=== PATIENT | female | born 1955 | race Caucasian/White ===

== ENCOUNTER 2019-02-15 11:41 | Inpatient (IN) | payer OTHER, SELFPAY ==
[2019-02-15] VITALS (23 sets, daily range): BP systolic 85–129; BP diastolic 37–69; PULSE 94–125; RESP 16–27; TEMP 36.8–39.4; O2SAT 91–99; BMI 24.1
--- NOTE | 2019-02-15 11:51 | DI.RAD.S_ITS ---
PROCEDURE: XR CHEST 1V INDICATIONS: pneumonia TECHNIQUE: One view of the chest was acquired. COMPARISON: [facility], , CHEST 1 VIEW, 05/19/2015, 15:13. [facility], CR, CHEST 1 VIEW, 05/20/2015, 6:05. [facility], CR, CHEST 1 VIEW, 05/20/2015, 8:57. FINDINGS: Surgical changes and devices: There are postsurgical changes from prior anterior cervical fusion and posterior lumbar fusion. Dense material within the lower thoracic spine compatible with prior vertebroplasty. Lungs and pleura: There is increased diffuse interstitial prominence superimposed on chronic interstitial changes with persistent blunting of the bilateral costophrenic angles. Stable appearance of medial streaky bibasilar opacities, greater on the left. A small focal opacity is noted in the right midlung zone. No substantial pleural effusions. No pneumothorax. Mediastinum: Mediastinal contours appear normal. Heart size is normal. Bones and chest wall: No suspicious bony lesions. Overlying soft tissues appear unremarkable. IMPRESSION: There is increased diffuse interstitial prominence superimposed on chronic interstitial changes with focal opacity in the right mid lung zone. This may represent an infectious/inflammatory process. Early pulmonary edema may have a similar appearance if clinically appropriate. Dictated by: Chauncey Johansen M.D. on 02/15/2019 at 12:35 Approved by: Chauncey Johansen M.D. on 02/15/2019 at 12:42
--- NOTE | 2019-02-15 12:12 | ED.URI ---
HPI - URI/Sore Throat General Chief Complaint: Upper Respiratory Symptoms Stated Complaint: really doesnt feel well, cough Time Seen by Provider: 02/15/19 11:53 Source: patient Mode of arrival: ambulatory Limitations: no limitations History of Present Illness HPI Narrative: Patient is a 63-year-old female presenting with increased confusion and shortness of breath. She is chronically on O2 after bilateral empyema and pneumothorax 5 years ago. She was recently admitted and discharged from [facility] with septic shock and small-bowel obstruction. She actually had follow up with her surgeon today who removed her anna and brought her here for further evaluation. states that she is significantly more confused starting last night. She is currently febrile fever of 102 in the ED. MD Complaint: fever and cough Onset (ago): minute(s) Duration: constant Related Data Home Medications Medication Instructions Recorded Confirmed alendronate [Fosamax] 70 mg PO QWEEKMO #0 01/10/18 02/15/19 duloxetine [Cymbalta] 60 mg PO BEDTIME #0 01/10/18 02/15/19 fluticasone propion-salmeterol 1 puff INH BID #0 01/10/18 02/15/19 [Advair Diskus] ipratropium-albuterol 1 amp NEB QIDP PRN #0 01/10/18 02/15/19 meloxicam 15 mg PO QPM #0 01/10/18 02/15/19 morphine [MS Contin] 15 mg PO BID #0 01/10/18 02/15/19 sennosides [senna] 8.6 tab PO QAM #0 01/10/18 02/15/19 albuterol sulfate [Ventolin HFA] 1 - 2 puff INHALATION PRN PRN 02/15/19 02/15/19 buprenorphine-naloxone 1 film SUBLINGUAL DAILY 02/15/19 cholecalciferol (vitamin D3) 2,000 unit PO DAILY 02/15/19 02/15/19 [Vitamin D3] cromolyn 1 drp EYE-BOTH PRN 02/15/19 02/15/19 cyclobenzaprine 10 mg PO TID PRN 02/15/19 02/15/19 famotidine 40 mg PO BEDTIME PRN 02/15/19 02/15/19 levothyroxine 50 mcg PO DAILY 02/15/19 02/15/19 lidocaine HCl [Lidocaine Viscous] 5 ml PO Q4H PRN 02/15/19 02/15/19 metoprolol tartrate 12.5 mg PO BID 02/15/19 02/15/19 montelukast 10 mg PO QPM 02/15/19 02/15/19 ondansetron 4 mg TRANSLINGUAL PRN PRN 02/15/19 02/15/19 oxycodone 10 mg PO PRN PRN 02/15/19 02/15/19 Allergies Allergy/AdvReac Type Severity Reaction Status Date / Time Haemophilus B polysaccharide Allergy Severe ANAPHYLAXIS Verified 02/15/19 12:45 conj w [From PENTACEL ACTHIB COMPONENT (PF)] peanut [PEANUT] Allergy Severe ANAPHYLAXIS Verified 02/15/19 12:45 Tetanus Vaccines and Toxoid Allergy Severe ANAPHYLAXIS Verified 02/15/19 12:45 [TETANUS VACCINES & TOXOID] penicillin G [PENICILLIN G] Allergy Intermediate RASH Verified 02/15/19 12:45 hydroxyzine [HYDROXYZINE] AdvReac Severe HALLUCINATI Verified 02/15/19 12:45 ONS/PARANOI D ibuprofen [IBUPROFEN] AdvReac Intermediate DYSLEXIA Verified 02/15/19 12:45 PEAS Allergy Severe RASH, LIP Uncoded 02/15/19 12:45 SWELLING Review of Systems Review of Systems ROS Unobtainable: All systems reviewed & are unremarkable except as noted in HPI and below Constitutional Denies chills, Denies fever(s), Denies lethargy and Denies weakness Respiratory Reports as per HPI Gastrointestinal Gastrointestinal: Reports as per HPI Genitourinary Denies hematuria, Denies flank pain, Denies urinary incontinence and Denies urinary urgency Musculoskeletal Denies back pain, Denies muscle weakness, Denies numbness and Denies tingling Integumentary/Breasts Denies pruritus, Denies erythema, Denies rash and Denies wounds Neurologic Denies confusion, Denies numbness, Denies tingling and Denies weakness Psychiatric Denies anxiety, Denies confusion, Denies depression, Denies homicidal ideation and Denies suicidal ideation PFSH Medical History Aspiration pneumonia due to food (regurgitated) (Acute) Chronic respiratory failure with hypoxia (Acute) Hyponatremia (Acute) Hypothyroidism (Acute) Hypovolemic shock (Acute) Major depressive disorder (Acute) Opioid dependence (Acute) Osteoporosis (Acute) Supraventricular tachycardia (Acute) Surgical History H/O exploratory laparotomy (Acute) Social History household members: spouse Smoking Status: Never smoker Social History household members: spouse Smoking Status: Never smoker Exam Initial Vital Signs Initial Vital Signs: Vital Signs Temperature 102.0 F H 02/15/19 11:52 Pulse Rate 112 H 02/15/19 11:52 Respiratory Rate 22 02/15/19 11:52 Blood Pressure 112/62 02/15/19 11:52 Pulse Oximetry 91 02/15/19 11:52 Gen.: Weak elderly female appears in mild distress HEENT: Head is atraumatic, EOMI, left nare has dried blood no active bleeding Neck: No JVD Lungs: Coarse bilaterally Cardiac: Tachycardic regular Abdomen: Surgical scar noted incision site clean and dry is soft nontender no guarding or rebound Extremities: Moving all extremities no gross bony deformity peripheral pulses intact Neurologic: Alert Course Orders Ordered: ED Orders 02/15/19 11:51 XR chest 1V Stat 02/15/19 11:57 EKG-12 Lead Routine 02/15/19 12:10 Consult to Respiratory Therapy Evaluate & Treat 02/15/19 12:18 B Type Natriuretic Peptide Stat Complete Blood Count AUTO DIFF Stat Comprehensive Metabolic Panel Stat Lactate (Lactic Acid) Stat Magnesium Stat Partial Thromboplastin Time Stat Procalcitonin Stat Prothrombin Time INR Stat Troponin & CK Cardiac Panel Stat 02/15/19 12:20 Influenza A and B by PCR Rapid Stat 02/15/19 12:23 CT angio chest PE protocol Stat 02/15/19 12:55 Blood Culture Stat 02/15/19 13:07 CT head/brain wo con Stat 02/15/19 14:00 Urinalysis and Microscopic Stat 02/15/19 15:23 MRSA PCR Stat 02/15/19 17:32 Iron Profile (w/ % Saturation) Routine Lactate (Lactic Acid) Stat 02/15/19 17:50 Respiratory Panel (Film Array) Routine 02/15/19 18:30 UA Complete [Urinalysis and Microscopic] Urgent Urine Culture Urgent 02/15/19 18:56 Consult to Dietitian, Adult Routine 02/16/19 05:00 B Type Natriuretic Peptide Routine Complete Blood Count AUTO DIFF Routine Comprehensive Metabolic Panel Routine Acetaminophen (Tylenol) 650 mg PO Q6HR PRN PRN Reason: As Needed for Fever/Mild Pain Albuterol (Ventolin) 2.5 mg INH [id number] [facility] Bisacodyl (Dulcolax) 10 mg PO DAILY PRN PRN Reason: Constipation Cyclobenzaprine HCl (Flexeril) 10 mg PO Q8HR PRN PRN Reason: Spasms Duloxetine HCl (Cymbalta) 60 mg PO DAILY [facility] Enoxaparin Sodium (Lovenox) 40 mg SUBCUT DAILY [facility] Last Admin: 02/15/19 17:14 Dose: 40 mg Sodium Chloride (Normal Saline 0.9%) 1,000 mls @ 150 mls/hr IV CONT [facility] Last Infusion: 02/15/19 15:56 Dose: 150 mls/hr Infusion: 02/15/19 13:09 Dose: 100 mls/hr Admin: 02/15/19 12:46 Dose: 150 mls/hr Famotidine (Pepcid) 20 mg in 50 mls @ 200 mls/hr IV Q24H [facility] Levofloxacin (Levaquin) 750 mg in 150 mls @ 100 mls/hr IV 1400 [facility] Cefepime HCl 2 gm/ Sodium (Chloride) 100 mls @ 200 mls/hr IV Q12H [facility] Last Admin: 02/15/19 17:13 Dose: 200 mls/hr Levothyroxine Sodium (Synthroid) 50 mcg PO 0600 [facility] Methylprednisolone (Solu-Medrol) 40 mg IV Q8HR [facility] Last Admin: 02/15/19 17:14 Dose: 40 mg Morphine Sulfate (Morphine) 4 mg IV Q4HR PRN PRN Reason: Pain, Severe (7-10) Ondansetron HCl (Zofran) 4 mg IV Q6HR PRN PRN Reason: Nausea And Vomiting Oxycodone HCl (Percolone) 5 mg PO Q4HR PRN PRN Reason: Pain, Moderate (4-6) Fluticasone/Salmeterol (Advair 500/50 Diskus) 1 puff INH RTBID [facility] Sennosides (Senna) 17.2 mg PO BEDTIME [facility] Discontinued Medications Acetaminophen (Tylenol) 650 mg PO NOW ONE Stop: 02/15/19 14:03 Last Admin: 02/15/19 14:34 Dose: 650 mg Albuterol/Ipratropium (Duoneb) 3 ml INH NOW ONE Stop: 02/15/19 12:11 Last Admin: 02/15/19 12:35 Dose: 3 ml Levofloxacin (Levaquin) 750 mg in 150 mls @ 100 mls/hr IV NOW ONE Stop: 02/15/19 15:53 Last Infusion: 02/15/19 15:00 Dose: 0 mls/hr Admin: 02/15/19 14:36 Dose: 100 mls/hr Magnesium Sulfate (Magnesium Sulfate) 4 gm in 100 mls @ 50 mls/hr IV NOW ONE Stop: 02/15/19 18:40 Sodium Chloride (Normal Saline 0.9%) 1,000 mls @ 1,000 mls/hr IV BOLUS ONE Stop: 02/15/19 19:11 Last Admin: 02/15/19 19:13 Dose: 500 mls/hr Metoprolol Succinate (Toprol Xl) 12.5 mg PO BID FAISAL Vital Signs - 8 hr 02/15/19 11:52 02/15/19 12:41 02/15/19 12:42 Temperature 102.0 F H Pulse Rate 112 H 110 H 100 H Respiratory Rate 22 21 16 Blood Pressure 112/62 Blood Pressure [Right Arm] 126/69 Pulse Oximetry 91 96 99 02/15/19 13:53 02/15/19 13:59 02/15/19 14:28 Temperature 100.8 F H 102.8 F H Pulse Rate Respiratory Rate 27 H Blood Pressure Blood Pressure [Right Arm] 123/66 Pulse Oximetry 93 02/15/19 14:34 02/15/19 14:42 02/15/19 15:05 Temperature 102.9 F H 102.5 F H Pulse Rate 117 H 125 H Respiratory Rate 21 26 H Blood Pressure 129/69 Blood Pressure [Right Arm] 124/68 Pulse Oximetry 93 95 02/15/19 15:55 02/15/19 16:00 02/15/19 16:30 Temperature 100.5 F H 100.5 F H 100.6 F H Pulse Rate 117 H 115 H Respiratory Rate 22 26 H Blood Pressure 116/42 L 94/42 L Blood Pressure [Right Arm] Pulse Oximetry 93 96 MDM - URI/Sore Throat Lab Data Result diagrams: 02/15/19 12:18 02/15/19 12:18 Lab Results 02/15/19 02/15/19 02/15/19 Range/Units 12:18 12:18 12:18 WBC 7.3 (4.5-11.0) X10^3/uL RBC 3.63 L (4.0-5.2) X10^6/uL Hgb 9.5 L (12.0-16.0) g/dL Hct 28.3 L (36-46) % MCV 77.9 L (80-100) fL MCH 26.2 (26-34) PG MCHC 33.6 (30-36) % RDW 18.5 H (11.6-14.8) % Plt Count 112 L (150-400) X10^3/uL Neut % (Auto) 84.7 H (50-75) % Lymph % (Auto) 8.6 L (25-40) % [place] % (Auto) 5.9 (3-14) % Eos % (Auto) 0.1 L (2-4) % Baso % (Auto) 0.7 (0-2) % Neut # (Auto) 6200 (1381-1896) /uL Lymph # (Auto) 600 L (1899-1819) /uL [place] # (Auto) 400 (0-900) /uL Eos # (Auto) 0 (0-450) /uL Baso # (Auto) 100 (0-100) /uL PT 15.7 H (10.1-12.7) SECONDS INR 1.4 H (0.9-1.3) APTT 32 (26.4-36.2) SECONDS Sodium 116 L* (137-145) mmol/L Potassium 4.3 (3.4-5.1) mmol/L Chloride 83 L (98-107) mmol/L Carbon Dioxide 23 (22-32) mmol/L BUN 12 (7-17) mg/dL Creatinine 0.60 (0.52-1.04) mg/dL Estimated GFR > 60.0 (>60) mL/min BUN/Creatinine Ratio 20.0 (6-22) Glucose 102 (80-110) mg/dL Lactate (0.7-2.1) mmol/L Calcium 7.9 L (8.4-10.2) mg/dL Magnesium 1.3 L (1.6-2.3) mg/dL Iron (37-170) ug/dL TIBC (265-497) ug/dL % Saturation (15-50) % Transferrin (206-381) mg/dL Total Bilirubin 1.9 H (0.2-1.3) mg/dL AST 59 H (14-36) IU/L ALT 29 (9-52) IU/L Alkaline Phosphatase 124 (38-126) U/L Total Creatine Kinase 91 (30-135) U/L CK-MB (CK-2) TNP CK-MB (CK-2) Rel Index TNP Troponin I < 0.012 (0.01-0.034) ng/mL B-Natriuretic Peptide < 100 (<100) Total Protein 6.9 (6.3-8.2) g/dL Albumin 3.1 L (3.5-5.0) g/dL Globulin 3.8 (1.7-4.1) g/dL Albumin/Globulin Ratio 0.8 L (1.0-2.8) Procalcitonin (<0.5) ng/mL Urine Color Urine Appearance Urine pH (4.5-8.0) Ur Specific [place] (1.000-1.035) Urine Protein (Negative) Urine Glucose (UA) (Negative) g/dL Urine Ketones (NEGATIVE) Urine Occult Blood (Negative) Urine Nitrate (Negative) Urine Bilirubin (NEGATIVE) Urine Urobilinogen (0.2) E.U./dL Ur Leukocyte Esterase (NEGATIVE) Urine RBC (0-5/HPF) Urine WBC (0-5/HPF) Amorphous Sediment Urine Bacteria (None) Ur Culture Indicated? Nasal Screen MRSA (PCR) (Negative) Influenza A & B (PCR) (Negative) 02/15/19 02/15/19 02/15/19 Range/Units 12:18 12:18 12:20 WBC (4.5-11.0) X10^3/uL RBC (4.0-5.2) X10^6/uL Hgb (12.0-16.0) g/dL Hct (36-46) % MCV (80-100) fL MCH (26-34) PG MCHC (30-36) % RDW (11.6-14.8) % Plt Count (150-400) X10^3/uL Neut % (Auto) (50-75) % Lymph % (Auto) (25-40) % [place] % (Auto) (3-14) % Eos % (Auto) (2-4) % Baso % (Auto) (0-2) % Neut # (Auto) (4964-9361) /uL Lymph # (Auto) (2522-3414) /uL [place] # (Auto) (0-900) /uL Eos # (Auto) (0-450) /uL Baso # (Auto) (0-100) /uL PT (10.1-12.7) SECONDS INR (0.9-1.3) APTT (26.4-36.2) SECONDS Sodium (137-145) mmol/L Potassium (3.4-5.1) mmol/L Chloride (98-107) mmol/L Carbon Dioxide (22-32) mmol/L BUN (7-17) mg/dL Creatinine (0.52-1.04) mg/dL Estimated GFR (>60) mL/min BUN/Creatinine Ratio (6-22) Glucose (80-110) mg/dL Lactate 1.1 (0.7-2.1) mmol/L Calcium (8.4-10.2) mg/dL Magnesium (1.6-2.3) mg/dL Iron (37-170) ug/dL TIBC (265-497) ug/dL % Saturation (15-50) % Transferrin (206-381) mg/dL Total Bilirubin (0.2-1.3) mg/dL AST (14-36) IU/L ALT (9-52) IU/L Alkaline Phosphatase (38-126) U/L Total Creatine Kinase (30-135) U/L CK-MB (CK-2) CK-MB (CK-2) Rel Index Troponin I (0.01-0.034) ng/mL B-Natriuretic Peptide (<100) Total Protein (6.3-8.2) g/dL Albumin (3.5-5.0) g/dL Globulin (1.7-4.1) g/dL Albumin/Globulin Ratio (1.0-2.8) Procalcitonin 1.60 H (<0.5) ng/mL Urine Color Urine Appearance Urine pH (4.5-8.0) Ur Specific [place] (1.000-1.035) Urine Protein (Negative) Urine Glucose (UA) (Negative) g/dL Urine Ketones (NEGATIVE) Urine Occult Blood (Negative) Urine Nitrate (Negative) Urine Bilirubin (NEGATIVE) Urine Urobilinogen (0.2) E.U./dL Ur Leukocyte Esterase (NEGATIVE) Urine RBC (0-5/HPF) Urine WBC (0-5/HPF) Amorphous Sediment Urine Bacteria (None) Ur Culture Indicated? Nasal Screen MRSA (PCR) (Negative) Influenza A & B (PCR) Negative (Negative) 02/15/19 02/15/19 02/15/19 Range/Units 14:00 15:23 17:32 WBC (4.5-11.0) X10^3/uL RBC (4.0-5.2) X10^6/uL Hgb (12.0-16.0) g/dL Hct (36-46) % MCV (80-100) fL MCH (26-34) PG MCHC (30-36) % RDW (11.6-14.8) % Plt Count (150-400) X10^3/uL Neut % (Auto) (50-75) % Lymph % (Auto) (25-40) % [place] % (Auto) (3-14) % Eos % (Auto) (2-4) % Baso % (Auto) (0-2) % Neut # (Auto) (9505-4973) /uL Lymph # (Auto) (1957-9168) /uL [place] # (Auto) (0-900) /uL Eos # (Auto) (0-450) /uL Baso # (Auto) (0-100) /uL PT (10.1-12.7) SECONDS INR (0.9-1.3) APTT (26.4-36.2) SECONDS Sodium (137-145) mmol/L Potassium (3.4-5.1) mmol/L Chloride (98-107) mmol/L Carbon Dioxide (22-32) mmol/L BUN (7-17) mg/dL Creatinine (0.52-1.04) mg/dL Estimated GFR (>60) mL/min BUN/Creatinine Ratio (6-22) Glucose (80-110) mg/dL Lactate (0.7-2.1) mmol/L Calcium (8.4-10.2) mg/dL Magnesium (1.6-2.3) mg/dL Iron 21 L (37-170) ug/dL TIBC 223 L (265-497) ug/dL % Saturation 9 L (15-50) % Transferrin 140 L (206-381) mg/dL Total Bilirubin (0.2-1.3) mg/dL AST (14-36) IU/L ALT (9-52) IU/L Alkaline Phosphatase (38-126) U/L Total Creatine Kinase (30-135) U/L CK-MB (CK-2) CK-MB (CK-2) Rel Index Troponin I (0.01-0.034) ng/mL B-Natriuretic Peptide (<100) Total Protein (6.3-8.2) g/dL Albumin (3.5-5.0) g/dL Globulin (1.7-4.1) g/dL Albumin/Globulin Ratio (1.0-2.8) Procalcitonin (<0.5) ng/mL Urine Color Yellow Urine Appearance Clear Urine pH 7.0 (4.5-8.0) Ur Specific [place] 1.010 (1.000-1.035) Urine Protein Trace H (Negative) Urine Glucose (UA) Negative (Negative) g/dL Urine Ketones Negative (NEGATIVE) Urine Occult Blood Negative (Negative) Urine Nitrate Negative (Negative) Urine Bilirubin Negative (NEGATIVE) Urine Urobilinogen 0.2 (0.2) E.U./dL Ur Leukocyte Esterase Negative (NEGATIVE) Urine RBC None seen (0-5/HPF) Urine WBC None seen (0-5/HPF) Amorphous Sediment Urine Bacteria None seen (None) Ur Culture Indicated? Nasal Screen MRSA (PCR) Negative for mrsa (Negative) Influenza A & B (PCR) (Negative) 02/15/19 02/15/19 Range/Units 17:32 18:30 WBC (4.5-11.0) X10^3/uL RBC (4.0-5.2) X10^6/uL Hgb (12.0-16.0) g/dL Hct (36-46) % MCV (80-100) fL MCH (26-34) PG MCHC (30-36) % RDW (11.6-14.8) % Plt Count (150-400) X10^3/uL Neut % (Auto) (50-75) % Lymph % (Auto) (25-40) % [place] % (Auto) (3-14) % Eos % (Auto) (2-4) % Baso % (Auto) (0-2) % Neut # (Auto) (2123-6694) /uL Lymph # (Auto) (5976-4000) /uL [place] # (Auto) (0-900) /uL Eos # (Auto) (0-450) /uL Baso # (Auto) (0-100) /uL PT (10.1-12.7) SECONDS INR (0.9-1.3) APTT (26.4-36.2) SECONDS Sodium (137-145) mmol/L Potassium (3.4-5.1) mmol/L Chloride (98-107) mmol/L Carbon Dioxide (22-32) mmol/L BUN (7-17) mg/dL Creatinine (0.52-1.04) mg/dL Estimated GFR (>60) mL/min BUN/Creatinine Ratio (6-22) Glucose (80-110) mg/dL Lactate 0.9 (0.7-2.1) mmol/L Calcium (8.4-10.2) mg/dL Magnesium (1.6-2.3) mg/dL Iron (37-170) ug/dL TIBC (265-497) ug/dL % Saturation (15-50) % Transferrin (206-381) mg/dL Total Bilirubin (0.2-1.3) mg/dL AST (14-36) IU/L ALT (9-52) IU/L Alkaline Phosphatase (38-126) U/L Total Creatine Kinase (30-135) U/L CK-MB (CK-2) CK-MB (CK-2) Rel Index Troponin I (0.01-0.034) ng/mL B-Natriuretic Peptide (<100) Total Protein (6.3-8.2) g/dL Albumin (3.5-5.0) g/dL Globulin (1.7-4.1) g/dL Albumin/Globulin Ratio (1.0-2.8) Procalcitonin (<0.5) ng/mL Urine Color Yellow Urine Appearance Clear Urine pH 6.5 (4.5-8.0) Ur Specific [place] <=1.005 (1.000-1.035) Urine Protein Trace H (Negative) Urine Glucose (UA) Negative (Negative) g/dL Urine Ketones Trace H (NEGATIVE) Urine Occult Blood Trace-lysed (Negative) Urine Nitrate Negative (Negative) Urine Bilirubin Negative (NEGATIVE) Urine Urobilinogen 0.2 (0.2) E.U./dL Ur Leukocyte Esterase Negative (NEGATIVE) Urine RBC 1-5/hpf (0-5/HPF) Urine WBC 5-10/hpf H (0-5/HPF) Amorphous Sediment 2+ Urine Bacteria None seen (None) Ur Culture Indicated? Specimen cultured Nasal Screen MRSA (PCR) (Negative) Influenza A & B (PCR) (Negative) Imaging Data CT scan - chest: Radiologist's impression: PROCEDURE: CT ANGIO CHEST PE PROTOCOL INDICATIONS: hypoxia recent hospitalization TECHNIQUE: After the administration of intravenous contrast, 2 mm thick sections acquired from the pulmonary apices to the posterior costophrenic angles. 3-dimensional maximum intensity projection (MIP) coronal and sagittal reformats were then acquired through the thorax. For radiation dose reduction, the following was used: automated exposure control, adjustment of mA and/or kV according to patient size. COMPARISON: [facility], CR, XR CHEST 1V, 02/15/2019, 11:59. FINDINGS: Image quality: Excellent. Pulmonary arteries: Pulmonary arteries are normal in size, and demonstrate no intraluminal filling defects to suggest central pulmonary embolism. Lungs and pleura: Moderate basilar predominant reticulonodular and air space opacity. No pleural effusions or pneumothorax. Central and peripheral airways are patent. Mediastinum: Heart size is normal, without pericardial effusion. 22 mm short axis AP window adenopathy. 11 mm short axis left superior mediastinal adenopathy medial to the left subclavian artery. 15 mm short axis subcarinal adenopathy. 11 mm short axis right hilar adenopathy. 9 mm short axis left hilar adenopathy. Thoracic aorta is normal in caliber and enhancement. Esophagus is normal in caliber. Moderate hiatal hernia. Bones and chest wall: No suspicious bony lesions. Healing fractures of the left lateral 3rd, 4th, 5th, 6th, 7th, 8th, and 9th ribs. Thyroid gland is within normal limits. No axillary or supraclavicular adenopathy. Thoracolumbar fusion hardware. Bony cement injection within the lower thoracic spine. Abdomen: Visualized upper abdominal solid organs appear normal in the early arterial phase of enhancement. IMPRESSION: 1. Bilateral pneumonia, as seen by plain film examination. 2. No evidence of coexisting pulmonary embolus. 3. Presumably reactive mediastinal and hilar adenopathy. Followup chest CT with contrast is recommended to ensure resolution, and to exclude underlying malignancy. 4. Moderate hiatal hernia. 5. Healing left rib fractures. Dictated by: Wagner Cardenas M.D. on 02/15/2019 at 13:25 Chest x-ray: Radiologist's impression: PROCEDURE: XR CHEST 1V INDICATIONS: pneumonia TECHNIQUE: One view of the chest was acquired. COMPARISON: [facility], , CHEST 1 VIEW, 05/19/2015, 15:13. [facility], CHEST 1 VIEW, 05/20/2015, 6:05. [facility], CHEST 1 VIEW, 05/20/2015, 8:57. FINDINGS: Surgical changes and devices: There are postsurgical changes from prior anterior cervical fusion and posterior lumbar fusion. Dense material within the lower thoracic spine compatible with prior vertebroplasty. Lungs and pleura: There is increased diffuse interstitial prominence superimposed on chronic interstitial changes with persistent blunting of the bilateral costophrenic angles. Stable appearance of medial streaky bibasilar opacities, greater on the left. A small focal opacity is noted in the right midlung zone. No substantial pleural effusions. No pneumothorax. Mediastinum: Mediastinal contours appear normal. Heart size is normal. Bones and chest wall: No suspicious bony lesions. Overlying soft tissues appear unremarkable. IMPRESSION: There is increased diffuse interstitial prominence superimposed on chronic interstitial changes with focal opacity in the right mid lung zone. This may represent an infectious/inflammatory process. Early pulmonary edema may have a similar appearance if clinically appropriate. Dictated by: Chauncey Johansen M.D. on 02/15/2019 at 12:35 Approved by: Chauncey Johansen M.D. on 02/15/2019 at 12:4 CT scan - head: Radiologist's impression: PROCEDURE: CT HEAD/BRAIN WO CON INDICATIONS: confusion TECHNIQUE: Noncontrast 4.5 mm thick angled axial sections acquired from the foramen magnum to the vertex, with coronal and sagittal reformats. For radiation dose reduction, the following was used: automated exposure control, adjustment of mA and/or kV according to patient size. COMPARISON: None. FINDINGS: Image quality: Excellent. CSF spaces: Basal cisterns are patent. No extra-axial fluid collections. The ventricles are symmetric in size and shape. Brain: No intracranial bleeds or masses. There is cerebral volume loss for age, with resultant ventricular and sulcal prominence. There are periventricular and deep white matter chronic small vessel ischemic changes. There is intracranial internal carotid artery atherosclerosis. Skull and face: Calvarium and visualized facial bones appear intact, without suspicious lesions. Sinuses: Small amount of bilateral maxillary sinus fluid. Visualized sinuses and mastoids are otherwise clear. IMPRESSION: No acute intracranial abnormality. No explanation for confusion. ECG Data Attestation: I personally reviewed and interpreted this ECG as follows: Prior ECG tracings: available for review Interpretation: In sinus rhythm low voltage rate [address] changes RI interval 121 MDM Narrative Medical decision making narrative: states that she eats only a small amount of cottage cheese and does drink quite a bit of water. Previous records have been reviewed she had a normal sodium at [facility] of 139. Confusion is likely multifactorial of hyponatremia and infection. CT and x-rays show pneumonia. Dr. Spicer has been updated patient's symptoms test results accepts patient for inpatient. Critical Care Time Critical Care Time: Yes Total Critical Care Time: 30 Attestation: The high probability of a clinically significant, sudden or life threatening deterioration of the [cardiovascular] system(s) required my full and direct attention, intervention and personal management. The aggregate critical care time was [45] minutes. This time is in addition to time spent performing reported procedures but includes the following: [x] Data Review and interpretation [x] Patient assessment and monitoring of vital signs [x] Documentation [x] Medication orders and management Discharge Plan Departure Patient Disposition: Admitted As Inpatient Clinical Impression: Acute hyponatremia Fever Qualifiers: Fever type: due to other condition Qualified Code(s): R50.81 - Fever presenting with conditions classified elsewhere Discharge Date/Time: 02/15/19 14:47 Interventions: ED Discharge Assessment Last Done: 02/15/19 14:45 Admit Date/Time: 02/15/19 14:29 Admit Provider: Michelle Spicer
--- NOTE | 2019-02-15 12:18 | ED_ITS ---
HPI - URI/Sore Throat General Chief Complaint: Upper Respiratory Symptoms Stated Complaint: really doesnt feel well, cough Time Seen by Provider: 02/15/19 11:53 Source: patient Mode of arrival: ambulatory Limitations: no limitations History of Present Illness HPI Narrative: Patient is a 63-year-old female presenting with increased confusion and shortness of breath. She is chronically on O2 after bilateral empyema and pneumothorax 5 years ago. She was recently admitted and discharged from [facility] with septic shock and small-bowel obstruction. She actually had follow up with her surgeon today who removed her anna and brought her here for further evaluation. states that she is significantly more confused starting last night. She is currently febrile fever of 102 in the ED. MD Complaint: fever and cough Onset (ago): minute(s) Duration: constant Related Data Home Medications Medication Instructions Recorded Confirmed alendronate [Fosamax] 70 mg PO QWEEKMO #0 01/10/18 02/15/19 duloxetine [Cymbalta] 60 mg PO BEDTIME #0 01/10/18 02/15/19 fluticasone propion-salmeterol 1 puff INH BID #0 01/10/18 02/15/19 [Advair Diskus] ipratropium-albuterol 1 amp NEB QIDP PRN #0 01/10/18 02/15/19 meloxicam 15 mg PO QPM #0 01/10/18 02/15/19 morphine [MS Contin] 15 mg PO BID #0 01/10/18 02/15/19 sennosides [senna] 8.6 tab PO QAM #0 01/10/18 02/15/19 albuterol sulfate [Ventolin HFA] 1 - 2 puff INHALATION PRN PRN 02/15/19 02/15/19 buprenorphine-naloxone 1 film SUBLINGUAL DAILY 02/15/19 cholecalciferol (vitamin D3) 2,000 unit PO DAILY 02/15/19 02/15/19 [Vitamin D3] cromolyn 1 drp EYE-BOTH PRN 02/15/19 02/15/19 cyclobenzaprine 10 mg PO TID PRN 02/15/19 02/15/19 famotidine 40 mg PO BEDTIME PRN 02/15/19 02/15/19 levothyroxine 50 mcg PO DAILY 02/15/19 02/15/19 lidocaine HCl [Lidocaine Viscous] 5 ml PO Q4H PRN 02/15/19 02/15/19 metoprolol tartrate 12.5 mg PO BID 02/15/19 02/15/19 montelukast 10 mg PO QPM 02/15/19 02/15/19 ondansetron 4 mg TRANSLINGUAL PRN PRN 02/15/19 02/15/19 oxycodone 10 mg PO PRN PRN 02/15/19 02/15/19 Allergies Allergy/AdvReac Type Severity Reaction Status Date / Time Haemophilus B polysaccharide Allergy Severe ANAPHYLAXIS Verified 02/15/19 12:45 conj w [From PENTACEL ACTHIB COMPONENT (PF)] peanut [PEANUT] Allergy Severe ANAPHYLAXIS Verified 02/15/19 12:45 Tetanus Vaccines and Toxoid Allergy Severe ANAPHYLAXIS Verified 02/15/19 12:45 [TETANUS VACCINES & TOXOID] penicillin G [PENICILLIN G] Allergy Intermediate RASH Verified 02/15/19 12:45 hydroxyzine [HYDROXYZINE] AdvReac Severe HALLUCINATI Verified 02/15/19 12:45 ONS/PARANOI D ibuprofen [IBUPROFEN] AdvReac Intermediate DYSLEXIA Verified 02/15/19 12:45 PEAS Allergy Severe RASH, LIP Uncoded 02/15/19 12:45 SWELLING Review of Systems Review of Systems ROS Unobtainable: All systems reviewed & are unremarkable except as noted in HPI and below Constitutional Denies chills, Denies fever(s), Denies lethargy and Denies weakness Respiratory Reports as per HPI Gastrointestinal Gastrointestinal: Reports as per HPI Genitourinary Denies hematuria, Denies flank pain, Denies urinary incontinence and Denies urinary urgency Musculoskeletal Denies back pain, Denies muscle weakness, Denies numbness and Denies tingling Integumentary/Breasts Denies pruritus, Denies erythema, Denies rash and Denies wounds Neurologic Denies confusion, Denies numbness, Denies tingling and Denies weakness Psychiatric Denies anxiety, Denies confusion, Denies depression, Denies homicidal ideation and Denies suicidal ideation PFSH Medical History Aspiration pneumonia due to food (regurgitated) (Acute) Chronic respiratory failure with hypoxia (Acute) Hyponatremia (Acute) Hypothyroidism (Acute) Hypovolemic shock (Acute) Major depressive disorder (Acute) Opioid dependence (Acute) Osteoporosis (Acute) Supraventricular tachycardia (Acute) Surgical History H/O exploratory laparotomy (Acute) Social History household members: spouse Smoking Status: Never smoker Social History household members: spouse Smoking Status: Never smoker Exam Initial Vital Signs Initial Vital Signs: Vital Signs Temperature 102.0 F H 02/15/19 11:52 Pulse Rate 112 H 02/15/19 11:52 Respiratory Rate 22 02/15/19 11:52 Blood Pressure 112/62 02/15/19 11:52 Pulse Oximetry 91 02/15/19 11:52 Gen.: Weak elderly female appears in mild distress HEENT: Head is atraumatic, EOMI, left nare has dried blood no active bleeding Neck: No JVD Lungs: Coarse bilaterally Cardiac: Tachycardic regular Abdomen: Surgical scar noted incision site clean and dry is soft nontender no guarding or rebound Extremities: Moving all extremities no gross bony deformity peripheral pulses intact Neurologic: Alert Course Orders Ordered: ED Orders 02/15/19 11:51 XR chest 1V Stat 02/15/19 11:57 EKG-12 Lead Routine 02/15/19 12:10 Consult to Respiratory Therapy Evaluate & Treat 02/15/19 12:18 B Type Natriuretic Peptide Stat Complete Blood Count AUTO DIFF Stat Comprehensive Metabolic Panel Stat Lactate (Lactic Acid) Stat Magnesium Stat Partial Thromboplastin Time Stat Procalcitonin Stat Prothrombin Time INR Stat Troponin & CK Cardiac Panel Stat 02/15/19 12:20 Influenza A and B by PCR Rapid Stat 02/15/19 12:23 CT angio chest PE protocol Stat 02/15/19 12:55 Blood Culture Stat 02/15/19 13:07 CT head/brain wo con Stat 02/15/19 14:00 Urinalysis and Microscopic Stat 02/15/19 15:23 MRSA PCR Stat 02/15/19 17:32 Iron Profile (w/ % Saturation) Routine Lactate (Lactic Acid) Stat 02/15/19 17:50 Respiratory Panel (Film Array) Routine 02/15/19 18:30 UA Complete [Urinalysis and Microscopic] Urgent Urine Culture Urgent 02/15/19 18:56 Consult to Dietitian, Adult Routine 02/16/19 05:00 B Type Natriuretic Peptide Routine Complete Blood Count AUTO DIFF Routine Comprehensive Metabolic Panel Routine Acetaminophen (Tylenol) 650 mg PO Q6HR PRN PRN Reason: As Needed for Fever/Mild Pain Albuterol (Ventolin) 2.5 mg INH [id number] [facility] Bisacodyl (Dulcolax) 10 mg PO DAILY PRN PRN Reason: Constipation Cyclobenzaprine HCl (Flexeril) 10 mg PO Q8HR PRN PRN Reason: Spasms Duloxetine HCl (Cymbalta) 60 mg PO DAILY [facility] Enoxaparin Sodium (Lovenox) 40 mg SUBCUT DAILY [facility] Last Admin: 02/15/19 17:14 Dose: 40 mg Sodium Chloride (Normal Saline 0.9%) 1,000 mls @ 150 mls/hr IV CONT [facility] Last Infusion: 02/15/19 15:56 Dose: 150 mls/hr Infusion: 02/15/19 13:09 Dose: 100 mls/hr Admin: 02/15/19 12:46 Dose: 150 mls/hr Famotidine (Pepcid) 20 mg in 50 mls @ 200 mls/hr IV Q24H [facility] Levofloxacin (Levaquin) 750 mg in 150 mls @ 100 mls/hr IV 1400 [facility] Cefepime HCl 2 gm/ Sodium (Chloride) 100 mls @ 200 mls/hr IV Q12H [facility] Last Admin: 02/15/19 17:13 Dose: 200 mls/hr Levothyroxine Sodium (Synthroid) 50 mcg PO 0600 [facility] Methylprednisolone (Solu-Medrol) 40 mg IV Q8HR [facility] Last Admin: 02/15/19 17:14 Dose: 40 mg Morphine Sulfate (Morphine) 4 mg IV Q4HR PRN PRN Reason: Pain, Severe (7-10) Ondansetron HCl (Zofran) 4 mg IV Q6HR PRN PRN Reason: Nausea And Vomiting Oxycodone HCl (Percolone) 5 mg PO Q4HR PRN PRN Reason: Pain, Moderate (4-6) Fluticasone/Salmeterol (Advair 500/50 Diskus) 1 puff INH RTBID [facility] Sennosides (Senna) 17.2 mg PO BEDTIME [facility] Discontinued Medications Acetaminophen (Tylenol) 650 mg PO NOW ONE Stop: 02/15/19 14:03 Last Admin: 02/15/19 14:34 Dose: 650 mg Albuterol/Ipratropium (Duoneb) 3 ml INH NOW ONE Stop: 02/15/19 12:11 Last Admin: 02/15/19 12:35 Dose: 3 ml Levofloxacin (Levaquin) 750 mg in 150 mls @ 100 mls/hr IV NOW ONE Stop: 02/15/19 15:53 Last Infusion: 02/15/19 15:00 Dose: 0 mls/hr Admin: 02/15/19 14:36 Dose: 100 mls/hr Magnesium Sulfate (Magnesium Sulfate) 4 gm in 100 mls @ 50 mls/hr IV NOW ONE Stop: 02/15/19 18:40 Sodium Chloride (Normal Saline 0.9%) 1,000 mls @ 1,000 mls/hr IV BOLUS ONE Stop: 02/15/19 19:11 Last Admin: 02/15/19 19:13 Dose: 500 mls/hr Metoprolol Succinate (Toprol Xl) 12.5 mg PO BID FAISAL Vital Signs - 8 hr 02/15/19 11:52 02/15/19 12:41 02/15/19 12:42 Temperature 102.0 F H Pulse Rate 112 H 110 H 100 H Respiratory Rate 22 21 16 Blood Pressure 112/62 Blood Pressure [Right Arm] 126/69 Pulse Oximetry 91 96 99 02/15/19 13:53 02/15/19 13:59 02/15/19 14:28 Temperature 100.8 F H 102.8 F H Pulse Rate Respiratory Rate 27 H Blood Pressure Blood Pressure [Right Arm] 123/66 Pulse Oximetry 93 02/15/19 14:34 02/15/19 14:42 02/15/19 15:05 Temperature 102.9 F H 102.5 F H Pulse Rate 117 H 125 H Respiratory Rate 21 26 H Blood Pressure 129/69 Blood Pressure [Right Arm] 124/68 Pulse Oximetry 93 95 02/15/19 15:55 02/15/19 16:00 02/15/19 16:30 Temperature 100.5 F H 100.5 F H 100.6 F H Pulse Rate 117 H 115 H Respiratory Rate 22 26 H Blood Pressure 116/42 L 94/42 L Blood Pressure [Right Arm] Pulse Oximetry 93 96 MDM - URI/Sore Throat Lab Data Result diagrams: 02/15/19 12:18 02/15/19 12:18 Lab Results 02/15/19 02/15/19 02/15/19 Range/Units 12:18 12:18 12:18 WBC 7.3 (4.5-11.0) X10^3/uL RBC 3.63 L (4.0-5.2) X10^6/uL Hgb 9.5 L (12.0-16.0) g/dL Hct 28.3 L (36-46) % MCV 77.9 L (80-100) fL MCH 26.2 (26-34) PG MCHC 33.6 (30-36) % RDW 18.5 H (11.6-14.8) % Plt Count 112 L (150-400) X10^3/uL Neut % (Auto) 84.7 H (50-75) % Lymph % (Auto) 8.6 L (25-40) % Mcpherson % (Auto) 5.9 (3-14) % Eos % (Auto) 0.1 L (2-4) % Baso % (Auto) 0.7 (0-2) % Neut # (Auto) 6200 (7064-6864) /uL Lymph # (Auto) 600 L (0425-3541) /uL Mcpherson # (Auto) 400 (0-900) /uL Eos # (Auto) 0 (0-450) /uL Baso # (Auto) 100 (0-100) /uL PT 15.7 H (10.1-12.7) SECONDS INR 1.4 H (0.9-1.3) APTT 32 (26.4-36.2) SECONDS Sodium 116 L* (137-145) mmol/L Potassium 4.3 (3.4-5.1) mmol/L Chloride 83 L (98-107) mmol/L Carbon Dioxide 23 (22-32) mmol/L BUN 12 (7-17) mg/dL Creatinine 0.60 (0.52-1.04) mg/dL Estimated GFR > 60.0 (>60) mL/min BUN/Creatinine Ratio 20.0 (6-22) Glucose 102 (80-110) mg/dL Lactate (0.7-2.1) mmol/L Calcium 7.9 L (8.4-10.2) mg/dL Magnesium 1.3 L (1.6-2.3) mg/dL Iron (37-170) ug/dL TIBC (265-497) ug/dL % Saturation (15-50) % Transferrin (206-381) mg/dL Total Bilirubin 1.9 H (0.2-1.3) mg/dL AST 59 H (14-36) IU/L ALT 29 (9-52) IU/L Alkaline Phosphatase 124 (38-126) U/L Total Creatine Kinase 91 (30-135) U/L CK-MB (CK-2) TNP CK-MB (CK-2) Rel Index TNP Troponin I < 0.012 (0.01-0.034) ng/mL B-Natriuretic Peptide < 100 (<100) Total Protein 6.9 (6.3-8.2) g/dL Albumin 3.1 L (3.5-5.0) g/dL Globulin 3.8 (1.7-4.1) g/dL Albumin/Globulin Ratio 0.8 L (1.0-2.8) Procalcitonin (<0.5) ng/mL Urine Color Urine Appearance Urine pH (4.5-8.0) Ur Specific [place] (1.000-1.035) Urine Protein (Negative) Urine Glucose (UA) (Negative) g/dL Urine Ketones (NEGATIVE) Urine Occult Blood (Negative) Urine Nitrate (Negative) Urine Bilirubin (NEGATIVE) Urine Urobilinogen (0.2) E.U./dL Ur Leukocyte Esterase (NEGATIVE) Urine RBC (0-5/HPF) Urine WBC (0-5/HPF) Amorphous Sediment Urine Bacteria (None) Ur Culture Indicated? Nasal Screen MRSA (PCR) (Negative) Influenza A & B (PCR) (Negative) 02/15/19 02/15/19 02/15/19 Range/Units 12:18 12:18 12:20 WBC (4.5-11.0) X10^3/uL RBC (4.0-5.2) X10^6/uL Hgb (12.0-16.0) g/dL Hct (36-46) % MCV (80-100) fL MCH (26-34) PG MCHC (30-36) % RDW (11.6-14.8) % Plt Count (150-400) X10^3/uL Neut % (Auto) (50-75) % Lymph % (Auto) (25-40) % Mcpherson % (Auto) (3-14) % Eos % (Auto) (2-4) % Baso % (Auto) (0-2) % Neut # (Auto) (2018-6898) /uL Lymph # (Auto) (8513-2762) /uL Mcpherson # (Auto) (0-900) /uL Eos # (Auto) (0-450) /uL Baso # (Auto) (0-100) /uL PT (10.1-12.7) SECONDS INR (0.9-1.3) APTT (26.4-36.2) SECONDS Sodium (137-145) mmol/L Potassium (3.4-5.1) mmol/L Chloride (98-107) mmol/L Carbon Dioxide (22-32) mmol/L BUN (7-17) mg/dL Creatinine (0.52-1.04) mg/dL Estimated GFR (>60) mL/min BUN/Creatinine Ratio (6-22) Glucose (80-110) mg/dL Lactate 1.1 (0.7-2.1) mmol/L Calcium (8.4-10.2) mg/dL Magnesium (1.6-2.3) mg/dL Iron (37-170) ug/dL TIBC (265-497) ug/dL % Saturation (15-50) % Transferrin (206-381) mg/dL Total Bilirubin (0.2-1.3) mg/dL AST (14-36) IU/L ALT (9-52) IU/L Alkaline Phosphatase (38-126) U/L Total Creatine Kinase (30-135) U/L CK-MB (CK-2) CK-MB (CK-2) Rel Index Troponin I (0.01-0.034) ng/mL B-Natriuretic Peptide (<100) Total Protein (6.3-8.2) g/dL Albumin (3.5-5.0) g/dL Globulin (1.7-4.1) g/dL Albumin/Globulin Ratio (1.0-2.8) Procalcitonin 1.60 H (<0.5) ng/mL Urine Color Urine Appearance Urine pH (4.5-8.0) Ur Specific [place] (1.000-1.035) Urine Protein (Negative) Urine Glucose (UA) (Negative) g/dL Urine Ketones (NEGATIVE) Urine Occult Blood (Negative) Urine Nitrate (Negative) Urine Bilirubin (NEGATIVE) Urine Urobilinogen (0.2) E.U./dL Ur Leukocyte Esterase (NEGATIVE) Urine RBC (0-5/HPF) Urine WBC (0-5/HPF) Amorphous Sediment Urine Bacteria (None) Ur Culture Indicated? Nasal Screen MRSA (PCR) (Negative) Influenza A & B (PCR) Negative (Negative) 02/15/19 02/15/19 02/15/19 Range/Units 14:00 15:23 17:32 WBC (4.5-11.0) X10^3/uL RBC (4.0-5.2) X10^6/uL Hgb (12.0-16.0) g/dL Hct (36-46) % MCV (80-100) fL MCH (26-34) PG MCHC (30-36) % RDW (11.6-14.8) % Plt Count (150-400) X10^3/uL Neut % (Auto) (50-75) % Lymph % (Auto) (25-40) % Mcpherson % (Auto) (3-14) % Eos % (Auto) (2-4) % Baso % (Auto) (0-2) % Neut # (Auto) (8546-5987) /uL Lymph # (Auto) (2838-3278) /uL Mcpherson # (Auto) (0-900) /uL Eos # (Auto) (0-450) /uL Baso # (Auto) (0-100) /uL PT (10.1-12.7) SECONDS INR (0.9-1.3) APTT (26.4-36.2) SECONDS Sodium (137-145) mmol/L Potassium (3.4-5.1) mmol/L Chloride (98-107) mmol/L Carbon Dioxide (22-32) mmol/L BUN (7-17) mg/dL Creatinine (0.52-1.04) mg/dL Estimated GFR (>60) mL/min BUN/Creatinine Ratio (6-22) Glucose (80-110) mg/dL Lactate (0.7-2.1) mmol/L Calcium (8.4-10.2) mg/dL Magnesium (1.6-2.3) mg/dL Iron 21 L (37-170) ug/dL TIBC 223 L (265-497) ug/dL % Saturation 9 L (15-50) % Transferrin 140 L (206-381) mg/dL Total Bilirubin (0.2-1.3) mg/dL AST (14-36) IU/L ALT (9-52) IU/L Alkaline Phosphatase (38-126) U/L Total Creatine Kinase (30-135) U/L CK-MB (CK-2) CK-MB (CK-2) Rel Index Troponin I (0.01-0.034) ng/mL B-Natriuretic Peptide (<100) Total Protein (6.3-8.2) g/dL Albumin (3.5-5.0) g/dL Globulin (1.7-4.1) g/dL Albumin/Globulin Ratio (1.0-2.8) Procalcitonin (<0.5) ng/mL Urine Color Yellow Urine Appearance Clear Urine pH 7.0 (4.5-8.0) Ur Specific [place] 1.010 (1.000-1.035) Urine Protein Trace H (Negative) Urine Glucose (UA) Negative (Negative) g/dL Urine Ketones Negative (NEGATIVE) Urine Occult Blood Negative (Negative) Urine Nitrate Negative (Negative) Urine Bilirubin Negative (NEGATIVE) Urine Urobilinogen 0.2 (0.2) E.U./dL Ur Leukocyte Esterase Negative (NEGATIVE) Urine RBC None seen (0-5/HPF) Urine WBC None seen (0-5/HPF) Amorphous Sediment Urine Bacteria None seen (None) Ur Culture Indicated? Nasal Screen MRSA (PCR) Negative for mrsa (Negative) Influenza A & B (PCR) (Negative) 02/15/19 02/15/19 Range/Units 17:32 18:30 WBC (4.5-11.0) X10^3/uL RBC (4.0-5.2) X10^6/uL Hgb (12.0-16.0) g/dL Hct (36-46) % MCV (80-100) fL MCH (26-34) PG MCHC (30-36) % RDW (11.6-14.8) % Plt Count (150-400) X10^3/uL Neut % (Auto) (50-75) % Lymph % (Auto) (25-40) % Mcpherson % (Auto) (3-14) % Eos % (Auto) (2-4) % Baso % (Auto) (0-2) % Neut # (Auto) (8113-6484) /uL Lymph # (Auto) (2237-6283) /uL Mcpherson # (Auto) (0-900) /uL Eos # (Auto) (0-450) /uL Baso # (Auto) (0-100) /uL PT (10.1-12.7) SECONDS INR (0.9-1.3) APTT (26.4-36.2) SECONDS Sodium (137-145) mmol/L Potassium (3.4-5.1) mmol/L Chloride (98-107) mmol/L Carbon Dioxide (22-32) mmol/L BUN (7-17) mg/dL Creatinine (0.52-1.04) mg/dL Estimated GFR (>60) mL/min BUN/Creatinine Ratio (6-22) Glucose (80-110) mg/dL Lactate 0.9 (0.7-2.1) mmol/L Calcium (8.4-10.2) mg/dL Magnesium (1.6-2.3) mg/dL Iron (37-170) ug/dL TIBC (265-497) ug/dL % Saturation (15-50) % Transferrin (206-381) mg/dL Total Bilirubin (0.2-1.3) mg/dL AST (14-36) IU/L ALT (9-52) IU/L Alkaline Phosphatase (38-126) U/L Total Creatine Kinase (30-135) U/L CK-MB (CK-2) CK-MB (CK-2) Rel Index Troponin I (0.01-0.034) ng/mL B-Natriuretic Peptide (<100) Total Protein (6.3-8.2) g/dL Albumin (3.5-5.0) g/dL Globulin (1.7-4.1) g/dL Albumin/Globulin Ratio (1.0-2.8) Procalcitonin (<0.5) ng/mL Urine Color Yellow Urine Appearance Clear Urine pH 6.5 (4.5-8.0) Ur Specific [place] <=1.005 (1.000-1.035) Urine Protein Trace H (Negative) Urine Glucose (UA) Negative (Negative) g/dL Urine Ketones Trace H (NEGATIVE) Urine Occult Blood Trace-lysed (Negative) Urine Nitrate Negative (Negative) Urine Bilirubin Negative (NEGATIVE) Urine Urobilinogen 0.2 (0.2) E.U./dL Ur Leukocyte Esterase Negative (NEGATIVE) Urine RBC 1-5/hpf (0-5/HPF) Urine WBC 5-10/hpf H (0-5/HPF) Amorphous Sediment 2+ Urine Bacteria None seen (None) Ur Culture Indicated? Specimen cultured Nasal Screen MRSA (PCR) (Negative) Influenza A & B (PCR) (Negative) Imaging Data CT scan - chest: Radiologist's impression: PROCEDURE: CT ANGIO CHEST PE PROTOCOL INDICATIONS: hypoxia recent hospitalization TECHNIQUE: After the administration of intravenous contrast, 2 mm thick sections acquired from the pulmonary apices to the posterior costophrenic angles. 3-dimensional maximum intensity projection (MIP) coronal and sagittal reformats were then acquired through the thorax. For radiation dose reduction, the following was used: automated exposure control, adjustment of mA and/or kV according to patient size. COMPARISON: [facility], CR, XR CHEST 1V, 02/15/2019, 11:59. FINDINGS: Image quality: Excellent. Pulmonary arteries: Pulmonary arteries are normal in size, and demonstrate no intraluminal filling defects to suggest central pulmonary embolism. Lungs and pleura: Moderate basilar predominant reticulonodular and air space opacity. No pleural effusions or pneumothorax. Central and peripheral airways are patent. Mediastinum: Heart size is normal, without pericardial effusion. 22 mm short axis AP window adenopathy. 11 mm short axis left superior mediastinal adenopathy medial to the left subclavian artery. 15 mm short axis subcarinal adenopathy. 11 mm short axis right hilar adenopathy. 9 mm short axis left hilar adenopathy. Thoracic aorta is normal in caliber and enhancement. Esophagus is normal in caliber. Moderate hiatal hernia. Bones and chest wall: No suspicious bony lesions. Healing fractures of the left lateral 3rd, 4th, 5th, 6th, 7th, 8th, and 9th ribs. Thyroid gland is within normal limits. No axillary or supraclavicular adenopathy. Thoracolumbar fusion hardware. Bony cement injection within the lower thoracic spine. Abdomen: Visualized upper abdominal solid organs appear normal in the early arterial phase of enhancement. IMPRESSION: 1. Bilateral pneumonia, as seen by plain film examination. 2. No evidence of coexisting pulmonary embolus. 3. Presumably reactive mediastinal and hilar adenopathy. Followup chest CT with contrast is recommended to ensure resolution, and to exclude underlying malignancy. 4. Moderate hiatal hernia. 5. Healing left rib fractures. Dictated by: Wagner Cardenas M.D. on 02/15/2019 at 13:25 Chest x-ray: Radiologist's impression: PROCEDURE: XR CHEST 1V INDICATIONS: pneumonia TECHNIQUE: One view of the chest was acquired. COMPARISON: [facility], , CHEST 1 VIEW, 05/19/2015, 15:13. [facility], CHEST 1 VIEW, 05/20/2015, 6:05. [facility], CHEST 1 VIEW, 05/20/2015, 8:57. FINDINGS: Surgical changes and devices: There are postsurgical changes from prior anterior cervical fusion and posterior lumbar fusion. Dense material within the lower thoracic spine compatible with prior vertebroplasty. Lungs and pleura: There is increased diffuse interstitial prominence superimposed on chronic interstitial changes with persistent blunting of the bilateral costophrenic angles. Stable appearance of medial streaky bibasilar opacities, greater on the left. A small focal opacity is noted in the right midlung zone. No substantial pleural effusions. No pneumothorax. Mediastinum: Mediastinal contours appear normal. Heart size is normal. Bones and chest wall: No suspicious bony lesions. Overlying soft tissues appear unremarkable. IMPRESSION: There is increased diffuse interstitial prominence superimposed on chronic interstitial changes with focal opacity in the right mid lung zone. This may represent an infectious/inflammatory process. Early pulmonary edema may have a similar appearance if clinically appropriate. Dictated by: Chauncey Johansen M.D. on 02/15/2019 at 12:35 Approved by: Chauncey Johansen M.D. on 02/15/2019 at 12:4 CT scan - head: Radiologist's impression: PROCEDURE: CT HEAD/BRAIN WO CON INDICATIONS: confusion TECHNIQUE: Noncontrast 4.5 mm thick angled axial sections acquired from the foramen magnum to the vertex, with coronal and sagittal reformats. For radiation dose reduction, the following was used: automated exposure control, adjustment of mA and/or kV according to patient size. COMPARISON: None. FINDINGS: Image quality: Excellent. CSF spaces: Basal cisterns are patent. No extra-axial fluid collections. The ventricles are symmetric in size and shape. Brain: No intracranial bleeds or masses. There is cerebral volume loss for age, with resultant ventricular and sulcal prominence. There are periventricular and deep white matter chronic small vessel ischemic changes. There is intracranial internal carotid artery atherosclerosis. Skull and face: Calvarium and visualized facial bones appear intact, without suspicious lesions. Sinuses: Small amount of bilateral maxillary sinus fluid. Visualized sinuses and mastoids are otherwise clear. IMPRESSION: No acute intracranial abnormality. No explanation for confusion. ECG Data Attestation: I personally reviewed and interpreted this ECG as follows: Prior ECG tracings: available for review Interpretation: In sinus rhythm low voltage rate [address] changes [place] interval 121 MDM Narrative Medical decision making narrative: states that she eats only a small amount of cottage cheese and does drink quite a bit of water. Previous records have been reviewed she had a normal sodium at [facility] of 139. Confusion is likely multifactorial of hyponatremia and infection. CT and x-rays show pneumonia. Dr. Spicer has been updated patient's symptoms test results accepts patient for inpatient. Critical Care Time Critical Care Time: Yes Total Critical Care Time: 30 Attestation: The high probability of a clinically significant, sudden or life threatening deterioration of the [cardiovascular] system(s) required my full and direct attention, intervention and personal management. The aggregate critical care time was [45] minutes. This time is in addition to time spent performing reported procedures but includes the following: [x] Data Review and interpretation [x] Patient assessment and monitoring of vital signs [x] Documentation [x] Medication orders and management Discharge Plan Departure Patient Disposition: Admitted As Inpatient Clinical Impression: Acute hyponatremia Fever Qualifiers: Fever type: due to other condition Qualified Code(s): R50.81 - Fever presenting with conditions classified elsewhere Discharge Date/Time: 02/15/19 14:47 Interventions: ED Discharge Assessment Last Done: 02/15/19 14:45 Admit Date/Time: 02/15/19 14:29 Admit Provider: Michelle Spicer
--- NOTE | 2019-02-15 12:23 | DI.CT.S_ITS ---
PROCEDURE: CT ANGIO CHEST PE PROTOCOL INDICATIONS: hypoxia recent hospitalization TECHNIQUE: After the administration of intravenous contrast, 2 mm thick sections acquired from the pulmonary apices to the posterior costophrenic angles. 3-dimensional maximum intensity projection (MIP) coronal and sagittal reformats were then acquired through the thorax. For radiation dose reduction, the following was used: automated exposure control, adjustment of mA and/or kV according to patient size. COMPARISON: [facility], CR, XR CHEST 1V, 02/15/2019, 11:59. FINDINGS: Image quality: Excellent. Pulmonary arteries: Pulmonary arteries are normal in size, and demonstrate no intraluminal filling defects to suggest central pulmonary embolism. Lungs and pleura: Moderate basilar predominant reticulonodular and air space opacity. No pleural effusions or pneumothorax. Central and peripheral airways are patent. Mediastinum: Heart size is normal, without pericardial effusion. 22 mm short axis AP window adenopathy. 11 mm short axis left superior mediastinal adenopathy medial to the left subclavian artery. 15 mm short axis subcarinal adenopathy. 11 mm short axis right hilar adenopathy. 9 mm short axis left hilar adenopathy. Thoracic aorta is normal in caliber and enhancement. Esophagus is normal in caliber. Moderate hiatal hernia. Bones and chest wall: No suspicious bony lesions. Healing fractures of the left lateral 3rd, 4th, 5th, 6th, 7th, 8th, and 9th ribs. Thyroid gland is within normal limits. No axillary or supraclavicular adenopathy. Thoracolumbar fusion hardware. Bony cement injection within the lower thoracic spine. Abdomen: Visualized upper abdominal solid organs appear normal in the early arterial phase of enhancement. IMPRESSION: 1. Bilateral pneumonia, as seen by plain film examination. 2. No evidence of coexisting pulmonary embolus. 3. Presumably reactive mediastinal and hilar adenopathy. Followup chest CT with contrast is recommended to ensure resolution, and to exclude underlying malignancy. 4. Moderate hiatal hernia. 5. Healing left rib fractures. Dictated by: Wagner Cardenas M.D. on 02/15/2019 at 13:25 Approved by: Wagner Cardenas M.D. on 02/15/2019 at 13:30
[2019-02-15] MEDS: ALBUTEROL/IPRATROPIUM 3 ML AMPUL INH (12:35)
[2019-02-15 12:36] LABS: Add Manual Diff / Slide Review NO; Basophils Absolute Auto 100 /uL (0-100); Basophils Percent Auto 0.7 % (0-2); Eosinophils Absolute Auto 0 /uL (0-450); Eosinophils Percent Auto 0.1 % (2-4); Hematocrit 28.3 % (36-46); Hemoglobin 9.5 g/dL (12.0-16.0); Lymphocytes Absolute Auto 600 /uL (1100-4500); Lymphocytes Percent Auto 8.6 % (25-40); Mean Corpuscular HGB Conc 33.6 % (30-36); Mean Corpuscular Hemoglobin 26.2 PG (26-34); Mean Corpuscular Volume 77.9 fL (80-100); Monocytes Absolute Auto 400 /uL (0-900); Monocytes Percent Auto 5.9 % (3-14); Neutrophils Absolute Auto 6200 /uL (1500-7000); Neutrophils Percent Auto 84.7 % (50-75); Platelet Count 112 X10^3/uL (150-400); Red Blood Cell Count 3.63 X10^6/uL (4.0-5.2); Red Cell Distribution Width 18.5 % (11.6-14.8); White Blood Cell Count 7.3 X10^3/uL (4.5-11.0)
[2019-02-15 12:40] LABS: INR 1.4 (0.9-1.3); Prothrombin Time 15.7 SECONDS (10.1-12.7)
[2019-02-15 12:43] LABS: PTT Partial Thromboplastin Tim 32 SECONDS (26.4-36.2)
[2019-02-15 12:44] LABS: Lactate (Lactic Acid) 1.1 mmol/L (0.7-2.1)
[2019-02-15 12:46] LABS: Alanine Aminotransferase 29 IU/L (9-52); Albumin 3.1 g/dL (3.5-5.0); Albumin Globulin Ratio 0.8 (1.0-2.8); Alkaline Phosphatase 124 U/L (38-126); Aspartate Aminotransferase 59 IU/L (14-36); Bilirubin Total 1.9 mg/dL (0.2-1.3); Blood Urea Nitrogen 12 mg/dL (7-17); Calcium 7.9 mg/dL (8.4-10.2); Carbon Dioxide 23 mmol/L (22-32); Chloride 83 mmol/L (98-107); Creatine Kinase 91 U/L (30-135); Estimated Glomerular Filt Rate > 60.0 mL/min (>60); Globulin 3.8 g/dL (1.7-4.1); Glucose 102 mg/dL (80-110); HEMOLYSIS < 15 (0-50); Magnesium 1.3 mg/dL (1.6-2.3); Potassium 4.3 mmol/L (3.4-5.1); Total Protein 6.9 g/dL (6.3-8.2)
[2019-02-15] MEDS: SODIUM CHLORIDE 0.9% 1,000 ML 150 ML IV ×2 (12:46→23:37)
[2019-02-15 12:56] LABS: Troponin I < 0.012 ng/mL (0.01-0.034)
[2019-02-15 12:58] LABS: Sodium 116 mmol/L (137-145)
[2019-02-15 13:01] LABS: B Type Natriuretic Peptide < 100 (<100)
[2019-02-15 13:05] LABS: Influenza A and B by PCR Rapid Negative (Negative)
--- NOTE | 2019-02-15 13:07 | DI.CT.S_ITS ---
PROCEDURE: CT HEAD/BRAIN WO CON INDICATIONS: confusion TECHNIQUE: Noncontrast 4.5 mm thick angled axial sections acquired from the foramen magnum to the vertex, with coronal and sagittal reformats. For radiation dose reduction, the following was used: automated exposure control, adjustment of mA and/or kV according to patient size. COMPARISON: None. FINDINGS: Image quality: Excellent. CSF spaces: Basal cisterns are patent. No extra-axial fluid collections. The ventricles are symmetric in size and shape. Brain: No intracranial bleeds or masses. There is cerebral volume loss for age, with resultant ventricular and sulcal prominence. There are periventricular and deep white matter chronic small vessel ischemic changes. There is intracranial internal carotid artery atherosclerosis. Skull and face: Calvarium and visualized facial bones appear intact, without suspicious lesions. Sinuses: Small amount of bilateral maxillary sinus fluid. Visualized sinuses and mastoids are otherwise clear. IMPRESSION: No acute intracranial abnormality. No explanation for confusion. Dictated by: Wagner Cardenas M.D. on 02/15/2019 at 13:23 Approved by: Wagner Cardenas M.D. on 02/15/2019 at 13:25
--- NOTE | 2019-02-15 14:29 | PC.NURSE ---
straight cath In and out cath.
--- NOTE | 2019-02-15 14:30 | PC.NURSE ---
300 cc drained from in out cath.
[2019-02-15 14:34] LABS: Bacteria Urine None Seen; RBC Urine None Seen (0-5/HPF); WBC Urine None Seen (0-5/HPF)
[2019-02-15] MEDS: ACETAMINOPHEN 325 MG TABLET 650 MG PO ×2 (14:34→20:09)
[2019-02-15] MEDS: levoFLOXacin 750 MG/150 ML PIGGYBACK 100 MG IV (14:36)
[2019-02-15 14:43] LABS: Appearance Urine UA CLEAR; Bilirubin Urine UA NEGATIVE (NEGATIVE); Color Urine UA YELLOW; Glucose Urine UA NEGATIVE (Negative); Ketones Urine UA NEGATIVE (NEGATIVE); Leukocyte Esterase Urine UA NEGATIVE (NEGATIVE); Nitrite Urine UA NEGATIVE (Negative); Occult Blood Urine UA NEGATIVE (Negative); Protein Urine UA TRACE (Negative); Urobilinogen Urine UA 0.2 E.U./dL (0.2)
--- NOTE | 2019-02-15 16:41 | P.HP_ITS ---
History of Present Illness Date Patient Seen: 02/15/19 Chief complaint: really doesnt feel well, cough Narrative: The patient is a 63-year-old female who was [facility] on January 31, 2019. The patient was treated there for a small-bowel obstruction. Patient was admitted to [facility] and ultimately was found to have a high-grade small bowel obstruction. She was transferred to [facility] and admitted to [facility] for definitive surgical treatment. The patient underwent exploratory laparotomy with lysis of adhesions. She subsequently developed septic shock. The patient was treated for community-acquired pneumonia. In addition she was treated for probable aspiration pneumonia. She has a history of chronic hypoxic respiratory failure. She had acute blood loss anemia as well. The patient was discharged on the 31 of January. She went to see her general surgeon today to have her anna removed. Following that her brought her to the emergency room as the patient was just not feeling well. According to the the patient has been drinking a lot a water. Patient is confused and unable to provide any history. History obtained from medical records sent from [facility]. The patient was evaluated in the emergency department and found to have significant hyponatremia. She had a sodium of 116. In addition she was febrile to 102. Her lactate was normal. Her procalcitonin was elevated at 1.6. Review of her records reveals her pro callused 2.4 while at telling him. The patient has a complicated pulmonary history in that she has chronic bronchiectasis, COPD, and recurrent bronchial infections. She was treated for pneumonia at the hospital. The patient underwent a CT scan in the emergency department which suggest bilateral pneumonia. She is admitted to the hospital at this time for further evaluation. Patient is unable to provide family history or significant review of systems at this time Patient History Medical History Aspiration pneumonia due to food (regurgitated) (Acute) Chronic respiratory failure with hypoxia (Acute) Hyponatremia (Acute) Hypothyroidism (Acute) Hypovolemic shock (Acute) Major depressive disorder (Acute) Opioid dependence (Acute) Osteoporosis (Acute) Supraventricular tachycardia (Acute) Surgical History H/O exploratory laparotomy (Acute) Family & Social History Safety & Behavioral: Feels Safe in Current Yes Environment Been Physically Hurt or No Threatened By a Person Tobacco & Substance use: alcohol intake frequency 0-2 drinks per day Substance Use Type does not use Meds Home Medications Medication Instructions Recorded Confirmed Type alendronate [Fosamax] 70 mg PO QWEEKMO #0 01/10/18 02/15/19 History duloxetine [Cymbalta] 60 mg PO BEDTIME #0 01/10/18 02/15/19 History fluticasone propion-salmeterol 1 puff INH BID #0 01/10/18 02/15/19 History [Advair Diskus] ipratropium-albuterol 1 amp NEB QIDP PRN #0 01/10/18 02/15/19 History meloxicam 15 mg PO QPM #0 01/10/18 02/15/19 History morphine [MS Contin] 15 mg PO BID #0 01/10/18 02/15/19 History sennosides [senna] 8.6 tab PO QAM #0 01/10/18 02/15/19 History albuterol sulfate [Ventolin HFA] 1 - 2 puff INHALATION PRN PRN 02/15/19 02/15/19 History buprenorphine-naloxone 1 film SUBLINGUAL DAILY 02/15/19 History cholecalciferol (vitamin D3) 2,000 unit PO DAILY 02/15/19 02/15/19 History [Vitamin D3] cromolyn 1 drp EYE-BOTH PRN 02/15/19 02/15/19 History cyclobenzaprine 10 mg PO TID PRN 02/15/19 02/15/19 History famotidine 40 mg PO BEDTIME PRN 02/15/19 02/15/19 History levothyroxine 50 mcg PO DAILY 02/15/19 02/15/19 History lidocaine HCl [Lidocaine Viscous] 5 ml PO Q4H PRN 02/15/19 02/15/19 History metoprolol tartrate 12.5 mg PO BID 02/15/19 02/15/19 History montelukast 10 mg PO QPM 02/15/19 02/15/19 History ondansetron 4 mg TRANSLINGUAL PRN PRN 02/15/19 02/15/19 History oxycodone 10 mg PO PRN PRN 02/15/19 02/15/19 History Allergies Allergy/AdvReac Type Severity Reaction Status Date / Time Haemophilus B polysaccharide Allergy Severe ANAPHYLAXIS Verified 02/15/19 12:45 conj w [From PENTACEL ACTHIB COMPONENT (PF)] peanut [PEANUT] Allergy Severe ANAPHYLAXIS Verified 02/15/19 12:45 Tetanus Vaccines and Toxoid Allergy Severe ANAPHYLAXIS Verified 02/15/19 12:45 [TETANUS VACCINES & TOXOID] penicillin G [PENICILLIN G] Allergy Intermediate RASH Verified 02/15/19 12:45 hydroxyzine [HYDROXYZINE] AdvReac Severe HALLUCINATI Verified 02/15/19 12:45 ONS/PARANOI D ibuprofen [IBUPROFEN] AdvReac Intermediate DYSLEXIA Verified 02/15/19 12:45 PEAS Allergy Severe RASH, LIP Uncoded 02/15/19 12:45 SWELLING Review of Systems Review of Systems All systems reviewed & are unremarkable except as noted in HPI and below Exam Vital Signs (past 8 hours): - 02/15/19 11:52 02/15/19 12:41 02/15/19 12:42 Temperature 102.0 F H Pulse Rate 112 H 110 H 100 H Respiratory Rate 22 21 16 Blood Pressure 112/62 Blood Pressure [Right Arm] 126/69 Pulse Oximetry 91 96 99 02/15/19 13:53 02/15/19 13:59 02/15/19 14:28 Temperature 100.8 F H 102.8 F H Pulse Rate Respiratory Rate 27 H Blood Pressure Blood Pressure [Right Arm] 123/66 Pulse Oximetry 93 02/15/19 14:34 02/15/19 14:42 02/15/19 15:05 Temperature 102.9 F H 102.5 F H Pulse Rate 117 H 125 H Respiratory Rate 21 26 H Blood Pressure 129/69 Blood Pressure [Right Arm] 124/68 Pulse Oximetry 93 95 02/15/19 15:55 Temperature 100.5 F H Pulse Rate Respiratory Rate Blood Pressure Blood Pressure [Right Arm] Pulse Oximetry Oxygen Delivery Method Room Air Oxygen Flow Rate 2 Narrative Exam Narrative: Ill appearing female who appears to be confused and has difficulty answering questions HEENT: Normocephalic atraumatic, oropharynx reveals dry mucous membranes, neck is supple, there is no adenopathy or thyromegaly Lungs: Diffuse rhonchi bilaterally Cardiac exam: Tachycardic regular rate rhythm normal S1 and S2 Abdomen: Soft, nontender, nondistended, well-healed surgical incision at the midline is noted. No appreciable hepatosplenomegaly Extremities: No edema Neuro exam: The patient is slow to respond, she is awake but somewhat lethargic, she is able to move all extremities, her strength in her lower extremities are good upper extremity strength is 5/5, reflexes are brisk and equal, sensation is grossly intact Skin no lesion except for her surgical incision on the abdomen the skin is warm and dry, her face is flushed Objective Labs Result Diagrams: 02/15/19 12:18 02/15/19 12:18 Labs: Laboratory Results - last 24 hr 02/15/19 02/15/19 02/15/19 12:18 12:18 12:18 WBC 7.3 RBC 3.63 L Hgb 9.5 L Hct 28.3 L MCV 77.9 L MCH 26.2 MCHC 33.6 RDW 18.5 H Plt Count 112 L Neut % (Auto) 84.7 H Lymph % (Auto) 8.6 L Davidson % (Auto) 5.9 Eos % (Auto) 0.1 L Baso % (Auto) 0.7 Neut # (Auto) 6200 Lymph # (Auto) 600 L Davidson # (Auto) 400 Eos # (Auto) 0 Baso # (Auto) 100 PT 15.7 H INR 1.4 H APTT 32 Sodium 116 L* Potassium 4.3 Chloride 83 L Carbon Dioxide 23 BUN 12 Creatinine 0.60 Estimated GFR > 60.0 BUN/Creatinine Ratio 20.0 Glucose 102 Lactate Calcium 7.9 L Magnesium 1.3 L Total Bilirubin 1.9 H AST 59 H ALT 29 Alkaline Phosphatase 124 Total Creatine Kinase 91 CK-MB (CK-2) TNP CK-MB (CK-2) Rel Index TNP Troponin I < 0.012 B-Natriuretic Peptide < 100 Total Protein 6.9 Albumin 3.1 L Globulin 3.8 Albumin/Globulin Ratio 0.8 L Procalcitonin Urine Color Urine Appearance Urine pH Ur Specific [place] Urine Protein Urine Glucose (UA) Urine Ketones Urine Occult Blood Urine Nitrate Urine Bilirubin Urine Urobilinogen Ur Leukocyte Esterase Urine RBC Urine WBC Urine Bacteria Influenza A & B (PCR) 02/15/19 02/15/19 02/15/19 12:18 12:18 12:20 WBC RBC Hgb Hct MCV MCH MCHC RDW Plt Count Neut % (Auto) Lymph % (Auto) Davidson % (Auto) Eos % (Auto) Baso % (Auto) Neut # (Auto) Lymph # (Auto) Davidson # (Auto) Eos # (Auto) Baso # (Auto) PT INR APTT Sodium Potassium Chloride Carbon Dioxide BUN Creatinine Estimated GFR BUN/Creatinine Ratio Glucose Lactate 1.1 Calcium Magnesium Total Bilirubin AST ALT Alkaline Phosphatase Total Creatine Kinase CK-MB (CK-2) CK-MB (CK-2) Rel Index Troponin I B-Natriuretic Peptide Total Protein Albumin Globulin Albumin/Globulin Ratio Procalcitonin 1.60 H Urine Color Urine Appearance Urine pH Ur Specific [place] Urine Protein Urine Glucose (UA) Urine Ketones Urine Occult Blood Urine Nitrate Urine Bilirubin Urine Urobilinogen Ur Leukocyte Esterase Urine RBC Urine WBC Urine Bacteria Influenza A & B (PCR) Negative 02/15/19 14:00 WBC RBC Hgb Hct MCV MCH MCHC RDW Plt Count Neut % (Auto) Lymph % (Auto) Davidson % (Auto) Eos % (Auto) Baso % (Auto) Neut # (Auto) Lymph # (Auto) Davidson # (Auto) Eos # (Auto) Baso # (Auto) PT INR APTT Sodium Potassium Chloride Carbon Dioxide BUN Creatinine Estimated GFR BUN/Creatinine Ratio Glucose Lactate Calcium Magnesium Total Bilirubin AST ALT Alkaline Phosphatase Total Creatine Kinase CK-MB (CK-2) CK-MB (CK-2) Rel Index Troponin I B-Natriuretic Peptide Total Protein Albumin Globulin Albumin/Globulin Ratio Procalcitonin Urine Color Yellow Urine Appearance Clear Urine pH 7.0 Ur Specific [place] 1.010 Urine Protein Trace H Urine Glucose (UA) Negative Urine Ketones Negative Urine Occult Blood Negative Urine Nitrate Negative Urine Bilirubin Negative Urine Urobilinogen 0.2 Ur Leukocyte Esterase Negative Urine RBC None seen Urine WBC None seen Urine Bacteria None seen Influenza A & B (PCR) Assessment & Plan (1) Acute metabolic encephalopathy: Problem details: The patient is a 63-year-old female admitted to the hospital with acute confusion, metabolic encephalopathy, acute, present on admission. Suspect her metabolic encephalopathy is multifactorial secondary to her hyponatremia and susan oing fever. Patient will be fluid resuscitated with normal saline. Serum osmolality will be obtained. Free water restriction will be implemented if appropriate. Current visit: Yes Status: Acute (2) Healthcare-associated pneumonia: Problem details: 63-year-old female admitted to the hospital with pneumonia., present on admission She was recently hospitalized less than 2 weeks ago in [place] . She was treated for pneumonia at that time. She is febrile with a abnormal x- ray in addition to elevated procalcitonin. Will treat her with cefepime and lev ofloxacin at this time. Current visit: Yes Status: Acute (3) Acute hyponatremia: Problem details: Acute hyponatremia, present on admission. Patient had low normal sodium while hospitalized in [place]. Her lowest sodium was 130. Serum osmolality was down to 269. Patient is markedly hyponatremic at this time. Will fluid resuscitate her. Will obtain serum and urine osmolality as well. Will continue to monitor her sodium closely Current visit: Yes Status: Acute (4) Chronic respiratory failure with hypoxia: Problem details: Patient has known chronic respiratory failure and on home O2. Will continue her oxygen here. Current visit: Yes Status: Acute (5) COPD (chronic obstructive pulmonary disease): Problem details: While the patient does not have an acute COPD exacerbation given her significant pneumonia and other pulmonary issues will treat her with steroids and at this time. Will continue her on her usual inhalers. Will start her on antibiotics for pneumonia as above. Current visit: Yes Status: Acute (6) Supraventricular tachycardia: Problem details: The patient has known history of supraventricular tachycardia, present on admission, will continue her low-dose metoprolol. Current visit: Yes Status: Acute (7) Blood loss anemia: Problem details: Patient had known blood loss anemia related to her exploratory laparotomy. She remains anemic although there is no evidence of acute blood loss. Current visit: Yes Status: Acute (8) Hypothyroidism: Problem details: Hypothyroidism, chronic will continue her levothyroxine Current visit: Yes Status: Acute (9) Osteoporosis: Problem details: Osteoporosis, chronic was the patient is is taking oral medications will resume her usual outpatient treatment for osteoporosis. Current visit: Yes Status: Acute Assessment & Plan narrative: Patient is critically ill. Will continue to monitor her closely. She is a full code and will note that record accordingly.
[2019-02-15] MEDS: CEFEPIME 2 GM in SODIUM CHLORIDE 0.9% 100 ML 200 ML IV (17:13)
[2019-02-15] MEDS: ENOXAPARIN 40 MG/0.4 ML SYRINGE SUBCUT (17:14)
[2019-02-15 18:05] LABS: Lactate (Lactic Acid) 0.9 mmol/L (0.7-2.1)
[2019-02-15 18:09] LABS: HEMOLYSIS < 15 (0-50); Iron 21 ug/dL (37-170)
[2019-02-15 18:19] LABS: Percent Iron Saturation 9 % (15-50); Total Iron Binding Capacity 223 ug/dL (265-497); Transferrin 140 mg/dL (206-381)
[2019-02-15 18:47] LABS: Bacteria Urine None Seen
[2019-02-15 19:02] LABS: Appearance Urine UA CLEAR; Bilirubin Urine UA NEGATIVE (NEGATIVE); Color Urine UA YELLOW; Glucose Urine UA NEGATIVE (Negative); Ketones Urine UA TRACE (NEGATIVE); Leukocyte Esterase Urine UA NEGATIVE (NEGATIVE); Nitrite Urine UA NEGATIVE (Negative); Occult Blood Urine UA TRACE-LYSED (Negative); Protein Urine UA TRACE (Negative); Specific Gravity Urine UA <=1.005 (1.000-1.035); Urobilinogen Urine UA 0.2 E.U./dL (0.2); pH Urine UA 6.5 (4.5-8.0)
[2019-02-15 19:09] LABS: Amorphous Sediment Urine 2+; Culture Indicated Urine Specimen Cultured; RBC Urine 1-5/HPF (0-5/HPF); WBC Urine 5-10/HPF (0-5/HPF)
[2019-02-15] MEDS: SODIUM CHLORIDE 0.9% 1,000 ML 500 ML IV (19:13)
[2019-02-15] MEDS: FLUTICASONE/SALMETEROL 500/50 14 PUFF DISKUS INH (19:47)
[2019-02-15] MEDS: ALBUTEROL 2.5 MG/3 ML NEB (ADULT) INH (19:47)
[2019-02-15] MEDS: FAMOTIDINE 20 MG/50 ML PIGGYBACK 200 MG IV (20:06)
[2019-02-15] MEDS: OXYCODONE IR 5 MG TABLET PO (20:08)
[2019-02-15] MEDS: MAGNESIUM SULFATE 4 GM/100 ML PIGGYBACK IV (20:27)
[2019-02-15 22:03] LABS: Adenovirus Not Detected (Not Detect); Coronavirus 229E Not Detected (Not Detect); Coronavirus HKU1 Not Detected (Not Detect); Coronavirus NL 63 Not Detected (Not Detect); Coronavirus OC43 Not Detected (Not Detect); Human Metapneumovirus Not Detected (Not Detect); Human Rhinovirus/Enterovirus Not Detected (Not Detect); Influenza A Detected (Not Detect)
[2019-02-15 22:04] LABS: Bordetella pertussis Not Detected (Not Detect); Chlamydophila pneumoniae Not Detected (Not Detect); Influenza B Not Detected (Not Detect); Mycoplasma pneumoniae Not Detected (Not Detect); Parainfluenza Virus 1 Not Detected (Not Detect); Parainfluenza Virus 2 Not Detected (Not Detect); Parainfluenza Virus 3 Not Detected (Not Detect); Parainfluenza Virus 4 Not Detected (Not Detect); Respiratory Syncytial Virus Not Detected (Not Detect)
[2019-02-15] MEDS: SENNOSIDES 8.6 MG TABLET 17.2 MG PO (22:11)
[2019-02-15 23:49] LABS: Add Manual Diff / Slide Review NO; Basophils Absolute Auto 0 /uL (0-100); Basophils Percent Auto 0.3 % (0-2); Eosinophils Absolute Auto 0 /uL (0-450); Eosinophils Percent Auto 0.1 % (2-4); Hemoglobin 8.2 g/dL (12.0-16.0); Lymphocytes Absolute Auto 500 /uL (1100-4500); Lymphocytes Percent Auto 6.8 % (25-40); Mean Corpuscular HGB Conc 33.1 % (30-36); Mean Corpuscular Hemoglobin 26.4 PG (26-34); Mean Corpuscular Volume 79.6 fL (80-100); Monocytes Absolute Auto 200 /uL (0-900); Monocytes Percent Auto 2.9 % (3-14); Neutrophils Absolute Auto 6500 /uL (1500-7000); Neutrophils Percent Auto 89.9 % (50-75); Platelet Count 76 X10^3/uL (150-400); Red Cell Distribution Width 18.6 % (11.6-14.8); White Blood Cell Count 7.2 X10^3/uL (4.5-11.0)
[2019-02-15 23:56] LABS: Hematocrit 24.7 % (36-46)
[2019-02-15 23:57] LABS: Blood Urea Nitrogen 12 mg/dL (7-17); Calcium 7.4 mg/dL (8.4-10.2); Carbon Dioxide 21 mmol/L (22-32); Chloride 92 mmol/L (98-107); Estimated Glomerular Filt Rate > 60.0 mL/min (>60); Glucose 120 mg/dL (80-110); HEMOLYSIS < 15 (0-50); Magnesium 2.7 mg/dL (1.6-2.3); Potassium 3.8 mmol/L (3.4-5.1); Sodium 123 mmol/L (137-145)
[2019-02-16] VITALS (29 sets, daily range): BP systolic 78–110; BP diastolic 38–64; PULSE 69–95; RESP 12–20; TEMP 35.9–36.7; O2SAT 92–100
[2019-02-16] MEDS: POTASSIUM CHLORIDE 20 MEQ/15 ML UDC 40 MEQ PO (01:53)
[2019-02-16] MEDS: CEFEPIME 2 GM in SODIUM CHLORIDE 0.9% 100 ML 200 ML IV ×2 (05:01→16:05)
[2019-02-16] MEDS: CYCLOBENZAPRINE 10 MG TABLET PO (05:01)
[2019-02-16] MEDS: MORPHINE 4 MG/ML INJ IV (05:02)
[2019-02-16 05:08] LABS: Add Manual Diff / Slide Review NO; Basophils Absolute Auto 0 /uL (0-100); Basophils Percent Auto 0.3 % (0-2); Eosinophils Absolute Auto 0 /uL (0-450); Hematocrit 26.3 % (36-46); Hemoglobin 8.8 g/dL (12.0-16.0); Lymphocytes Absolute Auto 300 /uL (1100-4500); Lymphocytes Percent Auto 4.5 % (25-40); Mean Corpuscular HGB Conc 33.5 % (30-36); Mean Corpuscular Hemoglobin 26.4 PG (26-34); Monocytes Absolute Auto 300 /uL (0-900); Monocytes Percent Auto 4.4 % (3-14); Neutrophils Absolute Auto 5700 /uL (1500-7000); Neutrophils Percent Auto 90.8 % (50-75); Platelet Count 70 X10^3/uL (150-400); Red Blood Cell Count 3.32 X10^6/uL (4.0-5.2); White Blood Cell Count 6.2 X10^3/uL (4.5-11.0)
[2019-02-16 05:12] LABS: Alanine Aminotransferase 33 IU/L (9-52); Albumin 2.6 g/dL (3.5-5.0); Albumin Globulin Ratio 0.7 (1.0-2.8); Alkaline Phosphatase 109 U/L (38-126); Aspartate Aminotransferase 99 IU/L (14-36); Blood Urea Nitrogen 13 mg/dL (7-17); Calcium 7.5 mg/dL (8.4-10.2); Carbon Dioxide 20 mmol/L (22-32); Chloride 98 mmol/L (98-107); Estimated Glomerular Filt Rate > 60.0 mL/min (>60); Globulin 3.6 g/dL (1.7-4.1); Glucose 159 mg/dL (80-110); HEMOLYSIS < 15 (0-50); Potassium 4.4 mmol/L (3.4-5.1); Sodium 127 mmol/L (137-145); Total Protein 6.2 g/dL (6.3-8.2)
[2019-02-16 05:31] LABS: B Type Natriuretic Peptide 210 (<100)
[2019-02-16] MEDS: LEVOTHYROXINE 50 MCG TABLET PO (06:17)
[2019-02-16] MEDS: ALBUTEROL 2.5 MG/3 ML NEB (ADULT) INH ×3 (08:07→19:33)
[2019-02-16] MEDS: FLUTICASONE/SALMETEROL 500/50 14 PUFF DISKUS INH ×2 (08:08→19:40)
[2019-02-16 08:37] LABS: Procalcitonin 3.83 ng/mL (<0.5)
[2019-02-16] MEDS: DULOXETINE 30 MG CAPSULE 60 MG PO (08:44)
[2019-02-16] MEDS: OSELTAMIVIR 75 MG CAPSULE PO ×2 (08:44→20:44)
--- NOTE | 2019-02-16 08:54 | PM.PN.1 ---
Subjective Date Patient Seen: 02/16/19 Interval history: Abi Jacques is a 63-year-old female recently treated for SBO status post exploratory laparotomy with lysis of adhesions and community-acquired and probable aspiration pneumonia at [facility] in [place] who was admitted for hospital-acquired pneumonia and influenza A infection. The patient is resting in bed comfortably. She appears very ill. She endorses nonproductive dry cough. She is on her baseline oxygen requirements of 2 L for her chronic respiratory failure due to bronchiectasis. She denies headache, shortness of breath, chest pain, abdominal pain, nausea, vomiting, fever, chills, dysuria, diarrhea or constipation. She is voiding and eliminating without difficulty. She is up ambulating minimally with assistance. Exam Vital Signs (past 8 hours): - 02/16/19 01:03 02/16/19 02:04 02/16/19 03:03 Temperature Pulse Rate 91 H 95 H 81 Respiratory Rate 17 17 17 Blood Pressure 100/45 L 101/62 93/57 L Pulse Oximetry 98 97 100 02/16/19 04:19 02/16/19 05:11 02/16/19 06:38 Temperature Pulse Rate 87 85 82 Respiratory Rate 17 13 16 Blood Pressure 110/64 110/64 95/57 L Pulse Oximetry 100 100 100 02/16/19 07:00 02/16/19 08:00 02/16/19 08:08 Temperature 98.1 F 98.1 F Pulse Rate 86 69 Respiratory Rate 16 19 14 Blood Pressure 96/56 L 104/58 L Pulse Oximetry 100 98 96 Oxygen Delivery Method Nasal Cannula Oxygen Flow Rate 2 Narrative Exam Narrative: General: Middle-aged female lying in bed and in no acute distress, appears older than stated age, well-developed, well-nourished, appropriately interactive. HEENT: Normocephalic, atraumatic. External ears without defect. Pupils equal, round, and reactive to light. Anicteric sclerae, moist conjunctivae, and no lid lag. Neck: Supple with full range of motion. No jugular venous distension. No lymphadenopathy or thyromegaly. Cardiovascular: Regular rate and rhythm without murmurs, rubs, or gallops appreciated. Pulmonary: Diminished lung sounds throughout with scattered rhonchi and occasional wheeze. Normal respiratory effort with no use of accessory muscles. Abdomen: Soft, bowel sounds present, nontender, nondistended. Large vertical surgical scar healing well without exudate. No hepatosplenomegaly or masses appreciated. Extremities: No clubbing or cyanosis. Mild bilateral pedal edema. Skin: Normal temperature, turgor, and texture; no rash, ulcers, or subcutaneous nodules appreciated. Neurological: Cranial nerves grossly intact. Psychiatric: Slightly anxious and flat affect. Alert and oriented to person, place, and time. Objective Labs Result Diagrams: 02/17/19 04:36 02/17/19 04:36 Labs: Laboratory Results - last 24 hr 02/15/19 02/15/19 02/15/19 12:18 12:18 12:18 WBC 7.3 RBC 3.63 L Hgb 9.5 L Hct 28.3 L MCV 77.9 L MCH 26.2 MCHC 33.6 RDW 18.5 H Plt Count 112 L Neut % (Auto) 84.7 H Lymph % (Auto) 8.6 L Ballard % (Auto) 5.9 Eos % (Auto) 0.1 L Baso % (Auto) 0.7 Neut # (Auto) 6200 Lymph # (Auto) 600 L Ballard # (Auto) 400 Eos # (Auto) 0 Baso # (Auto) 100 PT 15.7 H INR 1.4 H APTT 32 Sodium 116 L* Potassium 4.3 Chloride 83 L Carbon Dioxide 23 BUN 12 Creatinine 0.60 Estimated GFR > 60.0 BUN/Creatinine Ratio 20.0 Glucose 102 Lactate Calcium 7.9 L Magnesium 1.3 L Iron TIBC % Saturation Transferrin Total Bilirubin 1.9 H AST 59 H ALT 29 Alkaline Phosphatase 124 Total Creatine Kinase 91 CK-MB (CK-2) TNP CK-MB (CK-2) Rel Index TNP Troponin I < 0.012 B-Natriuretic Peptide < 100 Total Protein 6.9 Albumin 3.1 L Globulin 3.8 Albumin/Globulin Ratio 0.8 L Procalcitonin Urine Color Urine Appearance Urine pH Ur Specific [place] Urine Protein Urine Glucose (UA) Urine Ketones Urine Occult Blood Urine Nitrate Urine Bilirubin Urine Urobilinogen Ur Leukocyte Esterase Urine RBC Urine WBC Amorphous Sediment Urine Bacteria Ur Culture Indicated? Nasal Screen MRSA (PCR) Chlamy pneumoniae PCR Adenovirus (PCR) B.parapertussis DNA PCR Coronavirus OC43 (PCR) Coronavirus HKU1 (PCR) Coronavirus 229E (PCR) Coronavirus NL63 (PCR) Human Metapneumovir PCR Influenza Type A (PCR) Influenza Type B (PCR) Influenza A & B (PCR) M. pneumoniae (PCR) Parainfluenza 1 (PCR) Parainfluenza 2 (PCR) Parainfluenza 3 (PCR) Parainfluenza 4 (PCR) RSV (PCR) Entero/Rhino (PCR) 02/15/19 02/15/19 02/15/19 12:18 12:18 12:20 WBC RBC Hgb Hct MCV MCH MCHC RDW Plt Count Neut % (Auto) Lymph % (Auto) Ballard % (Auto) Eos % (Auto) Baso % (Auto) Neut # (Auto) Lymph # (Auto) Ballard # (Auto) Eos # (Auto) Baso # (Auto) PT INR APTT Sodium Potassium Chloride Carbon Dioxide BUN Creatinine Estimated GFR BUN/Creatinine Ratio Glucose Lactate 1.1 Calcium Magnesium Iron TIBC % Saturation Transferrin Total Bilirubin AST ALT Alkaline Phosphatase Total Creatine Kinase CK-MB (CK-2) CK-MB (CK-2) Rel Index Troponin I B-Natriuretic Peptide Total Protein Albumin Globulin Albumin/Globulin Ratio Procalcitonin 1.60 H Urine Color Urine Appearance Urine pH Ur Specific [place] Urine Protein Urine Glucose (UA) Urine Ketones Urine Occult Blood Urine Nitrate Urine Bilirubin Urine Urobilinogen Ur Leukocyte Esterase Urine RBC Urine WBC Amorphous Sediment Urine Bacteria Ur Culture Indicated? Nasal Screen MRSA (PCR) Chlamy pneumoniae PCR Adenovirus (PCR) B.parapertussis DNA PCR Coronavirus OC43 (PCR) Coronavirus HKU1 (PCR) Coronavirus 229E (PCR) Coronavirus NL63 (PCR) Human Metapneumovir PCR Influenza Type A (PCR) Influenza Type B (PCR) Influenza A & B (PCR) Negative M. pneumoniae (PCR) Parainfluenza 1 (PCR) Parainfluenza 2 (PCR) Parainfluenza 3 (PCR) Parainfluenza 4 (PCR) RSV (PCR) Entero/Rhino (PCR) 02/15/19 02/15/19 02/15/19 14:00 15:23 17:32 WBC RBC Hgb Hct MCV MCH MCHC RDW Plt Count Neut % (Auto) Lymph % (Auto) Ballard % (Auto) Eos % (Auto) Baso % (Auto) Neut # (Auto) Lymph # (Auto) Ballard # (Auto) Eos # (Auto) Baso # (Auto) PT INR APTT Sodium Potassium Chloride Carbon Dioxide BUN Creatinine Estimated GFR BUN/Creatinine Ratio Glucose Lactate Calcium Magnesium Iron 21 L TIBC 223 L % Saturation 9 L Transferrin 140 L Total Bilirubin AST ALT Alkaline Phosphatase Total Creatine Kinase CK-MB (CK-2) CK-MB (CK-2) Rel Index Troponin I B-Natriuretic Peptide Total Protein Albumin Globulin Albumin/Globulin Ratio Procalcitonin Urine Color Yellow Urine Appearance Clear Urine pH 7.0 Ur Specific [place] 1.010 Urine Protein Trace H Urine Glucose (UA) Negative Urine Ketones Negative Urine Occult Blood Negative Urine Nitrate Negative Urine Bilirubin Negative Urine Urobilinogen 0.2 Ur Leukocyte Esterase Negative Urine RBC None seen Urine WBC None seen Amorphous Sediment Urine Bacteria None seen Ur Culture Indicated? Nasal Screen MRSA (PCR) Negative for mrsa Chlamy pneumoniae PCR Adenovirus (PCR) B.parapertussis DNA PCR Coronavirus OC43 (PCR) Coronavirus HKU1 (PCR) Coronavirus 229E (PCR) Coronavirus NL63 (PCR) Human Metapneumovir PCR Influenza Type A (PCR) Influenza Type B (PCR) Influenza A & B (PCR) M. pneumoniae (PCR) Parainfluenza 1 (PCR) Parainfluenza 2 (PCR) Parainfluenza 3 (PCR) Parainfluenza 4 (PCR) RSV (PCR) Entero/Rhino (PCR) 02/15/19 02/15/19 02/15/19 17:32 17:50 18:30 WBC RBC Hgb Hct MCV MCH MCHC RDW Plt Count Neut % (Auto) Lymph % (Auto) Ballard % (Auto) Eos % (Auto) Baso % (Auto) Neut # (Auto) Lymph # (Auto) Ballard # (Auto) Eos # (Auto) Baso # (Auto) PT INR APTT Sodium Potassium Chloride Carbon Dioxide BUN Creatinine Estimated GFR BUN/Creatinine Ratio Glucose Lactate 0.9 Calcium Magnesium Iron TIBC % Saturation Transferrin Total Bilirubin AST ALT Alkaline Phosphatase Total Creatine Kinase CK-MB (CK-2) CK-MB (CK-2) Rel Index Troponin I B-Natriuretic Peptide Total Protein Albumin Globulin Albumin/Globulin Ratio Procalcitonin Urine Color Yellow Urine Appearance Clear Urine pH 6.5 Ur Specific [place] <=1.005 Urine Protein Trace H Urine Glucose (UA) Negative Urine Ketones Trace H Urine Occult Blood Trace-lysed Urine Nitrate Negative Urine Bilirubin Negative Urine Urobilinogen 0.2 Ur Leukocyte Esterase Negative Urine RBC 1-5/hpf Urine WBC 5-10/hpf H Amorphous Sediment 2+ Urine Bacteria None seen Ur Culture Indicated? Specimen cultured Nasal Screen MRSA (PCR) Chlamy pneumoniae PCR Not detected Adenovirus (PCR) Not detected B.parapertussis DNA PCR Not detected Coronavirus OC43 (PCR) Not detected Coronavirus HKU1 (PCR) Not detected Coronavirus 229E (PCR) Not detected Coronavirus NL63 (PCR) Not detected Human Metapneumovir PCR Not detected Influenza Type A (PCR) Detected H Influenza Type B (PCR) Not detected Influenza A & B (PCR) M. pneumoniae (PCR) Not detected Parainfluenza 1 (PCR) Not detected Parainfluenza 2 (PCR) Not detected Parainfluenza 3 (PCR) Not detected Parainfluenza 4 (PCR) Not detected RSV (PCR) Not detected Entero/Rhino (PCR) Not detected 02/15/19 02/15/19 02/16/19 23:30 23:30 04:45 WBC 7.2 6.2 RBC 3.10 L 3.32 L Hgb 8.2 L 8.8 L Hct 24.7 L 26.3 L MCV 79.6 L 79.0 L MCH 26.4 26.4 MCHC 33.1 33.5 RDW 18.6 H 19.0 H Plt Count 76 L 70 L Neut % (Auto) 89.9 H 90.8 H Lymph % (Auto) 6.8 L 4.5 L Ballard % (Auto) 2.9 L 4.4 Eos % (Auto) 0.1 L 0.0 L Baso % (Auto) 0.3 0.3 Neut # (Auto) 6500 5700 Lymph # (Auto) 500 L 300 L Ballard # (Auto) 200 300 Eos # (Auto) 0 0 Baso # (Auto) 0 0 PT INR APTT Sodium 123 L Potassium 3.8 Chloride 92 L Carbon Dioxide 21 L BUN 12 Creatinine 0.60 Estimated GFR > 60.0 BUN/Creatinine Ratio 20.0 Glucose 120 H Lactate Calcium 7.4 L Magnesium 2.7 H Iron TIBC % Saturation Transferrin Total Bilirubin AST ALT Alkaline Phosphatase Total Creatine Kinase CK-MB (CK-2) CK-MB (CK-2) Rel Index Troponin I B-Natriuretic Peptide 210 H Total Protein Albumin Globulin Albumin/Globulin Ratio Procalcitonin Urine Color Urine Appearance Urine pH Ur Specific [place] Urine Protein Urine Glucose (UA) Urine Ketones Urine Occult Blood Urine Nitrate Urine Bilirubin Urine Urobilinogen Ur Leukocyte Esterase Urine RBC Urine WBC Amorphous Sediment Urine Bacteria Ur Culture Indicated? Nasal Screen MRSA (PCR) Chlamy pneumoniae PCR Adenovirus (PCR) B.parapertussis DNA PCR Coronavirus OC43 (PCR) Coronavirus HKU1 (PCR) Coronavirus 229E (PCR) Coronavirus NL63 (PCR) Human Metapneumovir PCR Influenza Type A (PCR) Influenza Type B (PCR) Influenza A & B (PCR) M. pneumoniae (PCR) Parainfluenza 1 (PCR) Parainfluenza 2 (PCR) Parainfluenza 3 (PCR) Parainfluenza 4 (PCR) RSV (PCR) Entero/Rhino (PCR) 02/16/19 02/16/19 04:45 04:46 WBC RBC Hgb Hct MCV MCH MCHC RDW Plt Count Neut % (Auto) Lymph % (Auto) Ball[place] % (Auto) Eos % (Auto) Baso % (Auto) Neut # (Auto) Lymph # (Auto) Ballard # (Auto) Eos # (Auto) Baso # (Auto) PT INR APTT Sodium 127 L Potassium 4.4 Chloride 98 Carbon Dioxide 20 L BUN 13 Creatinine 0.50 L Estimated GFR > 60.0 BUN/Creatinine Ratio 26.0 H Glucose 159 H Lactate Calcium 7.5 L Magnesium Iron TIBC % Saturation Transferrin Total Bilirubin 2.0 H AST 99 H ALT 33 Alkaline Phosphatase 109 Total Creatine Kinase CK-MB (CK-2) CK-MB (CK-2) Rel Index Troponin I B-Natriuretic Peptide Total Protein 6.2 L Albumin 2.6 L Globulin 3.6 Albumin/Globulin Ratio 0.7 L Procalcitonin 3.83 H Urine Color Urine Appearance Urine pH Ur Specific [place] Urine Protein Urine Glucose (UA) Urine Ketones Urine Occult Blood Urine Nitrate Urine Bilirubin Urine Urobilinogen Ur Leukocyte Esterase Urine RBC Urine WBC Amorphous Sediment Urine Bacteria Ur Culture Indicated? Nasal Screen MRSA (PCR) Chlamy pneumoniae PCR Adenovirus (PCR) B.parapertussis DNA PCR Coronavirus OC43 (PCR) Coronavirus HKU1 (PCR) Coronavirus 229E (PCR) Coronavirus NL63 (PCR) Human Metapneumovir PCR Influenza Type A (PCR) Influenza Type B (PCR) Influenza A & B (PCR) M. pneumoniae (PCR) Parainfluenza 1 (PCR) Parainfluenza 2 (PCR) Parainfluenza 3 (PCR) Parainfluenza 4 (PCR) RSV (PCR) Entero/Rhino (PCR) Assessment & Plan Assessment & Plan narrative: Abi Jacques is a 63-year-old female recently treated for SBO status post exploratory laparotomy with lysis of adhesions and community-acquired and probable aspiration pneumonia at [facility] in [place] who was admitted for hospital-acquired pneumonia and influenza A infection. 1. Acute viral and bacterial sepsis, present on admission. Resolving. -Viral sepsis with organ dysfunction of respiratory failure, hypotension, thrombocytopenia and metabolic encephalopathy. -Continue early goal directed therapy including IV fluid resuscitation (bolus as needed for hypotension for which she is fluid responsive) and broad spectrum antiviral/antibiotics. 2. Acute on chronic hypoxemic respiratory failure, present on admission. Active. -Patient has known chronic respiratory failure due to bronchiectasis and on home oxygen 2L continuous. Continue supplemental oxygen and titrate as need. Goal oxygen saturation 88% or greater. 3. Healthcare-associated and influenza pneumonia, present on admission. Active. -Recently hospitalized less than 2 weeks ago in [place] and treated for pneumonia at that time. -Chest x-ray demonstrated increased diffuse interstitial prominence superimposed on chronic interstitial changes with focal opacity in the right mid lung zone. -Respiratory PCR positive for influenza A. -Procalcitonin initially elevated at 1.6 and peaked at 3.83. Now trending down. Continue to monitor daily. -Continue Tamiflu 75 mg twice daily, cefepime 2 g twice daily and levofloxacin 750 mg daily. -Ordered respiratory therapy evaluation and treatment. Continue duo nebs every 6 hr while awake. Continue methylprednisolone 40 mg every 8 hr. 4. Acute metabolic encephalopathy, present on admission. Resolving. -Suspect multifactorial and secondary to hyponatremia, HCAP and influenza A infection. 5. Acute hyponatremia, present on admission. Active. -Likely secondary to fluid losses from recent surgery and decreased PO intake, in addition to lung infection. -Patient had low normal sodium at 130 while hospitalized in [place]. -Continue fluid resuscitation and as needed NS boluses. Orderd serum and urine osmolality, pending. -Continue to monitor her sodium closely 6. COPD, present on admission. Stable. -While the patient does not have an acute COPD exacerbation given her significant pneumonia and other pulmonary issues will treat her with steroids and at this time. Will continue her on her usual inhalers. Will start her on antibiotics for pneumonia as above. 7. History of supraventricular tachycardia. -Continue home metoprolol. 8. Recent acute blood loss anemia, secondary to exploratory laparotomy, present on admission. -Initial hemoglobin 9.5.Trending down and likely hemodilutional. -No overt signs of bleeding. -Continue to monitor H&H daily. Transfusion goal < 7.0. 9. Hypothyroidism, chronic, present on admission. Stable. -Ordred TSH, pending. -Continue home levothyroxine 50 mcg daily. 10. Osteoporosis, chronic, present on admission. Stable. -Continue home aledronate and vit D3. Disposition: She continues to be critically ill and will continue to monitor her closely. Quality VTE Deep Vein Thrombosis/Pulmonary Embolism Present on Admission: No
[2019-02-16] MEDS: ENOXAPARIN 40 MG/0.4 ML SYRINGE SUBCUT (09:06)
[2019-02-16] MEDS: IRON SUCROSE 100 MG in SODIUM CHLORIDE 0.9% 100 ML 420 ML IV (09:07)
[2019-02-16] MEDS: OXYCODONE IR 5 MG TABLET PO ×3 (09:08→20:46)
[2019-02-16] MEDS: ACETAMINOPHEN 325 MG TABLET 650 MG PO (09:09)
--- NOTE | 2019-02-16 10:57 | CM.DANOTE ---
DCP/Assessment: Reviewed chart. Patient is a 63yr old female admitted [facility] for pneumonia with potential influenza. Primary payor is 1)[employer]. PCP is Donald Hoang. Met with patient explained CM/SW role. Patient alert and oriented with [address] at time of visit. Patient reports that she is primarily I with all ADL's. Patient does have cane at home but uses very seldom. Patient plans to d/c home when medically stable. Patient reports that she does have supportive family. Patient and spouse raising children in their home. Patient believes that Flu came from one of the children. At this time d/c date and plan not decided. Notified patient that CM team would continue to follow if d/c planning needs arise. Patient aware and agreeable. P: Anticipate home. CM team to follow closely for d/c planning needs. MARLA Johnson Discharge Planning/Care Management CM Discharge Assessment Start: 02/16/19 10:50 Freq: Status: Active Protocol: Document 02/16/19 10:50 KJS (Rec: 02/16/19 10:57 KJS [id number]) Discharge Planning Assessment Assigned Director Corporate Compliance MARLA Johnson Contact Information [place] [phone] or cell# Advance Directives? Yes Advance Directives on File No History Provided By Patient Medical Record Has Patient been admitted in last 30 No days? Prior Living Arrangements House Household Members significant other Type of transporation used prior to Drives own vehicle admit Independent with ADL's Yes Is patient alert and oriented? Yes Caregiver for Another No Community Services used prior to Oxygen Therapy admission: DME Already Rented / Owned Cane Barriers to Discharge No Discharge Plan Home Whiteboard Updated in Patient Room with Yes name and ext. # of Director Corporate Compliance Review Status In Process Please Provide Date Initial DC 02/16/19 Assessment Was Performed Next Review Type Continued Stay Review
[2019-02-16] MEDS: SODIUM CHLORIDE 0.9% 1,000 ML 75 ML IV (11:15)
--- NOTE | 2019-02-16 11:16 | PC.NURSE ---
Addendum entered by Alo Reina R.N. 02/16/19 14:27: 1400- BPs remain borderline low. Pt denies symptoms of hypotension currently. Reported to Dr. Yuan on rounds. Orders rec'd to dc continuous IVFs and give 500 ML NS Bolus IV now x1. O2 off for RA trial. Pt maintaining SPO2 95% after 20 minutes. Will monitor. Original Note: 1100- Noted BP 79/46 (62) HR 80 NSR. Pt is sleeping. Drowsy but awakens to verbal stimuli and states name, , year, and place with clear speech. Denies pain. Beads of sweat to neck and forehead noted. Temp 97.0 temporal. Pt reports chills. Dr. Yuan on rounds notified of symptoms and VS. VORB for 500 ML NS Bolus now and monitor.
[2019-02-16] MEDS: SODIUM CHLORIDE 0.9% 500 ML 1000 ML IV ×2 (11:20→14:12)
[2019-02-16] MEDS: levoFLOXacin 750 MG/150 ML PIGGYBACK 100 MG IV (14:12)
[2019-02-16] MEDS: FAMOTIDINE 20 MG/50 ML PIGGYBACK 200 MG IV (17:08)
[2019-02-16] MEDS: INSULIN ASPART 100 UNIT/ML INSULN PEN SUBCUT ×2 (17:42→20:53)
--- NOTE | 2019-02-16 17:46 | PC.NURSE ---
Addendum entered by Rosalie Landeros R.N. 02/16/19 21:39: 2130 - Pt BP remains low, 88/48 map of 66. HR 76, however cheeks appear to have more color. Pt is not diaphoretic at this time. A-febril. Remains tremulous and with occasional word-find difficulties. BG 240, covered with ss insulin as ordered. Discussed pain control and hypotension, oxycodone given as ordered. Assist pt to reposition for comfort. Call light in reach. Original Note: 1630 -Pt diaphoretic, hypotensive. A-febril, mildly tremulous. BP increased to 98/53 with a map of 78, upon waking. Denies feeling lightheaded or nauseated. Reports decreased appetite r/t work of breathing. 97% on RA. Reports home O2 use at HS and PRN during the day. BG 275. Dr. Yuan notified of all of the above. Orders obtained. Monitor.
[2019-02-16] MEDS: SENNOSIDES 8.6 MG TABLET 17.2 MG PO (20:44)
[2019-02-17] VITALS (27 sets, daily range): BP systolic 89–112; BP diastolic 47–74; PULSE 69–93; RESP 13–29; TEMP 35.8–36.4; O2SAT 94–100
[2019-02-17] MEDS: CEFEPIME 2 GM in SODIUM CHLORIDE 0.9% 100 ML 200 ML IV ×2 (04:12→16:48)
[2019-02-17 05:24] LABS: Alanine Aminotransferase 42 IU/L (9-52); Albumin 2.3 g/dL (3.5-5.0); Albumin Globulin Ratio 0.7 (1.0-2.8); Alkaline Phosphatase 126 U/L (38-126); Aspartate Aminotransferase 107 IU/L (14-36); Bilirubin Total 1.6 mg/dL (0.2-1.3); Blood Urea Nitrogen 13 mg/dL (7-17); Calcium 7.6 mg/dL (8.4-10.2); Carbon Dioxide 23 mmol/L (22-32); Chloride 103 mmol/L (98-107); Estimated Glomerular Filt Rate > 60.0 mL/min (>60); Globulin 3.3 g/dL (1.7-4.1); Glucose 139 mg/dL (80-110); HEMOLYSIS < 15 (0-50); Potassium 4.1 mmol/L (3.4-5.1); Sodium 129 mmol/L (137-145); Total Protein 5.6 g/dL (6.3-8.2)
[2019-02-17 05:30] LABS: Add Manual Diff / Slide Review NO; Basophils Absolute Auto 0 /uL (0-100); Basophils Percent Auto 0.2 % (0-2); Eosinophils Absolute Auto 0 /uL (0-450); Hemoglobin 7.8 g/dL (12.0-16.0); Lymphocytes Absolute Auto 300 /uL (1100-4500); Lymphocytes Percent Auto 4.1 % (25-40); Mean Corpuscular HGB Conc 33.1 % (30-36); Mean Corpuscular Hemoglobin 26.3 PG (26-34); Mean Corpuscular Volume 79.4 fL (80-100); Monocytes Absolute Auto 800 /uL (0-900); Monocytes Percent Auto 11.6 % (3-14); Neutrophils Absolute Auto 6100 /uL (1500-7000); Neutrophils Percent Auto 84.1 % (50-75); Red Blood Cell Count 2.98 X10^6/uL (4.0-5.2); Red Cell Distribution Width 19.5 % (11.6-14.8); White Blood Cell Count 7.3 X10^3/uL (4.5-11.0)
[2019-02-17] MEDS: LEVOTHYROXINE 50 MCG TABLET PO (05:52)
[2019-02-17 05:53] LABS: Thyroid Stimulating Hormone 0.09 uIU/mL (0.47-4.68)
[2019-02-17 05:59] LABS: Procalcitonin 2.97 ng/mL (<0.5)
[2019-02-17 06:26] LABS: Hemoglobin A1C% w Est Avg Glu 5.1 % (4.0-6.0)
[2019-02-17 06:31] LABS: Hematocrit 23.7 % (36-46)
[2019-02-17 06:32] LABS: Platelet Count 74 X10^3/uL (150-400)
[2019-02-17] MEDS: ALBUTEROL 2.5 MG/3 ML NEB (ADULT) INH ×3 (08:25→17:18)
[2019-02-17] MEDS: FLUTICASONE/SALMETEROL 500/50 14 PUFF DISKUS INH ×2 (08:26→17:19)
[2019-02-17] MEDS: ENOXAPARIN 40 MG/0.4 ML SYRINGE SUBCUT (09:04)
[2019-02-17] MEDS: DULOXETINE 30 MG CAPSULE 60 MG PO (09:04)
[2019-02-17] MEDS: OSELTAMIVIR 75 MG CAPSULE PO ×2 (09:04→21:07)
[2019-02-17] MEDS: INSULIN ASPART 100 UNIT/ML INSULN PEN SUBCUT ×3 (09:04→16:51)
[2019-02-17] MEDS: ACETAMINOPHEN 325 MG TABLET 650 MG PO (09:06)
[2019-02-17] MEDS: LIDOCAINE PATCH 1 EACH ADH..PATCH TOP (09:06)
[2019-02-17] MEDS: OXYCODONE IR 5 MG TABLET PO ×2 (09:10→23:28)
--- NOTE | 2019-02-17 10:00 | DI.ECHO.S_ITS ---
+---------+ Hospital +---------+ : : [address] [place] : : : : [id number] : : : : Phone: [phone] Echocardiogram Report + + :Name: BRIGHT KOCH Study Date: 02/17/2019 Height: 65 in : :[facility] Exam Location: [facility] Weight: 143 lb : : Gender: Female BSA: 1.7 m2 : :: 1955 Age: 63 yrs BP: 102/58 mmHg: :Reason For Study: SOB/ HYPOTENSION : :Ordering Physician: [place] : :Hospitalist Performed By: Stephanie Page : :Referring: CHRISTOPHER WIGGINS : + + Interpretation Summary The left ventricle is normal in size, wall thickness, and systolic function without any focal wall motion abnormalities with the ejection fraction visually estimated to be 60-65%. Diastolic parameters suggest probable normal left ventricular diastolic function and normal filling pressures. The right ventricle is borderline dilated and right ventricular systolic function is at the lower limits of normal. Pulmonary artery pressures cannot be estimated because of the lack of a measurable TR jet velocity. Both atria are severely dilated. There is no significant valvular heart disease. The aortic arch is at the upper limits of normal in size. Procedure: A two-dimensional transthoracic echocardiogram with color flow and Doppler was performed. The study quality was technically difficult. There is no prior echocardiogram noted for this patient. Due to recent surgery the subcostals were unattainable. The patient was in normal sinus rhythm during the exam. Left Ventricle: The left ventricle is normal in size, wall thickness, and systolic function without any focal wall motion abnormalities. The ejection fraction is estimated to be 60-65%. Diastolic parameters suggest probable normal left ventricular diastolic function and normal filling pressures. Right Ventricle: The right ventricle is borderline dilated. Right ventricular systolic function is at the lower limits of normal. Atria: Both atria are severely dilated. There is no Doppler evidence for an interatrial shunt. Mitral Valve: There is mild mitral annular calcification. The mitral valve leaflets appear mildly thickened, but open well. There is trace mitral regurgitation. Aortic Valve: The aortic valve is not well visualized. The aortic valve is slightly calcified. The aortic valve opens well. No aortic regurgitation is present. Tricuspid Valve: The tricuspid valve is normal in structure and function. There is trace tricuspid regurgitation. Pulmonary artery pressures cannot be estimated because of the lack of a measurable TR jet velocity. Pulmonic Valve: The pulmonic valve is not well visualized. There is no significant valvular heart disease. Great Vessels: The aortic root is normal size. The ascending aorta could not be visualized. The aortic arch is at the upper limits of normal in size. The pulmonary is not well visualized. The inferior vena cava was not visualized. Pericardium/ Pleura There is no pericardial effusion. There is no pleural effusion. MMode/2D Measurements & Calculations LVIDd: 5.2 cm Ao root diam: 3.3 cm LVIDs: 3.8 cm Ao Arch Diam (Prox Trans): 3.0 cm FS: 27.8 % EPSS: 0.53 cm IVSd: 0.34 cm LVPWd: 0.92 cm LV amado. diameter/BSA (cm/m^2): 3.0 LV sys. diameter/BSA (cm/m^2): 2.2 LA A2 area: 22.8 cm2 RA long axis: 5.9 cm LA A4 area: 30.8 cm2 RA area: 23.2 cm2 LA length (vol): 6.8 cm RA vol: 77.4 ml LA vol: 87.8 ml RA : 45.1 ml/m2 LA vol index: 51.2 ml/m2 RVD1 (basal): 4.1 cm TAPSE: 2.8 cm Doppler Measurements & Calculations Ao V2 max: 135.5 cm/sec LVOT Max Javier: 78.4 cm/sec Ao V2 mean: 92.7 cm/sec LV V1 max P.5 mmHg Ao max P.3 mmHg LV V1 VTI: 17.9 cm Ao mean P.8 mmHg sev ratio: 0.57 Ao V2 VTI: 31.4 cm MV E max javier: 63.5 cm/sec TR max javier: 187.6 cm/sec MV A max javier: 53.4 cm/sec TR max P.1 mmHg MV E/A: 1.2 PA V2 max: 60.3 cm/sec Med Peak E' Javier: 9.1 cm/sec PA V2 mean: 36.4 cm/sec E/E' med: 7.0 PA mean P.66 mmHg Lat Peak E' Javier: 12.3 cm/sec PA Accel Time: 0.11 sec E/E' lat: 5.2 E/e' average: 6.1 MV dec time: 0.28 sec MV P1/2t: 81.3 msec MV P1/2t max javier: 60.5 cm/sec MVA(P1/2t): 2.7 cm2 _ Reading Physician:JOSÉ LUIS
--- NOTE | 2019-02-17 10:20 | CM.DPC ---
DCP Cont: Per MD, pt has been having some BP issues and has home oxygen at baseline and still needing to work with RT here. Pt quite ill still and with her pneumonia will likely require at least another few days in the hospital. PT/OT orders placed and evals pending for likely later today if pt medically appropriate. Echo ordered for today. Plan: SW to continue to follow closely and follow for PT/OT eval and recommendations to determine if pt will be safe for d/c home over the next few days. MARLA Hanley
--- NOTE | 2019-02-17 12:12 | P.PN_ITS ---
Subjective Date Patient Seen: 02/18/19 Interval history: Abi Jacques is a 63-year-old female recently treated for SBO status post exploratory laparotomy with lysis of adhesions and community-acquired and proba ble aspiration pneumonia at [facility] in [place] who was admitted for hospital-acquired pneumonia and influenza A infection. The patient is resting in bed comfortably. She continues to endorse nonproductive cough. She is on her baseline oxygen requirements of 2 L for her chronic respiratory failure due to bronchiectasis. She denies headache, shortness of breath, chest pain, abdominal pain, nausea, vomiting, fever, chills, dysuria, diarrhea or constipation. She is voiding and eliminating without difficulty. She is up ambulating minimally with assistance. Exam Vital Signs (past 8 hours): - 02/17/19 04:18 02/17/19 05:07 02/17/19 06:24 Temperature 97.0 F L Pulse Rate 86 86 79 Respiratory Rate 29 H 19 16 Blood Pressure 96/52 L 100/56 L 112/65 Pulse Oximetry 99 97 99 02/17/19 07:00 02/17/19 08:00 02/17/19 08:27 Temperature 97.5 F L Pulse Rate 78 84 82 Respiratory Rate 15 21 16 Blood Pressure 98/57 L 100/54 L Pulse Oximetry 100 98 96 02/17/19 09:00 02/17/19 10:00 02/17/19 11:00 Temperature Pulse Rate 78 80 73 Respiratory Rate 18 21 16 Blood Pressure 107/61 102/58 L 96/54 L Pulse Oximetry 98 98 98 02/17/19 11:29 Temperature 97.6 F Pulse Rate Respiratory Rate Blood Pressure Pulse Oximetry Oxygen Delivery Method Nasal Cannula Oxygen Flow Rate 2 Narrative Exam Narrative: General: Middle-aged female lying in bed and in no acute distress, appears chronically ill and older than stated age, well-developed, well-nourished, appropriately interactive. HEENT: Normocephalic, atraumatic. External ears without defect. Pupils equal, round, and reactive to light. Anicteric sclerae, moist conjunctivae, and no lid lag. Neck: Supple with full range of motion. No jugular venous distension. No lymphadenopathy or thyromegaly. Cardiovascular: Regular rate and rhythm without murmurs, rubs, or gallops appreciated. Pulmonary: Diminished lung sounds throughout with scattered rhonchi and occasional wheeze. Normal respiratory effort with no use of accessory muscles. Abdomen: Soft, bowel sounds present, nontender, nondistended. Large vertical surgical scar healing well without exudate. No hepatosplenomegaly or masses appreciated. Extremities: No clubbing or cyanosis. Mild bilateral pedal edema. Skin: Normal temperature, turgor, and texture; no rash, ulcers, or subcutaneous nodules appreciated. Neurological: Cranial nerves grossly intact. Psychiatric: Slightly anxious and flat affect. Alert and oriented to person, place, and time. Objective Labs Result Diagrams: 02/18/19 04:18 02/18/19 04:18 Labs: Laboratory Results - last 24 hr 02/17/19 02/17/19 02/17/19 04:36 04:36 04:36 WBC 7.3 RBC 2.98 L Hgb 7.8 L Hct 23.7 L MCV 79.4 L MCH 26.3 MCHC 33.1 RDW 19.5 H Plt Count 74 L Neut % (Auto) 84.1 H Lymph % (Auto) 4.1 L [place] % (Auto) 11.6 Eos % (Auto) 0.0 L Baso % (Auto) 0.2 Neut # (Auto) 6100 Lymph # (Auto) 300 L [place] # (Auto) 800 Eos # (Auto) 0 Baso # (Auto) 0 Sodium 129 L Potassium 4.1 Chloride 103 Carbon Dioxide 23 BUN 13 Creatinine 0.50 L Estimated GFR > 60.0 BUN/Creatinine Ratio 26.0 H Glucose 139 H Hemoglobin A1c Calcium 7.6 L Total Bilirubin 1.6 H AST 107 H ALT 42 Alkaline Phosphatase 126 Total Protein 5.6 L Albumin 2.3 L Globulin 3.3 Albumin/Globulin Ratio 0.7 L Procalcitonin 2.97 H TSH 02/17/19 02/17/19 04:36 04:36 WBC RBC Hgb Hct MCV MCH MCHC RDW Plt Count Neut % (Auto) Lymph % (Auto) [place] % (Auto) Eos % (Auto) Baso % (Auto) Neut # (Auto) Lymph # (Auto) [place] # (Auto) Eos # (Auto) Baso # (Auto) Sodium Potassium Chloride Carbon Dioxide BUN Creatinine Estimated GFR BUN/Creatinine Ratio Glucose Hemoglobin A1c 5.1 Calcium Total Bilirubin AST ALT Alkaline Phosphatase Total Protein Albumin Globulin Albumin/Globulin Ratio Procalcitonin TSH 0.09 L Assessment & Plan Assessment & Plan narrative: Abi Jacques is a 63-year-old female recently treated for SBO status post exploratory laparotomy with lysis of adhesions and community-acquired and probable aspiration pneumonia at [facility] in [place] who was admitted for hospital-acquired pneumonia and influenza A infection. 1. Acute viral and bacterial sepsis, present on admission. Resolved. -Viral sepsis with organ dysfunction of respiratory failure, hypotension, thrombocytopenia and metabolic encephalopathy. -Continue early goal directed therapy including IV fluid resuscitation (bolus as needed for hypotension, fluid responsive) and antiviral/broad spectrum antibiotics. 2. Acute on chronic hypoxemic respiratory failure, present on admission. Acute portion resolved. -Patient has known chronic respiratory failure due to bronchiectasis and on home oxygen 2L continuous. Continue supplemental oxygen and titrate as need. Goal oxygen saturation 88% or greater. -Continue respiratory therapy for eval and treatment. Continue duo nebs every 6 hr while awake. Continue methylprednisolone 40 mg daily. 3. Healthcare-associated and influenza pneumonia, present on admission. Active. -Recently hospitalized less than 2 weeks ago in [place] and treated for pneumonia at that time. -Chest x-ray demonstrated increased diffuse interstitial prominence superimposed on chronic interstitial changes with focal opacity in the right mid lung zone. -Respiratory PCR positive for influenza A. -Procalcitonin initially elevated at 1.6 and peaked at 3.83. Now trending down. Continue to monitor daily. -Continue Tamiflu 75 mg twice daily, cefepime 2 g twice daily and levofloxacin 750 mg daily. Treating for influenza and multi-resistant gram positive and negative organisms, respectively. Negative for MRSA colonization. -Ordered respiratory therapy evaluation and treatment. Continue Duonebs every 6 hr while awake. Continue methylprednisolone 40 mg daily. 4. Acute metabolic encephalopathy, present on admission. Resolved. -Suspect multifactorial and secondary to hyponatremia, HCAP and influenza A infection. 5. Acute hyponatremia, present on admission. Active. -Likely secondary to fluid losses from recent surgery and decreased PO intake, in addition to pulmonary infection. -Patient had low normal sodium at 130 while hospitalized in [place]. -Continue fluid resuscitation and as needed NS boluses. Ordered serum and urine osmolality, pending. -Continue to monitor sodium closely. 6. COPD, present on admission. Stable. -Does not represent an acute COPD exacerbation. -Will titrate quickly off methylprednisolone 40 mg daily today. Continue home inhalers, antiviral and antibiotics for pneumonia as above. 7. History of supraventricular tachycardia. -Continue home metoprolol 12.5 mg twice daily. 8. Recent acute blood loss anemia, secondary to exploratory laparotomy, present on admission. Stable. -Initial hemoglobin 9.5. Trending down and likely hemodilutional. -No overt signs of bleeding. -Continue to monitor H&H daily. Transfusion goal < 7.0. 9. Hypothyroidism, chronic, present on admission. Stable. -TSH low at 0.09 and free T4 ayaka at 0.82. -Continue home levothyroxine but decrease from 50 mcg to 25 mcg daily. 10. Osteoporosis, chronic, present on admission. Stable. -Continue home aledronate and vit D3. Disposition: She continues to be critically ill but improving. Will likely discharge in several days to SNF for rehab vs. home with home health. Quality VTE Deep Vein Thrombosis/Pulmonary Embolism Present on Admission: No
[2019-02-17 13:35] LABS: Free T4, Direct Thyroxine 0.82 ng/dL (0.78-2.19)
[2019-02-17] MEDS: levoFLOXacin 750 MG/150 ML PIGGYBACK 100 MG IV (13:50)
--- NOTE | 2019-02-17 14:00 | PT.IIE ---
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) Hypothyroidism, unspecified (02/15/19) Hypo-osmolality and hyponatremia (02/15/19) Metabolic encephalopathy (02/15/19) Supraventricular tachycardia (02/15/19) Pneumonia, unspecified organism (02/15/19) Chronic obstructive pulmonary disease, unspecified (02/15/19) Chronic respiratory failure with hypoxia (02/15/19) Age-related osteoporosis without current pathological fracture (02/15/19) Surgical History (Last Updated 02/15/19 @ 16:31 by Michelle Spicer MD) H/O exploratory laparotomy (Acute) Medical History (Last Updated 02/15/19 @ 16:31 by Michelle Spicer MD) Aspiration pneumonia due to food (regurgitated) (Acute) Chronic respiratory failure with hypoxia (Acute) Hyponatremia (Acute) Hypothyroidism (Acute) Hypovolemic shock (Acute) Major depressive disorder (Acute) Opioid dependence (Acute) Osteoporosis (Acute) Supraventricular tachycardia (Acute) Physical Therapy Inpatient Evaluation/Re-Eval M1 PT/OT-IP Prior Functional Status Start: 02/17/19 14:34 Freq: NEEDED Status: Active Protocol: Document 02/17/19 14:00 RCC (Rec: 02/17/19 14:51 [facility] [email or web address]) Medical Review Prior Functional Status Medical History Reviewed Yes Mobility and Gait indep. gait without device Activities of Daily Living and IADL's indep. I/ADLs including driving Social History Household Members significant other Living Arrangements House Number of Floors (Floors) Two Floors Number of Stairs To Enter/Railing? 3 SE, full flight in inside to master bedroom with unilat. rail Home Environment Standard Height Toilet Home Equipment Front Wheel Walker Straight Cane Additional Social History Comment Pt underwent ex. lap with lysis of adhesions at [facility] in [place] earlier this month, was d/c home on 01/31/2019. Pt developed septic shock during hospitalization, as well as pneumonia and blood loss anemia. Pt also tested positive for influenza A during this hospitalization. She was found by her to have AMS, and sodium low when tested in the ER. M2 PT-IP Current Condition Start: 02/17/19 14:34 Freq: NEEDED Status: Active Protocol: Document 02/17/19 14:00 RCC (Rec: 02/17/19 14:51 [facility] [email or web address]) Physical Therapy Current Condition Current Condition Evaluation Date 02/17/19 Treatment Diagnosis AMS, hyponatremia, influenza, pneumonia, impaired activity tolerance Precautions Other Precautions droplet precautions M3 PT-IP Subjective Start: 02/17/19 14:34 Freq: NEEDED Status: Active Protocol: Document 02/17/19 14:00 RCC (Rec: 02/17/19 14:51 [facility] [email or web address]) Subjective Physical Therapy Visit Type Type Initial Evaluation Visit Start Time 14:00 Visit Stop Time 14:34 Total Visit Minutes 34 Number of MRI ASSISTANT Visits 0 Physical Therapy Visit Comments Patient Comments pt states that she was doing pretty well until last week. Patient Goals to go home M4 PT-IP Mobility and Gait Start: 02/17/19 14:34 Freq: NEEDED Status: Active Protocol: Document 02/17/19 14:00 RCC (Rec: 02/17/19 14:51 [facility] [email or web address]) PT-Bed Mobility Assessment Rolling Type of Rolling Log Rolling Level of Assist Minimal Assistance Supine to Sit Supine to Sit Minimal Assistance 1 Person Assistance Sit to Supine Sit to Supine Minimal Assistance Scooting Scooting to Edge of Bed Independent PT-Transfer Assessment Sit to and From Stand Sit to and from Stand Standby Assistance Equipment Transfer Assistive Device Gait Belt Front Wheeled Walker Transfers Transfer Destination Chair Bedside Commode Transfer Technique Stand Step Pivot Transfer Ability Level of Assist Standby Assistance Gait Assessment Gait Gait Assistance Required: Standby Assistance Distance (Feet) 20 Assistive Devices Assistive Device Gait Belt Front Wheeled Walker Gait Deviations General Gait Pattern Decreased Stride Length Decreased Feet Clearance Factors Limiting Gait Function Factors Limiting Gait Function Decreased Activity Tolerance Respiratory Distress Comments Gait Comments pt c/o SOB, O2 saturation decreased to at least 87% on RA after ambulation but recovered back to 94% after 10 sec standing rest (initially there was a reading in the 70s for O2 saturation, but may have been due to poor attachment of oximeter to finger). PT-Balance Assessment Sitting Balance and Reactions Static Sitting Balance Ability Good Dynamic Sitting Balance Ability Good Standing Balance and Reactions Static Standing Balance Ability Fair Dynamic Standing Balance Ability Fair Device Used FWW M5 PT-IP Objective Assessments Start: 02/17/19 14:34 Freq: NEEDED Status: Active Protocol: Document 02/17/19 14:00 RCC (Rec: 02/17/19 14:51 [facility] [email or web address]) Orientation Orientation/Cognition Level of Alertness Alert Strength Lower Extremity Strength Assessment Within Functional Limits M6 PT-IP Treatment Start: 02/17/19 14:34 Freq: NEEDED Status: Active Protocol: Document 02/17/19 14:00 RCC (Rec: 02/17/19 14:51 [facility] [email or web address]) Physical Therapy Treatment Education Education Provided Safety M7 PT-IP Assessment and Plan Start: 02/17/19 14:34 Freq: NEEDED Status: Active Protocol: Document 02/17/19 14:00 [facility] (Rec: 02/17/19 14:51 [facility] [email or web address]) PT Summary Assessment and Plan Potential Rehabilitation Potential Good Status of Condition at Evaluation Evolving Summary Impairments Balance Bed Mobility Transfers Gait Activity Tolerance Assessment Summary Pt required min assist to get out of bed this session, and with evident fatigue after short gait. Pt utilized a FWW which she may benefit from using her own upon d/c. Expect pt to continue to improve medically, which likely will improve physically as well to be able to return home when medically stable. Her spouse is disabled, not able to help much therefore pt will need to be indep with mobility for recommendation of home. Goals Bed Mobility Goal Independent Transfer Goal Independent Gait Goal Independent Cane Front Wheel Walker Gait Distance 300 Other Goals up/down 12 steps with unilat. rail and SBA Days to Meet Goals 5 Frequency of Treatment Frequency Of Treatment Twice a Day Treatment Plan Physical Therapy Treatment Plan Bed Mobility Training Transfer Training Gait Training Therapeutic Exercise Balance Retraining Discharge Planning Neuromuscular Re-ed Other Recommendations and Next Treatment progress gait as tolerated, Focus stair training prior to d/c Recommendations To Nursing Amount of Assist Needed 1 Person Assist Discharge Recommendations PT Discharge Recommendations Home with Assistance Home Health
--- NOTE | 2019-02-17 14:57 | PC.NURSE ---
BP stable this shift. SR on tele. Denies symptoms at rest. Reports mild dizziness with position change but orthostatic VS completed and pt not orthostatic. Removed tran cath. Placed on RA. SPO2 95%. Currently up to chair in no acute distress.
[2019-02-17] MEDS: FAMOTIDINE 20 MG/50 ML PIGGYBACK 200 MG IV (17:27)
[2019-02-17] MEDS: SENNOSIDES 8.6 MG TABLET 17.2 MG PO (21:07)
--- NOTE | 2019-02-17 21:38 | PC.NURSE ---
1700 - Pt declines to stay up in a chair for meal. Reports feeling fatigue. Denies pain. Assist back to bed. Set up for meal. RA 97%. Intermittent cough and SOB with activity. VSS. Call light in reach. 2120 - Pt able to take po meds without difficulty. Continues to deny pain. BG 156. SBA to BSC. Remains on RA at 97%. Reinforced safety. Call in reach.
[2019-02-18] VITALS (9 sets, daily range): BP systolic 95–116; BP diastolic 52–73; PULSE 76–98; RESP 14–18; TEMP 36.1–36.6; O2SAT 93–97
[2019-02-18 04:46] LABS: Add Manual Diff / Slide Review NO; Basophils Absolute Auto 0 /uL (0-100); Basophils Percent Auto 0.3 % (0-2); Eosinophils Absolute Auto 0 /uL (0-450); Eosinophils Percent Auto 0.2 % (2-4); Hemoglobin 7.5 g/dL (12.0-16.0); Lymphocytes Absolute Auto 500 /uL (1100-4500); Lymphocytes Percent Auto 5.1 % (25-40); Mean Corpuscular Hemoglobin 26.1 PG (26-34); Mean Corpuscular Volume 79.3 fL (80-100); Monocytes Absolute Auto 1000 /uL (0-900); Monocytes Percent Auto 10.6 % (3-14); Neutrophils Absolute Auto 7600 /uL (1500-7000); Neutrophils Percent Auto 83.8 % (50-75); Platelet Count 83 X10^3/uL (150-400); Red Blood Cell Count 2.87 X10^6/uL (4.0-5.2); Red Cell Distribution Width 19.6 % (11.6-14.8); White Blood Cell Count 9.1 X10^3/uL (4.5-11.0)
[2019-02-18] MEDS: CEFEPIME 2 GM in SODIUM CHLORIDE 0.9% 100 ML 200 ML IV ×2 (04:47→15:34)
[2019-02-18 04:52] LABS: Hematocrit 22.8 % (36-46)
[2019-02-18 04:54] LABS: BUN Creatinine Ratio 23.3 (6-22); Blood Urea Nitrogen 14 mg/dL (7-17); Carbon Dioxide 23 mmol/L (22-32); Chloride 104 mmol/L (98-107); Estimated Glomerular Filt Rate > 60.0 mL/min (>60); Glucose 111 mg/dL (80-110); HEMOLYSIS < 15 (0-50); Potassium 4.2 mmol/L (3.4-5.1); Sodium 132 mmol/L (137-145)
[2019-02-18 05:09] LABS: Procalcitonin 2.05 ng/mL (<0.5)
[2019-02-18] MEDS: LEVOTHYROXINE 50 MCG TABLET PO (05:27)
[2019-02-18] MEDS: FLUTICASONE/SALMETEROL 500/50 14 PUFF DISKUS INH ×2 (05:58→20:16)
[2019-02-18] MEDS: ALBUTEROL 2.5 MG/3 ML NEB (ADULT) INH ×3 (05:59→20:16)
--- NOTE | 2019-02-18 08:12 | P.PN_ITS ---
Subjective Date Patient Seen: 02/18/19 Interval history: Abi Jacques is a 63-year-old female recently treated for SBO status post exploratory laparotomy with lysis of adhesions and community-acquired and prob able aspiration pneumonia at [facility] in [place] who was admitted for hospital-acquired pneumonia and influenza A infection. The patient is resting in bedside chair comfortably. She continues to endorse nonproductive cough and had mild abdominal discomfort on right side but has r esolved now. She continues to eliminate without difficulty. She is on her baseline oxygen requirements of 2 L for her chronic respiratory failure due to bronchiectasis. She also reports she is shaky and tremulous liklely due to generalized weakness. She rarely drinks alcohol. She denies headache, shortness of breath, chest pain, abdominal pain, nausea, vomiting, fever, chills, dysuria, diarrhea or constipation. She is voiding without difficulty. She is up ambulating minimally with assistance. Exam Vital Signs (past 8 hours): - 02/18/19 05:00 02/18/19 05:59 02/18/19 07:55 Temperature 97.8 F 97.8 F Pulse Rate 83 85 86 Respiratory Rate 15 14 15 Blood Pressure 95/56 L 104/58 L Pulse Oximetry 95 93 96 Oxygen Delivery Method Room Air Oxygen Flow Rate 2 Narrative Exam Narrative: General: Middle-aged female lying in bed and in no acute distress, appears chronically ill and older than stated age, well-developed, well-nourished, appropriately interactive. HEENT: Normocephalic, atraumatic. External ears without defect. Pupils equal, round, and reactive to light. Anicteric sclerae, moist conjunctivae, and no lid lag. Neck: Supple with full range of motion. No jugular venous distension. No lymphadenopathy or thyromegaly. Cardiovascular: Regular rate and rhythm without murmurs, rubs, or gallops appreciated. Pulmonary: Clear throughout with scattered rhonchi, improved. Normal respi ratory effort with no use of accessory muscles. Abdomen: Soft, bowel sounds present, nontender, nondistended. Large vertical surgical scar healing well without exudate. No hepatosplenomegaly or masses appreciated. Extremities: No clubbing, cyanosis or edema. Skin: Normal temperature, turgor, and texture; no rash, ulcers, or subcutaneous nodules appreciated. Neurological: Cranial nerves grossly intact. Psychiatric: Slightly anxious and flat affect. Alert and oriented to person, place, and time. Objective Labs Result Diagrams: 02/18/19 04:18 02/18/19 04:18 Labs: Laboratory Results - last 24 hr 02/17/19 02/18/19 02/18/19 04:36 04:18 04:18 WBC 9.1 RBC 2.87 L Hgb 7.5 L Hct 22.8 L MCV 79.3 L MCH 26.1 MCHC 33.0 RDW 19.6 H Plt Count 83 L Neut % (Auto) 83.8 H Lymph % (Auto) 5.1 L [place] % (Auto) 10.6 Eos % (Auto) 0.2 L Baso % (Auto) 0.3 Neut # (Auto) 7600 H Lymph # (Auto) 500 L [place] # (Auto) 1000 H Eos # (Auto) 0 Baso # (Auto) 0 Sodium Potassium Chloride Carbon Dioxide BUN Creatinine Estimated GFR BUN/Creatinine Ratio Glucose Calcium Magnesium Procalcitonin 2.05 H Free T4 0.82 02/18/19 04:18 WBC RBC Hgb Hct MCV MCH MCHC RDW Plt Count Neut % (Auto) Lymph % (Auto) [place] % (Auto) Eos % (Auto) Baso % (Auto) Neut # (Auto) Lymph # (Auto) [place] # (Auto) Eos # (Auto) Baso # (Auto) Sodium 132 L Potassium 4.2 Chloride 104 Carbon Dioxide 23 BUN 14 Creatinine 0.60 Estimated GFR > 60.0 BUN/Creatinine Ratio 23.3 H Glucose 111 H Calcium 8.0 L Magnesium 2.0 Procalcitonin Free T4 Assessment & Plan Assessment & Plan narrative: Abi Jacques is a 63-year-old female recently treated for SBO status post exploratory laparotomy with lysis of adhesions and community-acquired and probable aspiration pneumonia at [facility] in [place] who was admitted for hospital-acquired pneumonia and influenza A infection. 1. Acute viral and bacterial sepsis, present on admission. Resolved. -Sepsis criteria met with organ dysfunction of respiratory failure, hypotension, thrombocytopenia and metabolic encephalopathy. -Continue early goal directed therapy including IV fluid resuscitation (bolus as needed for hypotension, fluid responsive) and antiviral/broad spectrum antibiotics. 2. Acute on chronic hypoxemic respiratory failure, present on admission. Acute portion resolved. -Patient has known chronic respiratory failure due to bronchiectasis and on home oxygen 2L continuous. Continue supplemental oxygen and titrate as need. Goal oxygen saturation 88% or greater. -Continue respiratory therapy for eval and treatment. Continue duo nebs every 6 hr while awake. Will switch to prednisone tomorrow. 3. Healthcare-associated and influenza pneumonia, present on admission. Active. -Recently hospitalized less than 2 weeks ago in [place] and treated for pneumonia at that time. -Chest x-ray demonstrated increased diffuse interstitial prominence superimposed on chronic interstitial changes with focal opacity in the right mid lung zone. -Respiratory PCR positive for influenza A. -Procalcitonin initially elevated at 1.6 and peaked at 3.83. Now trending down. Continue to monitor daily. -Continue Tamiflu 75 mg twice daily, cefepime 2 g twice daily and levofloxacin 750 mg daily. Treating for influenza and multi-resistant gram positive and negative organisms, respectively. Negative for MRSA colonization. -Ordered respiratory therapy evaluation and treatment. Continue Duonebs every 6 hr while awake. Continue methylprednisolone 40 mg daily. 4. Acute metabolic encephalopathy, present on admission. Resolved. -Suspect multifactorial and secondary to hyponatremia, HCAP and influenza A infection. 5. Acute hyponatremia, present on admission. Active. -Likely secondary to fluid losses from recent surgery and decreased PO intake, in addition to pulmonary infection. -Patient had low normal sodium at 130 while hospitalized in [place]. -Continue fluid resuscitation and as needed NS boluses. Ordered serum and urine osmolality, pending. -Continue to monitor sodium closely. 6. COPD, present on admission. Stable. -Does not represent an acute COPD exacerbation. -Will titrate quickly off methylprednisolone 40 mg daily today. Continue home inhalers, antiviral and antibiotics for pneumonia as above. 7. History of supraventricular tachycardia. -Continue home metoprolol 12.5 mg twice daily. 8. Recent acute blood loss anemia, secondary to exploratory laparotomy, present on admission. Stable. -Initial hemoglobin 9.5. Trending down and likely hemodilutional. -No overt signs of bleeding. -Continue to monitor H&H daily. Transfusion goal < 7.0. 9. Hypothyroidism, chronic, present on admission. Stable. -TSH low at 0.09 and free T4 ayaka at 0.82. -Continue home levothyroxine but decrease from 50 mcg to 25 mcg daily. 10. Osteoporosis, chronic, present on admission. Stable. -Continue home aledronate and vit D3. Disposition: She continues to be critically ill but improving. Will likely discharge in1-2 days to SNF for rehab vs. home with home health. Quality VTE Deep Vein Thrombosis/Pulmonary Embolism Present on Admission: No
[2019-02-18] MEDS: ENOXAPARIN 40 MG/0.4 ML SYRINGE SUBCUT (08:27)
[2019-02-18] MEDS: DULOXETINE 30 MG CAPSULE 60 MG PO (08:27)
[2019-02-18] MEDS: OSELTAMIVIR 75 MG CAPSULE PO ×2 (08:28→21:20)
[2019-02-18] MEDS: ACETAMINOPHEN 325 MG TABLET 650 MG PO (08:29)
[2019-02-18] MEDS: OXYCODONE IR 5 MG TABLET PO ×2 (08:29→15:40)
[2019-02-18] MEDS: levoFLOXacin 750 MG/150 ML PIGGYBACK 100 MG IV (13:04)
--- NOTE | 2019-02-18 13:29 | PC.NURSE ---
1250- Pt c/o dizziness/lightheadedness onset 5 minutes ago. Denies vision changes and moving all extremities equally to command. Face is symmetric. Pupils are 2mm bilaterally and reactive to light. Speech is clear. Oriented x3. CBG 177. HR 79 radial BP 105/62 (79) RR 19 SPO2 97% on 2L NC. Lungs are diminished with faint crackles auscultated over left posterior lower lobe. Assisted pt to BSC to void and then back to bed. Pt transferred with walker and steady gait. States she would like to rest for now. Placed call light in easy reach, bed rails x3, and bed alarm on. Instructed pt to notify for increased symptoms. Will monitor.
--- NOTE | 2019-02-18 16:25 | OT.IP.EVAL ---
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) Hypothyroidism, unspecified (02/15/19) Hypo-osmolality and hyponatremia (02/15/19) Metabolic encephalopathy (02/15/19) Supraventricular tachycardia (02/15/19) Pneumonia, unspecified organism (02/15/19) Chronic obstructive pulmonary disease, unspecified (02/15/19) Chronic respiratory failure with hypoxia (02/15/19) Age-related osteoporosis without current pathological fracture (02/15/19) Past Medical History (Last Updated 02/15/19 @ 16:31 by Michelle Spicer MD) Aspiration pneumonia due to food (regurgitated) (Acute) Chronic respiratory failure with hypoxia (Acute) Hyponatremia (Acute) Hypothyroidism (Acute) Hypovolemic shock (Acute) Major depressive disorder (Acute) Opioid dependence (Acute) Osteoporosis (Acute) Supraventricular tachycardia (Acute) Surgical History (Last Updated 02/15/19 @ 16:31 by Michelle Spicer MD) H/O exploratory laparotomy (Acute) Occupational Therapy Inpatient Evaluation/Re-Eval M1 PT/OT-IP Prior Functional Status Start: 02/17/19 14:34 Freq: NEEDED Status: Active Protocol: Document 02/17/19 14:00 [facility] (Rec: 02/17/19 14:51 [facility] [email or web address]) Medical Review Prior Functional Status Medical History Reviewed Yes Mobility and Gait indep. gait without device Activities of Daily Living and IADL's indep. I/ADLs including driving Social History Household Members significant other Living Arrangements House Number of Floors (Floors) Two Floors Number of Stairs To Enter/Railing? 3 SE, full flight in inside to master bedroom with unilat. rail Home Environment Standard Height Toilet Home Equipment Front Wheel Walker Straight Cane Additional Social History Comment Pt underwent ex. lap with lysis of adhesions at [facility] in [place] earlier this month, was d/c home on 01/31/2019. Pt developed septic shock during hospitalization, as well as pneumonia and blood loss anemia. Pt also tested positive for influenza A during this hospitalization. She was found by her to have AMS, and sodium low when tested in the ER. M1 PT/OT-IP Prior Functional Status Start: 02/18/19 16:16 Freq: NEEDED Status: Active Protocol: Document 02/18/19 16:17 [facility] (Rec: 02/18/19 16:25 [facility] [id number]) Medical Review Prior Functional Status Medical History Reviewed Yes Mobility and Gait indep. gait without device Activities of Daily Living and IADL's indep. I/ADLs including driving Social History Household Members significant other Living Arrangements House Number of Floors (Floors) Two Floors Number of Stairs To Enter/Railing? 3 SE, full flight in inside to master bedroom with unilat. rail Home Environment Standard Height Toilet Home Equipment Front Wheel Walker Straight Cane raised toilet seat, shower stool -but does not use HHSP Additional Social History Comment Pt underwent ex. lap with lysis of adhesions at [facility] in [place] earlier this month, was d/c home on 01/31/2019. Pt developed septic shock during hospitalization, as well as pneumonia and blood loss anemia. Pt also tested positive for influenza A during this hospitalization. She was found by her to have AMS, and sodium low when tested in the ER. M2 OT-IP Current Condition Start: 02/18/19 16:16 Freq: Status: Active Protocol: Document 02/18/19 16:17 [facility] (Rec: 02/18/19 16:25 [facility] [id number]) Occupational Therapy Current Condition Current Condition Evaluation Date 02/18/19 Treatment Diagnosis AMS, weakness Diagnosis Onset Date 02/15/19 M3 OT- IP Subjective and Pain Start: 02/18/19 16:16 Freq: Status: Active Protocol: Document 02/18/19 16:17 [facility] (Rec: 02/18/19 16:25 [facility] [id number]) OT- Subjective Occupational Therapy Visit Type Type Initial Evaluation Visit Start Time 15:00 Visit Stop Time 15:20 Total Visit Minutes 20 Occupational Therapy Visit Comments Patient Comments Pt states feeling better overall and feels just mainly wanting to get stronger and go home. OT Pain Assessment Pain When Pain Assessed At Rest Pain Present Pain Present Denied Pain M4 OT- IP ADL's Start: 02/18/19 16:16 Freq: Status: Active Protocol: Document 02/18/19 16:17 [facility] (Rec: 02/18/19 16:25 [facility] [id number]) OT ADL-Dressing General Eval Lower Body Dressing Ability Moderate Assistance Areas Needing Assistance Socks Comments OT Dressing Comments Pt needing assist for right sock, but at home uses sock aid and metallurgist process to assist for needs. Recommend that pt use 's bidet or use of toilet aid to help with hygiene needs. Pt now needing to stand for hygiene needs for completeness but having more difficulty at home. Recommended use of BSC as at times pt gets up 5 times at night to use the bathroom. M6 OT- IP Functional Cognition Start: 02/18/19 16:16 Freq: Status: Active Protocol: Document 02/18/19 16:17 [facility] (Rec: 02/18/19 16:25 [facility] [id number]) Cognitive Factors Limiting Selfcare Function Cognitive Ability Level of Alertness Alert Patient Orientation Name Age Birthday Month Date Year Day of Week Place Situation Attention Span Ability Capable of Focused Attention Capable of Sustained Attention Ability to Follow Commands Able to Follow Multi-Step Commands Cognitive Comments Cognitive Assessment Comments At this time pt able to follow 2-3 step commands. OT- Vision and Hearing OT- Hearing Assessment OT- Hearing Assessment WFL M7 OT- IP Mobility and Balance Start: 02/18/19 16:16 Freq: Status: Active Protocol: Document 02/18/19 16:17 [facility] (Rec: 02/18/19 16:25 [facility] [id number]) OT- Bed Mobility Assessment Rolling Type of Rolling Roll to Right Level of Assistance Standby Assistance Supine to Sit Supine to Sit Assist Standby Assistance OT-Transfer Assessment Sit to and From Stand Sit to and from Stand Standby Assistance 1 Person Assistance Transfers Transfer Ability Standby Assistance Technique Transfer Destination Bed Devices Transfer Assistive Devices Gait Belt Front Wheeled Walker Comments Mobility Comments Pt able to get up with SBA form the bed and walk around the bed. Pt a little shaky on her feet. OT- Balance Assessment Sitting Balance and Reactions Static Sitting Balance Ability Normal Dynamic Sitting Balance Ability Good Standing Balance and Reactions Static Standing Balance Ability Fair M8 OT- IP Objective Assessments Start: 02/18/19 16:16 Freq: Status: Active Protocol: Document 02/18/19 16:17 [facility] (Rec: 02/18/19 16:25 [facility] [id number]) OT Gross Range of Motion Upper Extremity Range of Motion Assessment Within Functional Limits OT Strength Comments Strength Comments BUE 4-/5 M9 OT- IP Assessment and Plan Start: 02/18/19 16:16 Freq: Status: Active Protocol: Document 02/18/19 16:17 [facility] (Rec: 02/18/19 16:25 [facility] [id number]) OT Summary Assessment and Plan Potential Rehabilitation Potential Good Analytic Complexity at Evaluation Low Summary OT Impairments Strength Balance Functional Mobility Dressing Toileting Bathing Progress Towards Goals Progressing Toward Goals Assessment Summary Pt low complexity and main barriers are steps, decreased endurance and activity tolerance and when medically stable suggest home with assist and home health. Goals Grooming Goal Independent Dressing Goal Standby Assistance Toileting Goal Standby Assistance Bathing Goal Standby Assistance Toilet Transfer Goal Independent Shower Transfer Goal Standby Assistance Patient/Caregiver Education Goal Demonstrate Energy Conservation and Pacing Caregiver Independent Assisting Patient Days to Meet Goals 3 Frequency of Treatment Frequency Of Treatment Once a Day Discharge Recommendations OT Discharge Recommendations Home with Assistance Home Health Home Equipment Needs BSC, toilet aid
--- NOTE | 2019-02-18 16:26 | PT.IPTN ---
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) Hypothyroidism, unspecified (02/15/19) Hypo-osmolality and hyponatremia (02/15/19) Metabolic encephalopathy (02/15/19) Supraventricular tachycardia (02/15/19) Pneumonia, unspecified organism (02/15/19) Chronic obstructive pulmonary disease, unspecified (02/15/19) Chronic respiratory failure with hypoxia (02/15/19) Age-related osteoporosis without current pathological fracture (02/15/19) Physical Therapy Treatment Note M2 PT-IP Current Condition Start: 02/17/19 14:34 Freq: NEEDED Status: Active Protocol: Document 02/17/19 14:00 RCC (Rec: 02/17/19 14:51 [facility] [email or web address]) Physical Therapy Current Condition Current Condition Evaluation Date 02/17/19 Treatment Diagnosis AMS, hyponatremia, influenza, pneumonia, impaired activity tolerance Precautions Other Precautions droplet precautions M3 PT-IP Subjective Start: 02/17/19 14:34 Freq: NEEDED Status: Active Protocol: Document 02/18/19 09:25 LJ (Rec: 02/18/19 16:26 LJ [id number]) Subjective Physical Therapy Visit Type Type Treatment Note Visit Start Time 09:25 Visit Stop Time 09:44 Total Visit Minutes 19 Physical Therapy Visit Comments Patient Comments Pt in chair with doctor in room. States she is shakey but willing to get up and ambulate M4 PT-IP Mobility and Gait Start: 02/17/19 14:34 Freq: NEEDED Status: Active Protocol: Document 02/18/19 09:25 LJ (Rec: 02/18/19 16:26 LJ [id number]) PT-Transfer Assessment Sit to and From Stand Sit to and from Stand Standby Assistance Equipment Transfer Assistive Device Gait Belt Front Wheeled Walker Transfers Transfer Destination Chair Transfer Ability Level of Assist Standby Assistance Comments Mobility Comments Pt requiring SBA for transfers . Maxim with tele. Not using O2 Gait Assessment Gait Gait Assistance Required: Standby Assistance Distance (Feet) 25 Assistive Devices Assistive Device Gait Belt Front Wheeled Walker Gait Deviations General Gait Pattern Decreased Stride Length Decreased Feet Clearance Comments Gait Comments Pt O2 sat at 90% on room air prior to ambulation. Ambulated around room 25' then returned to chair. O2 at 91% after ambulation. M5 PT-IP Objective Assessments Start: 02/17/19 14:34 Freq: NEEDED Status: Active Protocol: Document 02/17/19 14:00 RCC (Rec: 02/17/19 14:51 [facility] [email or web address]) Orientation Orientation/Cognition Level of Alertness Alert Strength Lower Extremity Strength Assessment Within Functional Limits M6 PT-IP Treatment Start: 02/17/19 14:34 Freq: NEEDED Status: Active Protocol: Document 02/17/19 14:00 [facility] (Rec: 02/17/19 14:51 [facility] [email or web address]) Physical Therapy Treatment Education Education Provided Safety M7 PT-IP Assessment and Plan Start: 02/17/19 14:34 Freq: NEEDED Status: Active Protocol: Document 02/18/19 09:25 LJ (Rec: 02/18/19 16:26 LJ [id number]) PT Summary Assessment and Plan Potential Rehabilitation Potential Good Status of Condition at Evaluation Evolving Summary Impairments Balance Bed Mobility Transfers Gait Activity Tolerance Assessment Summary Pt requiring SBA for transfers and gait. O2 remained above 90% during mobility and ambulation. Instructed in deep breathing throughout treatment. Goals Bed Mobility Goal Independent Transfer Goal Independent Gait Goal Independent Cane Front Wheel Walker Gait Distance 300 Other Goals up/down 12 steps with unilat. rail and SBA Days to Meet Goals 5 Frequency of Treatment Frequency Of Treatment Twice a Day Treatment Plan Physical Therapy Treatment Plan Bed Mobility Training Transfer Training Gait Training Therapeutic Exercise Balance Retraining Discharge Planning Neuromuscular Re-ed Other Recommendations and Next Treatment progress gait as tolerated, Focus stair training prior to d/c Recommendations To Nursing Amount of Assist Needed Standby Assistance Discharge Recommendations PT Discharge Recommendations Home with Assistance Home Health
--- NOTE | 2019-02-18 17:02 | PT.IPTN ---
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) Hypothyroidism, unspecified (02/15/19) Hypo-osmolality and hyponatremia (02/15/19) Metabolic encephalopathy (02/15/19) Supraventricular tachycardia (02/15/19) Pneumonia, unspecified organism (02/15/19) Chronic obstructive pulmonary disease, unspecified (02/15/19) Chronic respiratory failure with hypoxia (02/15/19) Age-related osteoporosis without current pathological fracture (02/15/19) Physical Therapy Treatment Note M2 PT-IP Current Condition Start: 02/17/19 14:34 Freq: NEEDED Status: Active Protocol: Document 02/17/19 14:00 RCC (Rec: 02/17/19 14:51 [facility] [email or web address]) Physical Therapy Current Condition Current Condition Evaluation Date 02/17/19 Treatment Diagnosis AMS, hyponatremia, influenza, pneumonia, impaired activity tolerance Precautions Other Precautions droplet precautions M3 PT-IP Subjective Start: 02/17/19 14:34 Freq: NEEDED Status: Active Protocol: Document 02/18/19 16:27 LJ (Rec: 02/18/19 17:02 LJ [id number]) Subjective Physical Therapy Visit Type Type Treatment Note Visit Start Time 16:27 Visit Stop Time 16:46 Total Visit Minutes 19 Notes Pt in bed. willing to get up and ambulate in hallway. M4 PT-IP Mobility and Gait Start: 02/17/19 14:34 Freq: NEEDED Status: Active Protocol: Document 02/18/19 16:27 LJ (Rec: 02/18/19 17:02 LJ [id number]) PT-Bed Mobility Assessment Rolling Type of Rolling Roll to Right Level of Assist Standby Assistance Supine to Sit Supine to Sit Independent Sit to Supine Sit to Supine Independent Scooting Scooting to Edge of Bed Independent PT-Transfer Assessment Sit to and From Stand Sit to and from Stand Standby Assistance Use of Upper Extremities Equipment Transfer Assistive Device Gait Belt Front Wheeled Walker Transfers Transfer Destination Bed Transfer Ability Level of Assist Standby Assistance Comments Mobility Comments Pt independent to SBA for bed mobility and transfers. Pt reports feeling less shakey than afternoon and did not experience dizziness during bed mobility and transfer. Gait Assessment Gait Gait Assistance Required: Contact Guard Assist Distance (Feet) 60 Assistive Devices Assistive Device Gait Belt Front Wheeled Walker Gait Deviations General Gait Pattern Decreased Stride Length Decreased Feet Clearance Flexed Trunk Narrow Based Gait Factors Limiting Gait Function Factors Limiting Gait Function Decreased Activity Tolerance Decreased Strength Respiratory Distress Comments Gait Comments Pt at 95% O2 sat on room air prior to ambulation. Ambulated in hallway and back to bed 60 '. O2 sat at 92% post ambulation. M5 PT-IP Objective Assessments Start: 02/17/19 14:34 Freq: NEEDED Status: Active Protocol: Document 02/17/19 14:00 RCC (Rec: 02/17/19 14:51 [facility] [email or web address]) Orientation Orientation/Cognition Level of Alertness Alert Strength Lower Extremity Strength Assessment Within Functional Limits M6 PT-IP Treatment Start: 02/17/19 14:34 Freq: NEEDED Status: Active Protocol: Document 02/17/19 14:00 RCC (Rec: 02/17/19 14:51 RCC [email or web address]) Physical Therapy Treatment Education Education Provided Safety M7 PT-IP Assessment and Plan Start: 02/17/19 14:34 Freq: NEEDED Status: Active Protocol: Document 02/18/19 16:27 LJ (Rec: 02/18/19 17:02 LJ [id number]) PT Summary Assessment and Plan Potential Rehabilitation Potential Good Status of Condition at Evaluation Evolving Summary Impairments Strength Balance Bed Mobility Transfers Gait Activity Tolerance Assessment Summary Pt requiring SBA for transfers and gait. O2 remained above 92% during mobility and ambulation. Instructed in deep breathing throughout treatment. Increased gait distance from 20' to 60'. Goals Bed Mobility Goal Independent Transfer Goal Independent Gait Goal Independent Cane Front Wheel Walker Gait Distance 300 Other Goals up/down 12 steps with unilat. rail and SBA Days to Meet Goals 5 Frequency of Treatment Frequency Of Treatment Twice a Day Treatment Plan Physical Therapy Treatment Plan Bed Mobility Training Transfer Training Gait Training Therapeutic Exercise Balance Retraining Discharge Planning Neuromuscular Re-ed Other Recommendations and Next Treatment progress gait as tolerated, Focus stair training prior to d/c Recommendations To Nursing Amount of Assist Needed Standby Assistance Discharge Recommendations PT Discharge Recommendations Home with Assistance Home Health
[2019-02-18] MEDS: INSULIN ASPART 100 UNIT/ML INSULN PEN SUBCUT (17:19)
[2019-02-18] MEDS: FAMOTIDINE 20 MG/50 ML PIGGYBACK 200 MG IV (17:53)
[2019-02-18] MEDS: SENNOSIDES 8.6 MG TABLET 17.2 MG PO (21:20)
[2019-02-19] VITALS (14 sets, daily range): BP systolic 105–129; BP diastolic 53–77; PULSE 77–96; RESP 12–24; TEMP 36.2–37.6; O2SAT 92–99
[2019-02-19] MEDS: CEFEPIME 2 GM in SODIUM CHLORIDE 0.9% 100 ML 200 ML IV ×2 (04:25→16:31)
[2019-02-19] MEDS: SODIUM CHLORIDE 0.9% FLUSH 10 ML IV ×3 (04:25→21:52)
[2019-02-19 05:44] LABS: Alanine Aminotransferase 34 IU/L (9-52); Albumin 2.4 g/dL (3.5-5.0); Albumin Globulin Ratio 0.7 (1.0-2.8); Alkaline Phosphatase 88 U/L (38-126); Aspartate Aminotransferase 54 IU/L (14-36); Bilirubin Total 0.8 mg/dL (0.2-1.3); Blood Urea Nitrogen 10 mg/dL (7-17); Carbon Dioxide 23 mmol/L (22-32); Chloride 103 mmol/L (98-107); Estimated Glomerular Filt Rate > 60.0 mL/min (>60); Globulin 3.3 g/dL (1.7-4.1); Glucose 79 mg/dL (80-110); HEMOLYSIS < 15 (0-50); Potassium 3.7 mmol/L (3.4-5.1); Sodium 132 mmol/L (137-145); Total Protein 5.7 g/dL (6.3-8.2)
[2019-02-19 05:48] LABS: Mean Corpuscular HGB Conc 33.3 % (30-36); Mean Corpuscular Hemoglobin 26.2 PG (26-34); Mean Corpuscular Volume 78.6 fL (80-100); Platelet Count 83 X10^3/uL (150-400); Red Blood Cell Count 2.68 X10^6/uL (4.0-5.2); Red Cell Distribution Width 19.4 % (11.6-14.8); White Blood Cell Count 5.6 X10^3/uL (4.5-11.0)
[2019-02-19 05:58] LABS: Add Manual Diff / Slide Review YES; Hematocrit 21.1 % (36-46)
[2019-02-19] MEDS: LEVOTHYROXINE 50 MCG TABLET PO (06:08)
[2019-02-19 06:30] LABS: Procalcitonin 0.85 ng/mL (<0.5)
[2019-02-19 06:49] LABS: Hypochromasia 1+; Neutrophils Absolute Manual 4312 /uL (3000-5900); Total Cells Counted 100
[2019-02-19 06:50] LABS: Anisocytosis 1+
[2019-02-19] MEDS: ALBUTEROL 2.5 MG/3 ML NEB (ADULT) INH ×3 (08:47→21:14)
[2019-02-19] MEDS: FLUTICASONE/SALMETEROL 500/50 14 PUFF DISKUS INH (08:47)
[2019-02-19] MEDS: ENOXAPARIN 40 MG/0.4 ML SYRINGE SUBCUT (09:05)
[2019-02-19] MEDS: DULOXETINE 30 MG CAPSULE 60 MG PO (09:05)
[2019-02-19] MEDS: OSELTAMIVIR 75 MG CAPSULE PO ×2 (09:06→21:00)
[2019-02-19] MEDS: METOPROLOL IR 25 MG TABLET 12.5 MG PO ×2 (09:06→21:01)
[2019-02-19] MEDS: MORPHINE ER 15 MG TABLET PO ×2 (09:34→21:00)
--- NOTE | 2019-02-19 09:50 | PT.IPTN ---
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) Hypothyroidism, unspecified (02/15/19) Hypo-osmolality and hyponatremia (02/15/19) Metabolic encephalopathy (02/15/19) Supraventricular tachycardia (02/15/19) Pneumonia, unspecified organism (02/15/19) Chronic obstructive pulmonary disease, unspecified (02/15/19) Chronic respiratory failure with hypoxia (02/15/19) Age-related osteoporosis without current pathological fracture (02/15/19) Physical Therapy Treatment Note M2 PT-IP Current Condition Start: 02/17/19 14:34 Freq: NEEDED Status: Active Protocol: Document 02/17/19 14:00 RCC (Rec: 02/17/19 14:51 RCC [email or web address]) Physical Therapy Current Condition Current Condition Evaluation Date 02/17/19 Treatment Diagnosis AMS, hyponatremia, influenza, pneumonia, impaired activity tolerance Precautions Other Precautions droplet precautions M3 PT-IP Subjective Start: 02/17/19 14:34 Freq: NEEDED Status: Active Protocol: Document 02/19/19 09:00 GGD (Rec: 02/19/19 10:04 GGD [email or web address]) Subjective Physical Therapy Visit Type Type Treatment Note Visit Start Time 09:35 Visit Stop Time 09:50 Total Visit Minutes 15 Number of [employer] Visits 3 Physical Therapy Visit Comments Patient Comments Pt want's to go back to bed. M4 PT-IP Mobility and Gait Start: 02/17/19 14:34 Freq: NEEDED Status: Active Protocol: Document 02/19/19 09:00 GGD (Rec: 02/19/19 10:04 GGD [email or web address]) PT-Bed Mobility Assessment Sit to Supine Sit to Supine Independent Scooting Scooting to Edge of Bed Independent PT-Transfer Assessment Sit to and From Stand Sit to and from Stand Standby Assistance Use of Upper Extremities Equipment Transfer Assistive Device Gait Belt Front Wheeled Walker Transfers Transfer Destination Bed Transfer Ability Level of Assist Standby Assistance Comments Mobility Comments P Gait Assessment Gait Gait Assistance Required: Contact Guard Assist Distance (Feet) 40 Assistive Devices Assistive Device Gait Belt Front Wheeled Walker Gait Deviations General Gait Pattern Decreased Stride Length Decreased Feet Clearance Flexed Trunk Narrow Based Gait Factors Limiting Gait Function Factors Limiting Gait Function Decreased Activity Tolerance Decreased Strength Respiratory Distress M5 PT-IP Objective Assessments Start: 02/17/19 14:34 Freq: NEEDED Status: Active Protocol: Document 02/17/19 14:00 RCC (Rec: 02/17/19 14:51 RCC [email or web address]) Orientation Orientation/Cognition Level of Alertness Alert Strength Lower Extremity Strength Assessment Within Functional Limits M6 PT-IP Treatment Start: 02/17/19 14:34 Freq: NEEDED Status: Active Protocol: Document 02/17/19 14:00 RCC (Rec: 02/17/19 14:51 RCC [email or web address]) Physical Therapy Treatment Education Education Provided Safety M7 PT-IP Assessment and Plan Start: 02/17/19 14:34 Freq: NEEDED Status: Active Protocol: Document 02/19/19 09:00 GGD (Rec: 02/19/19 10:04 GGD [email or web address]) PT Summary Assessment and Plan Summary Assessment Summary Pt fatigued quickly with activity. She need standing rest breaks with gait and heavy use of UE on FWW. She had no unsteadiness with gait, but low tolerance. She was unable to progress gait distance. Continue PT 1 x day until medically improvement and increase tolerance. Frequency of Treatment Frequency Of Treatment Once a Day Treatment Plan Physical Therapy Treatment Plan Bed Mobility Training Transfer Training Gait Training Therapeutic Exercise Balance Retraining Discharge Planning Neuromuscular Re-ed Other Recommendations and Next Treatment progress gait as tolerated, Focus stair training prior to d/c Recommendations To Nursing Amount of Assist Needed Standby Assistance Discharge Recommendations PT Discharge Recommendations Home with Assistance Home Health
[2019-02-19] MEDS: levoFLOXacin 750 MG/150 ML PIGGYBACK 100 MG IV (14:42)
--- NOTE | 2019-02-19 15:31 | OT.IP.TRT ---
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) Hypothyroidism, unspecified (02/15/19) Hypo-osmolality and hyponatremia (02/15/19) Metabolic encephalopathy (02/15/19) Supraventricular tachycardia (02/15/19) Pneumonia, unspecified organism (02/15/19) Chronic obstructive pulmonary disease, unspecified (02/15/19) Chronic respiratory failure with hypoxia (02/15/19) Age-related osteoporosis without current pathological fracture (02/15/19) Occupational Therapy Treatment Note M2 OT-IP Current Condition Start: 02/18/19 16:16 Freq: Status: Active Protocol: Document 02/18/19 16:17 [facility] (Rec: 02/18/19 16:25 [facility] [id number]) Occupational Therapy Current Condition Current Condition Evaluation Date 02/18/19 Treatment Diagnosis AMS, weakness Diagnosis Onset Date 02/15/19 M3 OT- IP Subjective and Pain Start: 02/18/19 16:16 Freq: Status: Active Protocol: Document 02/19/19 15:26 [facility] (Rec: 02/19/19 15:31 [facility] [id number]) OT- Subjective Occupational Therapy Visit Type Type Treatment Note Visit Start Time 15:08 Visit Stop Time 15:16 Total Visit Minutes 8 Occupational Therapy Visit Comments Patient Comments Pt agreeable to speak to OT, not wanting to get up as currently having transfusion. Patient/Caregiver Goals To go home. OT Pain Assessment Pain When Pain Assessed At Rest Pain Present Pain Present Denied Pain Document 02/19/19 15:26 [facility] (Rec: 02/19/19 15:31 [facility] [id number]) OT Summary Assessment and Plan Potential Rehabilitation Potential Fair Analytic Complexity at Evaluation Low Summary Progress Towards Goals Slow Progress due to Activity Tolerance Assessment Summary Pt main barriers are activity tolerance, pt feels that she is all set for OT needs and that family can assist at home and therefore just wanting to focus on physical therapy at this time. ABle to go over energy conservation ideas and pt also able to states will ask her family to assist, think things through first, take her time, and use of BSC. Therefore discharge pt from OT services at this time. Discharge Recommendations OT Discharge Recommendations Home with Assistance Home Health Home Equipment Needs BSC, toilet aid
[2019-02-19] MEDS: FAMOTIDINE 20 MG/50 ML PIGGYBACK 200 MG IV (17:16)
--- NOTE | 2019-02-19 17:39 | PC.NURSE ---
[id number] - Patient transferred up to room 228. All belongings sent with patient. Report given to receiving nurse Satya.
--- NOTE | 2019-02-19 20:36 | PM.PN.1 ---
Subjective Date Patient Seen: 02/19/19 Interval history: Abi Jacques is a 63-year-old female recently treated for SBO status post exploratory laparotomy with lysis of adhesions and community-acquired and probable aspiration pneumonia at [facility] ([place], [place]) in [place] who was admitted for hospital-acquired pneumonia and influenza A infection. The patient is resting in bedside chair comfortably. She endorses significant fatigue and malaise. She denies shortness of breath. Her hemoglobin and hematocrit has slowly drifted and she has become more anemic. Her anemia was initially thought to be due to acute blood loss from recent surgery and now continued drift since admission likely from hemodilution due to IV fluid administration with 6 L total. Consented the patient for blood transfusion. She informs me that she had [address] [facility] ([place], [place]) during her admission for SBO and lysis of adhesions. She continues to eliminate without difficulty and has had no melena or hematochezia. Guaiac negative. She is on her baseline oxygen requirements of 2 L for her chronic respiratory failure due to bronchiectasis. She denies headache, chest pain, abdominal pain, nausea, vomiting, fever, chills, dysuria, diarrhea or constipation. She is voiding without difficulty. She is up ambulating with assistance. Exam Vital Signs (past 8 hours): - 02/19/19 13:43 02/19/19 14:00 02/19/19 14:38 Temperature 98 F 98.2 F Pulse Rate 96 H 93 H 90 Respiratory Rate 16 16 12 Blood Pressure 115/69 113/63 Pulse Oximetry 93 02/19/19 16:37 02/19/19 16:50 02/19/19 19:20 Temperature 98.1 F 97.1 F L 99.6 F Pulse Rate 88 95 H 90 Respiratory Rate 18 18 19 Blood Pressure 115/64 106/63 128/75 Pulse Oximetry 93 96 Oxygen Delivery Method Room Air Oxygen Flow Rate 0 Narrative Exam Narrative: General: Middle-aged female lying in bed and in no acute distress, pale, appears chronically ill and older than stated age, well-developed, well-nourished, appropriately interactive. HEENT: Normocephalic, atraumatic. External ears without defect. Pupils equal, round, and reactive to light. Anicteric sclerae, moist conjunctivae, and no lid lag. Neck: Supple with full range of motion. No jugular venous distension. No lymphadenopathy or thyromegaly. Cardiovascular: Regular rate and rhythm without murmurs, rubs, or gallops appreciated. Pulmonary: Clear throughout with scattered rhonchi, improved. Normal respiratory effort with no use of accessory muscles. Abdomen: Soft, bowel sounds present, nontender, nondistended. Large vertical surgical scar healing well without exudate. No hepatosplenomegaly or masses appreciated. Extremities: No clubbing, cyanosis or edema. Skin: Normal temperature, turgor, and texture; no rash, ulcers, or subcutaneous nodules appreciated. Neurological: Cranial nerves grossly intact. Psychiatric: Slightly anxious and flat affect. Alert and oriented to person, place, and time. Objective Labs Result Diagrams: 02/19/19 05:04 02/19/19 05:04 Labs: Laboratory Results - last 24 hr 02/19/19 02/19/19 02/19/19 05:04 05:04 05:04 WBC 5.6 RBC 2.68 L Hgb 7.0 L Hct 21.1 L MCV 78.6 L MCH 26.2 MCHC 33.3 RDW 19.4 H Plt Count 83 L Neut % (Auto) Not Reportable Lymph % (Auto) Not Reportable [place] % (Auto) Not Reportable Eos % (Auto) Not Reportable Baso % (Auto) Not Reportable Lymph # (Auto) Not Reportable [place] # (Auto) Not Reportable Baso # (Auto) Not Reportable Total Counted 100 Seg Neutrophils % 74.0 H Band Neutrophils % 3.0 Lymphocytes % (Manual) 21.0 L Monocytes % (Manual) 2.0 Neutrophils # (Manual) 4312 RBC Morphology See below Hypochromasia 1+ H Anisocytosis 1+ H Sodium 132 L Potassium 3.7 Chloride 103 Carbon Dioxide 23 BUN 10 Creatinine 0.50 L Estimated GFR > 60.0 BUN/Creatinine Ratio 20.0 Glucose 79 L Calcium 8.0 L Total Bilirubin 0.8 AST 54 H ALT 34 Alkaline Phosphatase 88 Total Protein 5.7 L Albumin 2.4 L Globulin 3.3 Albumin/Globulin Ratio 0.7 L Procalcitonin 0.85 H Blood Type Antibody Screen Antibody Identification Antigen Identification Crossmatch 02/19/19 10:10 WBC RBC Hgb Hct MCV MCH MCHC RDW Plt Count Neut % (Auto) Lymph % (Auto) [place] % (Auto) Eos % (Auto) Baso % (Auto) Lymph # (Auto) [place] # (Auto) Baso # (Auto) Total Counted Seg Neutrophils % Band Neutrophils % Lymphocytes % (Manual) Monocytes % (Manual) Neutrophils # (Manual) RBC Morphology Hypochromasia Anisocytosis Sodium Potassium Chloride Carbon Dioxide BUN Creatinine Estimated GFR BUN/Creatinine Ratio Glucose Calcium Total Bilirubin AST ALT Alkaline Phosphatase Total Protein Albumin Globulin Albumin/Globulin Ratio Procalcitonin Blood Type O Positive Antibody Screen Positive Antibody Identification Anti-E Antigen Identification E Antigen - NEGATIVE Crossmatch See Detail Assessment & Plan Assessment & Plan narrative: Abi Jacques is a 63-year-old female recently treated for SBO status post exploratory laparotomy with lysis of adhesions and community-acquired and probable aspiration pneumonia at [facility] ([place], [place]) in [place] who was admitted for hospital-acquired pneumonia and influenza A infection. 1. Acute viral and bacterial sepsis, present on admission. Resolved. -Sepsis criteria met with organ dysfunction of respiratory failure, hypotension, thrombocytopenia and metabolic encephalopathy. -Continued early goal directed therapy including IV fluid resuscitation and antiviral/broad spectrum antibiotics. 2. Acute on chronic hypoxemic respiratory failure, present on admission. Acute portion resolved. -Patient has known chronic respiratory failure due to bronchiectasis and on home oxygen 2L continuous. Continue supplemental oxygen and titrate as need. Goal oxygen saturation 88% or greater. -Continue respiratory therapy evaluation and treatment. Continue duo nebs every 6 hr while awake. Discontinued glucocorticoids. 3. Healthcare-associated and influenza pneumonia, present on admission. Active. -Recently hospitalized less than 2 weeks ago in [place] and treated for pneumonia at that time. -Chest x-ray demonstrated increased diffuse interstitial prominence superimposed on chronic interstitial changes with focal opacity in the right mid lung zone. -Respiratory PCR positive for influenza A. -Procalcitonin initially elevated at 1.6 and peaked at 3.83. Now trending down. Continue to monitor daily. -Continue Tamiflu 75 mg twice daily x 5 days, cefepime 2 g twice daily and levofloxacin 750 mg daily. Treating for influenza and multi-resistant gram positive and negative organisms, respectively. Negative for MRSA colonization. -Ordered respiratory therapy evaluation and treatment. Continue Duonebs every 6 hr while awake. Continue methylprednisolone 40 mg daily. 4. Acute blood loss anemia, secondary to exploratory laparotomy, present on admission. Now hemodilutional anemia, not present on admission. Active. -Initial hemoglobin 9.5. Trending down and likely hemodilutional as patient has received 6L of IVF total. -No overt signs of bleeding. Ordered stool guaiac, pending. -Ordered iron panel, pending. -Continue to monitor H&H daily. Transfusion goal < 7.0. 5. Acute metabolic encephalopathy, present on admission. Resolved. -Suspect multifactorial and secondary to hyponatremia, HCAP and influenza A infection. 6. Acute hyponatremia, present on admission. Resolving. -Likely secondary to fluid losses from recent surgery and decreased PO intake, in addition to pulmonary infection. -Patient had low normal sodium at 130 while hospitalized in [place]. -Continue fluid resuscitation and as needed NS boluses. Ordered serum and urine osmolality, pending. -Continue to monitor sodium closely. 7. COPD, present on admission. Stable. -Does not represent an acute COPD exacerbation. -Stopped glucocorticoids which were started due to acute illness. Continue home inhalers, antiviral and antibiotics for pneumonia as above. 8. History of supraventricular tachycardia. -Continue home metoprolol 12.5 mg twice daily. 9. Recent acute blood loss anemia, secondary to exploratory laparotomy, present on admission. Stable. -Initial hemoglobin 9.5. Trending down and likely hemodilutional. -No overt signs of bleeding. -Continue to monitor H&H daily. Transfusion goal < 7.0. 10. Hypothyroidism, chronic, present on admission. Stable. -TSH low at 0.09 and free T4 ayaka at 0.82. -Continue home levothyroxine but decrease from 50 mcg to 25 mcg daily. 11. Osteoporosis, chronic, present on admission. Stable. -Continue home aledronate and vit D3. Disposition: Patient likely to discharge home with home health or outpatient physical therapy tomorrow pending anemia workup. Quality VTE Deep Vein Thrombosis/Pulmonary Embolism Present on Admission: No
[2019-02-19] MEDS: SENNOSIDES 8.6 MG TABLET 17.2 MG PO (21:01)
[2019-02-20] VITALS (11 sets, daily range): BP systolic 109–119; BP diastolic 60–79; PULSE 78–100; RESP 16–18; TEMP 36.2–37.7; O2SAT 91–96
[2019-02-20] MEDS: CEFEPIME 2 GM in SODIUM CHLORIDE 0.9% 100 ML 200 ML IV (04:14)
[2019-02-20] MEDS: ALBUTEROL 2.5 MG/3 ML NEB (ADULT) INH ×3 (04:34→16:47)
[2019-02-20] MEDS: LEVOTHYROXINE 50 MCG TABLET PO (05:54)
[2019-02-20 06:04] LABS: Add Manual Diff / Slide Review NO; Basophils Absolute Auto 0 /uL (0-100); Basophils Percent Auto 0.1 % (0-2); Eosinophils Absolute Auto 0 /uL (0-450); Hemoglobin 8.3 g/dL (12.0-16.0); Lymphocytes Absolute Auto 900 /uL (1100-4500); Lymphocytes Percent Auto 21.8 % (25-40); Mean Corpuscular HGB Conc 34.4 % (30-36); Mean Corpuscular Hemoglobin 27.3 PG (26-34); Mean Corpuscular Volume 79.3 fL (80-100); Monocytes Absolute Auto 300 /uL (0-900); Monocytes Percent Auto 6.3 % (3-14); Neutrophils Absolute Auto 3000 /uL (1500-7000); Neutrophils Percent Auto 71.8 % (50-75); Platelet Count 72 X10^3/uL (150-400); Red Blood Cell Count 3.03 X10^6/uL (4.0-5.2); Red Cell Distribution Width 18.8 % (11.6-14.8); White Blood Cell Count 4.2 X10^3/uL (4.5-11.0)
--- NOTE | 2019-02-20 06:15 | PC.NURSE ---
Patient CBG @0200 was 74, given apple juice and half a sandwich. Rechecked CBG @0245 and is 80, then given protein drink and more apple juice. CBG rechecked at 0430 and at 76. Left some more apple juice at bedside of patient. No BM No complaints of pain
[2019-02-20 06:37] LABS: BUN Creatinine Ratio 13.3 (6-22); Blood Urea Nitrogen 8 mg/dL (7-17); Calcium 7.8 mg/dL (8.4-10.2); Carbon Dioxide 24 mmol/L (22-32); Chloride 97 mmol/L (98-107); Estimated Glomerular Filt Rate > 60.0 mL/min (>60); Glucose 87 mg/dL (80-110); HEMOLYSIS < 15 (0-50); Potassium 3.4 mmol/L (3.4-5.1); Sodium 128 mmol/L (137-145)
[2019-02-20 07:02] LABS: Procalcitonin 0.34 ng/mL (<0.5)
[2019-02-20] MEDS: ENOXAPARIN 40 MG/0.4 ML SYRINGE SUBCUT (08:52)
[2019-02-20] MEDS: DULOXETINE 30 MG CAPSULE 60 MG PO (08:52)
[2019-02-20] MEDS: OSELTAMIVIR 75 MG CAPSULE PO ×2 (08:53→20:34)
[2019-02-20] MEDS: METOPROLOL IR 25 MG TABLET 12.5 MG PO ×2 (08:53→20:34)
[2019-02-20] MEDS: SODIUM CHLORIDE 0.9% FLUSH 10 ML IV (08:54)
[2019-02-20] MEDS: MORPHINE ER 15 MG TABLET PO (08:56)
[2019-02-20] MEDS: ACETAMINOPHEN 325 MG TABLET 650 MG PO (11:22)
--- NOTE | 2019-02-20 11:35 | PT.IPTN ---
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) Hypothyroidism, unspecified (02/15/19) Hypo-osmolality and hyponatremia (02/15/19) Metabolic encephalopathy (02/15/19) Supraventricular tachycardia (02/15/19) Pneumonia, unspecified organism (02/15/19) Chronic obstructive pulmonary disease, unspecified (02/15/19) Chronic respiratory failure with hypoxia (02/15/19) Age-related osteoporosis without current pathological fracture (02/15/19) Physical Therapy Treatment Note M2 PT-IP Current Condition Start: 02/17/19 14:34 Freq: NEEDED Status: Active Protocol: Document 02/17/19 14:00 RCC (Rec: 02/17/19 14:51 RCC [email or web address]) Physical Therapy Current Condition Current Condition Evaluation Date 02/17/19 Treatment Diagnosis AMS, hyponatremia, influenza, pneumonia, impaired activity tolerance Precautions Other Precautions droplet precautions M3 PT-IP Subjective Start: 02/17/19 14:34 Freq: NEEDED Status: Active Protocol: Document 02/20/19 11:35 GGD (Rec: 02/20/19 12:21 GGD [email or web address]) Subjective Physical Therapy Visit Type Type Treatment Note Visit Start Time 11:15 Visit Stop Time 11:35 Total Visit Minutes 20 Number of VICE PRESIDENT QUALITY Visits 4 Physical Therapy Visit Comments Patient Comments Pt willing to work with therapy. M4 PT-IP Mobility and Gait Start: 02/17/19 14:34 Freq: NEEDED Status: Active Protocol: Document 02/20/19 11:35 GGD (Rec: 02/20/19 12:21 GGD [email or web address]) PT-Bed Mobility Assessment Supine to Sit Supine to Sit Independent Sit to Supine Sit to Supine Independent Scooting Scooting to Edge of Bed Independent PT-Transfer Assessment Sit to and From Stand Sit to and from Stand Standby Assistance Use of Upper Extremities Equipment Transfer Assistive Device Gait Belt Front Wheeled Walker Transfers Transfer Destination Bed Transfer Ability Level of Assist Standby Assistance Gait Assessment Gait Gait Assistance Required: Contact Guard Assist Distance (Feet) 80 Assistive Devices Assistive Device Gait Belt Front Wheeled Walker Gait Deviations General Gait Pattern Decreased Stride Length Decreased Feet Clearance Flexed Trunk Narrow Based Gait Factors Limiting Gait Function Factors Limiting Gait Function Decreased Activity Tolerance Decreased Strength Respiratory Distress Comments Gait Comments O2 91 with activity M5 PT-IP Objective Assessments Start: 02/17/19 14:34 Freq: NEEDED Status: Active Protocol: Document 02/17/19 14:00 RCC (Rec: 02/17/19 14:51 RCC [email or web address]) Orientation Orientation/Cognition Level of Alertness Alert Strength Lower Extremity Strength Assessment Within Functional Limits M6 PT-IP Treatment Start: 02/17/19 14:34 Freq: NEEDED Status: Active Protocol: Document 02/17/19 14:00 RCC (Rec: 02/17/19 14:51 RCC [email or web address]) Physical Therapy Treatment Education Education Provided Safety M7 PT-IP Assessment and Plan Start: 02/17/19 14:34 Freq: NEEDED Status: Active Protocol: Document 02/20/19 11:35 GGD (Rec: 02/20/19 12:21 GGD [email or web address]) PT Summary Assessment and Plan Summary Assessment Summary Pt fatiques quickly. She was able to progress gait, but needs FWW for balance. She will need stair mobility for before D/C home. Frequency of Treatment Frequency Of Treatment Once a Day Treatment Plan Physical Therapy Treatment Plan Bed Mobility Training Transfer Training Gait Training Therapeutic Exercise Balance Retraining Discharge Planning Neuromuscular Re-ed Other Recommendations and Next Treatment progress gait as tolerated, Focus stair training prior to d/c Recommendations To Nursing Amount of Assist Needed Standby Assistance Discharge Recommendations PT Discharge Recommendations Home with Assistance Home Health
[2019-02-20] MEDS: SODIUM CHLORIDE 0.9% 1,000 ML 100 ML IV (11:49)
[2019-02-20] MEDS: levoFLOXacin 750 MG/150 ML PIGGYBACK 100 MG IV (14:02)
[2019-02-20] MEDS: FLUTICASONE/SALMETEROL 500/50 14 PUFF DISKUS INH (16:47)
[2019-02-20] MEDS: FAMOTIDINE 20 MG/50 ML PIGGYBACK 200 MG IV (18:19)
--- NOTE | 2019-02-20 19:09 | PC.NURSE ---
Addendum entered by Christianne Hdez R.N. 02/20/19 22:49: Dr. Yuan called nursing station and spoke to Anisa RN, regarding pt while I was on break. Dr. Yuan would like us to call her if the pt is in need of additional efforts regarding her blood sugar control, specifically mentioning ordering fluids with dextrose should the pt's CBG levels remain consistently too low. Patient's CBG were 86 and 105. At this time pt is trending WNL and shouldn't need additional efforts. Original Note: pt is alert and oriented to self, situations, and month. Calm and cooperative with care, a little delayed in responses. Iso for Flu, droplet precautions. Removed left AC PIV due to infiltration at 191 and switched fluids to right AC. NS infusing at 100/hr. pt has poor appetite and only ate a 1/4 of her dinner. Plt are low at 71, but Dr Yuan wants to continue Lovenox. CBG 86 before dinner. Intermittent cough, non productive. O2 decreases to mid-80's during coughing episodes and increases shortly after to mid/low-90's. Patient states she has bronchial issues at baseline and needs 2L NC O2 at home PRN. No O2 this shift. Ambulating to BR [id number].
[2019-02-20] MEDS: SENNOSIDES 8.6 MG TABLET 17.2 MG PO (20:34)
--- NOTE | 2019-02-20 21:20 | PM.PN.1 ---
Subjective Date Patient Seen: 02/20/19 Interval history: Abi Jacques is a 63-year-old female recently treated for SBO status post exploratory laparotomy with lysis of adhesions and community-acquired and probable aspiration pneumonia at [facility] in [place] who was admitted for hospital-acquired pneumonia and influenza A infection. The patient is resting in bedside comfortably. Her is present and reports that she is significantly confused and not herself. The patient is alert and oriented to person and place. She is mentating very slowly and has a blank stare. No focal neurological deficits. She denies pain. She denies headache, chest pain, shortness of breath, abdominal pain, nausea, vomiting, fever, chills, dysuria, diarrhea or constipation. She continues to eliminate without difficulty and has had no melena or hematochezia. Guaiac negative. She is on her baseline oxygen requirements of 2 L for her chronic respiratory failure due to bronchiectasis. She is up ambulating with assistance and PT. Exam Vital Signs (past 8 hours): - 02/20/19 15:30 02/20/19 16:45 02/20/19 18:10 Temperature 97.1 F L Pulse Rate 78 87 Respiratory Rate 18 16 Blood Pressure 119/60 Pulse Oximetry 94 95 93 02/20/19 19:40 Temperature 98.6 F Pulse Rate 94 H Respiratory Rate 18 Blood Pressure 109/68 Pulse Oximetry 94 Fraction of Inspired Oxygen 21 Oxygen Delivery Method Room Air Oxygen Flow Rate 0 Narrative Exam Narrative: General: Middle-aged female lying in bed and in no acute distress, appears chronically ill and older than stated age, well-developed, well-nourished, slow mentation and slow response, mild confusion. HEENT: Normocephalic, atraumatic. External ears without defect. Pupils equal, round, and reactive to light. Anicteric sclerae, moist conjunctivae, and no lid lag. Neck: Supple with full range of motion. No lymphadenopathy or thyromegaly. Cardiovascular: Regular rate and rhythm without murmurs, rubs, or gallops appreciated. Pulmonary: Clear to auscultation bilaterally with occasional scattered rhonchi. Normal respiratory effort with no use of accessory muscles. Abdomen: Soft, bowel sounds present, nontender, nondistended. Large vertical surgical scar healing well without exudate. No hepatosplenomegaly or masses appreciated. Extremities: No clubbing, cyanosis or edema. Skin: Normal temperature, turgor, and texture; no rash, ulcers, or subcutaneous nodules appreciated. Neurological: Cranial nerves grossly intact. No focal neurological deficits. Psychiatric: Slow mentation and slow to respond. Alert oriented to person and place. Mild confusion. Objective Labs Result Diagrams: 02/20/19 05:03 02/20/19 05:03 Labs: Laboratory Results - last 24 hr 02/20/19 02/20/19 02/20/19 05:03 05:03 05:03 WBC 4.2 L RBC 3.03 L Hgb 8.3 L Hct 24.0 L MCV 79.3 L MCH 27.3 MCHC 34.4 RDW 18.8 H Plt Count 72 L Neut % (Auto) 71.8 Lymph % (Auto) 21.8 L [place] % (Auto) 6.3 Eos % (Auto) 0.0 L Baso % (Auto) 0.1 Neut # (Auto) 3000 Lymph # (Auto) 900 L [place] # (Auto) 300 Eos # (Auto) 0 Baso # (Auto) 0 PT 12.0 INR 1.0 Sodium Potassium Chloride Carbon Dioxide BUN Creatinine Estimated GFR BUN/Creatinine Ratio Glucose Calcium Procalcitonin 0.34 02/20/19 05:03 WBC RBC Hgb Hct MCV MCH MCHC RDW Plt Count Neut % (Auto) Lymph % (Auto) [place] % (Auto) Eos % (Auto) Baso % (Auto) Neut # (Auto) Lymph # (Auto) [place] # (Auto) Eos # (Auto) Baso # (Auto) PT INR Sodium 128 L Potassium 3.4 Chloride 97 L Carbon Dioxide 24 BUN 8 Creatinine 0.60 Estimated GFR > 60.0 BUN/Creatinine Ratio 13.3 Glucose 87 Calcium 7.8 L Procalcitonin Assessment & Plan Assessment & Plan narrative: Abi Jacques is a 63-year-old female recently treated for SBO status post exploratory laparotomy with lysis of adhesions and community-acquired and probable aspiration pneumonia at [facility] in [place] who was admitted for hospital-acquired pneumonia and influenza A infection. 1. Acute metabolic encephalopathy, present on admission. Resolved. -Suspect multifactorial and secondary to restarting MS Contin, hyponatremia, hypoglycemia (has been corrected and insulin has been discontinued as she is no longer on glucocorticoids), glucocorticoids (completed), and acute illness/hospitalization. -Ordered normal saline x1 bag and placed on fluid restriction of 1.5 L. -Reorient often, stimulate patient during daytime and minimize interruptions at night. -Discontinued MS Contin. Patient has a reports that the patient was being titrated off of MS Contin and to start Suboxone outpatient which she has prescription at home. Consider starting Suboxone the next 24 hr after last dose of narcotic. 2. Recent acute blood loss anemia, secondary to exploratory laparotomy, present on admission. Now hemodilutional anemia, not present on admission. Active. -Initial hemoglobin 9.5. Trending down and likely hemodilutional as patient has received 6L of IVF total. -No overt signs of bleeding. Ordered stool guaiac, pending. -Ordered iron panel, pending. -Continue to monitor H&H daily. Transfusion goal < 7.0. Received 1 U PRBC. 3. Acute hyponatremia, present on admission. Ongoing. -Likely secondary to fluid losses from recent surgery and decreased PO intake, in addition to pulmonary infection. -Patient had sodium of 130 while hospitalized in [place]. Sodium 128 today. Ordered fluid restriction of 1.5 L and 1 bag of IV normal saline. -Continue to monitor sodium closely. 4. Acute viral and bacterial sepsis, present on admission. Resolved. -Sepsis criteria met with organ dysfunction of respiratory failure, hypotension, thrombocytopenia and metabolic encephalopathy. -Continued early goal directed therapy including IV fluid resuscitation and antiviral/broad spectrum antibiotics. 5. Acute on chronic hypoxemic respiratory failure, present on admission. Acute portion resolved. -Patient has known chronic respiratory failure due to bronchiectasis and on home oxygen 2L continuous and will continue. Goal oxygen saturation 88% or greater. -Continue respiratory therapy evaluation and treatment. Continue duo nebs every 6 hr while awake. Discontinued glucocorticoids. 6. Healthcare-associated and influenza pneumonia, present on admission. Resolving. -Recently hospitalized less than 2 weeks ago in [place] and treated for pneumonia at that time. -Chest x-ray demonstrated increased diffuse interstitial prominence superimposed on chronic interstitial changes with focal opacity in the right mid lung zone. -Respiratory PCR positive for influenza A. -Procalcitonin initially elevated at 1.6 and peaked at 3.83 and trended down to normal limits. -Continue Tamiflu 75 mg twice daily x 5 days, discontinued cefepime 2 g twice daily today and will continue levofloxacin 750 mg daily to complete 7 days on 02/22. Treating for influenza and multi-resistant gram positive and negative organisms, respectively. Negative for MRSA colonization. -Ordered respiratory therapy evaluation and treatment. Continue Duonebs every 6 hr while awake. Continue methylprednisolone 40 mg daily. 7. COPD, present on admission. Stable. -Does not represent an acute COPD exacerbation. -Stopped glucocorticoids which were started due to acute illness. Continue home inhalers, antiviral and antibiotics for pneumonia as above. 8. Chronic pain with opiate dependence, present on admission. Stable. -Patient spouse reports that they have been trying to titrate her off of MS Contin. -Discontinued MS Contin as likely contributing to metabolic encephalopathy. Will consider starting Suboxone 24 hr after last narcotic dose. 9. History of supraventricular tachycardia. -Continue home metoprolol 12.5 mg twice daily. 10. Hypothyroidism, chronic, present on admission. Stable. -TSH low at 0.09 and free T4 ayaka at 0.82. -Continue home levothyroxine but decrease from 50 mcg to 25 mcg daily. 11. Osteoporosis, chronic, present on admission. Stable. -Continue home aledronate and vit D3. Disposition: Patient likely to discharge to longterm facility vs. home with home health. Quality VTE Deep Vein Thrombosis/Pulmonary Embolism Present on Admission: No
[2019-02-21] VITALS (9 sets, daily range): BP systolic 103–124; BP diastolic 64–75; PULSE 73–98; RESP 16–20; TEMP 36.6–37.1; O2SAT 94–97
[2019-02-21] MEDS: ACETAMINOPHEN 325 MG TABLET 650 MG PO (00:11)
[2019-02-21] MEDS: ALBUTEROL 2.5 MG/3 ML NEB (ADULT) INH ×3 (03:47→16:35)
[2019-02-21] MEDS: FLUTICASONE/SALMETEROL 500/50 14 PUFF DISKUS INH ×2 (03:48→16:35)
--- NOTE | 2019-02-21 05:33 | PC.NURSE ---
CBG this shift 0300= 76, 0430= 123.
[2019-02-21] MEDS: LEVOTHYROXINE 50 MCG TABLET PO (05:42)
[2019-02-21 06:05] LABS: Add Manual Diff / Slide Review NO; Basophils Absolute Auto 0 /uL (0-100); Basophils Percent Auto 0.7 % (0-2); Eosinophils Absolute Auto 0 /uL (0-450); Eosinophils Percent Auto 0.8 % (2-4); Hemoglobin 8.2 g/dL (12.0-16.0); Lymphocytes Absolute Auto 900 /uL (1100-4500); Lymphocytes Percent Auto 25.3 % (25-40); Mean Corpuscular HGB Conc 33.2 % (30-36); Mean Corpuscular Hemoglobin 26.3 PG (26-34); Mean Corpuscular Volume 79.2 fL (80-100); Monocytes Absolute Auto 300 /uL (0-900); Monocytes Percent Auto 8.3 % (3-14); Neutrophils Absolute Auto 2300 /uL (1500-7000); Neutrophils Percent Auto 64.9 % (50-75); Red Blood Cell Count 3.11 X10^6/uL (4.0-5.2); Red Cell Distribution Width 18.7 % (11.6-14.8); White Blood Cell Count 3.6 X10^3/uL (4.5-11.0)
[2019-02-21 06:14] LABS: Alanine Aminotransferase 33 IU/L (9-52); Albumin 2.2 g/dL (3.5-5.0); Albumin Globulin Ratio 0.7 (1.0-2.8); Alkaline Phosphatase 78 U/L (38-126); Aspartate Aminotransferase 44 IU/L (14-36); Bilirubin Total 0.7 mg/dL (0.2-1.3); Blood Urea Nitrogen 8 mg/dL (7-17); Calcium 7.7 mg/dL (8.4-10.2); Carbon Dioxide 27 mmol/L (22-32); Chloride 94 mmol/L (98-107); Estimated Glomerular Filt Rate > 60.0 mL/min (>60); Glucose 94 mg/dL (80-110); HEMOLYSIS < 15 (0-50); Magnesium 1.3 mg/dL (1.6-2.3); Potassium 3.3 mmol/L (3.4-5.1); Sodium 127 mmol/L (137-145); Total Protein 5.2 g/dL (6.3-8.2)
[2019-02-21 06:16] LABS: Platelet Count 54 X10^3/uL (150-400)
[2019-02-21 06:21] LABS: Hematocrit 24.7 % (36-46)
[2019-02-21 06:36] LABS: HEMOLYSIS < 15 (0-50); Iron 26 ug/dL (37-170)
[2019-02-21 06:46] LABS: Percent Iron Saturation 11 % (15-50); Total Iron Binding Capacity 230 ug/dL (265-497); Transferrin 144 mg/dL (206-381)
[2019-02-21] MEDS: DULOXETINE 30 MG CAPSULE 60 MG PO (08:56)
[2019-02-21] MEDS: OSELTAMIVIR 75 MG CAPSULE PO (08:56)
[2019-02-21] MEDS: ENOXAPARIN 40 MG/0.4 ML SYRINGE SUBCUT (08:56)
[2019-02-21] MEDS: METOPROLOL IR 25 MG TABLET 12.5 MG PO ×2 (08:57→20:31)
[2019-02-21] MEDS: SODIUM CHLORIDE 0.9% FLUSH 10 ML IV (09:00)
--- NOTE | 2019-02-21 11:00 | PT.IPTN ---
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) Hypothyroidism, unspecified (02/15/19) Hypo-osmolality and hyponatremia (02/15/19) Metabolic encephalopathy (02/15/19) Supraventricular tachycardia (02/15/19) Pneumonia, unspecified organism (02/15/19) Chronic obstructive pulmonary disease, unspecified (02/15/19) Chronic respiratory failure with hypoxia (02/15/19) Age-related osteoporosis without current pathological fracture (02/15/19) Physical Therapy Treatment Note M2 PT-IP Current Condition Start: 02/17/19 14:34 Freq: NEEDED Status: Active Protocol: Document 02/17/19 14:00 RCC (Rec: 02/17/19 14:51 RCC [email or web address]) Physical Therapy Current Condition Current Condition Evaluation Date 02/17/19 Treatment Diagnosis AMS, hyponatremia, influenza, pneumonia, impaired activity tolerance Precautions Other Precautions droplet precautions M3 PT-IP Subjective Start: 02/17/19 14:34 Freq: NEEDED Status: Active Protocol: Document 02/21/19 11:00 GGD (Rec: 02/21/19 11:28 GGD [id number]) Subjective Physical Therapy Visit Type Type Treatment Note Visit Start Time 10:50 Visit Stop Time 11:00 Total Visit Minutes 10 Number of CONTROL ENGINEER Visits 5 Physical Therapy Visit Comments Patient Comments Pt states she needs to use the bathroom. M4 PT-IP Mobility and Gait Start: 02/17/19 14:34 Freq: NEEDED Status: Active Protocol: Document 02/21/19 11:00 GGD (Rec: 02/21/19 11:28 GGD [id number]) PT-Bed Mobility Assessment Supine to Sit Supine to Sit Independent Sit to Supine Sit to Supine Independent Scooting Scooting to Edge of Bed Independent PT-Transfer Assessment Sit to and From Stand Sit to and from Stand Standby Assistance Use of Upper Extremities Equipment Transfer Assistive Device Gait Belt Front Wheeled Walker Transfers Transfer Destination Bed Toilet Transfer Ability Level of Assist Standby Assistance Gait Assessment Gait Gait Assistance Required: Contact Guard Assist Distance (Feet) 10 Assistive Devices Assistive Device Gait Belt Front Wheeled Walker Gait Deviations General Gait Pattern Decreased Stride Length Decreased Feet Clearance Flexed Trunk Narrow Based Gait Factors Limiting Gait Function Factors Limiting Gait Function Decreased Activity Tolerance Decreased Strength Respiratory Distress Comments Gait Comments O2 92-93 with activity M5 PT-IP Objective Assessments Start: 02/17/19 14:34 Freq: NEEDED Status: Active Protocol: Document 02/17/19 14:00 RCC (Rec: 02/17/19 14:51 RCC [email or web address]) Orientation Orientation/Cognition Level of Alertness Alert Strength Lower Extremity Strength Assessment Within Functional Limits M6 PT-IP Treatment Start: 02/17/19 14:34 Freq: NEEDED Status: Active Protocol: Document 02/17/19 14:00 RCC (Rec: 02/17/19 14:51 RCC [email or web address]) Physical Therapy Treatment Education Education Provided Safety M7 PT-IP Assessment and Plan Start: 02/17/19 14:34 Freq: NEEDED Status: Active Protocol: Document 02/21/19 11:00 GGD (Rec: 02/21/19 11:28 GGD [id number]) PT Summary Assessment and Plan Summary Assessment Summary Pt had decrease toleance to activity. She was impulsive with mobility. She refused further ambulation or stair mobility. She did C/O SOB with mobility, O2 was stable. Frequency of Treatment Frequency Of Treatment Once a Day Treatment Plan Physical Therapy Treatment Plan Bed Mobility Training Transfer Training Gait Training Therapeutic Exercise Balance Retraining Discharge Planning Neuromuscular Re-ed Other Recommendations and Next Treatment progress gait as tolerated, Focus stair training prior to d/c Recommendations To Nursing Amount of Assist Needed Standby Assistance Discharge Recommendations PT Discharge Recommendations Home with Assistance Home Health
[2019-02-21] MEDS: levoFLOXacin 750 MG/150 ML PIGGYBACK 100 MG IV (13:30)
--- NOTE | 2019-02-21 13:59 | PC.NURSE ---
Lab results of K+ = 3.3, Na+= 127, H&H lredmains low. Pt remains confusd, has no memory, is weak. All reported to Dr Spicer. states she will address this. Pt mOOB to brp x 3 this shift, jPt is impulsive, will gett oob by self. Alarms on. Pt had lge loose & soft formed bm today. Pt does not complain of pain.
[2019-02-21 15:34] LABS: Sodium Urine Random 146 mmol/L (30-90)
--- NOTE | 2019-02-21 16:09 | PC.NURSE ---
Addendum entered by Hemalatha Shabazz R.N. 02/21/19 21:05: Pt had uneventful evening. Order for new med, Demeclocycline unavailable in pharmancy til mid-morning. HS CBG = 105, not coverage required. HL intact, Assisted to BR several time w/o incidence. Call light w/in reach, bed alarm on for pt safety. Original Note: Pt resting quietly at this time. Denies any discomfort. Lungs diminshed @ bases, SpO2 96% RA HL YEVGENIY intact/patent. Call light w/in reach/ bed alarm on for pt safety.
[2019-02-21] MEDS: FAMOTIDINE 20 MG/50 ML PIGGYBACK 200 MG IV (16:34)
--- NOTE | 2019-02-21 17:59 | PM.PN.1 ---
Subjective Date Patient Seen: 02/21/19 Interval history: Patient is a 63-year-old female admitted to the hospital with hyponatremia, metabolic encephalopathy, sepsis, viral and possible bacterial infection. The patient has made remarkable improvement. She has completed a course of Tamiflu for influenza a. Patient will complete a course of antibiotics today. She continues to be hyponatremic. Her serum and urine osmolality were ordered but are difficult to find. The patient reports feeling dizzy when upright. She reports minimal abdominal pain. she is admittedly confused. She knows where she is but is unable to state the month or the day of the week. She has made significant improvement since admission. Exam Vital Signs (past 8 hours): - 02/21/19 10:51 02/21/19 12:20 02/21/19 15:20 Temperature 98.1 F 98.3 F Pulse Rate 80 98 H 94 H Respiratory Rate 16 20 18 Blood Pressure 114/75 118/73 Pulse Oximetry 97 96 95 02/21/19 16:36 Temperature Pulse Rate 90 Respiratory Rate 16 Blood Pressure Pulse Oximetry 95 Fraction of Inspired Oxygen 21 Oxygen Delivery Method Room Air Oxygen Flow Rate 0 Narrative Exam Narrative: Ill appearing confused female Lungs: Decreased breath sounds but clear Cardiac exam: Regular rate and rhythm normal S1 and S2 with a 2/6 systolic ejection murmur Abdomen: Soft minimally tender in the midepigastric area surgical incision well healed Extremities: No edema Oropharynx: Dry mucous membranes Objective Labs Result Diagrams: 02/21/19 05:31 02/21/19 05:31 Labs: Laboratory Results - last 24 hr 02/21/19 02/21/19 02/21/19 05:31 05:31 05:31 WBC 3.6 L RBC 3.11 L Hgb 8.2 L Hct 24.7 L MCV 79.2 L MCH 26.3 MCHC 33.2 RDW 18.7 H Plt Count 54 L Neut % (Auto) 64.9 Lymph % (Auto) 25.3 Webster % (Auto) 8.3 Eos % (Auto) 0.8 L Baso % (Auto) 0.7 Neut # (Auto) 2300 Lymph # (Auto) 900 L Webster # (Auto) 300 Eos # (Auto) 0 Baso # (Auto) 0 Sodium 127 L Potassium 3.3 L Chloride 94 L Carbon Dioxide 27 BUN 8 Creatinine 0.50 L Estimated GFR > 60.0 BUN/Creatinine Ratio 16.0 Glucose 94 Calcium 7.7 L Magnesium 1.3 L Iron 26 L TIBC 230 L % Saturation 11 L Transferrin 144 L Total Bilirubin 0.7 AST 44 H ALT 33 Alkaline Phosphatase 78 Total Protein 5.2 L Albumin 2.2 L Globulin 3.0 Albumin/Globulin Ratio 0.7 L Ur Random Sodium 02/21/19 13:20 WBC RBC Hgb Hct MCV MCH MCHC RDW Plt Count Neut % (Auto) Lymph % (Auto) Webster % (Auto) Eos % (Auto) Baso % (Auto) Neut # (Auto) Lymph # (Auto) Webster # (Auto) Eos # (Auto) Baso # (Auto) Sodium Potassium Chloride Carbon Dioxide BUN Creatinine Estimated GFR BUN/Creatinine Ratio Glucose Calcium Magnesium Iron TIBC % Saturation Transferrin Total Bilirubin AST ALT Alkaline Phosphatase Total Protein Albumin Globulin Albumin/Globulin Ratio Ur Random Sodium 146 H Assessment & Plan Assessment & Plan narrative: Acute metabolic encephalopathy, present on admission. improving -Suspect multifactorial and secondary to restarting MS Contin, hyponatremia, hypoglycemia (has been corrected and insulin has been discontinued as she is no longer on glucocorticoids), glucocorticoids (completed), and acute illness/hospitalization. -Ordered normal saline x1 bag and placed on fluid restriction of 1.5 L. -Reorient often, stimulate patient during daytime and minimize interruptions at night. -Discontinued MS Contin. Patient has a reports that the patient was being titrated off of MS Contin and to start Suboxone outpatient which she has prescription at home. Consider starting Suboxone the next 24 hr after last dose of narcotic. Will continue free water restriction, Will check serum and urine osmolality. consider demeclocycline given persistent hyponatremia 2. Recent acute blood loss anemia, secondary to exploratory laparotomy, present on admission. Now hemodilutional anemia, not present on admission. Active. -Initial hemoglobin 9.5. Trending down and likely hemodilutional as patient has received 6L of IVF total. -No overt signs of bleeding. Ordered stool guaiac, pending. -Ordered iron panel, pending. -Continue to monitor H&H daily. Transfusion goal < 7.0. Received 1 U PRBC. 3. Acute hyponatremia, present on admission. Ongoing. -Likely secondary to fluid losses from recent surgery and decreased PO intake, in addition to pulmonary infection. -Patient had sodium of 130 while hospitalized in [place]. Sodium 128 today. Ordered fluid restriction of 1.5 L and 1 bag of IV normal saline. -Continue to monitor sodium closely. demeclocycline 4. Acute viral and bacterial sepsis, present on admission. Resolved. -Sepsis criteria met with organ dysfunction of respiratory failure, hypotension, thrombocytopenia and metabolic encephalopathy. -Continued early goal directed therapy including IV fluid resuscitation and antiviral/broad spectrum antibiotics. 5. Acute on chronic hypoxemic respiratory failure, present on admission. Acute portion resolved. -Patient has known chronic respiratory failure due to bronchiectasis and on home oxygen 2L continuous and will continue. Goal oxygen saturation 88% or greater. -Continue respiratory therapy evaluation and treatment. Continue duo nebs every 6 hr while awake. Discontinued glucocorticoids. 6. Healthcare-associated and influenza pneumonia, present on admission. Resolving. -Recently hospitalized less than 2 weeks ago in [place] and treated for pneumonia at that time. -Chest x-ray demonstrated increased diffuse interstitial prominence superimposed on chronic interstitial changes with focal opacity in the right mid lung zone. -Respiratory PCR positive for influenza A. -Procalcitonin initially elevated at 1.6 and peaked at 3.83 and trended down to normal limits. -Continue Tamiflu 75 mg twice daily x 5 days, discontinued cefepime 2 g twice daily today and will continue levofloxacin 750 mg daily to complete 7 days on 02/22. Treating for influenza and multi-resistant gram positive and negative organisms, respectively. Negative for MRSA colonization. -Ordered respiratory therapy evaluation and treatment. Continue Duonebs every 6 hr while awake. Continue methylprednisolone 40 mg daily. 7. COPD, present on admission. Stable. -Does not represent an acute COPD exacerbation. -Stopped glucocorticoids which were started due to acute illness. Continue home inhalers, antiviral and antibiotics for pneumonia as above. 8. Chronic pain with opiate dependence, present on admission. Stable. -Patient spouse reports that they have been trying to titrate her off of MS Contin. -Discontinued MS Contin as likely contributing to metabolic encephalopathy. Will consider starting Suboxone 24 hr after last narcotic dose. 9. History of supraventricular tachycardia. -Continue home metoprolol 12.5 mg twice daily. 10. Hypothyroidism, chronic, present on admission. Stable. -TSH low at 0.09 and free T4 ayaka at 0.82. -Continue home levothyroxine but decrease from 50 mcg to 25 mcg daily. Patient is Euthyroid Sick-no treatment indicated. 11. Osteoporosis, chronic, present on admission. Stable. -Continue home aledronate and vit D3. Disposition: Patient likely to [facility] to jail facility vs. home with home health. Quality VTE Deep Vein Thrombosis/Pulmonary Embolism Present on Admission: No
[2019-02-21] MEDS: SENNOSIDES 8.6 MG TABLET 17.2 MG PO (20:31)
[2019-02-22] VITALS (11 sets, daily range): BP systolic 114–133; BP diastolic 69–84; PULSE 84–93; RESP 16–20; TEMP 36.1–37.4; O2SAT 94–100
[2019-02-22 06:29] LABS: Blood Urea Nitrogen 9 mg/dL (7-17); Calcium 7.5 mg/dL (8.4-10.2); Carbon Dioxide 26 mmol/L (22-32); Chloride 89 mmol/L (98-107); Estimated Glomerular Filt Rate > 60.0 mL/min (>60); Glucose 79 mg/dL (80-110); HEMOLYSIS 16 (0-50); Potassium 3.4 mmol/L (3.4-5.1); Sodium 121 mmol/L (137-145)
[2019-02-22] MEDS: LEVOTHYROXINE 50 MCG TABLET PO (06:38)
--- NOTE | 2019-02-22 06:57 | PC.NURSE ---
Spoke with Dr. Rivera regarding low platelet and to hold this mornings 0900 dose lovenox. Provider also responded to outdated IV, said to wait and talk with Dr. Spicer this am. Coordinator aware.
[2019-02-22] MEDS: LIDOCAINE PATCH 1 EACH ADH..PATCH TOP (09:33)
[2019-02-22] MEDS: METOPROLOL IR 25 MG TABLET 12.5 MG PO ×2 (09:33→20:57)
[2019-02-22] MEDS: DULOXETINE 30 MG CAPSULE 60 MG PO (09:33)
[2019-02-22] MEDS: FLUTICASONE/SALMETEROL 500/50 14 PUFF DISKUS INH ×2 (10:18→19:28)
[2019-02-22] MEDS: ALBUTEROL 2.5 MG/3 ML NEB (ADULT) INH ×3 (10:18→19:28)
--- NOTE | 2019-02-22 10:56 | PC.NURSE ---
Addendum entered by Nazanin Morrow R.N. 02/22/19 12:39: MS/GI/RESP - assisted x 1 person w/fww to br w/liq stool, void, sob w/activity, generalized weakness, to chair w/alarm set. Original Note: AM NOTE - pt awalens easily, oriented, generalized weakness, denies nausea, does have poor appetite, jacob breakfast, bt are hypo, states had liq stool earlier during night, ra 95% w/coarse crackles, hr 88, asks am I going home?, membranes dry, fluid restriction given tea w/meal, oral care provided.
[2019-02-22] MEDS: DEMECLOCYCLINE 300 MG PO ×2 (12:23→20:58)
[2019-02-22] MEDS: SODIUM CHLORIDE 1,000 MG TABLET 1000 MG PO (17:50)
--- NOTE | 2019-02-22 19:43 | PM.PN.1 ---
Subjective Date Patient Seen: 02/22/19 Interval history: Patient is more alert and appropriate today. She knows the month, and can state the months backwards from October to March. ( She would not try yesterday) She is still very weak and requires maximum assist with PT. She wants to go home and feels like her can and will care for her. WE discussed caregiver training tomorrow. Patient admitted with Influenza A, Respiratory Failure, Hyponatremia, Acute Metabolic Encephalopathy, chronic pain, blood loss anemia, Bacterial superimposed on viral pneumonia...all improving She continues to be hyponatremic but overall is making excellent progress Exam Vital Signs (past 8 hours): - 02/22/19 14:19 02/22/19 15:25 02/22/19 19:29 Temperature 98.4 F Pulse Rate 84 91 H 89 Respiratory Rate 17 18 17 Blood Pressure 114/70 Pulse Oximetry 98 94 98 02/22/19 19:33 Temperature Pulse Rate 89 Respiratory Rate 17 Blood Pressure Pulse Oximetry 98 Fraction of Inspired Oxygen 21 Oxygen Delivery Method Room Air Oxygen Flow Rate 0 Narrative Exam Narrative: ill appearing female more alert and appropriate Lungs: occassional scattered crackles bilaterally CV: RRR nl Sl S2 2/6 SIRENA Abd: soft, healed midline incision, mildly tender, no rebound Ext: no edema Psych: improving, but not at baseline Objective Labs Result Diagrams: 02/21/19 05:31 02/22/19 05:51 Labs: Laboratory Results - last 24 hr 02/22/19 05:51 Sodium 121 L Potassium 3.4 Chloride 89 L Carbon Dioxide 26 BUN 9 Creatinine 0.50 L Estimated GFR > 60.0 BUN/Creatinine Ratio 18.0 Glucose 79 L Calcium 7.5 L Assessment & Plan (1) Acute hyponatremia: Problem details: Acute hyponatremia, present on admission. Patient had low normal sodium while hospitalized in [place]. Her lowest sodium was 130. Serum osmolality was down to 269. Patient is markedly hyponatremic at this time. Serum and URine osmolality sent ( 5 day send out) patient started on demeclocycline and will start salt tabs tonight. Will continue fluid restriction and monitor sodium Current visit: Yes Status: Acute (2) Acute metabolic encephalopathy: Problem details: Acute Metabolic encephalopathy, present on admission , improving. She is still not at baseline but mentation, memory, and cognition improving daily Current visit: Yes Status: Acute (3) Healthcare-associated pneumonia: Problem details: Present on admission, full course of treatment completed Current visit: Yes Status: Acute (4) Chronic respiratory failure with hypoxia: Problem details: Patient has known chronic respiratory failure and on home O2. Currently off oxygen, patient has chronic bronchietasis, improved Current visit: Yes Status: Acute (5) COPD (chronic obstructive pulmonary disease): Problem details: Present on admission, improved Current visit: Yes Status: Acute (6) Supraventricular tachycardia: Problem details: The patient has known history of supraventricular tachycardia, present on admission, will continue her low-dose metoprolol. Current visit: Yes Status: Acute (7) Blood loss anemia: Problem details: Patient had known blood loss anemia related to her exploratory laparotomy. She remains anemic although there is no evidence of acute blood loss. Current visit: Yes Status: Acute (8) Hypothyroidism: Problem details: Hypothyroidism, chronic will continue her levothyroxine Current visit: Yes Status: Acute Assessment & Plan narrative: Home after caregiver training, 1-2 days Quality VTE Deep Vein Thrombosis/Pulmonary Embolism Present on Admission: No
--- NOTE | 2019-02-22 19:59 | PC.NURSE ---
Pt is on fluid restriction. Lung sounds clear on the left w/ course crackles throughout on the rgt. 95% on Room air. Pt may be going home tomorrow, if weakness improves with PT.
[2019-02-22] MEDS: SODIUM CHLORIDE 0.9% FLUSH 10 ML IV (20:58)
[2019-02-22] MEDS: SENNOSIDES 8.6 MG TABLET 17.2 MG PO (20:58)
[2019-02-23] VITALS (11 sets, daily range): BP systolic 118–132; BP diastolic 65–75; PULSE 82–95; RESP 16–20; TEMP 36.3–37.1; O2SAT 93–97
--- NOTE | 2019-02-23 01:27 | PC.NURSE ---
0050 SPO2 in RA 94%, requested & reports uses oxygen @ home when sleeping 2 liters. 2 liters & SPO2 95%. SOB with exertion, will cont. POC & monitor.
[2019-02-23] MEDS: ALBUTEROL 2.5 MG/3 ML NEB (ADULT) INH ×3 (05:43→20:14)
[2019-02-23] MEDS: FLUTICASONE/SALMETEROL 500/50 14 PUFF DISKUS INH ×2 (05:44→20:14)
[2019-02-23] MEDS: LEVOTHYROXINE 50 MCG TABLET PO (06:27)
[2019-02-23] MEDS: LIDOCAINE PATCH 1 EACH ADH..PATCH TOP (09:31)
[2019-02-23] MEDS: DEMECLOCYCLINE 300 MG PO ×2 (09:33→20:57)
[2019-02-23] MEDS: DULOXETINE 30 MG CAPSULE 60 MG PO (09:33)
[2019-02-23] MEDS: METOPROLOL IR 25 MG TABLET 12.5 MG PO ×2 (09:34→20:57)
[2019-02-23] MEDS: POTASSIUM CHLORIDE 40 MEQ in SODIUM CHLORIDE 0.9% 500 ML 130 ML IV (09:34)
[2019-02-23] MEDS: SODIUM CHLORIDE 0.9% FLUSH 10 ML IV ×2 (09:34→20:59)
--- NOTE | 2019-02-23 10:32 | PC.NURSE ---
Addendum entered by Nazanin Morrow R.N. 02/23/19 12:32: LAB - per , resume earlier K rider. Original Note: Addendum entered by Nazanin Morrow R.N. 02/23/19 11:56: LAB - per discussion with Dr. Yuan, iv K+ rider stopped, new orders rec'd for stat lab. Original Note: Addendum entered by Nazanin Morrow R.N. 02/23/19 11:07: LAB - spoke to and new order rec'd for Original Note: AM NOTE - pt is alert, speech clear, no complaints abd pain, chronic back pain, lidocaine patch applied, jacob soft diet, appetite gradually improving, fluid restriction applied, up x 1 person w/fww to br, ret to bed.
[2019-02-23 11:41] LABS: Add Manual Diff / Slide Review NO; Basophils Absolute Auto 0 /uL (0-100); Basophils Percent Auto 0.8 % (0-2); Eosinophils Absolute Auto 0 /uL (0-450); Eosinophils Percent Auto 1.2 % (2-4); Hematocrit 23.2 % (36-46); Lymphocytes Absolute Auto 900 /uL (1100-4500); Mean Corpuscular HGB Conc 34.3 % (30-36); Mean Corpuscular Hemoglobin 26.7 PG (26-34); Mean Corpuscular Volume 77.8 fL (80-100); Monocytes Absolute Auto 500 /uL (0-900); Monocytes Percent Auto 14.9 % (3-14); Neutrophils Absolute Auto 1900 /uL (1500-7000); Neutrophils Percent Auto 56.1 % (50-75); Platelet Count 77 X10^3/uL (150-400); Red Blood Cell Count 2.98 X10^6/uL (4.0-5.2); White Blood Cell Count 3.4 X10^3/uL (4.5-11.0)
[2019-02-23 11:43] LABS: Alanine Aminotransferase 26 IU/L (9-52); Albumin 2.5 g/dL (3.5-5.0); Albumin Globulin Ratio 0.8 (1.0-2.8); Alkaline Phosphatase 83 U/L (38-126); Aspartate Aminotransferase 34 IU/L (14-36); Blood Urea Nitrogen 8 mg/dL (7-17); Calcium 7.3 mg/dL (8.4-10.2); Carbon Dioxide 24 mmol/L (22-32); Chloride 88 mmol/L (98-107); Estimated Glomerular Filt Rate > 60.0 mL/min (>60); Glucose 94 mg/dL (80-110); HEMOLYSIS < 15 (0-50); Magnesium 1.2 mg/dL (1.6-2.3); Potassium 3.6 mmol/L (3.4-5.1); Sodium 121 mmol/L (137-145); Total Protein 5.5 g/dL (6.3-8.2)
[2019-02-23] MEDS: MAGNESIUM SULFATE 4 GM/100 ML PIGGYBACK IV (12:56)
--- NOTE | 2019-02-23 13:55 | PT.IPTN ---
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) Hypothyroidism, unspecified (02/15/19) Hypo-osmolality and hyponatremia (02/15/19) Metabolic encephalopathy (02/15/19) Supraventricular tachycardia (02/15/19) Pneumonia, unspecified organism (02/15/19) Chronic obstructive pulmonary disease, unspecified (02/15/19) Chronic respiratory failure with hypoxia (02/15/19) Age-related osteoporosis without current pathological fracture (02/15/19) Physical Therapy Treatment Note M2 PT-IP Current Condition Start: 02/17/19 14:34 Freq: NEEDED Status: Active Protocol: Document 02/17/19 14:00 RCC (Rec: 02/17/19 14:51 RCC [email or web address]) Physical Therapy Current Condition Current Condition Evaluation Date 02/17/19 Treatment Diagnosis AMS, hyponatremia, influenza, pneumonia, impaired activity tolerance Precautions Other Precautions droplet precautions M3 PT-IP Subjective Start: 02/17/19 14:34 Freq: NEEDED Status: Active Protocol: Document 02/23/19 13:55 GGD (Rec: 02/23/19 15:43 GGD [email or web address]) Subjective Physical Therapy Visit Type Type Treatment Note Visit Start Time 13:40 Visit Stop Time 13:55 Total Visit Minutes 15 Number of HOOK LOADER Visits 1 Physical Therapy Visit Comments Patient Comments Pt willing to work with therapy. M4 PT-IP Mobility and Gait Start: 02/17/19 14:34 Freq: NEEDED Status: Active Protocol: Document 02/23/19 13:55 GGD (Rec: 02/23/19 15:43 GGD [email or web address]) PT-Bed Mobility Assessment Supine to Sit Supine to Sit Independent Sit to Supine Sit to Supine Independent Scooting Scooting to Edge of Bed Independent PT-Transfer Assessment Sit to and From Stand Sit to and from Stand Standby Assistance Use of Upper Extremities Equipment Transfer Assistive Device Gait Belt Front Wheeled Walker Transfers Transfer Destination Bed Transfer Ability Level of Assist Standby Assistance Gait Assessment Gait Gait Assistance Required: Contact Guard Assist Distance (Feet) 45 Assistive Devices Assistive Device Gait Belt Front Wheeled Walker Gait Deviations General Gait Pattern Decreased Stride Length Decreased Feet Clearance Flexed Trunk Narrow Based Gait Factors Limiting Gait Function Factors Limiting Gait Function Decreased Activity Tolerance Decreased Strength Respiratory Distress M5 PT-IP Objective Assessments Start: 02/17/19 14:34 Freq: NEEDED Status: Active Protocol: Document 02/17/19 14:00 RCC (Rec: 02/17/19 14:51 RCC [email or web address]) Orientation Orientation/Cognition Level of Alertness Alert Strength Lower Extremity Strength Assessment Within Functional Limits M6 PT-IP Treatment Start: 02/17/19 14:34 Freq: NEEDED Status: Active Protocol: Document 02/17/19 14:00 RCC (Rec: 02/17/19 14:51 RCC [email or web address]) Physical Therapy Treatment Education Education Provided Safety M7 PT-IP Assessment and Plan Start: 02/17/19 14:34 Freq: NEEDED Status: Active Protocol: Document 02/23/19 13:55 GGD (Rec: 02/23/19 15:43 GGD [email or web address]) PT Summary Assessment and Plan Summary Assessment Summary Pt improved tolerance to gait. She did fatigue quickly and need cues for posture. Pt safe with bed mobility. Frequency of Treatment Frequency Of Treatment Once a Day Treatment Plan Physical Therapy Treatment Plan Bed Mobility Training Transfer Training Gait Training Therapeutic Exercise Balance Retraining Discharge Planning Neuromuscular Re-ed Other Recommendations and Next Treatment progress gait as tolerated, Focus stair training prior to d/c Recommendations To Nursing Amount of Assist Needed Standby Assistance Discharge Recommendations PT Discharge Recommendations Home with Assistance Home Health
--- NOTE | 2019-02-23 14:39 | CM.DPNOTE ---
Reviewed chart. Pt discussed in multi-disciplinary rounds, DCP remains home once medically stable. Pt's cognition is improving daily per Dr Yuan. Pt may benefit from Home Health upon DC. Therapy agrees pt should be able to DC home w/family after cg training and improved cognition. This COMMERCIAL UNDERWRITER following closely to coordinate safe DCP, will discuss HH w/pt and family closer to DC. MARLA Hamm
[2019-02-23 16:13] LABS: Osmolality Urine 412 mOsm/kg (50-1200)
--- NOTE | 2019-02-23 18:07 | PC.NURSE ---
Addendum entered and electronically signed by Donny Cummings R.N. 02/23/19 22:48: No senna given this jamila, pt is having runny stool. Original Note: Addendum entered and electronically signed by Donny Cummings R.N. 02/23/19 22:29: [place] neg, lidocaine patch removed, 2 liters O2, NC at night, per patient, orders in computer from doc. Original Note: Pt. has rgt lung coarse crackles throughout, and left lung is clear. Pt has productive cough and is using flutter valve. Denies pain. No edema present.
--- NOTE | 2019-02-23 19:07 | PM.PN.1 ---
Subjective Date Patient Seen: 02/23/19 Interval history: Abi Jacques is a 63-year-old female recently treated for SBO status post exploratory laparotomy with lysis of adhesions and community-acquired and probable aspiration pneumonia at [facility] in [place] who was admitted for hospital-acquired pneumonia and influenza A infection. The patient is resting in bed comfortably. The patient is alert and oriented to person only. She continues to mentate very slowly. No focal neurological deficits. Her sodium continues to be stable but very low at 121. She denies headache, chest pain, shortness of breath, abdominal pain, nausea, vomiting, fever, chills, dysuria, diarrhea or constipation. She is on her baseline oxygen requirements of 2 L for her chronic respiratory failure due to bronchiectasis at night and off during the day. She is voiding and eliminating without difficulty. She is up ambulating with assistance and PT. Exam Vital Signs (past 8 hours): - 02/23/19 12:00 02/23/19 15:58 Temperature 98 F 98.6 F Pulse Rate 90 90 Respiratory Rate 20 18 Blood Pressure 132/74 118/65 Pulse Oximetry 96 95 Fraction of Inspired Oxygen 21 Oxygen Delivery Method Room Air Oxygen Flow Rate 2 Narrative Exam Narrative: General: Middle-aged female lying in bed and in no acute distress, appears chronically ill and older than stated age, well-developed, well-nourished, slow mentation and slow response, mild confusion. HEENT: Normocephalic, atraumatic. External ears without defect. Pupils equal, round, and reactive to light. Anicteric sclerae, moist conjunctivae, and no lid lag. Neck: Supple with full range of motion. No lymphadenopathy or thyromegaly. Cardiovascular: Regular rate and rhythm without murmurs, rubs, or gallops appreciated. Pulmonary: Clear to auscultation bilaterally with occasional scattered rhonchi. Normal respiratory effort with no use of accessory muscles. Abdomen: Soft, bowel sounds present, nontender, nondistended. Large vertical surgical scar healing well without exudate. No hepatosplenomegaly or masses appreciated. Extremities: No clubbing, cyanosis or edema. Skin: Normal temperature, turgor, and texture; no rash, ulcers, or subcutaneous nodules appreciated. Neurological: Cranial nerves grossly intact. No focal neurological deficits. Psychiatric: Slow mentation and slow to respond. Alert oriented to person only. Mild confusion. Objective Labs Result Diagrams: 02/23/19 11:30 02/24/19 05:19 Labs: Laboratory Results - last 24 hr 02/21/19 02/23/19 02/23/19 13:20 11:30 11:30 WBC 3.4 L RBC 2.98 L Hgb 8.0 L Hct 23.2 L MCV 77.8 L MCH 26.7 MCHC 34.3 RDW 19.0 H Plt Count 77 L Neut % (Auto) 56.1 Lymph % (Auto) 27.0 [place] % (Auto) 14.9 H Eos % (Auto) 1.2 L Baso % (Auto) 0.8 Neut # (Auto) 1900 Lymph # (Auto) 900 L [place] # (Auto) 500 Eos # (Auto) 0 Baso # (Auto) 0 Sodium 121 L Potassium 3.6 Chloride 88 L Carbon Dioxide 24 BUN 8 Creatinine 0.40 L Estimated GFR > 60.0 BUN/Creatinine Ratio 20.0 Glucose 94 Calcium 7.3 L Magnesium Total Bilirubin 1.0 AST 34 ALT 26 Alkaline Phosphatase 83 Total Protein 5.5 L Albumin 2.5 L Globulin 3.0 Albumin/Globulin Ratio 0.8 L Urine Osmolality 412 02/23/19 11:30 WBC RBC Hgb Hct MCV MCH MCHC RDW Plt Count Neut % (Auto) Lymph % (Auto) [place] % (Auto) Eos % (Auto) Baso % (Auto) Neut # (Auto) Lymph # (Auto) [place] # (Auto) Eos # (Auto) Baso # (Auto) Sodium Potassium Chloride Carbon Dioxide BUN Creatinine Estimated GFR BUN/Creatinine Ratio Glucose Calcium Magnesium 1.2 L Total Bilirubin AST ALT Alkaline Phosphatase Total Protein Albumin Globulin Albumin/Globulin Ratio Urine Osmolality Assessment & Plan Assessment & Plan narrative: Abi Jacques is a 63-year-old female recently treated for SBO status post exploratory laparotomy with lysis of adhesions and community-acquired and probable aspiration pneumonia at [facility] in [place] who was admitted for hospital-acquired pneumonia and influenza A infection. 1. Acute metabolic encephalopathy, present on admission. Active. -Multifactorial and secondary to SIADH/hyponatremia, hypoglycemia, glucocorticoids (completed), acute illness/hospitalization and narcotics. -Restarted D5 normal saline at 100 mL/hr and placed on fluid restriction of 1.5 L. -Reorient often, stimulate patient during daytime and minimize interruptions at night. -Discontinued MS Contin. Patient was being titrated off of MS Contin and to start Suboxone outpatient which she has prescription at home. Consider starting Suboxone in next 1-2 days when no longer encephalopathic. 2. SIADH, present on admission. Active. -Secondary to hypovolemic hyponatremia and renal losses, possibly adrenal insufficiency. Other factors that have contributed include viral and bacterial pulmonary infections and fluid losses from recent surgery. -Patient had sodium of 130 while hospitalized in [place]. -Urine sodium high at 146. Urine osmolarity normal at 412. Ordered AM cortisol, pending. -Continue sodium chloride tabs increased from 1000 mg daily to a 1000 mg twice daily and demeclocycline 300 mg twice daily. Continue fluid restriction of 1.5 L daily. 3. Recent acute blood loss anemia, secondary to exploratory laparotomy, present on admission. Now hemodilutional anemia, not present on admission. Active. -Initial hemoglobin 9.5. Trending down and likely hemodilutional as patient has received 6L of IVF total. -No overt signs of bleeding. Ordered stool guaiac, pending. -Iron panel demonstrated iron deficiency anemia. Will start supplementation. -Continue to monitor H&H daily. Transfusion goal < 7.0. Received 1 U PRBC. 4. Acute viral and bacterial sepsis, present on admission. Resolved. -Sepsis criteria met with organ dysfunction of respiratory failure, hypotension, thrombocytopenia and metabolic encephalopathy. -Continued early goal directed therapy including IV fluid resuscitation and antiviral/broad spectrum antibiotics. 5. Acute on chronic hypoxemic respiratory failure, present on admission. Acute portion resolved. -Patient has known chronic respiratory failure due to bronchiectasis and on home oxygen 2L continuous and will continue. Goal oxygen saturation 88% or greater. -Continue respiratory therapy evaluation and treatment. Continue duo nebs every 6 hr while awake. Discontinued glucocorticoids. 6. Healthcare-associated and influenza pneumonia, present on admission. Resolved. -Recently hospitalized less than 2 weeks ago in [place] and treated for pneumonia at that time. -Chest x-ray demonstrated increased diffuse interstitial prominence superimposed on chronic interstitial changes with focal opacity in the right mid lung zone. -Respiratory PCR positive for influenza A. -Procalcitonin initially elevated at 1.6 and peaked at 3.83 and trended down to normal limits. -Continue Tamiflu 75 mg twice daily x 5 days, discontinued cefepime 2 g twice daily today and will continue levofloxacin 750 mg daily to complete 7 days on 02/22. Treating for influenza and multi-resistant gram positive and negative organisms, respectively. Negative for MRSA colonization. -Ordered respiratory therapy evaluation and treatment. Continue Duonebs every 6 hr while awake. Continue methylprednisolone 40 mg daily. 7. COPD, present on admission. Stable. -Does not represent an acute COPD exacerbation. -Stopped glucocorticoids which were started due to acute illness. Continue home inhalers, antiviral and antibiotics for pneumonia as above. 8. Chronic pain with opiate dependence, present on admission. Stable. -Patient spouse reports that they have been trying to titrate her off of MS Contin. -Discontinued MS Contin as likely contributing to metabolic encephalopathy. Will consider starting Suboxone 24 hr after sodium stabilizes and encephalopathy resolved. 9. History of supraventricular tachycardia. -Continue home metoprolol 12.5 mg twice daily. 10. Hypothyroidism, chronic, present on admission. Stable. -TSH low at 0.09 and free T4 ayaka at 0.82. -Continue home levothyroxine but decrease from 50 mcg to 25 mcg daily. 11. Osteoporosis, chronic, present on admission. Stable. -Continue home aledronate and vit D3. Disposition: Patient likely to discharge to detention facility vs. home with home health. Quality VTE Deep Vein Thrombosis/Pulmonary Embolism Present on Admission: No
[2019-02-23] MEDS: SODIUM CHLORIDE 1,000 MG TABLET 1000 MG PO (21:39)
[2019-02-23] MEDS: ACETAMINOPHEN 325 MG TABLET 650 MG PO (23:40)
[2019-02-24] VITALS (11 sets, daily range): BP systolic 110–126; BP diastolic 69–87; PULSE 72–98; RESP 16–20; TEMP 36.4–37.2; O2SAT 93–99
[2019-02-24] MEDS: LEVOTHYROXINE 50 MCG TABLET PO (05:46)
[2019-02-24] MEDS: ALBUTEROL 2.5 MG/3 ML NEB (ADULT) INH ×3 (06:06→17:36)
[2019-02-24] MEDS: FLUTICASONE/SALMETEROL 500/50 14 PUFF DISKUS INH ×2 (06:06→17:36)
[2019-02-24 06:35] LABS: Cortisol AM (Before 10AM) 2.66 ug/dL (4.46-22.7)
--- NOTE | 2019-02-24 08:40 | PM.PN.1 ---
Subjective Date Patient Seen: 02/24/19 Interval history: Abi Jacques is a 63-year-old female recently treated for SBO status post exploratory laparotomy with lysis of adhesions and community-acquired and probable aspiration pneumonia at [facility] in [place] who was admitted for hospital-acquired pneumonia and influenza A infection. The patient is resting in bed comfortably. The patient is alert and oriented x3. Her mentation has improved significantly with the increase in her sodium from 121-124. She still is mentating slowly but is not as delayed as previously. She denies any history of head trauma or [employer] disease. She endorses mild nausea with sodium chloride tabs. She denies headache, chest pain, shortness of breath, abdominal pain, nausea, vomiting, fever, chills, dysuria, diarrhea or constipation. She is on her baseline oxygen requirements of 2 L for her chronic respiratory failure due to bronchiectasis at night and off during the day. She is voiding and eliminating without difficulty. She is up ambulating with assistance and PT. Exam Vital Signs (past 8 hours): - 02/24/19 04:55 02/24/19 06:07 Temperature 97.8 F Pulse Rate 72 73 Respiratory Rate 20 18 Blood Pressure 113/71 Pulse Oximetry 98 97 Fraction of Inspired Oxygen 21 Oxygen Delivery Method Nasal Cannula Oxygen Flow Rate 2 Narrative Exam Narrative: General: Middle-aged female lying in bed and in no acute distress, appears chronically ill and older than stated age, well-developed, well-nourished, slow response but improved and appropriate. HEENT: Normocephalic, atraumatic. External ears without defect. Pupils equal, round, and reactive to light. Anicteric sclerae, moist conjunctivae, and no lid lag. Neck: Supple with full range of motion. No lymphadenopathy or thyromegaly. Cardiovascular: Regular rate and rhythm without murmurs, rubs, or gallops appreciated. Pulmonary: Clear to auscultation bilaterally with occasional scattered rhonchi. Normal respiratory effort with no use of accessory muscles. Abdomen: Soft, bowel sounds present, nontender, nondistended. Large vertical surgical scar healing well without exudate. No hepatosplenomegaly or masses appreciated. Extremities: No clubbing, cyanosis or edema. Skin: Normal temperature, turgor, and texture; no rash, ulcers, or subcutaneous nodules appreciated. Neurological: Cranial nerves grossly intact. No focal neurological deficits. Psychiatric: Alert and oriented to person, place and time. Continues to mentate slowly but improved. Objective Labs Result Diagrams: 02/23/19 11:30 02/24/19 05:19 Labs: Laboratory Results - last 24 hr 02/21/19 02/23/19 02/23/19 13:20 11:30 11:30 WBC 3.4 L RBC 2.98 L Hgb 8.0 L Hct 23.2 L MCV 77.8 L MCH 26.7 MCHC 34.3 RDW 19.0 H Plt Count 77 L Neut % (Auto) 56.1 Lymph % (Auto) 27.0 [place] % (Auto) 14.9 H Eos % (Auto) 1.2 L Baso % (Auto) 0.8 Neut # (Auto) 1900 Lymph # (Auto) 900 L [place] # (Auto) 500 Eos # (Auto) 0 Baso # (Auto) 0 Sodium 121 L Potassium 3.6 Chloride 88 L Carbon Dioxide 24 BUN 8 Creatinine 0.40 L Estimated GFR > 60.0 BUN/Creatinine Ratio 20.0 Glucose 94 Calcium 7.3 L Magnesium Total Bilirubin 1.0 AST 34 ALT 26 Alkaline Phosphatase 83 Total Protein 5.5 L Albumin 2.5 L Globulin 3.0 Albumin/Globulin Ratio 0.8 L Cortisol AM Sample Urine Osmolality 412 02/23/19 02/24/19 11:30 05:19 WBC RBC Hgb Hct MCV MCH MCHC RDW Plt Count Neut % (Auto) Lymph % (Auto) [place] % (Auto) Eos % (Auto) Baso % (Auto) Neut # (Auto) Lymph # (Auto) [place] # (Auto) Eos # (Auto) Baso # (Auto) Sodium Potassium Chloride Carbon Dioxide BUN Creatinine Estimated GFR BUN/Creatinine Ratio Glucose Calcium Magnesium 1.2 L Total Bilirubin AST ALT Alkaline Phosphatase Total Protein Albumin Globulin Albumin/Globulin Ratio Cortisol AM Sample 2.66 L Urine Osmolality Assessment & Plan Assessment & Plan narrative: Abi Jacques is a 63-year-old female recently treated for SBO status post exploratory laparotomy with lysis of adhesions and community-acquired and probable aspiration pneumonia at [facility] in [place] who was admitted for hospital-acquired pneumonia and influenza A infection. 1. Acute metabolic encephalopathy, present on admission. Resolving. -Multifactorial and secondary to predominately SIADH/hyponatremia, hypoglycemia, glucocorticoids (completed), acute illness/hospitalization and narcotics. -Restarted D5 normal saline at 100 mL/hr and placed on fluid restriction of 1 L. -Reorient often, stimulate patient during daytime and minimize interruptions at night. -Discontinued MS Contin. Patient was being titrated off of MS Contin and to start Suboxone outpatient which she has prescription at home. Consider starting Suboxone in next 1-2 days when sodium has stabilized and encephalopathy has resolved. 2. SIADH, present on admission. Active. -Secondary to hypovolemic hyponatremia and renal losses possibly due to adrenal insufficiency (patient has also been mildly hypoglycemic). Other factors that have contributed include viral and bacterial pulmonary infections and fluid losses from recent surgery. -Patient had sodium of 130 while hospitalized in [place]. -Urine sodium high at 146. Urine osmolarity normal at 412. AM cortisol low at 2.66. Ordered ACTH stim test for tomorrow morning. Have high suspicion of adrenal insufficiency as patient's sodium corrected readily with steroid administration. -Continue sodium chloride tabs increased from 1000 mg daily to a 1000 mg twice daily and demeclocycline 300 mg twice daily. Continue fluid restriction of 1 L daily. 3. Acute blood loss anemia on chronic iron deficiency anemia, present on admission. Active. -Initial hemoglobin 9.5. Portion of anemia is hemodilutional as patient has received significant amount of IV fluids and is currently net +4 L. -No overt signs of bleeding. Stool guaiac negative. -Iron panel demonstrated iron deficiency anemia. Will start iron supplementation with ferrous sulfate 325 mg daily. Received Venofer 100 mg x2. -Continue to monitor H&H daily. Transfusion goal < 7.0. Received 1 U PRBC. 4. Acute viral and bacterial sepsis, present on admission. Resolved. -Sepsis criteria met with organ dysfunction of respiratory failure, hypotension, thrombocytopenia and metabolic encephalopathy. -Continued early goal directed therapy including IV fluid resuscitation and antiviral/broad spectrum antibiotics. 5. Acute on chronic hypoxemic respiratory failure, present on admission. Acute portion resolved. -Patient has known chronic respiratory failure due to bronchiectasis and on home oxygen 2L continuous at night and sometimes during the day and will continue. Goal oxygen saturation 88 -92%. -Continue respiratory therapy evaluation and treatment. Continue duo nebs every 6 hr while awake. Stopped glucocorticoids which were started due to acute illness. 6. Healthcare-associated and influenza pneumonia, present on admission. Resolved. -Recently hospitalized less than 2 weeks ago in [place] and treated for pneumonia at that time. -Chest x-ray demonstrated increased diffuse interstitial prominence superimposed on chronic interstitial changes with focal opacity in the right mid lung zone. -Respiratory PCR positive for influenza A. -Procalcitonin initially elevated at 1.6 and peaked at 3.83 and trended down to normal limits. -Completed Tamiflu and antibiotic course with cefepime and levofloxacin. Treated for influenza and multi-resistant gram positive and negative organisms, respectively. Negative for MRSA colonization. -Ordered respiratory therapy evaluation and treatment. Continue Duonebs every 6 hr while awake. 7. COPD, present on admission. Stable. -Does not represent an acute COPD exacerbation. -Stopped glucocorticoids which were started due to acute illness. Continue home inhalers. Completed antiviral and antibiotics for pneumonia as above. 8. Chronic pain with opiate dependence, present on admission. Stable. -Patient spouse reports that they have been trying to titrate her off of MS Contin. -Discontinued MS Contin as likely contributing to metabolic encephalopathy. Will consider starting Suboxone 24 hr after sodium stabilizes and encephalopathy resolved. 9. History of supraventricular tachycardia. -Continue home metoprolol 12.5 mg twice daily. 10. Hypothyroidism, chronic, present on admission. Stable. -TSH low at 0.09 and free T4 normal at 0.82. -Continue home levothyroxine 50 mcg daily. 11. Osteoporosis, chronic, present on admission. Stable. -Continue home aledronate and vit D3. Disposition: Patient likely to discharge to correction facility vs. home with home health in next several days when sodium is stable and workup for SIADH is completed. Quality VTE Deep Vein Thrombosis/Pulmonary Embolism Present on Admission: No
[2019-02-24 08:48] LABS: Alanine Aminotransferase 30 IU/L (9-52); Albumin 2.2 g/dL (3.5-5.0); Albumin Globulin Ratio 0.7 (1.0-2.8); Alkaline Phosphatase 94 U/L (38-126); Aspartate Aminotransferase 33 IU/L (14-36); Bilirubin Total 0.9 mg/dL (0.2-1.3); Blood Urea Nitrogen 6 mg/dL (7-17); Calcium 7.2 mg/dL (8.4-10.2); Carbon Dioxide 24 mmol/L (22-32); Chloride 93 mmol/L (98-107); Estimated Glomerular Filt Rate > 60.0 mL/min (>60); Glucose 77 mg/dL (80-110); HEMOLYSIS < 15 (0-50); Potassium 3.9 mmol/L (3.4-5.1); Sodium 124 mmol/L (137-145); Total Protein 5.2 g/dL (6.3-8.2)
[2019-02-24] MEDS: DEMECLOCYCLINE 300 MG PO ×2 (08:59→20:39)
[2019-02-24] MEDS: LIDOCAINE PATCH 1 EACH ADH..PATCH TOP (08:59)
[2019-02-24] MEDS: METOPROLOL IR 25 MG TABLET 12.5 MG PO ×2 (09:00→20:39)
[2019-02-24] MEDS: DULOXETINE 30 MG CAPSULE 60 MG PO (09:01)
[2019-02-24] MEDS: DEXTROSE 5%-0.9% NS 1,000 ML 100 ML IV ×2 (09:04→19:06)
[2019-02-24] MEDS: SODIUM CHLORIDE 0.9% FLUSH 10 ML IV (09:05)
[2019-02-24] MEDS: SODIUM CHLORIDE 1,000 MG TABLET 1000 MG PO ×2 (09:14→17:35)
--- NOTE | 2019-02-24 13:04 | PC.NURSE ---
AM NOTE - pt is alert, continues to feel weak and tired, does have chronic lumbar discomfort and a lidocaine patch was applied this am, assist x 1 person to bsc w/void and mixed with small formed brown stool, breathing labored after mobilization, 02 sat 99% ra w/coarse crackles rll, ret to bed w/alarm set, jacob breakfast, am fluid restriction applied.
--- NOTE | 2019-02-24 15:28 | PT.IPTN ---
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) Hypothyroidism, unspecified (02/15/19) Hypo-osmolality and hyponatremia (02/15/19) Metabolic encephalopathy (02/15/19) Supraventricular tachycardia (02/15/19) Pneumonia, unspecified organism (02/15/19) Chronic obstructive pulmonary disease, unspecified (02/15/19) Chronic respiratory failure with hypoxia (02/15/19) Age-related osteoporosis without current pathological fracture (02/15/19) Physical Therapy Treatment Note M2 PT-IP Current Condition Start: 02/17/19 14:34 Freq: NEEDED Status: Active Protocol: Document 02/17/19 14:00 RCC (Rec: 02/17/19 14:51 RCC [email or web address]) Physical Therapy Current Condition Current Condition Evaluation Date 02/17/19 Treatment Diagnosis AMS, hyponatremia, influenza, pneumonia, impaired activity tolerance Precautions Other Precautions droplet precautions M3 PT-IP Subjective Start: 02/17/19 14:34 Freq: NEEDED Status: Active Protocol: Document 02/24/19 14:18 LJ (Rec: 02/24/19 15:28 LJ [id number]) Subjective Physical Therapy Visit Type Type Treatment Note Visit Start Time 15:18 Visit Stop Time 14:46 Total Visit Minutes 28 Notes Family in room for stair training M4 PT-IP Mobility and Gait Start: 02/17/19 14:34 Freq: NEEDED Status: Active Protocol: Document 02/24/19 14:18 LJ (Rec: 02/24/19 15:28 LJ [id number]) PT-Bed Mobility Assessment Rolling Level of Assist Independent Supine to Sit Supine to Sit Independent Sit to Supine Sit to Supine Independent Scooting Scooting to Edge of Bed Independent PT-Transfer Assessment Sit to and From Stand Sit to and from Stand Standby Assistance Use of Upper Extremities Equipment Transfer Assistive Device Gait Belt Front Wheeled Walker Transfers Transfer Destination Bed Transfer Ability Level of Assist Standby Assistance Comments Mobility Comments Pt independent for bed mobility and transfers. Tends to be impulsive and move without planning. Gets winded easily d/t fast pace and chest breathing. Gait Assessment Gait Gait Assistance Required: Contact Guard Assist Distance (Feet) 30 Assistive Devices Assistive Device Gait Belt Front Wheeled Walker Gait Deviations General Gait Pattern Decreased Stride Length Decreased Feet Clearance Flexed Trunk Narrow Based Gait Factors Limiting Gait Function Factors Limiting Gait Function Decreased Activity Tolerance Decreased Strength Poor Safety Awareness Respiratory Distress Comments Gait Comments Pt requiring cues to slow down and increase foot spacing to avoid knocking ankles together . Stair Climbing Assessment Evaluation Level of Assist On Stairs Contact Guard Assistance Devices Stair Climbing Assistive Devices Left Railing Right Railing Technique/Endurance Stair Climbing Direction Ascend and Descend Stair Climbing Technique Step Over Step Step to Step Number of Steps Climbed 3 Query Text: Stair Climbing Set # Repetitions (reps) 3 Comments Stair Climbing Comments Pt impulsive on first attempt using step through pattern up and sown. Sat for several minutes being instructed in deep breathing. Second attempt pt went a bit slower but was still winded d/t going too fast. Third attempt pt was coached to take one step at a time and perform deep breathing befor taking another step. Pt did much better but was still fatigued and required rest. M5 PT-IP Objective Assessments Start: 02/17/19 14:34 Freq: NEEDED Status: Active Protocol: Document 02/17/19 14:00 RCC (Rec: 02/17/19 14:51 RCC [email or web address]) Orientation Orientation/Cognition Level of Alertness Alert Strength Lower Extremity Strength Assessment Within Functional Limits M6 PT-IP Treatment Start: 02/17/19 14:34 Freq: NEEDED Status: Active Protocol: Document 02/17/19 14:00 RCC (Rec: 02/17/19 14:51 RCC [email or web address]) Physical Therapy Treatment Education Education Provided Safety M7 PT-IP Assessment and Plan Start: 02/17/19 14:34 Freq: NEEDED Status: Active Protocol: Document 02/24/19 14:18 LJ (Rec: 02/24/19 15:28 LJ [id number]) PT Summary Assessment and Plan Potential Rehabilitation Potential Good Status of Condition at Evaluation Evolving Summary Assessment Summary Pt impulsive with mobility and shows signs of confusion when attempting deepbreathing exercises. Difficulty in following directions with breathing. Pt will need to attempt stairs again prior to d/c as she was only able to ascend/descend once before needing a several minute rest break.Pt was able to assist pt with stairs. States he has taken care of grandfather and understands procedure for safe stair use. Frequency of Treatment Frequency Of Treatment Once a Day Treatment Plan Physical Therapy Treatment Plan Bed Mobility Training Transfer Training Gait Training Therapeutic Exercise Balance Retraining Discharge Planning Neuromuscular Re-ed Other Recommendations and Next Treatment progress gait as tolerated, Focus stair training prior to d/c Recommendations To Nursing Amount of Assist Needed Standby Assistance Discharge Recommendations PT Discharge Recommendations Home with Assistance Home Health
--- NOTE | 2019-02-24 16:44 | CM.DPNOTE ---
Reviewed DCP w/pt's spouse Aissatou over the phone this morning; SNF vs HH? Aissatou feels he can safely bring pt home and would be more than happy to complete cg training w/PT team this afternoon. Aissatou agreeable to a HH referral through [facility], they live in [place]. Coordinated PT/spouse cg training for 1400 at pt's . Therapy team agree that pt can safely DC home w/spouse when medically cleared. F2F signed by Dr Yuan, this GROUND HOST/HOSTESS unable to complete referral to [facility] today, will need f/u Monday. P: DC w/spouse and HH RN/PT/OT/SUPPORT DBA Katiuska Gomes GROUND HOST/HOSTESS
[2019-02-24] MEDS: IRON SUCROSE 100 MG in SODIUM CHLORIDE 0.9% 100 ML 420 ML IV (17:03)
--- NOTE | 2019-02-24 18:20 | PC.NURSE ---
Addendum entered by Lisa Olvera R.N. 02/24/19 22:21: Pt positions self in bed and moves self in and out of bed after calling appropriately for staff assistance for toileting. Lidocaine patch removed from back at hs. 02 2l oxygen via NC placed on pt for sleep as per pt request per home routine. Original Note: Pt has episode of dry heaving following administration of sodium chloride tab with evening meal. Pt states, I don't like salt; something about that pill. Head of bed bolt upright. No emesis. Requests cup of peaches and these were given. Pt reports this helps with stomach upset. No further retching. Dr Yuan was informed via telephone.
--- NOTE | 2019-02-24 22:39 | PC.NURSE ---
Pt on 2liters o2 at bedtime, fluid restriction, Iron sucrose IV fluids given. Patient to have ACTH lab testing in AM. Crackles in R lung, Clear in left. Nausea w/ Na+, medicate w/ Zofran in AM next dose. A-febrile, denies pain.
[2019-02-25] VITALS (12 sets, daily range): BP systolic 103–174; BP diastolic 60–85; PULSE 67–104; RESP 12–20; TEMP 36.5–37.1; O2SAT 90–97
[2019-02-25] MEDS: ALBUTEROL 2.5 MG/3 ML NEB (ADULT) INH ×3 (04:57→16:18)
[2019-02-25] MEDS: DEXTROSE 5%-0.9% NS 1,000 ML 100 ML IV (05:04)
[2019-02-25] MEDS: LEVOTHYROXINE 50 MCG TABLET PO (05:37)
--- NOTE | 2019-02-25 06:24 | PC.NURSE ---
Pt fingerstick blood glucose check at 0230 was 107.
--- NOTE | 2019-02-25 06:55 | PC.NURSE ---
Confirmed with Vickie/Lab that [address] for this patient.
[2019-02-25] MEDS: COSYNTROPIN 0.25 MG VIAL IV (07:41)
--- NOTE | 2019-02-25 07:46 | PC.NURSE ---
Am ACTH stim test Lab draw at 0730, Cosyntropin given @ 0730. Pt updated for next lab draws @ 0800 and 0830.
[2019-02-25] MEDS: SODIUM CHLORIDE 0.9% FLUSH 10 ML IV ×3 (07:52→22:25)
[2019-02-25] MEDS: METOPROLOL IR 25 MG TABLET 12.5 MG PO ×2 (07:52→22:26)
[2019-02-25] MEDS: DULOXETINE 30 MG CAPSULE 60 MG PO (07:53)
[2019-02-25] MEDS: SODIUM CHLORIDE 1,000 MG TABLET 1000 MG PO (07:54)
[2019-02-25] MEDS: DEMECLOCYCLINE 300 MG PO (07:54)
[2019-02-25] MEDS: ONDANSETRON 4 MG/2 ML INJ IV (08:10)
[2019-02-25 09:01] LABS: Cortisol AM (Before 10AM) 9.71 ug/dL (4.46-22.7)
[2019-02-25 09:35] LABS: Cortisol AM (Before 10AM) 10.9 ug/dL (4.46-22.7)
[2019-02-25] MEDS: FLUTICASONE/SALMETEROL 500/50 14 PUFF DISKUS INH ×2 (11:06→16:19)
--- NOTE | 2019-02-25 14:16 | CM.DPNOTE ---
DCP Cont: Per MD, pt continues to have her sodium trending down but finally seems to be stabilizing some and will continue to be worked up for adrenal insufficiency. Not medically stable to d/c yet today. TOMASA called [facility] and provided new referral and Sarabjit confirms that they can accept the referral and are the only agency that covers [place]. They for sure can see the pt on 03/05/19 and will try to see her sooner if a spot opens up. BREANNA Arcos faxed signed F2F and clinicals to review to [facility] . Plan: TOMASA to follow for likely pt d/c home with spouse and [facility] to open pt to service. TOMASA to follow for faxing d/c summ and MD orders to [facility] at d/c. MARLA Hanley
--- NOTE | 2019-02-25 15:01 | CM.DPC ---
DCP Cont: Faxed referral to [facility] at fax # [phone]. Fax confirmation scanned in. Josselyn Stone, Care Administrative Personal Assistant
--- NOTE | 2019-02-25 15:55 | PT.IPTN ---
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) Hypothyroidism, unspecified (02/15/19) Hypo-osmolality and hyponatremia (02/15/19) Metabolic encephalopathy (02/15/19) Supraventricular tachycardia (02/15/19) Pneumonia, unspecified organism (02/15/19) Chronic obstructive pulmonary disease, unspecified (02/15/19) Chronic respiratory failure with hypoxia (02/15/19) Age-related osteoporosis without current pathological fracture (02/15/19) Physical Therapy Treatment Note M2 PT-IP Current Condition Start: 02/17/19 14:34 Freq: NEEDED Status: Active Protocol: Document 02/17/19 14:00 RCC (Rec: 02/17/19 14:51 RCC [email or web address]) Physical Therapy Current Condition Current Condition Evaluation Date 02/17/19 Treatment Diagnosis AMS, hyponatremia, influenza, pneumonia, impaired activity tolerance Precautions Other Precautions droplet precautions M3 PT-IP Subjective Start: 02/17/19 14:34 Freq: NEEDED Status: Active Protocol: Document 02/25/19 14:15 HH (Rec: 02/25/19 15:55 HH [email or web address]) Subjective Physical Therapy Visit Type Type Treatment Note Visit Start Time 14:15 Visit Stop Time 14:45 Total Visit Minutes 30 Physical Therapy Visit Comments Patient Comments Pt willing to work with therapy. M4 PT-IP Mobility and Gait Start: 02/17/19 14:34 Freq: NEEDED Status: Active Protocol: Document 02/25/19 14:15 HH (Rec: 02/25/19 15:55 HH [email or web address]) PT-Bed Mobility Assessment Rolling Level of Assist Independent Supine to Sit Supine to Sit Independent Scooting Scooting to Edge of Bed Independent PT-Transfer Assessment Sit to and From Stand Sit to and from Stand Standby Assistance Use of Upper Extremities Equipment Transfer Assistive Device None Gait Belt Front Wheeled Walker Transfers Transfer Destination Bed Transfer Ability Level of Assist Standby Assistance Contact Guard Assistance Comments Mobility Comments Cont to have chest breathing, required cues for diaphragmatic breathing. Pt tried transfer from w/c to bedside chair today with CGA. She tends to present antalgic gait. Gait Assessment Gait Gait Assistance Required: Contact Guard Assist Distance (Feet) 10 Assistive Devices Assistive Device None Gait Belt Front Wheeled Walker Gait Deviations General Gait Pattern Decreased Stride Length Decreased Feet Clearance Flexed Trunk Narrow Based Gait Factors Limiting Gait Function Factors Limiting Gait Function Decreased Activity Tolerance Decreased Strength Poor Safety Awareness Respiratory Distress Comments Gait Comments cues to slow down. antalgic gait ambulating from w/c to chair without AD. Stair Climbing Assessment Evaluation Level of Assist On Stairs Standby Assistance Devices Stair Climbing Assistive Devices Left Railing Right Railing Technique/Endurance Stair Climbing Direction Ascend and Descend Stair Climbing Technique Step Over Step Step to Step Number of Steps Climbed 3 Query Text: Stair Climbing Set # Repetitions (reps) 4 Comments Stair Climbing Comments pt appeared very SOB/ winded during stair climbing. Took breaks after 2nd set and 4 th set. M5 PT-IP Objective Assessments Start: 02/17/19 14:34 Freq: NEEDED Status: Active Protocol: Document 02/17/19 14:00 RCC (Rec: 02/17/19 14:51 RCC [email or web address]) Orientation Orientation/Cognition Level of Alertness Alert Strength Lower Extremity Strength Assessment Within Functional Limits M6 PT-IP Treatment Start: 02/17/19 14:34 Freq: NEEDED Status: Active Protocol: Document 02/17/19 14:00 RCC (Rec: 02/17/19 14:51 RCC [email or web address]) Physical Therapy Treatment Education Education Provided Safety M7 PT-IP Assessment and Plan Start: 02/17/19 14:34 Freq: NEEDED Status: Active Protocol: Document 02/25/19 14:15 HH (Rec: 02/25/19 15:55 [email or web address]) PT Summary Assessment and Plan Potential Rehabilitation Potential Good Status of Condition at Evaluation Evolving Summary Assessment Summary Pt cont needed cues to slow down and she presented slight antalgic gait without using AD . She did 4 sets of 3 steps with B railings SBA today but felt very winded afterwards. Frequency of Treatment Frequency Of Treatment Once a Day Treatment Plan Physical Therapy Treatment Plan Bed Mobility Training Transfer Training Gait Training Therapeutic Exercise Balance Retraining Discharge Planning Neuromuscular Re-ed Other Recommendations and Next Treatment progress gait as tolerated, Focus stair training prior to d/c Recommendations To Nursing Amount of Assist Needed Standby Assistance Discharge Recommendations PT Discharge Recommendations Home with Assistance Home Health
[2019-02-25 16:01] LABS: Osmolality, Serum 260 mosm/kg (260-310)
--- NOTE | 2019-02-25 17:44 | P.PN_ITS ---
Subjective Date Patient Seen: 02/25/19 Interval history: Sherice verdugo in her is a 63-year-old female [facility] with influenza a. Subsequently developed superimposed bacterial pneumonia. She had significant acute metabolic encephalopathy, and 6 severe hyponatremia. Patient has been somewhat weak. Despite that she has made significant improvement. Today she is awake and alert. The patient is anxious to know the results of her Cortrosyn stem test. She is anxious to return home. She reports that her was in over the weekend. They did engage in caregiver training. She feels confident that her can manage her at home. She reports no shortness of breath. She is happy she was able to ambulate further today. Exam Vital Signs (past 8 hours): - 02/25/19 11:06 02/25/19 12:11 02/25/19 15:38 Temperature 98 F 97.7 F Pulse Rate 89 93 H 92 H Respiratory Rate 12 14 20 Blood Pressure 174/85 H 120/70 Pulse Oximetry 93 93 96 02/25/19 16:20 Temperature Pulse Rate 91 H Respiratory Rate 14 Blood Pressure Pulse Oximetry 96 Fraction of Inspired Oxygen 21 Oxygen Delivery Method Room Air Oxygen Flow Rate 2 Narrative Exam Narrative: Pleasant female more awake alert and appropriate. Lungs: Clear to auscultation Cardiac exam: Regular rate and rhythm normal S1 and S2 with a 2/6 systolic ejection Abdomen: Soft nontender nondistended Extremities: No edema Objective Labs Result Diagrams: 02/23/19 11:30 02/24/19 05:19 Labs: Laboratory Results - last 24 hr 02/21/19 02/23/19 02/25/19 05:31 11:30 07:30 Serum Osmolality 260 Cancelled Cortisol AM Sample 3.80 L 02/25/19 02/25/19 08:00 08:35 Serum Osmolality Cortisol AM Sample 9.71 10.9 Assessment & Plan (1) Acute hyponatremia: Problem details: Acute hyponatremia, present on admission. Patient had low normal sodium while hospitalized in [place]. Her lowest sodium was 130. Serum osmolality was down to 269. Patient is markedly hyponatremic at this time. Serum and URine osmolality sent ( 5 day send out) patient started on demeclocycline and will start salt tabs tonight. Will continue fluid restriction and monitor sodium. Patient underwent a Cortrosyn stim test. Based on the results of her test she appears to have adrenal insufficiency. The patient will be started on Florinef 0.1 mg daily. In addition she will be started on hydrocortisone 5 mg in the morning and 10 mg at night. Her demeclocycline and salt tablets will be discontinued. Current visit: Yes Status: Acute (2) Acute metabolic encephalopathy: Problem details: Acute Metabolic encephalopathy, present on admission , improving. She is still not at baseline but mentation, memory, and cognition improving daily Current visit: Yes Status: Acute (3) Healthcare-associated pneumonia: Problem details: Present on admission, full course of treatment completed Current visit: Yes Status: Acute (4) Chronic respiratory failure with hypoxia: Problem details: Patient has known chronic respiratory failure and on home O2. Currently off oxygen, patient has chronic bronchietasis, improved Current visit: Yes Status: Acute (5) COPD (chronic obstructive pulmonary disease): Problem details: Present on admission, improved Current visit: Yes Status: Acute (6) Blood loss anemia: Problem details: Patient had known blood loss anemia related to her exploratory laparotomy. She remains anemic although there is no evidence of acute blood loss. Current visit: Yes Status: Acute (7) Hypothyroidism: Problem details: Hypothyroidism, chronic will continue her levothyroxine Current visit: Yes Status: Acute (8) Osteoporosis: Problem details: Osteoporosis, chronic was the patient is is taking oral medications will resume her usual outpatient treatment for osteoporosis. Current visit: Yes Status: Acute Assessment & Plan narrative: Anticipate discharge home tomorrow Quality VTE Deep Vein Thrombosis/Pulmonary Embolism Present on Admission: No
[2019-02-25] MEDS: HYDROCORTISONE 10 MG TABLET PO (18:45)
[2019-02-25] MEDS: FLUDROCORTISONE 0.1 MG TABLET PO (18:45)
--- NOTE | 2019-02-25 18:55 | PC.NURSE ---
1845 - SBA to bathroom with FWW. Unsteady gait while turning. Reinforced safety and slow movement. Pt verbalized understanding. HR tachycardic 110 and O2 sat 90% on RA following ambulation. Pt able to sit at edge of bed and recover quickly. Monitor. Bed alarm on.
[2019-02-25] MEDS: MELATONIN 3 MG TABLET 6 MG PO (22:26)
[2019-02-26] VITALS (11 sets, daily range): BP systolic 117–135; BP diastolic 54–71; PULSE 82–95; RESP 15–18; TEMP 36.8–37; O2SAT 87–100
[2019-02-26] MEDS: FLUTICASONE/SALMETEROL 500/50 14 PUFF DISKUS INH (05:13)
[2019-02-26] MEDS: ALBUTEROL 2.5 MG/3 ML NEB (ADULT) INH ×2 (05:13→11:20)
[2019-02-26 06:04] LABS: Blood Urea Nitrogen 5 mg/dL (7-17); Calcium 7.4 mg/dL (8.4-10.2); Carbon Dioxide 26 mmol/L (22-32); Chloride 93 mmol/L (98-107); Estimated Glomerular Filt Rate > 60.0 mL/min (>60); Glucose 95 mg/dL (80-110); HEMOLYSIS < 15 (0-50); Potassium 4.3 mmol/L (3.4-5.1); Sodium 124 mmol/L (137-145)
[2019-02-26] MEDS: LEVOTHYROXINE 50 MCG TABLET PO (06:06)
[2019-02-26] MEDS: DULOXETINE 30 MG CAPSULE 60 MG PO (08:38)
[2019-02-26] MEDS: HYDROCORTISONE 10 MG TABLET 5 MG PO (08:39)
[2019-02-26] MEDS: METOPROLOL IR 25 MG TABLET 12.5 MG PO (08:40)
[2019-02-26] MEDS: SODIUM CHLORIDE 0.9% FLUSH 10 ML IV (08:40)
[2019-02-26] MEDS: FLUDROCORTISONE 0.1 MG TABLET PO (08:55)
--- NOTE | 2019-02-26 10:39 | CM.DPC ---
Addendum entered by MARLA Hanley 02/26/19 14:22: ADD: Per MD and PT, pt safe for d/c home today. Still no d/c summary available to fax to [facility] at this time but SW and BREANNA Arcos will continue to wait for d/c summ to be available and fax to [facility]. BF Original Note: DCP Home Planning: Per MD, pt is improving and making great progress and likely can d/c home today pending further PT. SW called pt's spouse and he states he is on his way into the hospital and aware that pt likely can d/c home today and he is agreeable. SW discussed PT working with pt and him on CG training prior to d/c and he is agreeable and will be bedside around 1130. SW updated PT and they will meet with pt and spouse when he arrives. SW updated spouse on [facility] referral and acceptance and that [facility] can open the pt to service on 03/05/19 at the latest and spouse aware that they will try to open pt sooner if something opens up. Spouse appreciative of [facility] referral per previous request. Plan: SW to follow for spouse to complete PT CG training and MD confirmation that pt can d/c home today pending PT. SW to fax d/c summ to [facility] when available. MARLA Hanley
--- NOTE | 2019-02-26 12:00 | PT.IPTN ---
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) Hypothyroidism, unspecified (02/15/19) Hypo-osmolality and hyponatremia (02/15/19) Metabolic encephalopathy (02/15/19) Supraventricular tachycardia (02/15/19) Pneumonia, unspecified organism (02/15/19) Chronic obstructive pulmonary disease, unspecified (02/15/19) Chronic respiratory failure with hypoxia (02/15/19) Age-related osteoporosis without current pathological fracture (02/15/19) Physical Therapy Treatment Note M2 PT-IP Current Condition Start: 02/17/19 14:34 Freq: NEEDED Status: Active Protocol: Document 02/17/19 14:00 RCC (Rec: 02/17/19 14:51 RCC [email or web address]) Physical Therapy Current Condition Current Condition Evaluation Date 02/17/19 Treatment Diagnosis AMS, hyponatremia, influenza, pneumonia, impaired activity tolerance Precautions Other Precautions droplet precautions M3 PT-IP Subjective Start: 02/17/19 14:34 Freq: NEEDED Status: Active Protocol: Document 02/26/19 12:00 GGD (Rec: 02/26/19 12:28 GGD [id number]) Subjective Physical Therapy Visit Type Type Treatment Note Visit Start Time 11:45 Visit Stop Time 12:00 Total Visit Minutes 15 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 M4 PT-IP Mobility and Gait Start: 02/17/19 14:34 Freq: NEEDED Status: Active Protocol: Document 02/26/19 12:00 GGD (Rec: 02/26/19 12:28 GGD [id number]) PT-Bed Mobility Assessment Rolling Level of Assist Independent Supine to Sit Supine to Sit Independent Scooting Scooting to Edge of Bed Independent PT-Transfer Assessment Sit to and From Stand Sit to and from Stand Standby Assistance Use of Upper Extremities Equipment Transfer Assistive Device None Gait Belt Transfers Transfer Destination Bed Transfer Ability Level of Assist Standby Assistance Contact Guard Assistance Gait Assessment Gait Gait Assistance Required: Contact Guard Assist Distance (Feet) 80 Assistive Devices Assistive Device None Gait Belt Front Wheeled Walker Gait Deviations General Gait Pattern Decreased Stride Length Decreased Feet Clearance Flexed Trunk Narrow Based Gait Factors Limiting Gait Function Factors Limiting Gait Function Decreased Activity Tolerance Decreased Strength Poor Safety Awareness Respiratory Distress Comments Gait Comments PT needed one standing rest break. O2 88-91% with activity . M5 PT-IP Objective Assessments Start: 02/17/19 14:34 Freq: NEEDED Status: Active Protocol: Document 02/17/19 14:00 RCC (Rec: 02/17/19 14:51 RCC [email or web address]) Orientation Orientation/Cognition Level of Alertness Alert Strength Lower Extremity Strength Assessment Within Functional Limits M6 PT-IP Treatment Start: 02/17/19 14:34 Freq: NEEDED Status: Active Protocol: Document 02/17/19 14:00 RCC (Rec: 02/17/19 14:51 RCC [email or web address]) Physical Therapy Treatment Education Education Provided Safety M7 PT-IP Assessment and Plan Start: 02/17/19 14:34 Freq: NEEDED Status: Active Protocol: Document 02/26/19 12:00 GGD (Rec: 02/26/19 12:28 GGD [id number]) PT Summary Assessment and Plan Summary Assessment Summary Pt improving slowly. She did have antalgic gait without AD, but no LOB. She does have FWW and cane for home use and would benefit for longer distance. Pt safe for home D/C . Frequency of Treatment Frequency Of Treatment Once a Day Treatment Plan Physical Therapy Treatment Plan Bed Mobility Training Transfer Training Gait Training Therapeutic Exercise Balance Retraining Discharge Planning Neuromuscular Re-ed Recommendations To Nursing Amount of Assist Needed Standby Assistance Discharge Recommendations PT Discharge Recommendations Home with Assistance Home Health
--- NOTE | 2019-02-26 12:58 | PC.NURSE ---
Discharge: IV dc'd intact. All d/c info reviewed thoroughly with patient and family. Confirmed with Dr Spicer that she would like patient to stay on 1500 ml fluid restriction until her follow up appt, patient and made aware of the same. Given follow up info, instructed to make sure to let them know she needs her electrolytes checked at that appointment. She will continue home O2 as before, and had O2 for transport home. Instructed to call MD with fever, chills, night sweats, worsening respiratory symptoms, or with any other concerns that may arise prior to follow up. Verbalized understanding of d/c instructions and stated no further questions. Taken out to private vehicle via wheelchair, all personal belongings collected and sent with patient at discharge.
--- NOTE | 2019-02-26 17:51 | PM.DS.1 ---
History of Present Illness Chief complaint: really doesnt feel well, cough Narrative: The patient is a 63-year-old female who was discharged from [facility] in [facility] on January 31, 2019. The patient was treated there for a small-bowel obstruction. Patient was admitted to [facility] and ultimately was found to have a high-grade small bowel obstruction. She was transferred to [facility] and admitted to [facility] for definitive surgical treatment. The patient underwent exploratory laparotomy with lysis of adhesions. She subsequently developed septic shock. The patient was treated for community-acquired pneumonia. In addition she was treated for probable aspiration pneumonia. She has a history of chronic hypoxic respiratory failure. She had acute blood loss anemia as well. The patient was discharged on the 31 of January. She went to see her general surgeon today to have her anna removed. Following that her brought her to the emergency room as the patient was just not feeling well. According to the the patient has been drinking a lot a water. Patient is confused and unable to provide any history. History obtained from medical records sent from [facility]. The patient was evaluated in the emergency department and found to have significant hyponatremia. She had a sodium of 116. In addition she was febrile to 102. Her lactate was normal. Her procalcitonin was elevated at 1.6. Review of her records reveals her pro callused 2.4 while at telling him. The patient has a complicated pulmonary history in that she has chronic bronchiectasis, COPD, and recurrent bronchial infections. She was treated for pneumonia at the hospital. The patient underwent a CT scan in the emergency department which suggest bilateral pneumonia. She is admitted to the hospital at this time for further evaluation. Patient is unable to provide family history or significant review of systems at this time Discharge Providers Date of admission: 02/15/19 14:29 Discharge Date: 02/26/19 Primary care physician: Donald Hoang DO Consults: 02/15/19 12:10 Consult to Respiratory Therapy Evaluate & Treat Comment: Physician Instructions: Evaluate and treat 02/15/19 18:56 Consult to Dietitian, Adult Routine Comment: Reason For Exam: recent SBO with surgery. Albumin low. 02/17/19 09:57 Consult to Occupational Therapy Evaluate & Treat Comment: Physician Instructions: Evaluate and treat Consult to Physical Therapy Evaluate & Treat Comment: Physician Instructions: Evaluate and Treat Discharge provider: Michelle Spicer MD Summary Discharge Diagnosis: 1. Adrenal Insufficiency, present on admission 2. Acute Metabolic Encephalopathy, present on admission, resolved 3. Acute blood loss anemia, present on admission 4. Viral and Baterial Sepsis, present on admission, resolved 5. ACute on Chronic Respiratory Failure 6. Chronic Bronchietasis 7. Healthcare Associated Pneumonia, present on admission 8. Influenza A pneumonia, present on admission 9. COPD, chronic 10. Hyponatremia 11. Osteoporosis 12. Hypothyroidism 13. History of SVT Hospital Course: 63-year-old female who was admitted to the hospital with acute metabolic encephalopathy, hyponatremia with a serum sodium of 116, and pneumonia. Patient presented with sepsis. She was found to have influenza a pneumonia. She was also treated for superimposed bacterial pneumonia. The patient completed a course of antibiotics for her pneumonia. She unfortunately developed significant delirium. Her serum sodium was difficult to manage. She ultimately was treated with steroids antibiotics oxygen and nebulizers. After discontinuation of her steroids her sodium again began to drift downward. The patient ultimately had a Cortrosyn stem test obtained. This confirmed adrenal insufficiency. Patient was then started on hydrocortisone and Florinef. She remained on a fluid restriction. She had been treated with salt tablets and ductal demeclocycline which have been discontinued. The patient was seen by PT and OT. Her oxygenation improved. Her mental status improved and she was deemed to be back to her baseline. The patient was deemed appropriate for discharge and arrangements were made for to be discharged home. She will be followed by home health as well. Echo findings: he left ventricle is normal in size, wall thickness, and systolic function without any focal wall motion abnormalities with the ejection fraction visually estimated to be 60-65%. Diastolic parameters suggest probable normal left ventricular diastolic function and normal filling pressures. The right ventricle is borderline dilated and right ventricular systolic function is at the lower limits of normal. Pulmonary artery pressures cannot be estimated because of the lack of a measurable TR jet velocity. Both atria are severely dilated. There is no significant valvular heart disease. The aortic arch is at the upper limits of normal in size. CTA revealed: Bilateral pneumonia, as seen by plain film examination. 2. No evidence of coexisting pulmonary embolus. 3. Presumably reactive mediastinal and hilar adenopathy. Followup chest CT with contrast is recommended to ensure resolution, and to exclude underlying malignancy. 4. Moderate hiatal hernia. 5. Healing left rib fracture The patient made steady improvement and was ultimately discharged home. She completed a course of Tamiflu in addition to antibiotics. Status at Discharge Cognitive/behavioral status at discharge: oriented Functional status at discharge: independent ambulation Overall status at discharge: patient is back to baseline Time Spent with Patient Less than 30 minutes Exam Vital Signs (past 8 hours): - 02/26/19 10:03 02/26/19 11:09 02/26/19 11:20 Temperature Pulse Rate 82 Respiratory Rate 15 Blood Pressure Pulse Oximetry 99 94 100 02/26/19 11:44 Temperature 98.2 F Pulse Rate 88 Respiratory Rate 16 Blood Pressure 135/54 L Pulse Oximetry 99 Fraction of Inspired Oxygen 21 Oxygen Delivery Method Nasal Cannula Oxygen Flow Rate 2 Narrative Exam Narrative: Pleasant female in no obvious distress Lungs: Decreased breath sounds bilaterally Cardiac exam: Regular rate and rhythm normal S1-S2 Abdomen: Soft nontender nondistended well-healed midline surgical incision Extremities: No edema Objective Labs Result Diagrams: 02/23/19 11:30 02/26/19 05:03 Labs: Laboratory Results - last 24 hr 02/26/19 05:03 Sodium 124 L Potassium 4.3 Chloride 93 L Carbon Dioxide 26 BUN 5 L Creatinine 0.50 L Estimated GFR > 60.0 BUN/Creatinine Ratio 10.0 Glucose 95 Calcium 7.4 L Discharge Plan Discharge Plan Patient Disposition: Home Discharge comment: Needs follow up appointment with her PCP to check electrolytes next week Discharge Med Rec/Prescriptions Prescriptions: New melatonin 3 mg Tablet 6 mg PO BEDTIME Qty: 30 RF: 0 lidocaine 5 % Adhesive Patch,Medicated 1 ea topical DAILY PRN (Reason: Pain, Moderate (4-6)) Qty: 30 RF: 0 hydrocortisone [Cortef] 10 mg Tablet 10 mg PO QPM Qty: 30 RF: 0 hydrocortisone [Cortef] 10 mg Tablet 5 mg PO DAILY Qty: 30 RF: 0 fludrocortisone 0.1 mg Tablet 0.1 mg PO DAILY Qty: 30 RF: 0 Continued fluticasone propion-salmeterol [Advair Diskus] 500 MCG/50 MCG blister with device 1 puff INH BID Qty: 0 RF: 0 ipratropium-albuterol 3 ML solution for nebulization 1 amp NEB QIDP PRN (Reason: Shortness Of Breath) Qty: 0 RF: 0 meloxicam 15 MG tablet 15 mg PO QPM Qty: 0 RF: 0 alendronate [Fosamax] 70 MG tablet 70 mg PO QWEEKMO Qty: 0 RF: 0 duloxetine [Cymbalta] 60 MG capsule,delayed release(DR/EC) 60 mg PO BEDTIME Qty: 0 RF: 0 sennosides [senna] 8.6 MG tablet 8.6 tab PO QAM Qty: 0 RF: 0 cyclobenzaprine 10 mg tablet 10 mg PO TID PRN (Reason: Muscle Spasm) RF: 0 levothyroxine 50 mcg tablet 50 mcg PO DAILY RF: 0 metoprolol tartrate 25 mg tablet 12.5 mg PO BID RF: 0 buprenorphine-naloxone 4-1 mg film 1 film Sublingual DAILY RF: 0 famotidine 40 mg Tablet 40 mg PO BEDTIME PRN (Reason: Heartburn) RF: 0 cromolyn 4 % Drops 1 drp EYE-BOTH PRN RF: 0 lidocaine HCl [Lidocaine Viscous] 2 % Solution 5 ml PO Q4H PRN (Reason: pain) RF: 0 montelukast 10 mg Tablet 10 mg PO QPM RF: 0 albuterol sulfate [Ventolin HFA] 90 mcg/actuation Hfa Aerosol Inhaler 1 - 2 puff INHALATION PRN PRN (Reason: Shortness Of Breath) RF: 0 ondansetron 4 mg Tablet,Disintegrating 4 mg Translingual PRN PRN (Reason: Nausea) RF: 0 cholecalciferol (vitamin D3) [Vitamin D3] 2,000 unit Capsule 2,000 unit PO DAILY RF: 0 Discontinued morphine [MS Contin] 15 MG tablet extended release 15 mg PO BID Qty: 0 RF: 0 oxycodone 5 mg tablet 10 mg PO PRN PRN (Reason: rib pain) RF: 0 Follow up/Referrals: Donald Hoang DO [Primary Care Provider] - (*appt:03/05 @ 2:00 with esequiel baltazar @ [address] [place] [address] ) Provider Discharge Instructions Diet: Diet as Tolerated Activity: as tolerated Oxygen: as needed Skin/Wound/Dressing Care Report to your healthcare provider any signs of infection, such as:: chills, fever and night sweats Visit Report/Discharge Packet Instructions: Lidocaine Transdermal Patch, Hydrocortisone, Fludrocortisone Acetate Discharge Data Primary Care Provider: Donald Hoang Attending Provider: Michelle Spicer Admit Date/Time: 02/15/19 14:29 Discharges patient from system. Discharge Date/Time: 02/26/19 13:05 Quality VTE Deep Vein Thrombosis/Pulmonary Embolism Present on Admission: No
--- NOTE | 2019-02-26 17:55 | P.DS_ITS ---
History of Present Illness Chief complaint: really doesnt feel well, cough Narrative: The patient is a 63-year-old female who [facility] on January 31, 2019. The patient was treated there for a small-bowel obstruction. Patient was admitted to [facility] and ultimately was found to have a high-grade small bowel obstruction. She was transferred to [facility] and admitted to [facility] for definitive surgical treatment. The patient underwent exploratory laparotomy with lysis of adhesions. She subsequently developed septic shock. The patient was treated for community-acquired pneumonia. In addition she was treated for probable aspiration pneumonia. She has a history of chronic hypoxic respiratory failure. She had acute blood loss anemia as well. The patient was discharged on the 31 of January. She went to see her general surgeon today to have her anna removed. Following that her brought her to the emergency room as the patient was just not feeling well. According to the the patient has been drinking a lot a water. Patient is confused and unable to provide any history. History obtained from medical records sent from [facility]. The patient was evaluated in the emergency department and found to have significant hyponatremia. She had a sodium of 116. In addition she was febrile to 102. Her lactate was normal. Her procalcitonin was elevated at 1.6. Review of her records reveals her pro callused 2.4 while at telling him. The patient has a complicated pulmonary history in that she has chronic bronchiectasis, COPD, and recurrent bronchial infections. She was treated for pneumonia at the hospital. The patient underwent a CT scan in the emergency department which suggest bilateral pneumonia. She is admitted to the hospital at this time for further evaluation. Patient is unable to provide family history or significant review of systems at this time Discharge Providers Date of admission: 02/15/19 14:29 Discharge Date: 02/26/19 Primary care physician: Donald Hoang DO Consults: 02/15/19 12:10 Consult to Respiratory Therapy Evaluate & Treat Comment: Physician Instructions: Evaluate and treat 02/15/19 18:56 Consult to Dietitian, Adult Routine Comment: Reason For Exam: recent SBO with surgery. Albumin low. 02/17/19 09:57 Consult to Occupational Therapy Evaluate & Treat Comment: Physician Instructions: Evaluate and treat Consult to Physical Therapy Evaluate & Treat Comment: Physician Instructions: Evaluate and Treat Discharge provider: Michelle Spicer MD Summary Discharge Diagnosis: 1. Adrenal Insufficiency, present on admission 2. Acute Metabolic Encephalopathy, present on admission, resolved 3. Acute blood loss anemia, present on admission 4. Viral and Baterial Sepsis, present on admission, resolved 5. ACute on Chronic Respiratory Failure 6. Chronic Bronchietasis 7. Healthcare Associated Pneumonia, present on admission 8. Influenza A pneumonia, present on admission 9. COPD, chronic 10. Hyponatremia 11. Osteoporosis 12. Hypothyroidism 13. History of SVT Hospital Course: 63-year-old female who was admitted to the hospital with acute metabolic encephalopathy, hyponatremia with a serum sodium of 116, and pneumonia. Patient presented with sepsis. She was found to have influenza a pneumonia. She was also treated for superimposed bacterial pneumonia. The patient completed a course of antibiotics for her pneumonia. She unfortunately developed significant delirium. Her serum sodium was difficult to manage. She ultimately was treated with steroids antibiotics oxygen and nebulizers. After discontinuation of her steroids her sodium again began to drift downward. The patient ultimately had a Cortrosyn stem test obtained. This confirmed adrenal insufficiency. Patient was then started on hydrocortisone and Florinef. She remained on a fluid restriction. She had been treated with salt tablets and ductal demeclocycline which have been discontinued. The patient was seen by PT and OT. Her oxygenation improved. Her mental status improved and she was deemed to be back to her baseline. The patient was deemed appropriate for discharge and arrangements were made for to be discharged home. She will be followed by home health as well. Echo findings: he left ventricle is normal in size, wall thickness, and systolic function without any focal wall motion abnormalities with the ejection fraction visually estimated to be 60-65%. Diastolic parameters suggest probable normal left ventricular diastolic function and normal filling pressures. The right ventricle is borderline dilated and right ventricular systolic function is at the lower limits of normal. Pulmonary artery pressures cannot be estimated because of the lack of a measurable TR jet velocity. Both atria are severely dilated. There is no significant valvular heart disease. The aortic arch is at the upper limits of normal in size. CTA revealed: Bilateral pneumonia, as seen by plain film examination. 2. No evidence of coexisting pulmonary embolus. 3. Presumably reactive mediastinal and hilar adenopathy. Followup chest CT with contrast is recommended to ensure resolution, and to exclude underlying malignancy. 4. Moderate hiatal hernia. 5. Healing left rib fracture The patient made steady improvement and was ultimately discharged home. She completed a course of Tamiflu in addition to antibiotics. Status at Discharge Cognitive/behavioral status at discharge: oriented Functional status at discharge: independent ambulation Overall status at discharge: patient is back to baseline Time Spent with Patient Less than 30 minutes Exam Vital Signs (past 8 hours): - 02/26/19 10:03 02/26/19 11:09 02/26/19 11:20 Temperature Pulse Rate 82 Respiratory Rate 15 Blood Pressure Pulse Oximetry 99 94 100 02/26/19 11:44 Temperature 98.2 F Pulse Rate 88 Respiratory Rate 16 Blood Pressure 135/54 L Pulse Oximetry 99 Fraction of Inspired Oxygen 21 Oxygen Delivery Method Nasal Cannula Oxygen Flow Rate 2 Narrative Exam Narrative: Pleasant female in no obvious distress Lungs: Decreased breath sounds bilaterally Cardiac exam: Regular rate and rhythm normal S1-S2 Abdomen: Soft nontender nondistended well-healed midline surgical incision Extremities: No edema Objective Labs Result Diagrams: 02/23/19 11:30 02/26/19 05:03 Labs: Laboratory Results - last 24 hr 02/26/19 05:03 Sodium 124 L Potassium 4.3 Chloride 93 L Carbon Dioxide 26 BUN 5 L Creatinine 0.50 L Estimated GFR > 60.0 BUN/Creatinine Ratio 10.0 Glucose 95 Calcium 7.4 L Discharge Plan Discharge Plan Patient Disposition: Home Discharge comment: Needs follow up appointment with her PCP to check electrolyt es next week Discharge Med Rec/Prescriptions Prescriptions: New melatonin 3 mg Tablet 6 mg PO BEDTIME Qty: 30 RF: 0 lidocaine 5 % Adhesive Patch,Medicated 1 ea topical DAILY PRN (Reason: Pain, Moderate (4-6)) Qty: 30 RF: 0 hydrocortisone [Cortef] 10 mg Tablet 10 mg PO QPM Qty: 30 RF: 0 hydrocortisone [Cortef] 10 mg Tablet 5 mg PO DAILY Qty: 30 RF: 0 fludrocortisone 0.1 mg Tablet 0.1 mg PO DAILY Qty: 30 RF: 0 Continued fluticasone propion-salmeterol [Advair Diskus] 500 MCG/50 MCG blister with device 1 puff INH BID Qty: 0 RF: 0 ipratropium-albuterol 3 ML solution for nebulization 1 amp NEB QIDP PRN (Reason: Shortness Of Breath) Qty: 0 RF: 0 meloxicam 15 MG tablet 15 mg PO QPM Qty: 0 RF: 0 alendronate [Fosamax] 70 MG tablet 70 mg PO QWEEKMO Qty: 0 RF: 0 duloxetine [Cymbalta] 60 MG capsule,delayed release(DR/EC) 60 mg PO BEDTIME Qty: 0 RF: 0 sennosides [senna] 8.6 MG tablet 8.6 tab PO QAM Qty: 0 RF: 0 cyclobenzaprine 10 mg tablet 10 mg PO TID PRN (Reason: Muscle Spasm) RF: 0 levothyroxine 50 mcg tablet 50 mcg PO DAILY RF: 0 metoprolol tartrate 25 mg tablet 12.5 mg PO BID RF: 0 buprenorphine-naloxone 4-1 mg film 1 film Sublingual DAILY RF: 0 famotidine 40 mg Tablet 40 mg PO BEDTIME PRN (Reason: Heartburn) RF: 0 cromolyn 4 % Drops 1 drp EYE-BOTH PRN RF: 0 lidocaine HCl [Lidocaine Viscous] 2 % Solution 5 ml PO Q4H PRN (Reason: pain) RF: 0 montelukast 10 mg Tablet 10 mg PO QPM RF: 0 albuterol sulfate [Ventolin HFA] 90 mcg/actuation Hfa Aerosol Inhaler 1 - 2 puff INHALATION PRN PRN (Reason: Shortness Of Breath) RF: 0 ondansetron 4 mg Tablet,Disintegrating 4 mg Translingual PRN PRN (Reason: Nausea) RF: 0 cholecalciferol (vitamin D3) [Vitamin D3] 2,000 unit Capsule 2,000 unit PO DAILY RF: 0 Discontinued morphine [MS Contin] 15 MG tablet extended release 15 mg PO BID Qty: 0 RF: 0 oxycodone 5 mg tablet 10 mg PO PRN PRN (Reason: rib pain) RF: 0 Follow up/Referrals: Donald Hoang DO [Primary Care Provider] - (*appt:03/05 @ 2:00 with esequiel baltazar @ [address] [place] [address] ) Provider Discharge Instructions Diet: Diet as Tolerated Activity: as tolerated Oxygen: as needed Skin/Wound/Dressing Care Report to your healthcare provider any signs of infection, such as:: chills, fever and night sweats Visit Report/Discharge Packet Instructions: Lidocaine Transdermal Patch, Hydrocortisone, Fludrocortisone Ac etate Discharge Data Primary Care Provider: Donald Hoang Attending Provider: Michelle Spicer Admit Date/Time: 02/15/19 14:29 Discharges patient from system. Discharge Date/Time: 02/26/19 13:05 Quality VTE Deep Vein Thrombosis/Pulmonary Embolism Present on Admission: No
--- NOTE | 2019-02-27 09:14 | CM.DPC ---
DCP Cont: Faxed Discharge Summary to [facility] at fax # [phone]. Fax confirmation scanned in. Josselyn Stone, Care Gaming Surveillance Observer
== END 2019-02-26 13:05 | disposition home health service (06) | DRG 871 ==
LOC: ED 14:07 → ICU 14:30 → AC 02-19 17:10
PROVIDERS: Internal Medicine; Nurse Practitioner Adult Health; Nurse Practitioner Gerontology; Admitting Provider Internal Medicine; Emergency Provider Emergency Medicine; PCP Family Medicine; Visit Provider Internal Medicine
DX: A41.89 Other specified sepsis (principal); G93.41 Metabolic encephalopathy; J10.08 Influenza due to other identified influenza virus with other specified pneumonia; J15.6 Pneumonia due to other Gram-negative bacteria; J96.21 Acute and chronic respiratory failure with hypoxia; J69.0 Pneumonitis due to inhalation of food and vomit; I47.1 Supraventricular tachycardia; D62 Acute posthemorrhagic anemia; E22.2 Syndrome of inappropriate secretion of antidiuretic hormone; J44.0 Chronic obstructive pulmonary disease with (acute) lower respiratory infection; F11.20 Opioid dependence, uncomplicated; E27.40 Unspecified adrenocortical insufficiency; R65.20 Severe sepsis without septic shock; Z99.81 Dependence on supplemental oxygen; D69.59 Other secondary thrombocytopenia; A41.9 Sepsis, unspecified organism; Y95 Nosocomial condition; E03.9 Hypothyroidism, unspecified; F32.9 Major depressive disorder, single episode, unspecified; M81.0 Age-related osteoporosis without current pathological fracture; G89.4 Chronic pain syndrome
CPT/HCPCS: 36415; 36430; 36591; 70450; 71045; 71275; 80048; 80053; 81001; 82533; 82550; 82962; 83036; 83540; 83550; 83605; 83735; 83880; 83930; 83935; 84145; 84300; 84439; 84443; 84484; 85025; 85610; 85730; 86850; 86870; 86900; 86901; 86902; 87040; 87086; 87400; 87449; 87633; 87797; 93005; 93306; 94640; 94667; 94668; 94760; 94762; 96360; 96361; 97116; 97162; 97165; 97530; 99285; P9016; J0692; J0834; J1650; J1756; J1956; J2270; J2405; J2920; J3475; J3480; J7613; Q9967

== ENCOUNTER 2019-03-14 10:58 | Inpatient (IN) | payer OTHER, SELFPAY ==
[2019-02-15 15:05] VITALS: BMI 24.1
[2019-03-14] VITALS (7 sets, daily range): BP systolic 98–115; BP diastolic 52–71; PULSE 80–91; RESP 16–22; TEMP 36.1–37.7; O2SAT 94–100; BMI 26.8
--- NOTE | 2019-03-14 11:20 | ED.RECABL ---
HPI - Recheck/Abnormal Lab/Rx General Chief Complaint: Recheck/Abnormal Lab/Rx Stated Complaint: Sodium is very low Time Seen by Provider: 03/14/19 11:15 Source: patient Mode of arrival: ambulatory Limitations: no limitations History of Present Illness HPI narrative: Patient is a 63-year-old female with complicated history septic shock, bowel obstruction, pneumonia, influenza and now has adrenal insufficiency with hyponatremia. She was discharged on 02/26/2019 for pneumonia, hyponatremia and influenza. states that she has not really been well was discharged. She had outpatient sodium level checked 2 days ago and it was 119. She has intermittent episodes of confusion. He has been giving her Gatorade with a pincher of salt all day yesterday. Got and decided to come to the ER to see what it is. She is currently coughing he states that is the bronchiectasis she has had. She is able to clear her throat she has no productive cough no shortness of breath chest pain or abdominal pain no nausea or vomiting. No focal deficits or weakness. MD complaint: wound re-check Related Data Home Medications Medication Instructions Recorded Confirmed alendronate [Fosamax] 70 mg PO QWEEKMO #0 01/10/18 03/14/19 duloxetine [Cymbalta] 60 mg PO BEDTIME #0 01/10/18 03/14/19 fluticasone propion-salmeterol 1 puff INH BID #0 01/10/18 03/14/19 [Advair Diskus] ipratropium-albuterol 1 amp NEB QIDP PRN #0 01/10/18 03/14/19 meloxicam 15 mg PO QPM #0 01/10/18 03/14/19 sennosides [senna] 8.6 tab PO QAM #0 01/10/18 03/14/19 albuterol sulfate [Ventolin HFA] 1 - 2 puff INHALATION PRN PRN 02/15/19 03/14/19 buprenorphine-naloxone 1 film SUBLINGUAL DAILY 02/15/19 03/14/19 cholecalciferol (vitamin D3) 2,000 unit PO DAILY 02/15/19 03/14/19 [Vitamin D3] cromolyn 1 drp EYE-BOTH PRN 02/15/19 03/14/19 cyclobenzaprine 10 mg PO TID PRN 02/15/19 03/14/19 levothyroxine 50 mcg PO DAILY 02/15/19 03/14/19 lidocaine HCl [Lidocaine Viscous] 5 ml PO Q4H PRN 02/15/19 03/14/19 metoprolol tartrate 12.5 mg PO BID 02/15/19 03/14/19 montelukast 10 mg PO QPM 02/15/19 03/14/19 ondansetron 4 mg TRANSLINGUAL PRN PRN 02/15/19 03/14/19 famotidine 20 mg PO DAILY 03/14/19 03/14/19 fludrocortisone 0.2 mg PO DAILY 03/14/19 03/14/19 Previous Rx's Medication Instructions Recorded hydrocortisone [Cortef] 5 mg PO DAILY #30 tab 02/26/19 hydrocortisone [Cortef] 10 mg PO QPM #30 tab 02/26/19 lidocaine 1 ea TOPICAL DAILY PRN #30 ea 02/26/19 melatonin 6 mg PO BEDTIME #30 tab 02/26/19 Allergies Allergy/AdvReac Type Severity Reaction Status Date / Time Haemophilus B polysaccharide Allergy Severe ANAPHYLAXIS Verified 02/15/19 12:45 conj w [From PENTACEL ACTHIB COMPONENT (PF)] peanut [PEANUT] Allergy Severe ANAPHYLAXIS Verified 02/15/19 12:45 Tetanus Vaccines and Toxoid Allergy Severe ANAPHYLAXIS Verified 02/15/19 12:45 [TETANUS VACCINES & TOXOID] penicillin G [PENICILLIN G] Allergy Intermediate RASH Verified 02/15/19 12:45 hydroxyzine [HYDROXYZINE] AdvReac Severe HALLUCINATI Verified 02/15/19 12:45 ONS/PARANOI D ibuprofen [IBUPROFEN] AdvReac Intermediate DYSLEXIA Verified 02/15/19 12:45 PEAS Allergy Severe RASH, LIP Uncoded 02/15/19 12:45 SWELLING Review of Systems Review of Systems ROS Unobtainable: All systems reviewed & are unremarkable except as noted in HPI and below Constitutional Denies chills, Denies fever(s), Denies lethargy and Denies weakness Cardiovascular Denies chest pain, Denies irregular heart rhythm, Denies lightheadedness, Denies palpitations, Denies dyspnea, Denies dyspnea on exertion and Denies orthopnea Respiratory Denies cough, Denies dyspnea, Denies dyspnea on exertion and Denies wheezing Gastrointestinal Gastrointestinal: Denies abdominal pain, Denies change in bowel habits, Denies diarrhea, Denies nausea and Denies vomiting Musculoskeletal Denies back pain, Denies muscle weakness, Denies numbness and Denies tingling Integumentary/Breasts Denies pruritus, Denies erythema, Denies rash and Denies wounds Neurologic Denies numbness, Denies tingling and Denies weakness Endocrine Denies palpitations Allergic/Immunologic Denies wheezing [facility] Medical History Aspiration pneumonia due to food (regurgitated) (Acute) Chronic respiratory failure with hypoxia (Acute) Hyponatremia (Acute) Hypothyroidism (Acute) Hypovolemic shock (Acute) Major depressive disorder (Acute) Opioid dependence (Acute) Osteoporosis (Acute) Supraventricular tachycardia (Acute) Surgical History H/O exploratory laparotomy (Acute) Social History household members: significant other Smoking Status: Never smoker Social History household members: significant other Smoking Status: Never smoker Exam Initial Vital Signs Initial Vital Signs: Vital Signs Temperature 97.6 F 03/14/19 11:11 Pulse Rate 88 03/14/19 11:11 Respiratory Rate 16 03/14/19 11:11 Blood Pressure 98/55 L 03/14/19 11:11 Pulse Oximetry 100 03/14/19 11:11 GENERAL: Thin chronically ill slightly confused elderly female HEENT: Head atraumatic,EOMI, pupils reactive, CARDIOVASCULAR: Regular rate and rhythm without murmurs, rubs or gallops. RESPIRATORY: No respiratory distress clear bilaterally ABDOMEN: Soft, nontender. Normoactive bowel sounds all 4 quadrants. No guarding or rebound. EXTREMITIES: Normal range of motion, no clubbing. Nonpitting edema bilaterally. Neurovascularly intact NEUROLOGICAL: And O x3. 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 Course Orders Ordered: ED Orders 03/14/19 13:05 Complete Blood Count AUTO DIFF Stat Comprehensive Metabolic Panel Stat Magnesium Routine 03/14/19 14:34 Education, smoking cessation ONGOING 03/14/19 14:39 Consult to Dietitian, Adult Routine Consult to Occupational Therapy Evaluate & Treat Consult to Physical Therapy Evaluate & Treat Acetaminophen (Tylenol) 650 mg PO Q6HR PRN PRN Reason: As Needed for Fever/Mild Pain Al Hydrox/Mg Hydrox/Simethicone (Maalox Plus) 30 ml PO Q6HR PRN PRN Reason: Dyspepsia Calcium Carbonate (Tums) 1,000 mg PO Q4HR PRN PRN Reason: Dyspepsia Docusate Sodium (Colace) 100 mg PO BID [facility] Heparin Sodium (Porcine) (Heparin) 5,000 unit SUBCUT BID [facility] Sodium Chloride (Normal Saline 0.9%) 1,000 mls @ 75 mls/hr IV CONT FAISAL Last Infusion: 03/14/19 14:41 Dose: 0 mls/hr Admin: 03/14/19 13:56 Dose: 75 mls/hr Magnesium Hydroxide (Milk Of Magnesia) 30 ml PO DAILY PRN PRN Reason: Constipation Ondansetron HCl (Zofran) 4 mg IV Q4HR PRN PRN Reason: Nausea And Vomiting Promethazine HCl (Phenadoz) 12.5 mg TN Q6HR PRN PRN Reason: Nausea And Vomiting Discontinued Medications Dexamethasone (Decadron) 4 mg IV NOW ONE Stop: 03/14/19 13:49 Last Admin: 03/14/19 13:55 Dose: 4 mg Vital Signs - 8 hr 03/14/19 11:11 03/14/19 12:00 03/14/19 14:14 Temperature 97.6 F 99.8 F H Pulse Rate 88 80 88 Respiratory Rate 16 22 18 Blood Pressure 98/55 L Blood Pressure [Left Arm] 100/52 L 109/61 Pulse Oximetry 100 100 100 03/14/19 14:36 03/14/19 14:40 03/14/19 16:29 Temperature 98.9 F Pulse Rate 87 91 H Respiratory Rate 18 18 Blood Pressure 110/71 Blood Pressure [Left Arm] 103/63 Pulse Oximetry 100 96 94 MDM - Recheck/Abnormal Lab/Rx Lab Data Attestation: I reviewed the patient's lab results. Result diagrams: 03/14/19 13:05 03/14/19 13:05 Lab Results 03/14/19 03/14/19 03/14/19 Range/Units 13:05 13:05 13:05 WBC 5.3 (4.5-11.0) X10^3/uL RBC 2.81 L (4.0-5.2) X10^6/uL Hgb 7.5 L (12.0-16.0) g/dL Hct 22.5 L (36-46) % MCV 79.8 L (80-100) fL MCH 26.6 (26-34) PG MCHC 33.3 (30-36) % RDW 19.1 H (11.6-14.8) % Plt Count 104 L (150-400) X10^3/uL Neut % (Auto) 68.0 (50-75) % Lymph % (Auto) 17.3 L (25-40) % [place] % (Auto) 14.1 H (3-14) % Eos % (Auto) 0.3 L (2-4) % Baso % (Auto) 0.3 (0-2) % Neut # (Auto) 3600 (9799-8901) /uL Lymph # (Auto) 900 L (1308-1808) /uL [place] # (Auto) 700 (0-900) /uL Eos # (Auto) 0 (0-450) /uL Baso # (Auto) 0 (0-100) /uL Sodium 115 L* (137-145) mmol/L Potassium 3.3 L (3.4-5.1) mmol/L Chloride 82 L (98-107) mmol/L Carbon Dioxide 26 (22-32) mmol/L BUN 9 (7-17) mg/dL Creatinine 0.50 L (0.52-1.04) mg/dL Estimated GFR > 60.0 (>60) mL/min BUN/Creatinine Ratio 18.0 (6-22) Glucose 77 L (80-110) mg/dL Calcium 7.0 L (8.4-10.2) mg/dL Magnesium 1.4 L (1.6-2.3) mg/dL Total Bilirubin 1.0 (0.2-1.3) mg/dL AST 29 (14-36) IU/L ALT 20 (9-52) IU/L Alkaline Phosphatase 128 H (38-126) U/L Total Protein 5.2 L (6.3-8.2) g/dL Albumin 2.0 L (3.5-5.0) g/dL Globulin 3.2 (1.7-4.1) g/dL Albumin/Globulin Ratio 0.6 L (1.0-2.8) MDM Narrative Medical decision making narrative: Patient significantly hyponatremic with history of adrenal insufficiency. She is given 4 mg of dexamethasone. Started on normal saline at 75 mL an hour, not actually having a seizure at this point I do not think she needs 3%. She is also noted to be anemic but seems to be baseline anemic she has been lower in the past. No active bleeding at this time. At this time does not require a blood transfusion No fever she has a cough but it is cracked chronic on ongoing from her bronchiectasis I have called and spoken with Dr. Yuan was quite familiar with the patient. At this time agrees with normal saline at 75 cc/hr Discharge Plan Departure Patient Disposition: Admitted As Inpatient Clinical Impression: Acute hyponatremia, Acute metabolic encephalopathy, Acute adrenal insufficiency Discharge Date/Time: 03/14/19 14:39 Interventions: ED Discharge Assessment Last Done: 03/14/19 14:39 Admit Date/Time: 03/14/19 14:12 Admit Provider: Marielena Yuan
--- NOTE | 2019-03-14 12:13 | PC.NURSE ---
attempted IV access x 2, unsuccessful. Tiki called from DI to come down and insert IV.
[2019-03-14 13:22] LABS: Add Manual Diff / Slide Review NO; Basophils Absolute Auto 0 /uL (0-100); Basophils Percent Auto 0.3 % (0-2); Eosinophils Absolute Auto 0 /uL (0-450); Eosinophils Percent Auto 0.3 % (2-4); Hematocrit 22.5 % (36-46); Hemoglobin 7.5 g/dL (12.0-16.0); Lymphocytes Absolute Auto 900 /uL (1100-4500); Lymphocytes Percent Auto 17.3 % (25-40); Mean Corpuscular HGB Conc 33.3 % (30-36); Mean Corpuscular Hemoglobin 26.6 PG (26-34); Mean Corpuscular Volume 79.8 fL (80-100); Monocytes Absolute Auto 700 /uL (0-900); Monocytes Percent Auto 14.1 % (3-14); Neutrophils Absolute Auto 3600 /uL (1500-7000); Platelet Count 104 X10^3/uL (150-400); Red Blood Cell Count 2.81 X10^6/uL (4.0-5.2); Red Cell Distribution Width 19.1 % (11.6-14.8); White Blood Cell Count 5.3 X10^3/uL (4.5-11.0)
[2019-03-14 13:32] LABS: Alanine Aminotransferase 20 IU/L (9-52); Albumin Globulin Ratio 0.6 (1.0-2.8); Alkaline Phosphatase 128 U/L (38-126); Aspartate Aminotransferase 29 IU/L (14-36); Blood Urea Nitrogen 9 mg/dL (7-17); Carbon Dioxide 26 mmol/L (22-32); Chloride 82 mmol/L (98-107); Estimated Glomerular Filt Rate > 60.0 mL/min (>60); Globulin 3.2 g/dL (1.7-4.1); Glucose 77 mg/dL (80-110); HEMOLYSIS < 15 (0-50); Potassium 3.3 mmol/L (3.4-5.1); Total Protein 5.2 g/dL (6.3-8.2)
[2019-03-14 13:39] LABS: Sodium 115 mmol/L (137-145)
[2019-03-14] MEDS: DEXAMETHASONE 4 MG/ML VIAL IV (13:55)
[2019-03-14] MEDS: SODIUM CHLORIDE 0.9% 1,000 ML 75 ML IV (13:56)
--- NOTE | 2019-03-14 14:39 | PC.NURSE ---
pt reports she feels more comfortable with oxygen on.
[2019-03-14 15:14] LABS: Magnesium 1.4 mg/dL (1.6-2.3)
--- NOTE | 2019-03-14 16:43 | PT.IPTN ---
Physical Therapy Treatment Note M3 PT-IP Subjective Start: 03/14/19 16:43 Freq: NEEDED Status: Active Protocol: Document 03/14/19 16:43 AB (Rec: 03/14/19 16:43 AB [id number]) Subjective Physical Therapy Visit Type Notes checked pt for PT eval but pt refused due to c/o feeling tired but agreed to be seen tomorrow.
[2019-03-14] MEDS: POTASSIUM CHLORIDE 40 MEQ in SODIUM CHLORIDE 0.9% 500 ML 130 ML IV (20:48)
[2019-03-14] MEDS: METOPROLOL IR 25 MG TABLET 12.5 MG PO (20:49)
[2019-03-14] MEDS: DULOXETINE 30 MG CAPSULE 60 MG PO (20:49)
[2019-03-14] MEDS: FLUTICASONE/SALMETEROL 500/50 14 PUFF DISKUS INH (20:50)
[2019-03-14] MEDS: HEPARIN 5,000 UNIT/ML VIAL 5000 UNIT SUBCUT (20:50)
[2019-03-14] MEDS: DOCUSATE 100 MG CAPSULE PO (20:50)
[2019-03-14] MEDS: MELATONIN 3 MG TABLET 6 MG PO (20:51)
--- NOTE | 2019-03-14 21:09 | PM.HP.1 ---
History of Present Illness Date Patient Seen: 03/14/19 Time Patient Seen: 19:45 Chief complaint: Sodium is very low Narrative: Abi Friedman is a 63-year-old female with a history of hyponatremia recent community-acquired and aspiration pneumonia, chronic hypoxic respiratory failure related to COPD and bronchiectasis with recurrent pulmonary infections was sent to the ER by her primary care provider related to hyponatremia. She was recently discharged from hospital on February 26, 2019 following treatment for hyponatremia and diagnosed adrenal insufficiency as well as undergoing treatment for bilateral pneumonia. Patient was discharged on hydrocortisone 10 mg every evening 5 mg in as well as fludrocortisone 0 2 mg daily. The patient states she has never felt well since discharge and describes a waxing and waning symptoms including episodes of confusion fatigue and weakness and occasional diplopia. She denies complaints orthostasis ataxia and has sustained no falls. She reports no fevers or chills and has generalized body aches related to arthritis. She denies headaches or difficulty swallowing but does report sinus congestion. She reports no chest pain or palpitations. She has chronic bronchiectasis and has a chronic productive cough for tenacious sputum. She reports no dyspnea and feels that she is at baseline for respiration. She denies abdominal pain, nausea or vomiting has had no diarrhea. He does have occasional constipation indicating that it resolves in a few days and has been using senna as needed. She does report frequent urination and incontinence related to urgency. The patient does relate that she limits her oral fluid intake. In the ER the patient is to be afebrile a temperature 97.6, heart rate of 88, blood pressure 135/54, respirations of 16 and 100% on 2 L nasal cannula. On laboratory analysis her CBC reflects ongoing chronic anemia with a hemoglobin of 7.5 and hematocrit of 22.5 with platelets of 105. The patient reports no unusual bruising or bloody stools. On chemistry her sodium is 115 and potassium 3.3. Her BUN is 9 and creatinine is 0.5. Her glucose is slightly low at 77. Her calcium is low but corrects to 8.6 based on albumin of 2.0. She does have an increased alkaline phosphatase 1.28 and otherwise LFTs within normal limits. Her magnesium is also low at 1.4. The patient is admitted to the hospital for further evaluation and monitored correction of hyponatremia. Patient History Medical History Aspiration pneumonia due to food (regurgitated) (Acute) Chronic respiratory failure with hypoxia (Acute) Hyponatremia (Acute) Hypothyroidism (Acute) Hypovolemic shock (Acute) Major depressive disorder (Acute) Opioid dependence (Acute) Osteoporosis (Acute) Supraventricular tachycardia (Acute) Surgical History (Updated 03/14/19 @ 21:22 by MARKO Lopez) Abdominal adhesions (Acute) H/O exploratory laparotomy (Acute) Social History household members: significant other Smoking Status: Never smoker Family & Social History Social History: household members significant other Safety & Behavioral: Feels Safe in Current Yes Environment Been Physically Hurt or No Threatened By a Person Suicidal Ideation Description None Tobacco & Substance use: Smoking Status Never smoker alcohol intake frequency 0-2 drinks per day Substance Use Type does not use Comment: The patient is currently and lives with her in a single family home with her 2 children. Her mother and father both passing away from cancer. She has no children of her own. Advanced directives: The patient wishes to be a FULL CODE. She designates her as her surrogate decision maker. Meds Home Medications Medication Instructions Recorded Confirmed Type alendronate [Fosamax] 70 mg PO QWEEKMO #0 01/10/18 03/14/19 History duloxetine [Cymbalta] 60 mg PO BEDTIME #0 01/10/18 03/14/19 History fluticasone propion-salmeterol 1 puff INH BID #0 01/10/18 03/14/19 History [Advair Diskus] ipratropium-albuterol 1 amp NEB QIDP PRN #0 01/10/18 03/14/19 History meloxicam 15 mg PO QPM #0 01/10/18 03/14/19 History sennosides [senna] 8.6 tab PO QAM #0 01/10/18 03/14/19 History albuterol sulfate [Ventolin HFA] 1 - 2 puff INHALATION PRN PRN 02/15/19 03/14/19 History buprenorphine-naloxone 1 film SUBLINGUAL DAILY 02/15/19 03/14/19 History cholecalciferol (vitamin D3) 2,000 unit PO DAILY 02/15/19 03/14/19 History [Vitamin D3] cromolyn 1 drp EYE-BOTH PRN 02/15/19 03/14/19 History cyclobenzaprine 10 mg PO TID PRN 02/15/19 03/14/19 History levothyroxine 50 mcg PO DAILY 02/15/19 03/14/19 History lidocaine HCl [Lidocaine Viscous] 5 ml PO Q4H PRN 02/15/19 03/14/19 History metoprolol tartrate 12.5 mg PO BID 02/15/19 03/14/19 History montelukast 10 mg PO QPM 02/15/19 03/14/19 History ondansetron 4 mg TRANSLINGUAL PRN PRN 02/15/19 03/14/19 History hydrocortisone [Cortef] 5 mg PO DAILY #30 tab 02/26/19 03/14/19 Rx hydrocortisone [Cortef] 10 mg PO QPM #30 tab 02/26/19 03/14/19 Rx lidocaine 1 ea TOPICAL DAILY PRN #30 ea 02/26/19 03/14/19 Rx melatonin 6 mg PO BEDTIME #30 tab 02/26/19 03/14/19 Rx famotidine 20 mg PO DAILY 03/14/19 03/14/19 History fludrocortisone 0.2 mg PO DAILY 03/14/19 03/14/19 History Allergies Allergy/AdvReac Type Severity Reaction Status Date / Time Haemophilus B polysaccharide Allergy Severe ANAPHYLAXIS Verified 02/15/19 12:45 conj w [From PENTACEL ACTHIB COMPONENT (PF)] peanut [PEANUT] Allergy Severe ANAPHYLAXIS Verified 02/15/19 12:45 Tetanus Vaccines and Toxoid Allergy Severe ANAPHYLAXIS Verified 02/15/19 12:45 [TETANUS VACCINES & TOXOID] penicillin G [PENICILLIN G] Allergy Intermediate RASH Verified 02/15/19 12:45 hydroxyzine [HYDROXYZINE] AdvReac Severe HALLUCINATI Verified 02/15/19 12:45 ONS/PARANOI D ibuprofen [IBUPROFEN] AdvReac Intermediate DYSLEXIA Verified 02/15/19 12:45 PEAS Allergy Severe RASH, LIP Uncoded 02/15/19 12:45 SWELLING Review of Systems Review of Systems All systems reviewed & are unremarkable except as noted in HPI and below Exam Vital Signs (past 8 hours): - 03/14/19 14:14 03/14/19 14:36 03/14/19 14:40 Temperature 99.8 F H 98.9 F Pulse Rate 88 87 91 H Respiratory Rate 18 18 18 Blood Pressure 110/71 Blood Pressure [Left Arm] 109/61 103/63 Pulse Oximetry 100 100 96 03/14/19 16:29 03/14/19 19:28 Temperature 97.0 F L Pulse Rate 90 Respiratory Rate 18 Blood Pressure 115/61 Blood Pressure [Left Arm] Pulse Oximetry 94 94 Oxygen Delivery Method Nasal Cannula Oxygen Flow Rate 2 Narrative Exam Narrative: GENERAL APPEARANCE: Appears older than her stated age, well nourished, afebrile alert appropriate in no acute distress. HEAD: Normocephalic, atraumatic, no scalp lesions. EYES: pupils equal, round, 4mm OU, reactive to light and accommodation, sclera non-icteric, extraocular movement intact . EARS: normal external structures, no ear pain NOSE: Left sinus tender to percussion, no rhinorrhea ORAL CAVITY: mucosa dry without lesions or exudate, palate normal, tongue surface irregular without fissuring in midline. THROAT: normal, no erythema, no exudate, pharynx normal, uvula midline. NECK/THYROID: neck supple, accentuated suprasternal notch and supraclavicular spaces, no jugular venous distention, no carotid bruit, no thyromegaly, trachea midline. LYMPH NODES: no cervical or supraclavicular lymphadenopathy. SKIN: warm and dry, no suspicious lesions, no rashes, good turgor. HEART: regular rate and rhythm, S1-S2 without murmur, rubs, gallops, 1+ dorsalis pedis pulses, brisk capillary refill, trace bilateral pedal edema LUNGS: Centrally course on auscultation bilaterally, no basilar crackles, wheezing with nonproductive cough CHEST: Symmetrical movement, no accessory muscle use, no pain to AP and lateral compression. ABDOMEN: Well-healed midline abdominal surgical scar, soft, no distention, no epigastric or abdominal tenderness on palpation, no guarding or peritoneal signs, no organomegaly, no flank or suprapubic tenderness BACK: nontender to palpation, no CVA tenderness on percussion EXTREMITIES: moves all extremities, strength is 5/5 and symmetrical, well perfused. NEUROLOGIC: AAO x4, with good recall, no focal neurologic deficits, cranial nerves II-XII grossly intact , motor strength normal upper and lower extremities, sensory exam intact to light touch, hearing grossly normal to speech. PSYCH: alert, cooperative, cognitive function intact, good eye contact, stable mood with congruent affect Objective Labs Result Diagrams: 03/14/19 13:05 03/14/19 21:00 Labs: Laboratory Results - last 24 hr 03/14/19 03/14/19 03/14/19 13:05 13:05 13:05 WBC 5.3 RBC 2.81 L Hgb 7.5 L Hct 22.5 L MCV 79.8 L MCH 26.6 MCHC 33.3 RDW 19.1 H Plt Count 104 L Neut % (Auto) 68.0 Lymph % (Auto) 17.3 L [place] % (Auto) 14.1 H Eos % (Auto) 0.3 L Baso % (Auto) 0.3 Neut # (Auto) 3600 Lymph # (Auto) 900 L [place] # (Auto) 700 Eos # (Auto) 0 Baso # (Auto) 0 Sodium 115 L* Potassium 3.3 L Chloride 82 L Carbon Dioxide 26 BUN 9 Creatinine 0.50 L Estimated GFR > 60.0 BUN/Creatinine Ratio 18.0 Glucose 77 L Calcium 7.0 L Magnesium 1.4 L Total Bilirubin 1.0 AST 29 ALT 20 Alkaline Phosphatase 128 H Total Protein 5.2 L Albumin 2.0 L Globulin 3.2 Albumin/Globulin Ratio 0.6 L Assessment & Plan Assessment & Plan narrative: The patient was recently admitted for hyponatremia secondary to SIADH, bilateral pneumonia with history of COPD and bronchiectasis in the setting chronic anemia. Patient has again become hyponatremic requiring monitored repletion and further evaluation. 1. Hyponatremia, present on admission. Active. -On previous admission the patient was found to have adrenal insufficiency and started on steroid therapy. -Patient has been taking fludrocortisone 0.2 mg as well as hydrocortisone 5 mg in the morning and 10 mg at night. -Serum sodium level on admission was 115 without evidence of encephalopathy at time of exam. -The patient reports maintaining fluid restriction and presents with dry oral mucous membranes and trace pedal edema with an albumin of 2.0. -Renal function with a BUN of 9 and creatinine of 0.5. -Patient has urinary frequency and urgency, will obtain a urinalysis with urine sodium and osmolarity with serum osmolality. Patient has low total body water at 31.14. -Will also obtain an a.m. cortisol level. -Normal saline infusing at 75 cc/hour, will recheck sodium level to monitor repletion. 2. Hypokalemia, present on admission, acute -Patient with complaints of lethargy but now chest pain palpitations. -May be related to recent addition of fludrocortisone -Will replete potassium with KCl 40 mEq IV. -Will recheck BMP in the morning. 3. Hypomagnesia, present on admission, acute -Patient with complaints of lethargy but no chest pain or palpitations. -May be related to recent addition of fludrocortisone -Patient will receive magnesium sulfate 2 g IV. -Recheck magnesium level in the morning . 4. Microcytic normochromic anemia, present on admission, acute -Hemoglobin is 7.5 with hematocrit 22.5 at time of admission to the ER. -Previous anemia was thought to be related to acute blood loss following abdominal surgery in [place] in January. -Likely contributory to the patient's fatigue, no overt signs of bleeding, no complaints of rectal bleeding or melena. -Patient previously treated for iron deficiency with Venofer and but is not currently on iron supplementation. -previous hemoglobin at discharge was 8.0, will recheck CBC in the morning. 5. Chronic hypoxemic respiratory failure, present on admission. -Patient has known chronic respiratory failure due to bronchiectasis and on home oxygen 2L continuous at night and sometimes during the day and will continue. Goal oxygen saturation greater than 90% in the setting of current anemia. -Per patient report she is currently at her respiratory baseline denies shortness of breath. -Continue respiratory therapy evaluation and treatment. Continue patient's Advair inhaler twice daily and Ventolin inhaler 2 puffs every 4 hours as needed. -Duonebs every 6 hr while awake as needed. 5. COPD, present on admission. Stable. -Chronic productive cough per patient at her baseline, denies shortness of breath at rest, no chest pain. -Patient using Advair twice daily. 7. History of chronic opiate use, present on admission -Patient is no longer on MS Contin, she is taking buprenorphine-naloxone once daily. -[place] has good renal function, will continue meloxicam 15 mg at daily at night. 8. History of supraventricular tachycardia, not present on admission, chronic -No complaints of chest pain or palpatations. -Continue home metoprolol 12.5 mg twice daily. 9. Hypothyroidism, chronic, present on admission, presumed stable -No complaints of hyper or hypothyroid symptoms. -Continue home levothyroxine 50 mcg daily. 10. Osteoporosis, chronic, present on admission. Stable. -Presently on alendronate and vitamin D supplimentation The patient is admitted due to severity of symptoms and risk of complications. The patient requires monitor electrolyte repletion. Patient is admitted as inpatient with expected length of stay to be greater than 2 midnights. Time Spent With Patient Time with patient: 15-24 minutes Scores GCS [place] coma scale eye opening: Spontaneous [place] coma scale verbal response: Orientated Aneta coma scale motor response: Obey commands Aneta coma scale total score: 15 Quality VTE Deep Vein Thrombosis/Pulmonary Embolism Present on Admission: No
[2019-03-14 21:14] LABS: Sodium 121 mmol/L (137-145)
[2019-03-14 21:40] LABS: Bilirubin Urine UA NEGATIVE (NEGATIVE); Color Urine UA YELLOW; Glucose Urine UA NEGATIVE (Negative); Ketones Urine UA NEGATIVE (NEGATIVE); Leukocyte Esterase Urine UA 3+ (NEGATIVE); Nitrite Urine UA NEGATIVE (Negative); Occult Blood Urine UA TRACE-LYSED (Negative); Protein Urine UA NEGATIVE (Negative); Urobilinogen Urine UA 0.2 E.U./dL (0.2); pH Urine UA 6.5 (4.5-8.0)
[2019-03-14 21:49] LABS: Appearance Urine UA Slightly Cloudy; RBC Urine 0-1/HPF (0-5/HPF); Squamous Epithelial Cell Urine 1-5 /HPF (0-5/HPF); WBC Urine 30-100/HPF (0-5/HPF)
[2019-03-14 21:50] LABS: Bacteria Urine Many (>30); Culture Indicated Urine Specimen Cultured
[2019-03-14 22:07] LABS: Sodium Urine Random 8 mmol/L (30-90)
[2019-03-15] VITALS (13 sets, daily range): BP systolic 89–102; BP diastolic 51–64; PULSE 70–108; RESP 12–18; TEMP 36.3–37.5; O2SAT 93–98; BMI 27.0
[2019-03-15] MEDS: CEFTRIAXONE 1 GM/50 ML FROZ.PIGGY IV (00:58)
[2019-03-15] MEDS: MAGNESIUM SULFATE 2 GM/50 ML PIGGYBACK IV (01:42)
[2019-03-15 05:35] LABS: Add Manual Diff / Slide Review NO; Basophils Absolute Auto 100 /uL (0-100); Eosinophils Absolute Auto 0 /uL (0-450); Eosinophils Percent Auto 0.4 % (2-4); Hemoglobin 8.3 g/dL (12.0-16.0); Lymphocytes Absolute Auto 1100 /uL (1100-4500); Lymphocytes Percent Auto 16.7 % (25-40); Mean Corpuscular HGB Conc 33.4 % (30-36); Mean Corpuscular Hemoglobin 26.9 PG (26-34); Mean Corpuscular Volume 80.5 fL (80-100); Monocytes Absolute Auto 1000 /uL (0-900); Monocytes Percent Auto 15.3 % (3-14); Neutrophils Absolute Auto 4200 /uL (1500-7000); Neutrophils Percent Auto 66.6 % (50-75); Red Blood Cell Count 3.07 X10^6/uL (4.0-5.2); Red Cell Distribution Width 19.1 % (11.6-14.8); White Blood Cell Count 6.3 X10^3/uL (4.5-11.0)
[2019-03-15 05:42] LABS: Hematocrit 24.7 % (36-46)
[2019-03-15 05:43] LABS: Platelet Count 91 X10^3/uL (150-400)
[2019-03-15 05:46] LABS: Blood Urea Nitrogen 10 mg/dL (7-17); Calcium 7.1 mg/dL (8.4-10.2); Carbon Dioxide 25 mmol/L (22-32); Chloride 89 mmol/L (98-107); Estimated Glomerular Filt Rate > 60.0 mL/min (>60); Glucose 90 mg/dL (80-110); HEMOLYSIS < 15 (0-50); Magnesium 2.2 mg/dL (1.6-2.3); Potassium 4.2 mmol/L (3.4-5.1); Sodium 121 mmol/L (137-145)
[2019-03-15] MEDS: LEVOTHYROXINE 50 MCG TABLET PO (06:12)
[2019-03-15 06:42] LABS: Cortisol AM (Before 10AM) 5.03 ug/dL (4.46-22.7)
[2019-03-15] MEDS: FERROUS GLUCONATE 324 MG TABLET PO ×2 (08:31→21:17)
[2019-03-15] MEDS: ASCORBIC ACID 500 MG TABLET PO ×2 (08:31→21:17)
[2019-03-15] MEDS: HYDROCORTISONE 10 MG TABLET PO ×2 (08:32→17:25)
[2019-03-15 08:33] LABS: Procalcitonin 0.34 ng/mL (<0.5)
[2019-03-15] MEDS: METOPROLOL IR 25 MG TABLET 12.5 MG PO ×2 (08:33→21:18)
[2019-03-15] MEDS: DOCUSATE 100 MG CAPSULE PO ×2 (08:34→21:16)
[2019-03-15] MEDS: FLUDROCORTISONE 0.1 MG TABLET 0.2 MG PO (08:34)
[2019-03-15] MEDS: HEPARIN 5,000 UNIT/ML VIAL 5000 UNIT SUBCUT ×2 (08:35→21:16)
[2019-03-15] MEDS: FLUTICASONE/SALMETEROL 500/50 14 PUFF DISKUS INH ×2 (08:39→20:52)
--- NOTE | 2019-03-15 10:13 | PT.IIE ---
Surgical History (Last Updated 03/14/19 @ 21:22 by MARKO Lopez) Abdominal adhesions (Acute) H/O exploratory laparotomy (Acute) Medical History (Last Reviewed 03/14/19 @ 21:21 by MARKO Lopez) Aspiration pneumonia due to food (regurgitated) (Acute) Chronic respiratory failure with hypoxia (Acute) Hyponatremia (Acute) Hypothyroidism (Acute) Hypovolemic shock (Acute) Major depressive disorder (Acute) Opioid dependence (Acute) Osteoporosis (Acute) Supraventricular tachycardia (Acute) Physical Therapy Inpatient Evaluation/Re-Eval M1 PT/OT-IP Prior Functional Status Start: 03/14/19 16:43 Freq: NEEDED Status: Active Protocol: Document 03/15/19 10:13 AB (Rec: 03/15/19 12:43 AB [id number]) Medical Review Prior Functional Status Medical History Reviewed Yes Communication able to make needs known Mobility and Gait pt stated that since dec 2018, her spouse assists her with mobilities at home when her sodium level is low; prior to that, she is independent with all mobilities without AD Activities of Daily Living and IADL's spouse assists pt with dressing and showers as needed Social History Household Members spouse Living Arrangements House Number of Floors (Floors) Two Floors Number of Stairs To Enter/Railing? 3 steps to enter without rails to 2nd floor bedroom: 7 steps with R rail ascending +landing + 7 steps using L rail ascending Home Environment Standard Height Toilet Walk in Shower Home Equipment Front Wheel Walker Straight Cane Shower Seat without Backrest Hand Held Shower Employment Status Retired Additional Social History Comment pt has a high bed M2 PT-IP Current Condition Start: 03/14/19 16:43 Freq: NEEDED Status: Active Protocol: Document 03/15/19 10:13 AB (Rec: 03/15/19 12:43 AB [id number]) Physical Therapy Current Condition Current Condition Evaluation Date 03/15/19 Treatment Diagnosis hyponatremia; difficulties in walking Onset Date 03/14/19 M3 PT-IP Subjective Start: 03/14/19 16:43 Freq: NEEDED Status: Active Protocol: Document 03/15/19 10:13 AB (Rec: 03/15/19 12:43 AB [id number]) Subjective Physical Therapy Visit Type Type Initial Evaluation Visit Start Time 10:13 Visit Stop Time 10:37 Total Visit Minutes 24 Number of MANAGER [employer] SALES Visits 0 Physical Therapy Visit Comments Patient Comments pt agreeable to do PT M4 PT-IP Mobility and Gait Start: 03/14/19 16:43 Freq: NEEDED Status: Active Protocol: Document 03/15/19 10:13 AB (Rec: 03/15/19 12:43 AB [id number]) PT-Bed Mobility Assessment Supine to Sit Supine to Sit Standby Assistance PT-Transfer Assessment Sit to and From Stand Sit to and from Stand Moderate Assistance 1 Person Assistance Use of Upper Extremities Equipment Transfer Assistive Device Gait Belt Front Wheeled Walker Orthotic/Prosthetic Devices or Brace: No Gait Assessment Gait Gait Assistance Required: Moderate Assistance Distance (Feet) 10 Able to Maintain Weight Bearing Status Yes During Gait Assistive Devices Assistive Device Gait Belt Front Wheeled Walker Orthotic/Prosthetic Devices or Brace: No Gait Deviations General Gait Pattern Decreased Stride Length Decreased Feet Clearance Step-to Gait Factors Limiting Gait Function Factors Limiting Gait Function Decreased Activity Tolerance Decreased Strength Poor Balance Respiratory Distress Comments Gait Comments pt ambulated in room using FWW ~ 10 ft mod A and cues. presents with decrease panda and decrease LE elevation. O2 sat at room air prior to mobilization: 90-91%, O2 after ambulation: 89-90%. pt stated that she has bronchiectasis. PT-Balance Assessment Sitting Balance and Reactions Static Sitting Balance Ability Good Dynamic Sitting Balance Ability Good Standing Balance and Reactions Static Standing Balance Ability Fair Dynamic Standing Balance Ability Poor Device Used FWW M5 PT-IP Objective Assessments Start: 03/14/19 16:43 Freq: NEEDED Status: Active Protocol: Document 03/15/19 10:13 AB (Rec: 03/15/19 12:43 AB [id number]) Orientation Orientation/Cognition Level of Alertness Alert Orientation Name Age Birthday Month Date Year Day of Week Place Situation Language Function Ability No Deficits Noted Safety Awareness Decreased Safety Awareness Memory Description Short Term Impaired Gross Range of Motion Lower Extremity ROM Assessment Within Functional Limits Strength Lower Extremity Strength Assessment Bilaterally Impaired Hip 3+/5 Knee 3+/5 M6 PT-IP Treatment Start: 03/14/19 16:43 Freq: NEEDED Status: Active Protocol: Document 03/15/19 10:13 AB (Rec: 03/15/19 12:43 AB [id number]) Physical Therapy Treatment Education Education Provided Safety M7 PT-IP Assessment and Plan Start: 03/14/19 16:43 Freq: NEEDED Status: Active Protocol: Document 03/15/19 10:13 AB (Rec: 03/15/19 12:43 AB [id number]) PT Summary Assessment and Plan Potential Rehabilitation Potential Fair Status of Condition at Evaluation Evolving Summary Impairments Pain ROM Strength Balance Coordination Cognition Bed Mobility Transfers Gait Activity Tolerance Assessment Summary pt requiring mod A with mobility and presents with decrerase activity tolerance. d/c plan depending on progress and if spouse will be able to safely assist pt at home. at this time, pt will require SNF rehab. Goals Bed Mobility Goal Independent Transfer Goal Standby Assistance Front Wheeled Walker Gait Goal Standby Assistance Front Wheel Walker Gait Distance 100 Other Goals up/down 3 steps without rails CGA up/down 15 steps with 1 rail CGA Days to Meet Goals 5 Frequency of Treatment Frequency Of Treatment Twice a Day Treatment Plan Physical Therapy Treatment Plan Bed Mobility Training Transfer Training Gait Training Therapeutic Exercise Balance Retraining Discharge Planning Hot or Cold Pack Neuromuscular Re-ed Coordination Retraining Manual Therapy Recommendations To Nursing Amount of Assist Needed 1 Person Assist Discharge Recommendations PT Discharge Recommendations Home with 24/7 Assist Home Health SNF Rehab Other Discharge Recommendations SNF vs home with 24/7 and homehealth services: depending on progress
[2019-03-15] MEDS: SODIUM CHLORIDE 0.9% 1,000 ML 84 ML IV (12:54)
--- NOTE | 2019-03-15 13:08 | PC.NURSE ---
Advance directive: Pt is a full code per her and her son. They do not have an advance directive and would like to be removed from the list of interventions to keep asking them. Intervention d/c.
--- NOTE | 2019-03-15 14:00 | PT.IPTN ---
Current Diagnoses Hypo-osmolality and hyponatremia (03/14/19) Physical Therapy Treatment Note M2 PT-IP Current Condition Start: 03/14/19 16:43 Freq: NEEDED Status: Active Protocol: Document 03/15/19 10:13 AB (Rec: 03/15/19 12:43 AB [id number]) Physical Therapy Current Condition Current Condition Evaluation Date 03/15/19 Treatment Diagnosis hyponatremia; difficulties in walking Onset Date 03/14/19 M3 PT-IP Subjective Start: 03/14/19 16:43 Freq: NEEDED Status: Active Protocol: Document 03/15/19 14:00 AB (Rec: 03/15/19 15:16 AB [id number]) Subjective Physical Therapy Visit Type Type Treatment Note Visit Start Time 14:00 Visit Stop Time 14:20 Total Visit Minutes 20 Number of COOK BOAT Visits 20 Physical Therapy Visit Comments Patient Comments pt agreeable to do PT M4 PT-IP Mobility and Gait Start: 03/14/19 16:43 Freq: NEEDED Status: Active Protocol: Document 03/15/19 14:00 AB (Rec: 03/15/19 15:16 AB [id number]) PT-Bed Mobility Assessment Supine to Sit Supine to Sit Standby Assistance Sit to Supine Sit to Supine Standby Assistance Scooting Scooting to Edge of Bed Standby Assistance Scooting Up and Down in Bed Standby Assistance PT-Transfer Assessment Sit to and From Stand Sit to and from Stand Moderate Assistance 1 Person Assistance Use of Upper Extremities Equipment Transfer Assistive Device Gait Belt Front Wheeled Walker Orthotic/Prosthetic Devices or Brace: No Transfers Transfer Destination Toilet Transfer Technique pt ambulated to the toilet Transfer Ability Level of Assist Moderate Assistance 1 Person Assistance Use of Upper Extremities Comments Mobility Comments pt completed ambulation to the toilet using FWW mod A and cues. OT assisted pt with toileting needs. pt completed sit to stand mod A from the toilet and ambulated towards the bed. pt stated that she is dizzy and wants to go back to bed. BP 113/68 M5 PT-IP Objective Assessments Start: 03/14/19 16:43 Freq: NEEDED Status: Active Protocol: Document 03/15/19 10:13 AB (Rec: 03/15/19 12:43 AB [id number]) Orientation Orientation/Cognition Level of Alertness Alert Orientation Name Age Birthday Month Date Year Day of Week Place Situation Language Function Ability No Deficits Noted Safety Awareness Decreased Safety Awareness Memory Description Short Term Impaired Gross Range of Motion Lower Extremity ROM Assessment Within Functional Limits Strength Lower Extremity Strength Assessment Bilaterally Impaired Hip 3+/5 Knee 3+/5 M6 PT-IP Treatment Start: 03/14/19 16:43 Freq: NEEDED Status: Active Protocol: Document 03/15/19 10:13 AB (Rec: 03/15/19 12:43 AB [id number]) Physical Therapy Treatment Education Education Provided Safety M7 PT-IP Assessment and Plan Start: 03/14/19 16:43 Freq: NEEDED Status: Active Protocol: Document 03/15/19 14:00 AB (Rec: 03/15/19 15:16 AB [id number]) PT Summary Assessment and Plan Potential Rehabilitation Potential Fair Summary Impairments Strength Balance Bed Mobility Transfers Gait Activity Tolerance Progress Towards Goals Slow Progress due to Medical Issues Slow Progress due to Activity Tolerance Assessment Summary pt continues to require mod A with mobility and has decrease activity tolerance affecting level of assistance. pt will require SNF rehab at this time . Goals Bed Mobility Goal Independent Transfer Goal Standby Assistance Front Wheeled Walker Gait Goal Standby Assistance Front Wheel Walker Gait Distance 100 Other Goals up/down 3 steps without rails CGA up/down 15 steps with 1 rail CGA Days to Meet Goals 5 Frequency of Treatment Frequency Of Treatment Twice a Day Treatment Plan Physical Therapy Treatment Plan Bed Mobility Training Transfer Training Gait Training Therapeutic Exercise Balance Retraining Discharge Planning Hot or Cold Pack Neuromuscular Re-ed Coordination Retraining Manual Therapy Recommendations To Nursing Amount of Assist Needed 1 Person Assist Discharge Recommendations PT Discharge Recommendations Home with 24/7 Assist Home Health SNF Rehab Other Discharge Recommendations SNF vs home with 24/7 and homehealth services: depending on progress
--- NOTE | 2019-03-15 14:16 | P.PN_ITS ---
Subjective Date Patient Seen: 03/15/19 Interval history: Abi Friedman is a 63-year-old female with a past medical history significant for recent viral and bacterial hospital quite pneumonia, newly diagnosed adrenal insufficiency, SIADH, chronic hypoxemic respiratory failure related to COPD and bronchiectasis with recurrent pulmonary infections who was sent to the ED via PCP due to worsening hyponatremia. The patient is resting in bed comfortably. She has no complaints overall. She endorses urinary urgency otherwise she has no other urinary tract symptoms. Discussed SIADH and fluid restriction in detail. Reiterated the importance of fluid restriction of all fluids to 1 L per day for psychogenic polydipsia. Also explained psychogenic polydipsia in detail. She does endorse generalized weakness and slow mentation. She denies headache, worsening shortness of breath from baseline, chest pain, abdominal pain, nausea, vomiting, fever, chills, dysuria, or diarrhea. She is voiding without difficulty. He or she is up ambulating without or with assistance. Exam Vital Signs (past 8 hours): - 03/15/19 07:40 03/15/19 07:45 03/15/19 08:40 Temperature 99.5 F Pulse Rate 94 H 70 Respiratory Rate 14 12 Blood Pressure 98/56 L Pulse Oximetry 97 94 95 03/15/19 11:25 Temperature 98.5 F Pulse Rate 97 H Respiratory Rate 16 Blood Pressure 89/56 L Pulse Oximetry 93 Oxygen Delivery Method Room Air Oxygen Flow Rate 0 Narrative Exam Narrative: General: Middle-aged female lying in bed and in no acute distress, pale, appears chronically ill and older than stated age, well-developed, well- nourished, appropriately interactive. HEENT: Normocephalic, atraumatic. External ears without defect. Pupils equal, round, and reactive to light. Anicteric sclerae, moist conjunctivae, and no lid lag. Neck: Supple with full range of motion. No lymphadenopathy or thyromegaly. Cardiovascular: Regular rate and rhythm without murmurs, rubs, or gallops appreciated. Pulmonary: Diminished throughout but clear to auscultation bilaterally. No wheeze, crackle or rhonchi. Normal respiratory effort with no use of accessory muscles. Abdomen: Soft, bowel sounds present, nontender, nondistended. Large vertical surgical scar healed well. No hepatosplenomegaly or masses appreciated. Extremities: No clubbing, cyanosis or edema. Skin: Normal temperature, turgor, and texture; no rash, ulcers, or subcutaneous nodules appreciated. Neurological: Cranial nerves grossly intact. No focal neurological deficits. Psychiatric: Alert and oriented to person, place and time. Depressed mood and flat affect. Objective Labs Result Diagrams: 03/15/19 05:14 03/15/19 05:14 Labs: Laboratory Results - last 24 hr 03/14/19 03/14/19 03/14/19 13:05 21:00 21:35 WBC RBC Hgb Hct MCV MCH MCHC RDW Plt Count Neut % (Auto) Lymph % (Auto) Josephine % (Auto) Eos % (Auto) Baso % (Auto) Neut # (Auto) Lymph # (Auto) Josephine # (Auto) Eos # (Auto) Baso # (Auto) Sodium 121 L Potassium Chloride Carbon Dioxide BUN Creatinine Estimated GFR BUN/Creatinine Ratio Glucose Calcium Magnesium 1.4 L Procalcitonin Cortisol AM Sample Urine Color Yellow Urine Appearance Slightly cloudy Urine pH 6.5 Ur Specific [place] 1.010 Urine Protein Negative Urine Glucose (UA) Negative Urine Ketones Negative Urine Occult Blood Trace-lysed Urine Nitrate Negative Urine Bilirubin Negative Urine Urobilinogen 0.2 Ur Leukocyte Esterase 3+ H Urine RBC 0-1/hpf Urine WBC 30-100/hpf H Ur Squamous Epith Cells 1-5 /hpf Urine Bacteria Many (>30) H Ur Culture Indicated? Specimen cultured Ur Random Sodium 03/14/19 03/15/19 03/15/19 21:57 05:14 05:14 WBC 6.3 RBC 3.07 L Hgb 8.3 L Hct 24.7 L MCV 80.5 MCH 26.9 MCHC 33.4 RDW 19.1 H Plt Count 91 L Neut % (Auto) 66.6 Lymph % (Auto) 16.7 L Josephine % (Auto) 15.3 H Eos % (Auto) 0.4 L Baso % (Auto) 1.0 Neut # (Auto) 4200 Lymph # (Auto) 1100 Josephine # (Auto) 1000 H Eos # (Auto) 0 Baso # (Auto) 100 Sodium 121 L Potassium 4.2 Chloride 89 L Carbon Dioxide 25 BUN 10 Creatinine 0.50 L Estimated GFR > 60.0 BUN/Creatinine Ratio 20.0 Glucose 90 Calcium 7.1 L Magnesium 2.2 Procalcitonin Cortisol AM Sample Urine Color Urine Appearance Urine pH Ur Specific [place] Urine Protein Urine Glucose (UA) Urine Ketones Urine Occult Blood Urine Nitrate Urine Bilirubin Urine Urobilinogen Ur Leukocyte Esterase Urine RBC Urine WBC Ur Squamous Epith Cells Urine Bacteria Ur Culture Indicated? Ur Random Sodium 8 L 03/15/19 03/15/19 05:14 05:14 WBC RBC Hgb Hct MCV MCH MCHC RDW Plt Count Neut % (Auto) Lymph % (Auto) Josephine % (Auto) Eos % (Auto) Baso % (Auto) Neut # (Auto) Lymph # (Auto) Josephine # (Auto) Eos # (Auto) Baso # (Auto) Sodium Potassium Chloride Carbon Dioxide BUN Creatinine Estimated GFR BUN/Creatinine Ratio Glucose Calcium Magnesium Procalcitonin 0.34 Cortisol AM Sample 5.03 Urine Color Urine Appearance Urine pH Ur Specific [place] Urine Protein Urine Glucose (UA) Urine Ketones Urine Occult Blood Urine Nitrate Urine Bilirubin Urine Urobilinogen Ur Leukocyte Esterase Urine RBC Urine WBC Ur Squamous Epith Cells Urine Bacteria Ur Culture Indicated? Ur Random Sodium Assessment & Plan Assessment & Plan narrative: Abi Friedman is a 63-year-old female with a past medical history significant for recent viral and bacterial hospital quite pneumonia, newly diagnosed adrenal insufficiency, SIADH, chronic hypoxemic respiratory failure related to COPD and bronchiectasis with recurrent pulmonary infections who was sent to the ED via PCP due to worsening hyponatremia. 1. Acute on chronic hyponatremia, present on admission. Active. -On previous admission the patient was found to have adrenal insufficiency and started on glucocorticoid and mineralocorticoid replacement, as well as, there was a suspicion for psychogenic polydipsia on a 1 L fluid restriction. The patient reports maintaining fluid restriction, however, only with free water. She reports she thought her PCP told her she may drink many other fluids as much as she wanted. -Initial sodium 115 without evidence of encephalopathy. Repeat 121. -Continue fludrocortisone 0.2 mg and hydrocortisone 10 mg twice daily. -Continue 800 mL fluid restriction. -Ordered urine sodium and osmolarity and serum osmolality. AM cortisol within normal limits at 5.03. -Discontinued duloxetine as this is a high dose and may propagate SIADH, as well as, cyclobenzaprine. -Received NS at 75 mL/hr for approximately 8 hours and was stopped at 9 pm last night. Restarted NS at 84 mL/hr at 1 pm today which was 24 hr after initial sodium measurement as did not want to exceed replacement of sodium greater than 9 mmol in 24 hours. Continue to monitor closely and replete as necessary. -Recommend imaging of both adrenal glands and pituitary gland for adrenal insufficiency which can be done outpatient. Patient will need endocrinology referral outpatient as well. 2. Possible UTI, present on admission. Active. -Patient has no urinary tract symptoms other than urinary urgency. -Urinalysis appears grossly infected with urine culture pending. No leukocytosis, procalcitonin within normal limits, and afebrile. -She was started on empiric ceftriaxone 2 g daily for 3-5 days pending urine culture identification and sensitivities. 3. Acute hypokalemia, present on admission. Resolved. -Patient with complaints of lethargy but no chest pain or palpitations. -Received potassium chloride 40 mEq IV x 1. Continue to monitor and replete potassium as necessary. 4. Acute hypomagnesia, present on admission. Resolved. -Patient with complaints of lethargy but no chest pain or palpitations. -Received magnesium sulfate 2 g IV. Continue to monitor and replete magnesium as necessary. 5. Chronic microcytic normochromic anemia, present on admission. -Hemoglobin is 7.5 with hematocrit 22.5 at time of admission to the ED. -Previous anemia was thought to be related to acute blood loss and chronic iron deficiency. -Likely contributory to the patient's fatigue. No overt signs of bleeding. No hematuria, hematochezia or melena. -Patient previously treated for iron deficiency with Venofer but was not continued on iron supplementation. Started ferrous gluconate 324 mg twice daily with vitamin-C 500 mg twice daily. -Continue to monitor CBC closely. 6. Chronic hypoxemic respiratory failure, secondary to COPD and bronchiectasis, present on admission. Stable. -Patient has known chronic hypoxemic respiratory failure due to COPD and bronchiectasis on home oxygen 2L continuous at night and sometimes during the day. -Continue supplemental oxygen and titrate as necessary to keep oxygen saturation 88-92%. -Per patient report she is currently at her respiratory baseline with chronic productive cough without shortness of breath. -Continue respiratory therapy evaluation and treatment. Continue Advair inhaler twice daily and Ventolin inhaler 2 puffs every 4 hours as needed. Ordered Duonebs every 6 hr while awake as needed and CPT at least once daily and ideally 3 times daily. 7. History of chronic opiate use, present on admission -Patient is no longer on MS Contin. She is taking buprenorphine-naloxone once daily and will have patients bring in medication. -Patient has good renal function, will continue meloxicam 15 mg at daily at night. 8. History of supraventricular tachycardia, not present on admission. -No complaints of chest pain or palpatations. -Continue home metoprolol 12.5 mg twice daily. 9. Hypothyroidism, chronic, present on admission. Presumed stable. -Repeated TSH with free T4 reflex due to patient previously having subclinical hyperthyroidism on last admission during acute illness. May consider decreasing dose if persistent. -Continue home levothyroxine 50 mcg daily. 10. Osteoporosis, chronic, present on admission. Stable. -Continue home alendronate and vitamin D supplimentation. Disposition: Likely to discharge home possibly with home health in several days once hyponatremia has resolved. Quality VTE Deep Vein Thrombosis/Pulmonary Embolism Present on Admission: No
--- NOTE | 2019-03-15 14:56 | PC.NURSE ---
Pain/fluids: Pt requesting more fluids, was made aware but her fluid restriction will not be increased today or prob. this weekend. Pt was disappointed to hear this. Did start IVF at 1300 and reason why explained to pt and family. Pt had pneumonia and flu earlier this month. Does have a freq loose sounding cough, c/o rib pain to the rt lower chest wall, mid clavicular. She is unable to state how long she has had this pain. Has had it for some time. This only occurs when she coughs or take a deeper breath, but not all the time does she have it. She specifically denied this was chest pain and son was here who confirmed pt does cough freq at home and needs to do so. Offered to call for an expectorant for pt but they both declined same. Pt instructed to call if the pain worsens or changes in her chest. Resting quietly at the moment.
--- NOTE | 2019-03-15 16:27 | OT.IP.EVAL ---
Current Diagnoses Hypo-osmolality and hyponatremia (03/14/19) Past Medical History (Last Reviewed 03/14/19 @ 21:21 by MARKO Lopez) Aspiration pneumonia due to food (regurgitated) (Acute) Chronic respiratory failure with hypoxia (Acute) Hyponatremia (Acute) Hypothyroidism (Acute) Hypovolemic shock (Acute) Major depressive disorder (Acute) Opioid dependence (Acute) Osteoporosis (Acute) Supraventricular tachycardia (Acute) Surgical History (Last Updated 03/14/19 @ 21:22 by MARKO Lopez) Abdominal adhesions (Acute) H/O exploratory laparotomy (Acute) Occupational Therapy Inpatient Evaluation/Re-Eval M1 PT/OT-IP Prior Functional Status Start: 03/15/19 16:04 Freq: NEEDED Status: Active Protocol: Document 03/15/19 16:04 [facility] (Rec: 03/15/19 16:27 [facility] [id number]) Medical Review Prior Functional Status Medical History Reviewed Yes Communication able to make needs known Mobility and Gait pt stated that since dec 2018, her spouse assists her with mobilities at home when her sodium level is low; prior to that, she is independent with all mobilities without AD Activities of Daily Living and IADL's spouse assists pt with dressing and showers as needed , especially when sodium level down. Pt states noted has had trouble to get left leg up to kya socks. Social History Household Members spouse Living Arrangements House Number of Floors (Floors) Two Floors Number of Stairs To Enter/Railing? 3 steps to enter without rails to 2nd floor bedroom: 7 steps with R rail ascending +landing + 7 steps using L rail ascending Home Environment Standard Height Toilet Walk in Shower Home Equipment Front Wheel Walker Straight Cane Shower Seat without Backrest Hand Held Shower Employment Status Retired Additional Social History Comment pt has a high bed M2 OT-IP Current Condition Start: 03/15/19 16:04 Freq: Status: Active Protocol: Document 03/15/19 16:04 [facility] (Rec: 03/15/19 16:27 [facility] [id number]) Occupational Therapy Current Condition Current Condition Evaluation Date 03/15/19 Treatment Diagnosis Hypoatremia, weakness Diagnosis Onset Date 03/14/19 Weight Bearing Status Weight Bearing Status Weight Bear as Tolerated M3 OT- IP Subjective and Pain Start: 03/15/19 16:04 Freq: Status: Active Protocol: Document 03/15/19 16:04 [facility] (Rec: 03/15/19 16:27 [facility] [id number]) OT- Subjective Occupational Therapy Visit Type Type Initial Evaluation Visit Start Time 14:00 Visit Stop Time 14:35 Total Visit Minutes 35 Occupational Therapy Visit Comments Patient Comments Pt agreeable to get up. OT Pain Assessment Pain When Pain Assessed At Rest Pain Present Pain Present Denied Pain M4 OT- IP ADL's Start: 03/15/19 16:04 Freq: Status: Active Protocol: Document 03/15/19 16:04 [facility] (Rec: 03/15/19 16:27 [facility] [id number]) OT ADL-Grooming General Evaluation Grooming Ability Standby Assistance Areas Needing Assistance Retrieving/Set-up of Grooming Items Comments OT Grooming Comments Pt able to do all grooming while in bed as too tired to try to stand today for grooming needs. OT ADL-Oral Care General Eval Oral Care Ability Independent OT ADL-Dressing General Eval Lower Body Dressing Ability Minimal Assistance Comments OT Dressing Comments Pt needing CRISTIAN to assist with brief management. OT ADL-Toileting General Evaluation Toileting Ability Minimal Assistance Areas Needing Assistance Manage Clothing Devices Toileting Assistive Devices Grab Bars Comments OT Toileting Comments Heavy use of grab bar to come to sit and stand, CRISTIAN for brief management. Pt able to wipe independently. OT ADL-Bathing Comments OT Bathing Comments To tired at this time. M5 OT- IP IADL's Start: 03/15/19 16:04 Freq: Status: Active Protocol: Document 03/15/19 16:04 [facility] (Rec: 03/15/19 16:27 [facility] [id number]) OT-Instrumental Activities of Daily Living Medication Management Medication Management Comments Pt states does her own. Bakery Products Checker Bakery Products Checker Caregiver Provides Assist Driving Driving Caregiver Provides Assist M6 OT- IP Functional Cognition Start: 03/15/19 16:04 Freq: Status: Active Protocol: Document 03/15/19 16:04 [facility] (Rec: 03/15/19 16:27 [facility] [id number]) Cognitive Factors Limiting Selfcare Function Cognitive Ability Level of Alertness Alert Patient Orientation Name Date Year Day of Week Place Situation Attention Span Ability Capable of Focused Attention Capable of Sustained Attention Ability to Follow Commands Able to Follow Multi-Step Commands Safety Awareness Underestimates Need for Assistance Cognitive Comments Cognitive Assessment Comments Intact at this time however to further assess during functional needs and higher problem solving skills. Pt very resistent to getting a BSC and states just wants to do things normally. Empahsized due to her weakness BSC can useful so not needing to use briefs and as prior not able to get to the toilet in time. OT- Vision and Hearing OT- Hearing Assessment OT- Hearing Assessment WFL M7 OT- IP Mobility and Balance Start: 03/15/19 16:04 Freq: Status: Active Protocol: Document 03/15/19 16:04 [facility] (Rec: 03/15/19 16:27 [facility] [id number]) OT- Bed Mobility Assessment Rolling Type of Rolling Roll to Right Supine to Sit Supine to Sit Assist Standby Assistance Sit to Supine Sit to Supine Assist Standby Assistance Scooting Scooting to Edge of Bed Standby Assistance OT-Transfer Assessment Sit to and From Stand Sit to and from Stand Minimal Assistance Moderate Assistance Transfers Transfer Ability Minimal Assistance,MODA Technique Transfer Destination Bed Toilet Transfer Technique Stand Step Pivot Devices Transfer Assistive Devices Gait Belt Front Wheeled Walker Comments Mobility Comments Pt needing more assist when tired and from lower surfaces. Pt not able to get to the sink as too tired at this time and feeling dizzy, BP 113/68. OT- Balance Assessment Sitting Balance and Reactions Static Sitting Balance Ability Normal Dynamic Sitting Balance Ability Good Standing Balance and Reactions Static Standing Balance Ability Fair M8 OT- IP Objective Assessments Start: 03/15/19 16:04 Freq: Status: Active Protocol: Document 03/15/19 16:04 [facility] (Rec: 03/15/19 16:27 [facility] [id number]) OT Gross Range of Motion Upper Extremity Range of Motion Assessment Within Functional Limits OT Strength Comments Strength Comments BUE 4/5 OT- Coordination Assessment Comments Coordination Comments Needing assist to open items to be able to brush her teeth. M9 OT- IP Assessment and Plan Start: 03/15/19 16:04 Freq: Status: Active Protocol: Document 03/15/19 16:04 [facility] (Rec: 03/15/19 16:27 [facility] [id number]) OT Summary Assessment and Plan Potential Rehabilitation Potential Good Analytic Complexity at Evaluation Low Summary OT Impairments Strength Balance Functional Mobility Grooming Dressing Toileting Bathing Toilet Transfers Shower Transfers Progress Towards Goals Slow Progress due to Medical Issues Slow Progress due to Activity Tolerance Assessment Summary Pt low complexity and main barrier is steps, decreased activity tolerance and now needing at least MODA for all Adl and functional mobility needs. Pt would benefit from skilled rehab versus home with assist , home health pending pt's family availability to assist. Pt was recently discharged 02/26/19 from the hospital home and therefore was not successful would benefit from going to skilled rehab prior to going home this time. Goals Grooming Goal Standby Assistance Dressing Goal Standby Assistance Toileting Goal Independent Bathing Goal Standby Assistance Toilet Transfer Goal Standby Assistance Shower Transfer Goal Contact Guard Assistance Patient/Caregiver Education Goal Caregiver Independent Assisting Patient OT-Other Goals Grooming goal in standing. Days to Meet Goals 5 Frequency of Treatment Frequency Of Treatment Once a Day Treatment Plan OT Treatment Plan ADL Training Functional Mobility Patient/Family Education Discharge Planning Other Treatment Recommendations and Next stand to shower, practise LB Treatment Focus dressing and use of AED if needed. Discharge Recommendations OT Discharge Recommendations SNF Rehab Other Discharge Recommendations pending progress and caregiver training, possibly home with assist and home health Home Equipment Needs [facility]
[2019-03-15] MEDS: MELOXICAM 7.5 MG TABLET 15 MG PO (17:26)
[2019-03-15] MEDS: MONTELUKAST 10 MG TABLET PO (17:28)
--- NOTE | 2019-03-15 18:02 | CM.SWNOTE ---
[employer] met with patient and spouse to assess discharge planning needs and concerns. Pt's spouse is also her full-time caregiver, and is also medically disabled due to a previous injury. They decline the need for any in-home services upon discharge. They declined the need for any DME, and state that they do have home O2 in place. Pt was able to present as alert and oriented, and was able to communicate her own needs and preferences. Discharge Planning/Care Management Advanced directive, confirm from FAMILY Start: 03/15/19 01:11 Freq: Q24H Status: Complete Protocol: Document 03/15/19 13:07 CEW (Rec: 03/15/19 13:08 CEW [id number]) Advance Directive, confirm on record Time 13:07 Person contacted Pt and son Copy received No Advanced directive available on record No CM Discharge Assessment Start: 03/15/19 13:10 Freq: Status: Active Protocol: Document 03/15/19 13:10 DPL (Rec: 03/15/19 13:39 DPL [id number]) Discharge Planning Assessment Assigned Freelance Displayer MARLA Hamm DPOA/Assigned Designee Name ADRIEN Jacques, spouse Advance Directives? Yes Advance Directives on File No History Provided By Patient Medical Record Expected Length of Stay 2 Has Patient been admitted in last 30 Yes days? Comment Patient was admitted 02/15/19 and discharged 02/26/19 for significant hyponatremia, Acute metabolic encephalopathy , chronic bronchiectasis, and pneumonia. Prior Living Arrangements House Comment Pt resides in her own home with her and 2- children. Children are ages 12 and 15. Spouse is also disabled, and is home every day to care for pt. Household Members spouse Comment See above. Comment Spouse is the primary over the road driver for the family. Independent with ADL's No Is patient alert and oriented? Yes: She has intermittent periods of confusion. Needs Assistance With Bathing Grooming Managing Medications Home Chores / Shopping Community Services used prior to Home Health Nurse admission: Comment [employer] inquired if pt/spouse would like to have Home Health in place at time of discharge . Both pt and spouse state that they have had Home Health in for the last 2-weeks, and did not find them to be beneficial. DME Already Rented / Owned Oxygen Comment [employer] offered to assist with DME needs for discharge plan home . Pt/spouse decline the need for anything at this time, however they do agree that a hospital bed would be helpful. Pt states that she doesn't sleep well at night due to breathing issues, however she is not interested in a wedge for increased comfort. Comment Pt/spouse decline any resources or additional services in the home at this time. Barriers to Discharge No Discharge Plan Home Additional Comment Declined Whiteboard Updated in Patient Room with Yes name and ext. # of Freelance Displayer Review Status In Process Please Provide Date Initial DC 03/15/19 Assessment Was Performed
[2019-03-15 18:53] LABS: Blood Urea Nitrogen 14 mg/dL (7-17); Calcium 6.8 mg/dL (8.4-10.2); Carbon Dioxide 23 mmol/L (22-32); Chloride 89 mmol/L (98-107); Estimated Glomerular Filt Rate > 60.0 mL/min (>60); Glucose 142 mg/dL (80-110); HEMOLYSIS < 15 (0-50); Potassium 3.8 mmol/L (3.4-5.1); Sodium 120 mmol/L (137-145)
[2019-03-15] MEDS: ALBUTEROL HFA 60 PUFF/8 GM INH INH (20:55)
[2019-03-15] MEDS: MELATONIN 3 MG TABLET 6 MG PO (21:16)
[2019-03-15] MEDS: CALCIUM CARBONATE 500 MG TAB 1000 MG PO (22:07)
[2019-03-15] MEDS: CEFTRIAXONE 2 GM/50 ML FROZ.PIGGY IV (22:07)
[2019-03-16] VITALS (22 sets, daily range): BP systolic 87–148; BP diastolic 54–84; PULSE 75–121; RESP 14–24; TEMP 36.4–39.4; O2SAT 95–99
[2019-03-16] MEDS: SODIUM CHLORIDE 0.9% 1,000 ML 84 ML IV (01:25)
[2019-03-16 06:00] LABS: HEMOLYSIS < 15 (0-50); Sodium 121 mmol/L (137-145)
[2019-03-16 06:01] LABS: Mean Corpuscular HGB Conc 33.5 % (30-36); Mean Corpuscular Volume 80.7 fL (80-100); Platelet Count 91 X10^3/uL (150-400); Red Blood Cell Count 2.39 X10^6/uL (4.0-5.2); Red Cell Distribution Width 18.8 % (11.6-14.8); White Blood Cell Count 4.5 X10^3/uL (4.5-11.0)
[2019-03-16 06:02] LABS: Alanine Aminotransferase 21 IU/L (9-52); Albumin 1.8 g/dL (3.5-5.0); Albumin Globulin Ratio 0.6 (1.0-2.8); Alkaline Phosphatase 125 U/L (38-126); Aspartate Aminotransferase 22 IU/L (14-36); BUN Creatinine Ratio 27.5 (6-22); Bilirubin Total 0.5 mg/dL (0.2-1.3); Blood Urea Nitrogen 11 mg/dL (7-17); Calcium 6.7 mg/dL (8.4-10.2); Carbon Dioxide 24 mmol/L (22-32); Chloride 91 mmol/L (98-107); Estimated Glomerular Filt Rate > 60.0 mL/min (>60); Globulin 2.9 g/dL (1.7-4.1); Glucose 77 mg/dL (80-110); Magnesium 1.6 mg/dL (1.6-2.3); Potassium 3.7 mmol/L (3.4-5.1); Total Protein 4.7 g/dL (6.3-8.2); Triglycerides 201 mg/dL (35-150)
[2019-03-16 06:10] LABS: Add Manual Diff / Slide Review YES
[2019-03-16] MEDS: LEVOTHYROXINE 50 MCG TABLET PO (06:11)
[2019-03-16 06:16] LABS: Cholesterol < 50 mg/dL (140-199); LDL Cholesterol Calculated 2 mg/dL (<100)
[2019-03-16 06:17] LABS: HDL Cholesterol 8 mg/dL (40-60)
[2019-03-16 06:19] LABS: Hematocrit 19.3 % (36-46); Hemoglobin 6.4 g/dL (12.0-16.0)
--- NOTE | 2019-03-16 06:25 | PC.NURSE ---
Critical lab value: H/H 6.4/19.3. Notified MARKO Rivera, type and screen with blood ordered.
[2019-03-16 06:32] LABS: TSH w/ Reflex to FT4 0.03 uIU/mL (0.47-4.68)
[2019-03-16 06:45] LABS: Neutrophils Absolute Manual 3285 /uL (3000-5900); Total Cells Counted 100
[2019-03-16 06:46] LABS: Anisocytosis 1+; Polychromasia 1+
[2019-03-16 06:47] LABS: Hypochromasia 1+
[2019-03-16 07:21] LABS: Free T4, Direct Thyroxine 0.95 ng/dL (0.78-2.19)
[2019-03-16] MEDS: FERROUS GLUCONATE 324 MG TABLET PO ×2 (08:44→17:43)
[2019-03-16] MEDS: DOCUSATE 100 MG CAPSULE PO ×2 (08:44→17:42)
[2019-03-16] MEDS: ASCORBIC ACID 500 MG TABLET PO ×2 (08:44→17:41)
[2019-03-16] MEDS: FLUDROCORTISONE 0.1 MG TABLET 0.2 MG PO (08:44)
[2019-03-16] MEDS: METOPROLOL IR 25 MG TABLET 12.5 MG PO ×2 (08:45→20:12)
[2019-03-16] MEDS: HEPARIN 5,000 UNIT/ML VIAL 5000 UNIT SUBCUT ×2 (08:45→21:00)
[2019-03-16] MEDS: HYDROCORTISONE 10 MG TABLET PO ×2 (08:45→17:40)
[2019-03-16] MEDS: FLUTICASONE/SALMETEROL 500/50 14 PUFF DISKUS INH ×2 (09:09→19:41)
--- NOTE | 2019-03-16 09:12 | RT ---
Patient declined CPT at the moment. Hgb very low and patient awaiting blood transfusion.
--- NOTE | 2019-03-16 09:18 | PM.PN.1 ---
Subjective Date Patient Seen: 03/16/19 Time Patient Seen: 09:19 Interval history: She is seen today to follow up the hyponatremia, hypoalbuminemia, bronchiectasis, anemia. Overnight her hemoglobin dropped from 8.3-6.4, somewhat inexplicably, as there is no evidence of ongoing GI bleed or other symptoms. This may be a lab measurement discrepancy. She is known to have a history of chronic anemia and says she has had GI workups done before. It is unclear the status of her anemia assessment. She does not recall hematology evaluation. The low albumin suggests significant malnourishment/iron deficiency secondary to malnutrition. The sodium level has remained at 121 despite 83 mL/hr IV saline infusion and the fluid restriction. Exam Vital Signs (past 8 hours): - 03/16/19 04:10 03/16/19 08:04 03/16/19 09:02 Temperature 97.9 F 99.5 F Pulse Rate 91 H 88 Respiratory Rate 15 16 Blood Pressure 104/70 120/70 Pulse Oximetry 97 99 99 03/16/19 09:10 Temperature Pulse Rate 85 Respiratory Rate 14 Blood Pressure Pulse Oximetry 97 Oxygen Delivery Method Nasal Cannula Oxygen Flow Rate 2 Narrative Exam Narrative: She is alert and oriented x3. There is no apparent distress. heart is regular rate and rhythm with a 1/6 systolic ejection murmur. Lungs are clear to auscultation bilaterally. Extremities have no ankle edema. Abdomen has no tenderness. Objective Labs Result Diagrams: 03/16/19 05:26 03/16/19 05:26 Labs: Laboratory Results - last 24 hr 03/15/19 03/16/19 03/16/19 18:34 05:26 05:26 WBC 4.5 RBC 2.39 L Hgb 6.4 L* Hct 19.3 L* MCV 80.7 MCH 27.0 MCHC 33.5 RDW 18.8 H Plt Count 91 L Neut % (Auto) Not Reportable Lymph % (Auto) Not Reportable [place] % (Auto) Not Reportable Eos % (Auto) Not Reportable Baso % (Auto) Not Reportable Lymph # (Auto) Not Reportable [place] # (Auto) Not Reportable Baso # (Auto) Not Reportable Total Counted 100 Seg Neutrophils % 72.0 H Band Neutrophils % 1.0 L Lymphocytes % (Manual) 14.0 L Monocytes % (Manual) 13.0 H Neutrophils # (Manual) 3285 RBC Morphology See below Polychromasia 1+ H Hypochromasia 1+ H Anisocytosis 1+ H Sodium 120 L Potassium 3.8 Chloride 89 L Carbon Dioxide 23 BUN 14 Creatinine 0.50 L Estimated GFR > 60.0 BUN/Creatinine Ratio 28.0 H Glucose 142 H Calcium 6.8 L Magnesium Total Bilirubin AST ALT Alkaline Phosphatase Total Protein Albumin Globulin Albumin/Globulin Ratio Triglycerides Cholesterol LDL Cholesterol, Calc HDL Cholesterol TSH 0.03 L Free T4 0.95 Crossmatch 03/16/19 03/16/19 05:26 06:48 WBC RBC Hgb Hct MCV MCH MCHC RDW Plt Count Neut % (Auto) Lymph % (Auto) [place] % (Auto) Eos % (Auto) Baso % (Auto) Lymph # (Auto) [place] # (Auto) Baso # (Auto) Total Counted Seg Neutrophils % Band Neutrophils % Lymphocytes % (Manual) Monocytes % (Manual) Neutrophils # (Manual) RBC Morphology Polychromasia Hypochromasia Anisocytosis Sodium 121 L Potassium 3.7 Chloride 91 L Carbon Dioxide 24 BUN 11 Creatinine 0.40 L Estimated GFR > 60.0 BUN/Creatinine Ratio 27.5 H Glucose 77 L Calcium 6.7 L Magnesium 1.6 Total Bilirubin 0.5 AST 22 ALT 21 Alkaline Phosphatase 125 Total Protein 4.7 L Albumin 1.8 L Globulin 2.9 Albumin/Globulin Ratio 0.6 L Triglycerides 201 H Cholesterol < 50 L LDL Cholesterol, Calc 2 HDL Cholesterol 8 L TSH Free T4 Crossmatch See Detail Assessment & Plan Assessment & Plan narrative: 1. Acute on chronic hyponatremia, present on admission. Active. -On previous admission the patient was found to have adrenal insufficiency and started on glucocorticoid and mineralocorticoid replacement, as well as, there was a suspicion for psychogenic polydipsia on a 1 L fluid restriction. The patient reports maintaining fluid restriction, however, only with free water. She reports she thought her PCP told her she may drink any other fluids as much as she wanted. -Initial sodium 115 without evidence of encephalopathy. Repeat 121 today. -Continue fludrocortisone 0.2 mg and hydrocortisone 10 mg twice daily. -Continue 800 mL fluid restriction. -Pending urine sodium and osmolarity and serum osmolality. AM cortisol within normal limits at 5.03. -Discontinued duloxetine as this is a high dose and may propagate SIADH, as well as, cyclobenzaprine. -increase IV saline infusion to 125 mL/hr. Continue to monitor closely and replete as necessary. -Recommend imaging of both adrenal glands and pituitary gland for adrenal insufficiency which can be done outpatient. Patient will need endocrinology referral outpatient as well. 2. Possible UTI, present on admission. Active. -Patient has no urinary tract symptoms other than urinary urgency. -Urinalysis appears grossly infected with urine culture pending. No leukocytosis, procalcitonin within normal limits, and afebrile. -She was started on empiric ceftriaxone 2 g daily for 3-5 days pending urine culture identification and sensitivities. 3. Acute hypokalemia, present on admission. Resolved. -Patient with complaints of lethargy but no chest pain or palpitations. -Received potassium chloride 40 mEq IV x 1. Potassium is 3.7 today 4. Acute hypomagnesia, present on admission. Resolved. -Patient with complaints of lethargy but no chest pain or palpitations. -Received magnesium sulfate 2 g IV. Continue to monitor and replete magnesium as necessary. 5. Chronic microcytic normochromic anemia, present on admission. -Hemoglobin is now 6.4 down from 7.5 with hematocrit 22.5 at time of admission to the ED. -Previous anemia was thought to be related to acute blood loss and chronic iron deficiency. -Likely contributory to the patient's fatigue. No overt signs of bleeding. No hematuria, hematochezia or melena. -Patient previously treated for iron deficiency with Venofer but was not continued on iron supplementation. Started ferrous gluconate 324 mg twice daily with vitamin-C 500 mg twice daily on admission. -Continue to monitor CBC closely. -she has had a recent chest CT but no recent abdominal-pelvic CTs to rule out occult neoplasm. Consider chest/abdomen/pelvic CT. -transfuse 2 units packed red blood cells today -monitor stool Hemoccult 6. Chronic hypoxemic respiratory failure, secondary to COPD and bronchiectasis, present on admission. Stable. -Patient has known chronic hypoxemic respiratory failure due to COPD and bronchiectasis on home oxygen 2L continuous at night and sometimes during the day. -Continue supplemental oxygen and titrate as necessary to keep oxygen saturation 88-92%. -Per patient report she is currently at her respiratory baseline with chronic productive cough without shortness of breath. -Continue respiratory therapy evaluation and treatment. Continue Advair inhaler twice daily and Ventolin inhaler 2 puffs every 4 hours as needed, Duonebs every 6 hr while awake as needed and CPT at least once daily and ideally 3 times daily. 7. History of chronic opiate use, present on admission -Patient is no longer on MS Contin. She is taking buprenorphine-naloxone once daily and will have patients bring in medication. -Patient has good renal function, will continue meloxicam 15 mg at daily at night. 8. History of supraventricular tachycardia, not present on admission. -No complaints of chest pain or palpatations. -Continue home metoprolol 12.5 mg twice daily. 9. Hypothyroidism, chronic, present on admission. Presumed stable. -Repeated TSH with free T4 reflex due to patient previously having subclinical hyperthyroidism on last admission during acute illness. May consider decreasing dose if persistent. -Continue home levothyroxine 50 mcg daily. 10. Osteoporosis, chronic, present on admission. Stable. -Continue home alendronate and vitamin D supplementation. 11. Malnourishment -albumin level is 1.8, encourage protein calorie intake without over-doing the fluid. Disposition: Likely to discharge home possibly with home health in several days once hyponatremia has improved/stabilized. Quality VTE Deep Vein Thrombosis/Pulmonary Embolism Present on Admission: No
--- NOTE | 2019-03-16 10:11 | OT.IP.TRT ---
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) Unspecified adrenocortical insufficiency (03/14/19) Hypo-osmolality and hyponatremia (03/14/19) Chronic obstructive pulmonary disease, unspecified (03/14/19) Chronic respiratory failure with hypoxia (03/14/19) Occupational Therapy Treatment Note M2 OT-IP Current Condition Start: 03/15/19 16:04 Freq: Status: Active Protocol: Document 03/15/19 16:04 CCC (Rec: 03/15/19 16:27 CCC [id number]) Occupational Therapy Current Condition Current Condition Evaluation Date 03/15/19 Treatment Diagnosis Hypoatremia, weakness Diagnosis Onset Date 03/14/19 Weight Bearing Status Weight Bearing Status Weight Bear as Tolerated M3 OT- IP Subjective and Pain Start: 03/15/19 16:04 Freq: Status: Active Protocol: Document 03/16/19 10:10 CGR (Rec: 03/16/19 10:11 CGR [id number]) OT- Subjective Occupational Therapy Visit Type Type Administrative Note Notes Pt with critical lab values: H &H 6.4 & 19.3. Blood transfusion 03/16. Will hold and continue to follow for OT needs.
[2019-03-16] MEDS: SODIUM CHLORIDE 0.9% 1,000 ML 125 ML IV (12:04)
--- NOTE | 2019-03-16 14:17 | PC.NURSE ---
First unit of blood started at 1417.
--- NOTE | 2019-03-16 14:39 | PT.IPTN ---
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) Unspecified adrenocortical insufficiency (03/14/19) Hypo-osmolality and hyponatremia (03/14/19) Chronic obstructive pulmonary disease, unspecified (03/14/19) Chronic respiratory failure with hypoxia (03/14/19) Physical Therapy Treatment Note M2 PT-IP Current Condition Start: 03/14/19 16:43 Freq: NEEDED Status: Active Protocol: Document 03/15/19 10:13 AB (Rec: 03/15/19 12:43 AB [id number]) Physical Therapy Current Condition Current Condition Evaluation Date 03/15/19 Treatment Diagnosis hyponatremia; difficulties in walking Onset Date 03/14/19 M3 PT-IP Subjective Start: 03/14/19 16:43 Freq: NEEDED Status: Active Protocol: Document 03/16/19 14:27 GGD (Rec: 03/16/19 14:39 GGD [id number]) Subjective Physical Therapy Visit Type Type Administrative Note Notes Pt with low lab values H & H. Blood transfusion 03/16. Will hold and continue when medically stable.
[2019-03-16] MEDS: MELOXICAM 7.5 MG TABLET 15 MG PO (17:40)
[2019-03-16] MEDS: MONTELUKAST 10 MG TABLET PO (17:41)
[2019-03-16] MEDS: ALBUTEROL HFA 60 PUFF/8 GM INH INH (19:40)
[2019-03-16] MEDS: MELATONIN 3 MG TABLET 6 MG PO (21:00)
[2019-03-16] MEDS: ACETAMINOPHEN 325 MG TABLET 650 MG PO (22:38)
[2019-03-16] MEDS: CEFTRIAXONE 2 GM/50 ML FROZ.PIGGY IV (22:42)
--- NOTE | 2019-03-16 23:40 | PC.NURSE ---
Addendum entered by Jonelle Arreaga R.N. 03/17/19 05:46: Pt's vital signs have improved, at time of this amendment pt's bp is 102/66 and HR 93. Pt has been incontinent of urine during shift, made multiple attempts to catch urine in bed alex but unsuccessful. SCRAP HOIST OPERATOR notified and asked if he wanted a straight cath sample for the post-transfusion reaction protocol u/a, after a discussion on the pt's urine output characteristics, namely that it was clear in color (not blush or red tinged) without odor at this time deemed that invasive measures not warranted. Pt reports feeling better as well and the only interventions required was APAP and 500ml NS bolus. Original Note: Shift note: Received pt from evening shift. Pt having possible transfusion reaction, SCRAP HOIST OPERATOR aware and monitoring closely. Pt is lying supine in bed, diaphoretic, flushed in the face, temp initially 103 that came down to 98.3 with APAP per JAN. Pt denies feeling unwell just hot and skin is noticeably hot to the touch. Pt's lung sounds are unchanged according to evening shift, and unchanged from last night on this RN's previous shift, pt is not edematous. Pt's initial BP for this shift was 89/56, SCRAP HOIST OPERATOR notified and requested that it's monitored closely, monitor set to q15 minutes. Will continue to monitor pt closely for changes in BP, mentation, telemetry monitoring and other pertinent vital signs.
[2019-03-17] VITALS (11 sets, daily range): BP systolic 83–102; BP diastolic 51–66; PULSE 88–99; RESP 16–20; TEMP 36.1–36.5; O2SAT 93–99
[2019-03-17] MEDS: SODIUM CHLORIDE 0.9% 500 ML IV (02:19)
[2019-03-17] MEDS: FLUTICASONE/SALMETEROL 500/50 14 PUFF DISKUS INH (05:30)
[2019-03-17] MEDS: ALBUTEROL HFA 60 PUFF/8 GM INH INH (05:30)
[2019-03-17 05:52] LABS: Add Manual Diff / Slide Review NO; Basophils Absolute Auto 100 /uL (0-100); Basophils Percent Auto 0.9 % (0-2); Eosinophils Absolute Auto 0 /uL (0-450); Eosinophils Percent Auto 0.1 % (2-4); Hematocrit 34.2 % (36-46); Hemoglobin 11.3 g/dL (12.0-16.0); Lymphocytes Absolute Auto 1000 /uL (1100-4500); Lymphocytes Percent Auto 16.3 % (25-40); Mean Corpuscular Hemoglobin 27.6 PG (26-34); Mean Corpuscular Volume 83.7 fL (80-100); Monocytes Absolute Auto 700 /uL (0-900); Neutrophils Absolute Auto 4400 /uL (1500-7000); Neutrophils Percent Auto 70.7 % (50-75); Platelet Count 81 X10^3/uL (150-400); Red Blood Cell Count 4.09 X10^6/uL (4.0-5.2); Red Cell Distribution Width 17.6 % (11.6-14.8); White Blood Cell Count 6.2 X10^3/uL (4.5-11.0)
[2019-03-17 06:00] LABS: Alanine Aminotransferase 20 IU/L (9-52); Albumin 2.1 g/dL (3.5-5.0); Albumin Globulin Ratio 0.7 (1.0-2.8); Alkaline Phosphatase 134 U/L (38-126); Aspartate Aminotransferase 35 IU/L (14-36); Bilirubin Total 0.9 mg/dL (0.2-1.3); Blood Urea Nitrogen 9 mg/dL (7-17); Carbon Dioxide 26 mmol/L (22-32); Chloride 95 mmol/L (98-107); Estimated Glomerular Filt Rate > 60.0 mL/min (>60); Globulin 3.1 g/dL (1.7-4.1); Glucose 109 mg/dL (80-110); HEMOLYSIS < 15 (0-50); Potassium 3.6 mmol/L (3.4-5.1); Sodium 126 mmol/L (137-145); Total Protein 5.2 g/dL (6.3-8.2)
[2019-03-17] MEDS: LEVOTHYROXINE 50 MCG TABLET PO (06:10)
[2019-03-17] MEDS: SODIUM CHLORIDE 0.9% 1,000 ML 125 ML IV (06:52)
[2019-03-17] MEDS: FLUDROCORTISONE 0.1 MG TABLET 0.2 MG PO (08:27)
[2019-03-17] MEDS: FERROUS GLUCONATE 324 MG TABLET PO (08:27)
[2019-03-17] MEDS: HEPARIN 5,000 UNIT/ML VIAL 5000 UNIT SUBCUT (08:27)
[2019-03-17] MEDS: DOCUSATE 100 MG CAPSULE PO (08:27)
[2019-03-17] MEDS: ASCORBIC ACID 500 MG TABLET PO (08:27)
[2019-03-17] MEDS: METOPROLOL IR 25 MG TABLET 12.5 MG PO (08:28)
[2019-03-17] MEDS: HYDROCORTISONE 10 MG TABLET PO (08:28)
[2019-03-17] MEDS: SENNOSIDES 8.6 MG TABLET 17.2 MG PO (08:28)
--- NOTE | 2019-03-17 10:45 | PC.NURSE ---
Pt dressed and ready for discharge home with Spouse and Family. Per Pt request - reviewed d/c meds and instructions with Spouse. Discussed med changes, reviewed stroke education, and follow up recommendations as well as fluid restriction. Pt already has a follow up appointment scheduled with DR. Zhang for Monday. Pt out via w/c by [employer] with Spouse and all belongings.
--- NOTE | 2019-03-17 12:35 | CM.DPC ---
DCP Discharge Home Per MD, pt likely stable for d/c home with spouse today and no needs identified. SW kept looking for discharge orders but per RN pt was eager for discharge home today and was dressed with spouse bedside and discharged home by 1045 this morning right after MD rounded. SW unfortunately missed meeting bedside with pt but no d/c needs at this time. Plan: Patient discharged home via spouse POV and no SW needs. MARLA Hanley
--- NOTE | 2019-03-17 16:50 | P.DS_ITS ---
History of Present Illness Chief complaint: Sodium is very low Narrative: Abi Friedman is a 63-year-old female with a history of hyponat remia recent community-acquired and aspiration pneumonia, chronic hypoxic respiratory failure related to COPD and bronchiectasis with recurrent pulmonary infections was sent to the ER by her primary care provider related to hyponatremia. She was recently discharged from hospital on February 26, 2019 f ollowing treatment for hyponatremia and diagnosed adrenal insufficiency as well as undergoing treatment for bilateral pneumonia. Patient was discharged on hydrocortisone 10 mg every evening 5 mg in as well as fludrocortisone 0 2 mg daily. The patient states she has never felt well since discharge and describes a waxing and waning symptoms including episodes of confusion fatigue and weakness and occasional diplopia. She denies complaints orthostasis ataxia and has sustained no falls. She reports no fevers or chills and has generalized body aches related to arthritis. She denies headaches or difficulty swallowing but does report sinus congestion. She reports no chest pain or palpitations. She has chronic bronchiectasis and has a chronic productive cough for tenacious sputum. She reports no dyspnea and feels that she is at baseline for respiration. She denies abdominal pain, nausea or vomiting has had no diarrhea. He does have occasional constipation indicating that it resolves in a few days and has been using senna as needed. She does report frequent urination and incontinence related to urgency. The patient does relate that she limits her oral fluid intake. In the ER the patient is to be afebrile a temperature 97.6, heart rate of 88, blood pressure 135/54, respirations of 16 and 100% on 2 L nasal cannula. On laboratory analysis her CBC reflects ongoing chronic anemia with a hemoglobin of 7.5 and hematocrit of 22.5 with platelets of 105. The patient reports no unusual bruising or bloody stools. On chemistry her sodium is 115 and potassium 3.3. Her BUN is 9 and creatinine is 0.5. Her glucose is slightly low at 77. Her calcium is low but corrects to 8.6 based on albumin of 2.0. She does have an increased alkaline phosphatase 1.28 and otherwise LFTs within normal limits. Her magnesium is also low at 1.4. The patient is admitted to the hospital for further evaluation and monitored correction of hyponatremia. Discharge Providers Date of admission: 03/14/19 14:12 Discharge Date: 03/17/19 Primary care physician: Donald Hoang DO Consults: 03/14/19 14:39 Consult to Dietitian, Adult Routine Comment: Reason For Exam: Hyponatremia severe Consult to Occupational Therapy Evaluate & Treat Comment: Physician Instructions: Evaluate and treat Consult to Physical Therapy Evaluate & Treat Comment: Physician Instructions: Evaluate and Treat 03/14/19 20:21 Consult to Respiratory Therapy Evaluate & Treat Comment: Bronchiectasis, COPD, chronic hypoxic respiratory Physician Instructions: Evaluate and treat Discharge provider: Torito Barnett MD Summary Discharge Diagnosis: 1. Acute on chronic hyponatremia 2. Chronic adrenal insufficiency 3. Acute on chronic iron deficiency anemia 4. Chronic thrombocytopenia 5. Iatrogenic hyperthyroidism with suppressed TSH 6. Urinary tract infection, Streptococcus organism 7. Acute hypokalemia 8. Acute hypomagnesemia 9. Chronic hypoxic respiratory failure due to COPD and bronchiectasis 10. Opioid dependency due to chronic pain Hospital Course: Hospital course by problem: 1. Acute on chronic hyponatremia: Admit serum sodium 115, baseline Serum sodium 124-127. Patient diagnosed last admission with adrenal insufficiency and started on hydrocortisone and fludrocortisone which she has been taking as directed. Her a.m. cortisol level was 2.66 on 02/24/2019. Per last discharge summary on 02/26/2019 diagnosis of adrenal insufficiency was confirmed with cosyntropin stimulation test. She has not had pituitary MRI yet. During this admission, she was treated with saline and fluid restriction with serum sodium gradually coming back up to 126 which is in her baseline range. There is also concern she may have element of psychogenic polydipsia. She is advised to maintain total fluid restriction to 1000 mL a day. Patient is advised she would benefit from Endocrinology referral by PCP. She should have repeat electrolytes checked in a week. Also we did increase her oral hydrocortisone to 10 mg b.i.d. and continued on the fludrocortisone current dose 0.2 mg daily. 2. Acute on chronic iron deficiency anemia: She has iron deficiency and chronic microcytic anemia documented on prior labs. This admission her hemoglobin dropped as low as 6.4 with hematocrit of 19.3 assess the taping transfusion 2 u nits PRBC. This a.m. hemoglobin 11.3 and 34.2. She did have a mild transfusion reaction with fever, chills which resolved with Tylenol and Benadryl. There was no obvious acute bleed such as melena or bright red blood per rectum. Patient is strongly advised to have additional outpatient workup for chronic blood loss as it has been over a decade since she had any endoscopy. Recommended she see GI for upper and lower endoscopy. She is on meloxicam which carries risk of ulcer disease. 3. Chronic thrombocytopenia: Also noted to have chronically low platelets ranging between 54 and 104 but mostly in the 70s to 80s on recent labs. Patient advise to have PCP referred to hematology oncology for further evaluation. 4. Iatrogenic hyperthyroidism: Patient with suppressed TSH of 0.03 with free T4 0.95 on replacement Synthroid 50 mcg daily. Last admission also noted to have TSH near 0. Her Synthroid dose was reduced to 25 mcg daily on this admission. She is advised to have repeat thyroid testing in 4-6 weeks and possibly may not require any thyroid replacement at all. Five urinary tract infection, acute, urine culture growing Streptococcus organism. This was treated with Rocephin during this admission with resolution of patient's urinary symptoms. 5. Electrolyte imbalance with hypokalemia and hypomagnesemia. This was corrected during this admission and patient discharged on oral potassium replacement. Patient is discharged in much improved condition, both symptoms and laboratories values, but understands need for close outpatient follow-up with PCP and referral to appropriate specialists as outlined above. Total time over 35 minutes in discharge management and coordination on today's visit. Exam Vital Signs (past 8 hours): Oxygen Delivery Method Nasal Cannula Oxygen Flow Rate 2 Objective Labs Result Diagrams: 03/17/19 05:27 03/17/19 05:27 Labs: Laboratory Results - last 24 hr 03/16/19 03/16/19 03/17/19 06:48 22:50 05:27 WBC 6.2 RBC 4.09 Hgb 11.3 L Hct 34.2 L MCV 83.7 D MCH 27.6 MCHC 33.0 RDW 17.6 H Plt Count 81 L Neut % (Auto) 70.7 Lymph % (Auto) 16.3 L [place] % (Auto) 12.0 Eos % (Auto) 0.1 L Baso % (Auto) 0.9 Neut # (Auto) 4400 Lymph # (Auto) 1000 L [place] # (Auto) 700 Eos # (Auto) 0 Baso # (Auto) 100 Sodium Potassium Chloride Carbon Dioxide BUN Creatinine Estimated GFR BUN/Creatinine Ratio Glucose Calcium Total Bilirubin AST ALT Alkaline Phosphatase Total Protein Albumin Globulin Albumin/Globulin Ratio Blood Type O Positive Antibody Screen Positive Antibody Identification Anti-c Antigen Identification c Antigen - NEGATIVE Crossmatch See Detail Transfusion React Rpt No discrepancies Donor Unit # [id number] Lab Clerical Err Check No error found Pre-Trans Blood Type O positive Pre-Trans Vis Hemolysis No Pre-Trans Antibody Scrn Not Reportable Post-Trans Blood Type O positive Post-Tx Visible Hemolys No Post-Trans Antibody Scrn Not Reportable 03/17/19 05:27 WBC RBC Hgb Hct MCV MCH MCHC RDW Plt Count Neut % (Auto) Lymph % (Auto) [place] % (Auto) Eos % (Auto) Baso % (Auto) Neut # (Auto) Lymph # (Auto) [place] # (Auto) Eos # (Auto) Baso # (Auto) Sodium 126 L Potassium 3.6 Chloride 95 L Carbon Dioxide 26 BUN 9 Creatinine 0.50 L Estimated GFR > 60.0 BUN/Creatinine Ratio 18.0 Glucose 109 Calcium 7.0 L Total Bilirubin 0.9 AST 35 ALT 20 Alkaline Phosphatase 134 H Total Protein 5.2 L Albumin 2.1 L Globulin 3.1 Albumin/Globulin Ratio 0.7 L Blood Type Antibody Screen Antibody Identification Antigen Identification Crossmatch Transfusion React Rpt Donor Unit # Lab Clerical Err Check Pre-Trans Blood Type Pre-Trans Vis Hemolysis Pre-Trans Antibody Scrn Post-Trans Blood Type Post-Tx Visible Hemolys Post-Trans Antibody Scrn Discharge Plan Discharge Plan Patient Disposition: Home Discharge Med Rec/Prescriptions Prescriptions: New levothyroxine 25 mcg tablet 25 mcg PO DAILY Qty: 30 RF: 0 hydrocortisone 10 mg tablet 10 mg PO BID Qty: 60 RF: 0 potassium chloride 20 mEq tablet extended release 20 meq PO DAILY Qty: 30 RF: 0 Continued fluticasone propion-salmeterol [Advair Diskus] 500 MCG/50 MCG blister with device 1 puff INH BID Qty: 0 RF: 0 ipratropium-albuterol 3 ML solution for nebulization 1 amp NEB QIDP PRN (Reason: Shortness Of Breath) Qty: 0 RF: 0 meloxicam 15 MG tablet 15 mg PO QPM Qty: 0 RF: 0 alendronate [Fosamax] 70 MG tablet 70 mg PO QWEEKMO Qty: 0 RF: 0 duloxetine [Cymbalta] 60 MG capsule,delayed release(DR/EC) 60 mg PO BEDTIME Qty: 0 RF: 0 sennosides [senna] 8.6 MG tablet 8.6 tab PO QAM Qty: 0 RF: 0 famotidine 20 mg tablet 20 mg PO DAILY RF: 0 fludrocortisone 0.1 mg tablet 0.2 mg PO DAILY RF: 0 cyclobenzaprine 10 mg tablet 10 mg PO TID PRN (Reason: Muscle Spasm) RF: 0 metoprolol tartrate 25 mg tablet 12.5 mg PO BID RF: 0 buprenorphine-naloxone 4-1 mg film 1 film Sublingual DAILY RF: 0 cromolyn 4 % Drops 1 drp EYE-BOTH PRN RF: 0 lidocaine HCl [Lidocaine Viscous] 2 % Solution 5 ml PO Q4H PRN (Reason: pain) RF: 0 montelukast 10 mg Tablet 10 mg PO QPM RF: 0 albuterol sulfate [Ventolin HFA] 90 mcg/actuation Hfa Aerosol Inhaler 1 - 2 puff INHALATION PRN PRN (Reason: Shortness Of Breath) RF: 0 ondansetron 4 mg Tablet,Disintegrating 4 mg Translingual PRN PRN (Reason: Nausea) RF: 0 cholecalciferol (vitamin D3) [Vitamin D3] 2,000 unit Capsule 2,000 unit PO DAILY RF: 0 melatonin 3 mg Tablet 6 mg PO BEDTIME Qty: 30 RF: 0 lidocaine 5 % Adhesive Patch,Medicated 1 ea topical DAILY PRN (Reason: Pain, Moderate (4-6)) Qty: 30 RF: 0 Discontinued levothyroxine 50 mcg tablet 50 mcg PO DAILY RF: 0 hydrocortisone [Cortef] 10 mg Tablet 10 mg PO QPM Qty: 30 RF: 0 hydrocortisone [Cortef] 10 mg Tablet 5 mg PO DAILY Qty: 30 RF: 0 Follow up/Referrals: Donald Hoang DO [Primary Care Provider] - 1 Week (Needs GI referral for iron deficiency work up. Needs oncology referral for chronic low platelets. Needs endocrinology referral for adrenal insufficiency diagnosed last admission. Needs repeat thyroid testing in a month - levothyroxine dose reduction to 25mcg daily. Needs electrolytes rechecked in 2 weeks. ) Provider Discharge Instructions Diet: Regular Diet comment: restrict total fluid intake to 1000 ml a day Visit Report/Discharge Packet Instructions: Anemia, Hyponatremia-Adult, Levothyroxine (By mouth) Discharge Data Primary Care Provider: Donald Hoang Attending Provider: Marielena Yuan Admit Date/Time: 03/14/19 14:12 Discharges patient from system. Discharge Date/Time: 03/17/19 10:59 Quality VTE Deep Vein Thrombosis/Pulmonary Embolism Present on Admission: No
[2019-03-18 17:45] LABS: Osmolality, Serum 253 mosm/kg (260-310)
[2019-03-18 17:47] LABS: Osmolality Urine 156 mOsm/kg (50-1200)
== END 2019-03-17 10:59 | disposition home or self-care (01) | DRG 641 ==
LOC: ED 14:09 → AC 14:13
PROVIDERS: Family Medicine; Nurse Practitioner Adult Health; Admitting Provider Internal Medicine; Emergency Provider Emergency Medicine; PCP Family Medicine; Visit Provider Internal Medicine
DX: E87.1 Hypo-osmolality and hyponatremia (principal); E27.40 Unspecified adrenocortical insufficiency; J96.11 Chronic respiratory failure with hypoxia; F11.20 Opioid dependence, uncomplicated; I47.1 Supraventricular tachycardia; E46 Unspecified protein-calorie malnutrition; N39.0 Urinary tract infection, site not specified; E87.6 Hypokalemia; Z99.81 Dependence on supplemental oxygen; D69.6 Thrombocytopenia, unspecified; E83.42 Hypomagnesemia; E88.09 Other disorders of plasma-protein metabolism, not elsewhere classified; J44.9 Chronic obstructive pulmonary disease, unspecified; E03.9 Hypothyroidism, unspecified; M81.0 Age-related osteoporosis without current pathological fracture; D50.9 Iron deficiency anemia, unspecified; Z68.27 Body mass index [BMI] 27.0-27.9, adult; B95.4 Other streptococcus as the cause of diseases classified elsewhere; G89.29 Other chronic pain
CPT/HCPCS: 36415; 36430; 80048; 80053; 80061; 81001; 82533; 83735; 83930; 83935; 84145; 84295; 84300; 84439; 84443; 85025; 86078; 86850; 86870; 86900; 86901; 86902; 87077; 87086; 87186; 94640; 94667; 94760; 94762; 96361; 96374; 97161; 97165; 97530; 97535; 99283; 99284; P9016; J0696; J1100; J1644; J3480

== ENCOUNTER 2019-03-25 14:11 | Emergency (ER) | payer OTHER, SELFPAY ==
[2019-03-14 16:31] VITALS: BMI 26.8
[2019-03-25 14:15] VITALS: BP 103/55; PULSE 99; RESP 20; O2SAT 95; BMI 21.6
--- NOTE | 2019-03-25 14:20 | ED.ARRPALP ---
HPI - Arrhythmia/Palpitations <Jess Raza PA-C - Last Filed: 03/25/19 18:37> General Chief Complaint: Chest Pain Stated Complaint: states her sodium is low,heart palpitations Time Seen by Provider: 03/25/19 14:18 Source: patient and family Mode of arrival: wheelchair Limitations: no limitations History of Present Illness HPI narrative: This 63-year-old female who was discharge from this facility last week, returns due to feeling poorly again today. She states that she had onset of left-sided chest pain at 2:30 a.m. this morning while at rest. She states this felt like ?an elephant? on her chest id she thought it might be due to her asthma or from her broken ribs a couple of months ago. She tried her inhaler but it was ineffective. She states that she eventually took a dose of her 's nitroglycerin and that seemed to help. She has not had any chest pain for the last 2 hours. She states that pain was localized in the left lateral chest and breast area, no pain in the jaw or extremities, no pain radiation. She states that pain did feel similar to her ?asthma?. She states that she has chronic ongoing cough, but thinks may be somewhat worse since her hospitalization. She has had increased sticky sputum production. She denies any fever, chills, sweats, she denies any nausea or vomiting. She states she has had increased swelling in both legs since hospital discharge, not noticing that this is worse today. Not having new pain in her legs. She states that she felt maybe a little bit more short of breath with her chest pain earlier. She states that she has felt ?dizzy? intermittently, which she describes as a lightheaded sensation. She states that she has also noted more heart palpitations today. She states she has these occasionally, but more frequent today. She thinks they are brief the but not sure exactly how long they last. She denies nausea or vomiting. No difficulty with speech, chewing, coordination. No other new complaints on systems review. Patient declines ASA Related Data Home Medications Medication Instructions Recorded Confirmed duloxetine [Cymbalta] 60 mg PO BEDTIME #0 01/10/18 03/25/19 ipratropium-albuterol 1 amp NEB QIDP PRN #0 01/10/18 03/14/19 meloxicam 15 mg PO QPM #0 01/10/18 03/25/19 sennosides [senna] 8.6 tab PO QAM #0 01/10/18 03/14/19 buprenorphine-naloxone 1 film SUBLINGUAL DAILY 02/15/19 03/25/19 cholecalciferol (vitamin D3) 2,000 unit PO DAILY 02/15/19 03/25/19 [Vitamin D3] cromolyn 1 drp EYE-BOTH PRN 02/15/19 03/25/19 cyclobenzaprine 10 mg PO TID PRN 02/15/19 03/25/19 lidocaine HCl [Lidocaine Viscous] 5 ml PO Q4H PRN 02/15/19 03/25/19 metoprolol tartrate 12.5 mg PO BID 02/15/19 03/25/19 montelukast 10 mg PO QPM 02/15/19 03/25/19 ondansetron 4 mg TRANSLINGUAL PRN PRN 02/15/19 03/25/19 famotidine 20 mg PO DAILY 03/14/19 03/25/19 fludrocortisone 0.2 mg PO DAILY 03/14/19 03/25/19 albuterol sulfate [Ventolin HFA] 2 puff INHALATION Q4H PRN 03/25/19 03/25/19 alendronate 70 mg PO QWEEK 03/25/19 03/25/19 fluticasone propion-salmeterol 1 puff INHALATION BID 03/25/19 03/25/19 [Wixela Inhub] Previous Rx's Medication Instructions Recorded lidocaine 1 ea TOPICAL DAILY PRN #30 ea 02/26/19 melatonin 6 mg PO BEDTIME #30 tab 02/26/19 hydrocortisone 10 mg PO BID #60 tab 03/17/19 levothyroxine 25 mcg PO DAILY #30 tab 03/17/19 potassium chloride 20 meq PO DAILY #30 tab 03/17/19 furosemide [Lasix] 20 mg PO QAM PRN #2 tab 03/25/19 potassium chloride 10 meq PO DAILY #2 cap 03/25/19 Allergies Allergy/AdvReac Type Severity Reaction Status Date / Time Haemophilus B polysaccharide Allergy Severe ANAPHYLAXIS Verified 03/25/19 14:24 conj w [From PENTACEL ACTHIB COMPONENT (PF)] peanut [PEANUT] Allergy Severe ANAPHYLAXIS Verified 03/25/19 14:24 Tetanus Vaccines and Toxoid Allergy Severe ANAPHYLAXIS Verified 03/25/19 14:24 [TETANUS VACCINES & TOXOID] penicillin G [PENICILLIN G] Allergy Intermediate RASH Verified 03/25/19 14:24 hydroxyzine [HYDROXYZINE] AdvReac Severe HALLUCINATI Verified 03/25/19 14:24 ONS/PARANOI D ibuprofen [IBUPROFEN] AdvReac Intermediate DYSLEXIA Verified 03/25/19 14:24 PEAS Allergy Severe RASH, LIP Uncoded 02/15/19 12:45 SWELLING Review of Systems <Jess Raza PA-C - Last Filed: 03/25/19 18:37> Review of Systems ROS Unobtainable: All systems reviewed & are unremarkable except as noted in HPI and below PFSH <Jess Raza PA-C - Last Filed: 03/25/19 18:37> Medical History (Updated 03/25/19 @ 18:06 by Jess Raza PA-C) Bronchiectasis (Chronic) Thrombocytopenia (Chronic) Adrenal insufficiency (Chronic) Iron deficiency anemia (Chronic) Hyponatremia (Chronic) Supraventricular tachycardia (Chronic) Chronic respiratory failure with hypoxia (Chronic) Hypothyroidism (Chronic) Major depressive disorder (Chronic) Osteoporosis (Chronic) Opioid dependence (Chronic) Aspiration pneumonia due to food (regurgitated) (Acute) Hypovolemic shock (Acute) Surgical History (Updated 03/25/19 @ 14:43 by Jess Raza PA-C) Abdominal adhesions (Chronic) H/O exploratory laparotomy (Resolved) Social History household members: spouse Smoking Status: Never smoker Social History household members: spouse Smoking Status: Never smoker Exam <Jess Raza PA-C - Last Filed: 03/25/19 18:37> Narrative Exam Narrative: GENERAL APPEARANCE: Patient sitting comfortably, in no distress. HEENT: PERRL, EOMI, conjunctivae pale, normal oropharynx NECK/THYROID: Neck supple, no JVD or masses. LUNGS: Generalized coarse, congested breath sounds without clear wheezes or crackles, wet cough on exam HEART: Regular rate and rhythm with faint I/ systolic murmur, occasional skip, normal S1 and S2, no S3 or S4 ABDOMEN: Soft, NT, ND, + BS x 4 quadrants EXTREMITIES: No cyanosis, moderate pitting which is symmetric bilaterally. No calf tenderness NEUROLOGIC: Alert and oriented, normal speech, and coordination. Initial Vital Signs Initial Vital Signs: Vital Signs Pulse Rate 99 H 03/25/19 14:15 Respiratory Rate 20 03/25/19 14:15 Blood Pressure 103/55 L 03/25/19 14:15 Pulse Oximetry 95 03/25/19 14:15 <Sneha Jules DO - Last Filed: 03/28/19 07:43> Initial Vital Signs Initial Vital Signs: Vital Signs Pulse Rate 99 H 03/25/19 14:15 Respiratory Rate 20 03/25/19 14:15 Blood Pressure 103/55 L 03/25/19 14:15 Pulse Oximetry 95 03/25/19 14:15 Course <Jess Raza PA-C - Last Filed: 03/25/19 18:37> Additional Information: Patient reports that her chest is feeling much improved after diuresis. She has put out 500 mL of urine. She has not had any recurrent pain. blood pressure is consistent with previous hospital readings. We will have her take Lasix for the next 2 days and follow up with her PCP. She agreed to return if acutely worse again. Discussed need for close monitoring given her chronic conditions, and she and her are agreeable. Findings and plan reviewed with attending Dr. Jules who is in agreement. Orders Ordered: Discontinued Medications Aspirin (Aspirin Chew) 324 mg PO NOW ONE Stop: 03/25/19 14:32 Last Admin: 03/25/19 14:44 Dose: 324 mg Furosemide (Lasix) 40 mg IV NOW ONE Stop: 03/25/19 15:39 Last Admin: 03/25/19 16:14 Dose: 40 mg Potassium Chloride (Klor-Con M20) 20 meq PO NOW ONE Stop: 03/25/19 16:13 Last Admin: 03/25/19 16:15 Dose: 20 meq Vital Signs - 8 hr 03/25/19 14:15 03/25/19 14:30 03/25/19 15:00 Temperature 98.3 F Pulse Rate 99 H 96 H 95 H Respiratory Rate 18 Blood Pressure 103/55 L Blood Pressure [Right Arm] 106/68 96/62 Pulse Oximetry 95 96 95 03/25/19 16:00 03/25/19 16:30 03/25/19 17:30 Temperature Pulse Rate 96 H 92 H 82 Respiratory Rate 20 18 14 Blood Pressure Blood Pressure [Right Arm] 104/61 91/43 L 89/58 L Pulse Oximetry 96 95 98 <Sneha Jules DO - Last Filed: 03/28/19 07:43> Orders Ordered: Discontinued Medications Aspirin (Aspirin Chew) 324 mg PO NOW ONE Stop: 03/25/19 14:32 Last Admin: 03/25/19 14:44 Dose: 324 mg Furosemide (Lasix) 40 mg IV NOW ONE Stop: 03/25/19 15:39 Last Admin: 03/25/19 16:14 Dose: 40 mg Potassium Chloride (Klor-Con M20) 20 meq PO NOW ONE Stop: 03/25/19 16:13 Last Admin: 03/25/19 16:15 Dose: 20 meq Vital Signs - 8 hr 03/25/19 14:15 03/25/19 14:30 03/25/19 15:00 Temperature 98.3 F Pulse Rate 99 H 96 H 95 H Respiratory Rate 20 19 18 Blood Pressure 103/55 L Blood Pressure [Right Arm] 106/68 96/62 Pulse Oximetry 95 96 95 03/25/19 16:00 03/25/19 16:30 03/25/19 17:30 Temperature Pulse Rate 96 H 92 H 82 Respiratory Rate 20 18 14 Blood Pressure Blood Pressure [Right Arm] 104/61 91/43 L 89/58 L Pulse Oximetry 96 95 98 MDM - Arrhythmia/Palpitations <Jess Raza PA-C - Last Filed: 03/25/19 18:37> Lab Data Attestation: I reviewed the patient's lab results. Result diagrams: 03/25/19 14:32 03/25/19 14:32 Lab Results 03/25/19 03/25/19 03/25/19 Range/Units 14:32 14:32 14:32 WBC 6.3 (4.5-11.0) X10^3/uL RBC 2.77 L (4.0-5.2) X10^6/uL Hgb 7.6 L (12.0-16.0) g/dL Hct 22.8 L (36-46) % MCV 82.3 (80-100) fL MCH 27.3 (26-34) PG MCHC 33.1 (30-36) % RDW 19.4 H (11.6-14.8) % Plt Count 88 L (150-400) X10^3/uL Neut % (Auto) Not Reportable Lymph % (Auto) Not Reportable Randall % (Auto) Not Reportable Eos % (Auto) Not Reportable Baso % (Auto) Not Reportable Lymph # (Auto) Not Reportable Randall # (Auto) Not Reportable Baso # (Auto) Not Reportable Total Counted 100 Seg Neutrophils % 86.0 H (38-70) % Band Neutrophils % 3.0 (3-7) % Lymphocytes % (Manual) 4.0 L (25-45) % Monocytes % (Manual) 7.0 (2-11) % Neutrophils # (Manual) [phone] ([id number]) /uL RBC Morphology Not Reportable Polychromasia 1+ H Anisocytosis 1+ H PT 13.4 H (10.1-12.7) SECONDS INR 1.2 (0.9-1.3) APTT 30 D (26.4-36.2) SECONDS Sodium 124 L (137-145) mmol/L Potassium 4.2 (3.4-5.1) mmol/L Chloride 93 L (98-107) mmol/L Carbon Dioxide 25 (22-32) mmol/L BUN 14 (7-17) mg/dL Creatinine 0.50 L (0.52-1.04) mg/dL Estimated GFR > 60.0 (>60) mL/min BUN/Creatinine Ratio 28.0 H (6-22) Glucose 113 H (80-110) mg/dL Lactate (0.7-2.1) mmol/L Calcium 7.3 L (8.4-10.2) mg/dL Magnesium 1.5 L (1.6-2.3) mg/dL Total Bilirubin 0.9 (0.2-1.3) mg/dL AST 43 H (14-36) IU/L ALT 47 (9-52) IU/L Alkaline Phosphatase 166 H (38-126) U/L Total Creatine Kinase 21 L (30-135) U/L CK-MB (CK-2) TNP CK-MB (CK-2) Rel Index TNP Troponin I < 0.012 (0.01-0.034) ng/mL B-Natriuretic Peptide 443 H (<100) Total Protein 5.4 L (6.3-8.2) g/dL Albumin 2.1 L (3.5-5.0) g/dL Globulin 3.3 (1.7-4.1) g/dL Albumin/Globulin Ratio 0.6 L (1.0-2.8) Lipase 33 (23-300) U/L Urine RBC (0-5/HPF) Urine WBC (0-5/HPF) Urine Bacteria (None) Ur Culture Indicated? Blood Type Antibody Screen Antibody Identification 03/25/19 03/25/19 03/25/19 Range/Units 14:32 14:32 16:55 WBC (4.5-11.0) X10^3/uL RBC (4.0-5.2) X10^6/uL Hgb (12.0-16.0) g/dL Hct (36-46) % MCV (80-100) fL MCH (26-34) PG MCHC (30-36) % RDW (11.6-14.8) % Plt Count (150-400) X10^3/uL Neut % (Auto) Lymph % (Auto) Randall % (Auto) Eos % (Auto) Baso % (Auto) Lymph # (Auto) Randall # (Auto) Baso # (Auto) Total Counted Seg Neutrophils % (38-70) % Band Neutrophils % (3-7) % Lymphocytes % (Manual) (25-45) % Monocytes % (Manual) (2-11) % Neutrophils # (Manual) ([id number]) /uL RBC Morphology Polychromasia Anisocytosis PT (10.1-12.7) SECONDS INR (0.9-1.3) APTT (26.4-36.2) SECONDS Sodium (137-145) mmol/L Potassium (3.4-5.1) mmol/L Chloride (98-107) mmol/L Carbon Dioxide (22-32) mmol/L BUN (7-17) mg/dL Creatinine (0.52-1.04) mg/dL Estimated GFR (>60) mL/min BUN/Creatinine Ratio (6-22) Glucose (80-110) mg/dL Lactate 2.3 H (0.7-2.1) mmol/L Calcium (8.4-10.2) mg/dL Magnesium (1.6-2.3) mg/dL Total Bilirubin (0.2-1.3) mg/dL AST (14-36) IU/L ALT (9-52) IU/L Alkaline Phosphatase (38-126) U/L Total Creatine Kinase (30-135) U/L CK-MB (CK-2) CK-MB (CK-2) Rel Index Troponin I (0.01-0.034) ng/mL B-Natriuretic Peptide (<100) Total Protein (6.3-8.2) g/dL Albumin (3.5-5.0) g/dL Globulin (1.7-4.1) g/dL Albumin/Globulin Ratio (1.0-2.8) Lipase (23-300) U/L Urine RBC None seen (0-5/HPF) Urine WBC 0-1/hpf (0-5/HPF) Urine Bacteria None seen (None) Ur Culture Indicated? Specimen cultured Blood Type O Positive Antibody Screen Positive Antibody Identification Anti-c 03/25/19 Range/Units 16:59 WBC (4.5-11.0) X10^3/uL RBC (4.0-5.2) X10^6/uL Hgb (12.0-16.0) g/dL Hct (36-46) % MCV (80-100) fL MCH (26-34) PG MCHC (30-36) % RDW (11.6-14.8) % Plt Count (150-400) X10^3/uL Neut % (Auto) Lymph % (Auto) Randall % (Auto) Eos % (Auto) Baso % (Auto) Lymph # (Auto) Randall # (Auto) Baso # (Auto) Total Counted Seg Neutrophils % (38-70) % Band Neutrophils % (3-7) % Lymphocytes % (Manual) (25-45) % Monocytes % (Manual) (2-11) % Neutrophils # (Manual) ([phone]) /uL RBC Morphology Polychromasia Anisocytosis PT (10.1-12.7) SECONDS INR (0.9-1.3) APTT (26.4-36.2) SECONDS Sodium (137-145) mmol/L Potassium (3.4-5.1) mmol/L Chloride (98-107) mmol/L Carbon Dioxide (22-32) mmol/L BUN (7-17) mg/dL Creatinine (0.52-1.04) mg/dL Estimated GFR (>60) mL/min BUN/Creatinine Ratio (6-22) Glucose (80-110) mg/dL Lactate 2.1 (0.7-2.1) mmol/L Calcium (8.4-10.2) mg/dL Magnesium (1.6-2.3) mg/dL Total Bilirubin (0.2-1.3) mg/dL AST (14-36) IU/L ALT (9-52) IU/L Alkaline Phosphatase (38-126) U/L Total Creatine Kinase (30-135) U/L CK-MB (CK-2) CK-MB (CK-2) Rel Index Troponin I (0.01-0.034) ng/mL B-Natriuretic Peptide (<100) Total Protein (6.3-8.2) g/dL Albumin (3.5-5.0) g/dL Globulin (1.7-4.1) g/dL Albumin/Globulin Ratio (1.0-2.8) Lipase (23-300) U/L Urine RBC (0-5/HPF) Urine WBC (0-5/HPF) Urine Bacteria (None) Ur Culture Indicated? Blood Type Antibody Screen Antibody Identification Urine Dip Bedside Urine Glucose Negative Bedside Urine Bilirubin - Negative Bedside Urine Ketone - Negative Urine Specific [place] 1.015 Bedside Urine Occult Blood - Negative Bedside Urine pH 6.5 Bedside Urine Protein - Negative Bedside Urine Urobilinogen - Negative Bedside Urine Nitrite - Negative Bedside Urine Leukocytes ++ 125 Esterase Imaging Data Chest x-ray: Radiologist's impression: [address] [id number] XRay Report Signed Patient: Abi Jacques [facility]#: [id number] : 5Acct:[id number] Age/Sex: 63 / FDate of Service: 03/25/19 Loc: ED Accession Number: [id number] Procedure: XR chest 1V Ordering Provider: Jess Raza P.A-C PROCEDURE: XR CHEST 1V INDICATIONS: chest pain TECHNIQUE: One view of the chest was acquired. COMPARISON: [facility], CT, CT ANGIO CHEST PE PROTOCOL, 02/15/2019, 13:11. [facility], CR, XR CHEST 1V, 02/15/2019, 11:59. [facility], CR, CHEST 1 VIEW, 05/20/2015, 8:57. [facility], CR, CHEST 1 VIEW, 05/20/2015, 6:05. [facility], CR, CHEST 1 VIEW, 05/19/2015, 15:13. FINDINGS: Surgical changes and devices: Partially imaged cervical and thoracolumbar spinal fusion hardware noted. Lungs and pleura: There are diffuse reticular pulmonary opacities which are similar to prior exam. There are bibasilar hazy pulmonary opacities which are similar to prior exam. Right midlung zone opacity is less well-seen than on comparison exam. No pleural effusions or pneumothorax. Mediastinum: Mediastinal contours appear normal. Heart size is normal. Bones and chest wall: There are mildly displaced left lateral rib fractures involving the left third through eighth ribs, which appear present on comparison exam of 02/15/19 but are new from comparison exam of 05/20/15. IMPRESSION: 1. Acute to subacute appearing lateral left third through eighth rib fractures. This finding was discussed with Dr. Sneha Jules of the [facility] Emergency Department at 3:00pm on 03/25/[address] Rice. 2. Diffuse interstitial prominence which may represent mild volume overload/early pulmonary edema. 3. Hazy bibasilar pulmonary opacities may represent atelectasis, aspiration, or pneumonia. Dictated by: Fox Rice M.D. on 03/25/2019 at 14:53 Approved by: Fox Rice M.D. on 03/25/2019 at 15:05 ECG Data Attestation: I personally reviewed and interpreted this ECG as follows: (Sinus rhythm with rate 99, multiple single PVCs) Prior ECG tracings: available for review <Sneha Jules DO - Last Filed: 03/28/19 07:43> Lab Data Attestation: I reviewed the patient's lab results. Lab Results 03/25/19 03/25/19 03/25/19 Range/Units 14:32 14:32 14:32 WBC 6.3 (4.5-11.0) X10^3/uL RBC 2.77 L (4.0-5.2) X10^6/uL Hgb 7.6 L (12.0-16.0) g/dL Hct 22.8 L (36-46) % MCV 82.3 (80-100) fL MCH 27.3 (26-34) PG MCHC 33.1 (30-36) % RDW 19.4 H (11.6-14.8) % Plt Count 88 L (150-400) X10^3/uL Neut % (Auto) Not Reportable Lymph % (Auto) Not Reportable Randall % (Auto) Not Reportable Eos % (Auto) Not Reportable Baso % (Auto) Not Reportable Lymph # (Auto) Not Reportable Randall # (Auto) Not Reportable Baso # (Auto) Not Reportable Total Counted 100 Seg Neutrophils % 86.0 H (38-70) % Band Neutrophils % 3.0 (3-7) % Lymphocytes % (Manual) 4.0 L (25-45) % Monocytes % (Manual) 7.0 (2-11) % Neutrophils # (Manual) 5607 ([phone]) /uL RBC Morphology Not Reportable Polychromasia 1+ H Anisocytosis 1+ H PT 13.4 H (10.1-12.7) SECONDS INR 1.2 (0.9-1.3) APTT 30 D (26.4-36.2) SECONDS Sodium 124 L (137-145) mmol/L Potassium 4.2 (3.4-5.1) mmol/L Chloride 93 L (98-107) mmol/L Carbon Dioxide 25 (22-32) mmol/L BUN 14 (7-17) mg/dL Creatinine 0.50 L (0.52-1.04) mg/dL Estimated GFR > 60.0 (>60) mL/min BUN/Creatinine Ratio 28.0 H (6-22) Glucose 113 H (80-110) mg/dL Lactate (0.7-2.1) mmol/L Calcium 7.3 L (8.4-10.2) mg/dL Magnesium 1.5 L (1.6-2.3) mg/dL Total Bilirubin 0.9 (0.2-1.3) mg/dL AST 43 H (14-36) IU/L ALT 47 (9-52) IU/L Alkaline Phosphatase 166 H (38-126) U/L Total Creatine Kinase 21 L (30-135) U/L CK-MB (CK-2) TNP CK-MB (CK-2) Rel Index TNP Troponin I < 0.012 (0.01-0.034) ng/mL B-Natriuretic Peptide 443 H (<100) Total Protein 5.4 L (6.3-8.2) g/dL Albumin 2.1 L (3.5-5.0) g/dL Globulin 3.3 (1.7-4.1) g/dL Albumin/Globulin Ratio 0.6 L (1.0-2.8) Lipase 33 (23-300) U/L Urine RBC (0-5/HPF) Urine WBC (0-5/HPF) Urine Bacteria (None) Ur Culture Indicated? Blood Type Antibody Screen Antibody Identification 03/25/19 03/25/19 03/25/19 Range/Units 14:32 14:32 16:55 WBC (4.5-11.0) X10^3/uL RBC (4.0-5.2) X10^6/uL Hgb (12.0-16.0) g/dL Hct (36-46) % MCV (80-100) fL MCH (26-34) PG MCHC (30-36) % RDW (11.6-14.8) % Plt Count (150-400) X10^3/uL Neut % (Auto) Lymph % (Auto) Randall % (Auto) Eos % (Auto) Baso % (Auto) Lymph # (Auto) Randall # (Auto) Baso # (Auto) Total Counted Seg Neutrophils % (38-70) % Band Neutrophils % (3-7) % Lymphocytes % (Manual) (25-45) % Monocytes % (Manual) (2-11) % Neutrophils # (Manual) ([id number]) /uL RBC Morphology Polychromasia Anisocytosis PT (10.1-12.7) SECONDS INR (0.9-1.3) APTT (26.4-36.2) SECONDS Sodium (137-145) mmol/L Potassium (3.4-5.1) mmol/L Chloride (98-107) mmol/L Carbon Dioxide (22-32) mmol/L BUN (7-17) mg/dL Creatinine (0.52-1.04) mg/dL Estimated GFR (>60) mL/min BUN/Creatinine Ratio (6-22) Glucose (80-110) mg/dL Lactate 2.3 H (0.7-2.1) mmol/L Calcium (8.4-10.2) mg/dL Magnesium (1.6-2.3) mg/dL Total Bilirubin (0.2-1.3) mg/dL AST (14-36) IU/L ALT (9-52) IU/L Alkaline Phosphatase (38-126) U/L Total Creatine Kinase (30-135) U/L CK-MB (CK-2) CK-MB (CK-2) Rel Index Troponin I (0.01-0.034) ng/mL B-Natriuretic Peptide (<100) Total Protein (6.3-8.2) g/dL Albumin (3.5-5.0) g/dL Globulin (1.7-4.1) g/dL Albumin/Globulin Ratio (1.0-2.8) Lipase (23-300) U/L Urine RBC None seen (0-5/HPF) Urine WBC 0-1/hpf (0-5/HPF) Urine Bacteria None seen (None) Ur Culture Indicated? Specimen cultured Blood Type O Positive Antibody Screen Positive Antibody Identification Anti-c 03/25/19 Range/Units 16:59 WBC (4.5-11.0) X10^3/uL RBC (4.0-5.2) X10^6/uL Hgb (12.0-16.0) g/dL Hct (36-46) % MCV (80-100) fL MCH (26-34) PG MCHC (30-36) % RDW (11.6-14.8) % Plt Count (150-400) X10^3/uL Neut % (Auto) Lymph % (Auto) Randall % (Auto) Eos % (Auto) Baso % (Auto) Lymph # (Auto) Randall # (Auto) Baso # (Auto) Total Counted Seg Neutrophils % (38-70) % Band Neutrophils % (3-7) % Lymphocytes % (Manual) (25-45) % Monocytes % (Manual) (2-11) % Neutrophils # (Manual) ([phone]) /uL RBC Morphology Polychromasia Anisocytosis PT (10.1-12.7) SECONDS INR (0.9-1.3) APTT (26.4-36.2) SECONDS Sodium (137-145) mmol/L Potassium (3.4-5.1) mmol/L Chloride (98-107) mmol/L Carbon Dioxide (22-32) mmol/L BUN (7-17) mg/dL Creatinine (0.52-1.04) mg/dL Estimated GFR (>60) mL/min BUN/Creatinine Ratio (6-22) Glucose (80-110) mg/dL Lactate 2.1 (0.7-2.1) mmol/L Calcium (8.4-10.2) mg/dL Magnesium (1.6-2.3) mg/dL Total Bilirubin (0.2-1.3) mg/dL AST (14-36) IU/L ALT (9-52) IU/L Alkaline Phosphatase (38-126) U/L Total Creatine Kinase (30-135) U/L CK-MB (CK-2) CK-MB (CK-2) Rel Index Troponin I (0.01-0.034) ng/mL B-Natriuretic Peptide (<100) Total Protein (6.3-8.2) g/dL Albumin (3.5-5.0) g/dL Globulin (1.7-4.1) g/dL Albumin/Globulin Ratio (1.0-2.8) Lipase (23-300) U/L Urine RBC (0-5/HPF) Urine WBC (0-5/HPF) Urine Bacteria (None) Ur Culture Indicated? Blood Type Antibody Screen Antibody Identification Urine Dip Bedside Urine Glucose Negative Bedside Urine Bilirubin - Negative Bedside Urine Ketone - Negative Urine Specific [place] 1.015 Bedside Urine Occult Blood - Negative Bedside Urine pH 6.5 Bedside Urine Protein - Negative Bedside Urine Urobilinogen - Negative Bedside Urine Nitrite - Negative Bedside Urine Leukocytes ++ 125 Esterase ECG Data Attestation: I personally reviewed and interpreted this ECG as follows: Interpretation: Sinus rhythm with the rate 99 SC interval 1 PVCs noted Discharge Plan Departure Patient Disposition: Home Clinical Impression: Volume overload Qualifiers: Hypervolemia type: other Qualified Code(s): E87.79 - Other fluid overload Bronchiectasis Qualifiers: Bronchiectasis type: with acute exacerbation Qualified Code(s): J47.1 - Bronchiectasis with (acute) exacerbation Chest pain Qualifiers: Chest pain type: other chest pain Qualified Code(s): R07.89 - Other chest pain Discharge Date/Time: 03/25/19 18:24 Interventions: ED Discharge Assessment Last Done: 03/25/19 18:23 Instructions: DI for Atypical Chest Pain, DI for Peripheral Edema -- Bilateral Activity Restrictions/Additional Instructions: Since you are feeling better, you can return home this evening. As we talked about, you should return to the ED immediately if you have acutely worsening symptoms again. Since you have had the leg swelling and increasing discomfort since you left the hospital, I suspect that this is due to increased fluid in your chest and extremities, especially based on your testing today and response to the diuretic pill which helped you get some of the fluid off. Please continue to take a smaller dose of the water pill Lasix/furosemide tomorrow morning and Monday morning, and take an additional smaller dose of potassium that high have prescribed for you as well as your other medicines as usual. Please see your PCP by tomorrow Monday for recheck as you need to be monitored closely. Prescriptions: New potassium chloride 10 mEq capsule, extended release 10 meq PO DAILY Qty: 2 RF: 0 furosemide [Lasix] 20 mg tablet 20 mg PO QAM PRN (Reason: edema) Qty: 2 RF: 0 No Action ipratropium-albuterol 3 ML solution for nebulization 1 amp NEB QIDP PRN (Reason: Shortness Of Breath) Qty: 0 RF: 0 meloxicam 15 MG tablet 15 mg PO QPM Qty: 0 RF: 0 duloxetine [Cymbalta] 60 MG capsule,delayed release(DR/EC) 60 mg PO BEDTIME Qty: 0 RF: 0 sennosides [senna] 8.6 MG tablet 8.6 tab PO QAM Qty: 0 RF: 0 famotidine 20 mg tablet 20 mg PO DAILY RF: 0 fludrocortisone 0.1 mg tablet 0.2 mg PO DAILY RF: 0 levothyroxine 25 mcg tablet 25 mcg PO DAILY Qty: 30 RF: 0 hydrocortisone 10 mg tablet 10 mg PO BID Qty: 60 RF: 0 potassium chloride 20 mEq tablet extended release 20 meq PO DAILY Qty: 30 RF: 0 alendronate 70 mg tablet 70 mg PO QWEEK RF: 0 fluticasone propion-salmeterol [Wixela Inhub] 500-50 mcg/dose blister with device 1 puff Inhalation BID RF: 0 albuterol sulfate [Ventolin HFA] 90 mcg/actuation HFA aerosol inhaler 2 puff Inhalation Q4H PRN (Reason: Wheezing) RF: 0 cyclobenzaprine 10 mg tablet 10 mg PO TID PRN (Reason: Muscle Spasm) RF: 0 metoprolol tartrate 25 mg tablet 12.5 mg PO BID RF: 0 buprenorphine-naloxone 4-1 mg film 1 film Sublingual DAILY RF: 0 cromolyn 4 % Drops 1 drp EYE-BOTH PRN RF: 0 lidocaine HCl [Lidocaine Viscous] 2 % Solution 5 ml PO Q4H PRN (Reason: pain) RF: 0 montelukast 10 mg Tablet 10 mg PO QPM RF: 0 ondansetron 4 mg Tablet,Disintegrating 4 mg Translingual PRN PRN (Reason: Nausea) RF: 0 cholecalciferol (vitamin D3) [Vitamin D3] 2,000 unit Capsule 2,000 unit PO DAILY RF: 0 melatonin 3 mg Tablet 6 mg PO BEDTIME Qty: 30 RF: 0 lidocaine 5 % Adhesive Patch,Medicated 1 ea topical DAILY PRN (Reason: Pain, Moderate (4-6)) Qty: 30 RF: 0 Referrals: Donald Hoang DO [Primary Care Provider] - <Sneha Jules DO - Last Filed: 03/28/19 07:43> Cosign ED Attending Luciaature Attestation: I was immediately available in the department for consultation. Documentation has been reviewed. I agree with assessment and plan.
[2019-03-25 14:30] VITALS: BP 106/68; PULSE 96; RESP 19; TEMP 36.8; O2SAT 96
--- NOTE | 2019-03-25 14:43 | ED_ITS ---
HPI - Arrhythmia/Palpitations <Jess Raza PA-C - Last Filed: 03/25/19 18:37> General Chief Complaint: Chest Pain Stated Complaint: states her sodium is low,heart palpitations Time Seen by Provider: 03/25/19 14:18 Source: patient and family Mode of arrival: wheelchair Limitations: no limitations History of Present Illness HPI narrative: This 63-year-old female who was discharge from this facility last week, returns due to feeling poorly again today. She states that she had onset of left-sided chest pain at 2:30 a.m. this morning while at rest. She states this felt like ?an elephant? on her chest id she thought it might be due to her asthma or from her broken ribs a couple of months ago. She tried her inhaler but it was ineffective. She states that she eventually took a dose of her 's nitroglycerin and that seemed to help. She has not had any chest pain for the last 2 hours. She states that pain was localized in the left lateral chest and breast area, no pain in the jaw or extremities, no pain radiation. She states that pain did feel similar to her ?asthma?. She states that she has chronic ongoing cough, but thinks may be somewhat worse since her hospital ization. She has had increased sticky sputum production. She denies any fever, chills, sweats, she denies any nausea or vomiting. She states she has had increased swelling in both legs since hospital discharge, not noticing that this is worse today. Not having new pain in her legs. She states that she felt maybe a little bit more short of breath with her chest pain earlier. She states that she has felt ?dizzy? intermittently, which she describes as a lightheaded sensation. She states that she has also noted more heart palpitations today. She states she has these occasionally, but more frequent today. She thinks they are brief the but not sure exactly how long they last. She denies nausea or vomiting. No difficulty with speech, chewing, coordination. No other new complaints on systems review. Patient declines ASA Related Data Home Medications Medication Instructions Recorded Confirmed duloxetine [Cymbalta] 60 mg PO BEDTIME #0 01/10/18 03/25/19 ipratropium-albuterol 1 amp NEB QIDP PRN #0 01/10/18 03/14/19 meloxicam 15 mg PO QPM #0 01/10/18 03/25/19 sennosides [senna] 8.6 tab PO QAM #0 01/10/18 03/14/19 buprenorphine-naloxone 1 film SUBLINGUAL DAILY 02/15/19 03/25/19 cholecalciferol (vitamin D3) 2,000 unit PO DAILY 02/15/19 03/25/19 [Vitamin D3] cromolyn 1 drp EYE-BOTH PRN 02/15/19 03/25/19 cyclobenzaprine 10 mg PO TID PRN 02/15/19 03/25/19 lidocaine HCl [Lidocaine Viscous] 5 ml PO Q4H PRN 02/15/19 03/25/19 metoprolol tartrate 12.5 mg PO BID 02/15/19 03/25/19 montelukast 10 mg PO QPM 02/15/19 03/25/19 ondansetron 4 mg TRANSLINGUAL PRN PRN 02/15/19 03/25/19 famotidine 20 mg PO DAILY 03/14/19 03/25/19 fludrocortisone 0.2 mg PO DAILY 03/14/19 03/25/19 albuterol sulfate [Ventolin HFA] 2 puff INHALATION Q4H PRN 03/25/19 03/25/19 alendronate 70 mg PO QWEEK 03/25/19 03/25/19 fluticasone propion-salmeterol 1 puff INHALATION BID 03/25/19 03/25/19 [Wixela Inhub] Previous Rx's Medication Instructions Recorded lidocaine 1 ea TOPICAL DAILY PRN #30 ea 02/26/19 melatonin 6 mg PO BEDTIME #30 tab 02/26/19 hydrocortisone 10 mg PO BID #60 tab 03/17/19 levothyroxine 25 mcg PO DAILY #30 tab 03/17/19 potassium chloride 20 meq PO DAILY #30 tab 03/17/19 furosemide [Lasix] 20 mg PO QAM PRN #2 tab 03/25/19 potassium chloride 10 meq PO DAILY #2 cap 03/25/19 Allergies Allergy/AdvReac Type Severity Reaction Status Date / Time Haemophilus B polysaccharide Allergy Severe ANAPHYLAXIS Verified 03/25/19 14:24 conj w [From PENTACEL ACTHIB COMPONENT (PF)] peanut [PEANUT] Allergy Severe ANAPHYLAXIS Verified 03/25/19 14:24 Tetanus Vaccines and Toxoid Allergy Severe ANAPHYLAXIS Verified 03/25/19 14:24 [TETANUS VACCINES & TOXOID] penicillin G [PENICILLIN G] Allergy Intermediate RASH Verified 03/25/19 14:24 hydroxyzine [HYDROXYZINE] AdvReac Severe HALLUCINATI Verified 03/25/19 14:24 ONS/PARANOI D ibuprofen [IBUPROFEN] AdvReac Intermediate DYSLEXIA Verified 03/25/19 14:24 PEAS Allergy Severe RASH, LIP Uncoded 02/15/19 12:45 SWELLING Review of Systems <Jess Raza PA-C - Last Filed: 03/25/19 18:37> Review of Systems ROS Unobtainable: All systems reviewed & are unremarkable except as noted in HPI and below PFSH <Jess Raza PA-C - Last Filed: 03/25/19 18:37> Medical History (Updated 03/25/19 @ 18:06 by Jess Raza PA-C) Bronchiectasis (Chronic) Thrombocytopenia (Chronic) Adrenal insufficiency (Chronic) Iron deficiency anemia (Chronic) Hyponatremia (Chronic) Supraventricular tachycardia (Chronic) Chronic respiratory failure with hypoxia (Chronic) Hypothyroidism (Chronic) Major depressive disorder (Chronic) Osteoporosis (Chronic) Opioid dependence (Chronic) Aspiration pneumonia due to food (regurgitated) (Acute) Hypovolemic shock (Acute) Surgical History (Updated 03/25/19 @ 14:43 by Jess Raza PA-C) Abdominal adhesions (Chronic) H/O exploratory laparotomy (Resolved) Social History household members: spouse Smoking Status: Never smoker Social History household members: spouse Smoking Status: Never smoker Exam <Jess Raza PA-C - Last Filed: 03/25/19 18:37> Narrative Exam Narrative: GENERAL APPEARANCE: Patient sitting comfortably, in no distress. HEENT: PERRL, EOMI, conjunctivae pale, normal oropharynx NECK/THYROID: Neck supple, no JVD or masses. LUNGS: Generalized coarse, congested breath sounds without clear wheezes or crackles, wet cough on exam HEART: Regular rate and rhythm with faint I/ systolic murmur, occasional skip, normal S1 and S2, no S3 or S4 ABDOMEN: Soft, NT, ND, + BS x 4 quadrants EXTREMITIES: No cyanosis, moderate pitting which is symmetric bilaterally. No calf tenderness NEUROLOGIC: Alert and oriented, normal speech, and coordination. Initial Vital Signs Initial Vital Signs: Vital Signs Pulse Rate 99 H 03/25/19 14:15 Respiratory Rate 20 03/25/19 14:15 Blood Pressure 103/55 L 03/25/19 14:15 Pulse Oximetry 95 03/25/19 14:15 <Sneha Jules DO - Last Filed: 03/28/19 07:43> Initial Vital Signs Initial Vital Signs: Vital Signs Pulse Rate 99 H 03/25/19 14:15 Respiratory Rate 20 03/25/19 14:15 Blood Pressure 103/55 L 03/25/19 14:15 Pulse Oximetry 95 03/25/19 14:15 Course <Jess Raza PA-C - Last Filed: 03/25/19 18:37> Additional Information: Patient reports that her chest is feeling much improved after diuresis. She has put out 500 mL of urine. She has not had any recurrent pain. blood pressure is consistent with previous hospital readings. We will have her take Lasix for the next 2 days and follow up with her PCP. She agreed to return if acutely worse again. Discussed need for close monitoring given her chronic conditions, and she and her are agreeable. Findings and plan reviewed with attending Dr. Jules who is in agreement. Orders Ordered: Discontinued Medications Aspirin (Aspirin Chew) 324 mg PO NOW ONE Stop: 03/25/19 14:32 Last Admin: 03/25/19 14:44 Dose: 324 mg Furosemide (Lasix) 40 mg IV NOW ONE Stop: 03/25/19 15:39 Last Admin: 03/25/19 16:14 Dose: 40 mg Potassium Chloride (Klor-Con M20) 20 meq PO NOW ONE Stop: 03/25/19 16:13 Last Admin: 03/25/19 16:15 Dose: 20 meq Vital Signs - 8 hr 03/25/19 14:15 03/25/19 14:30 03/25/19 15:00 Temperature 98.3 F Pulse Rate 99 H 96 H 95 H Respiratory Rate 18 Blood Pressure 103/55 L Blood Pressure [Right Arm] 106/68 96/62 Pulse Oximetry 95 96 95 03/25/19 16:00 03/25/19 16:30 03/25/19 17:30 Temperature Pulse Rate 96 H 92 H 82 Respiratory Rate 20 18 14 Blood Pressure Blood Pressure [Right Arm] 104/61 91/43 L 89/58 L Pulse Oximetry 96 95 98 <Sneha Jules DO - Last Filed: 03/28/19 07:43> Orders Ordered: Discontinued Medications Aspirin (Aspirin Chew) 324 mg PO NOW ONE Stop: 03/25/19 14:32 Last Admin: 03/25/19 14:44 Dose: 324 mg Furosemide (Lasix) 40 mg IV NOW ONE Stop: 03/25/19 15:39 Last Admin: 03/25/19 16:14 Dose: 40 mg Potassium Chloride (Klor-Con M20) 20 meq PO NOW ONE Stop: 03/25/19 16:13 Last Admin: 03/25/19 16:15 Dose: 20 meq Vital Signs - 8 hr 03/25/19 14:15 03/25/19 14:30 03/25/19 15:00 Temperature 98.3 F Pulse Rate 99 H 96 H 95 H Respiratory Rate 20 19 18 Blood Pressure 103/55 L Blood Pressure [Right Arm] 106/68 96/62 Pulse Oximetry 95 96 95 03/25/19 16:00 03/25/19 16:30 03/25/19 17:30 Temperature Pulse Rate 96 H 92 H 82 Respiratory Rate 20 18 14 Blood Pressure Blood Pressure [Right Arm] 104/61 91/43 L 89/58 L Pulse Oximetry 96 95 98 MDM - Arrhythmia/Palpitations <Jess Raza PA-C - Last Filed: 03/25/19 18:37> Lab Data Attestation: I reviewed the patient's lab results. Result diagrams: 03/25/19 14:32 03/25/19 14:32 Lab Results 03/25/19 03/25/19 03/25/19 Range/Units 14:32 14:32 14:32 WBC 6.3 (4.5-11.0) X10^3/uL RBC 2.77 L (4.0-5.2) X10^6/uL Hgb 7.6 L (12.0-16.0) g/dL Hct 22.8 L (36-46) % MCV 82.3 (80-100) fL MCH 27.3 (26-34) PG MCHC 33.1 (30-36) % RDW 19.4 H (11.6-14.8) % Plt Count 88 L (150-400) X10^3/uL Neut % (Auto) Not Reportable Lymph % (Auto) Not Reportable [place] % (Auto) Not Reportable Eos % (Auto) Not Reportable Baso % (Auto) Not Reportable Lymph # (Auto) Not Reportable [place] # (Auto) Not Reportable Baso # (Auto) Not Reportable Total Counted 100 Seg Neutrophils % 86.0 H (38-70) % Band Neutrophils % 3.0 (3-7) % Lymphocytes % (Manual) 4.0 L (25-45) % Monocytes % (Manual) 7.0 (2-11) % Neutrophils # (Manual) 5607 (6275-1970) /uL RBC Morphology Not Reportable Polychromasia 1+ H Anisocytosis 1+ H PT 13.4 H (10.1-12.7) SECONDS INR 1.2 (0.9-1.3) APTT 30 D (26.4-36.2) SECONDS Sodium 124 L (137-145) mmol/L Potassium 4.2 (3.4-5.1) mmol/L Chloride 93 L (98-107) mmol/L Carbon Dioxide 25 (22-32) mmol/L BUN 14 (7-17) mg/dL Creatinine 0.50 L (0.52-1.04) mg/dL Estimated GFR > 60.0 (>60) mL/min BUN/Creatinine Ratio 28.0 H (6-22) Glucose 113 H (80-110) mg/dL Lactate (0.7-2.1) mmol/L Calcium 7.3 L (8.4-10.2) mg/dL Magnesium 1.5 L (1.6-2.3) mg/dL Total Bilirubin 0.9 (0.2-1.3) mg/dL AST 43 H (14-36) IU/L ALT 47 (9-52) IU/L Alkaline Phosphatase 166 H (38-126) U/L Total Creatine Kinase 21 L (30-135) U/L CK-MB (CK-2) TNP CK-MB (CK-2) Rel Index TNP Troponin I < 0.012 (0.01-0.034) ng/mL B-Natriuretic Peptide 443 H (<100) Total Protein 5.4 L (6.3-8.2) g/dL Albumin 2.1 L (3.5-5.0) g/dL Globulin 3.3 (1.7-4.1) g/dL Albumin/Globulin Ratio 0.6 L (1.0-2.8) Lipase 33 (23-300) U/L Urine RBC (0-5/HPF) Urine WBC (0-5/HPF) Urine Bacteria (None) Ur Culture Indicated? Blood Type Antibody Screen Antibody Identification 03/25/19 03/25/19 03/25/19 Range/Units 14:32 14:32 16:55 WBC (4.5-11.0) X10^3/uL RBC (4.0-5.2) X10^6/uL Hgb (12.0-16.0) g/dL Hct (36-46) % MCV (80-100) fL MCH (26-34) PG MCHC (30-36) % RDW (11.6-14.8) % Plt Count (150-400) X10^3/uL Neut % (Auto) Lymph % (Auto) [place] % (Auto) Eos % (Auto) Baso % (Auto) Lymph # (Auto) [place] # (Auto) Baso # (Auto) Total Counted Seg Neutrophils % (38-70) % Band Neutrophils % (3-7) % Lymphocytes % (Manual) (25-45) % Monocytes % (Manual) (2-11) % Neutrophils # (Manual) (4668-2780) /uL RBC Morphology Polychromasia Anisocytosis PT (10.1-12.7) SECONDS INR (0.9-1.3) APTT (26.4-36.2) SECONDS Sodium (137-145) mmol/L Potassium (3.4-5.1) mmol/L Chloride (98-107) mmol/L Carbon Dioxide (22-32) mmol/L BUN (7-17) mg/dL Creatinine (0.52-1.04) mg/dL Estimated GFR (>60) mL/min BUN/Creatinine Ratio (6-22) Glucose (80-110) mg/dL Lactate 2.3 H (0.7-2.1) mmol/L Calcium (8.4-10.2) mg/dL Magnesium (1.6-2.3) mg/dL Total Bilirubin (0.2-1.3) mg/dL AST (14-36) IU/L ALT (9-52) IU/L Alkaline Phosphatase (38-126) U/L Total Creatine Kinase (30-135) U/L CK-MB (CK-2) CK-MB (CK-2) Rel Index Troponin I (0.01-0.034) ng/mL B-Natriuretic Peptide (<100) Total Protein (6.3-8.2) g/dL Albumin (3.5-5.0) g/dL Globulin (1.7-4.1) g/dL Albumin/Globulin Ratio (1.0-2.8) Lipase (23-300) U/L Urine RBC None seen (0-5/HPF) Urine WBC 0-1/hpf (0-5/HPF) Urine Bacteria None seen (None) Ur Culture Indicated? Specimen cultured Blood Type O Positive Antibody Screen Positive Antibody Identification Anti-c 03/25/19 Range/Units 16:59 WBC (4.5-11.0) X10^3/uL RBC (4.0-5.2) X10^6/uL Hgb (12.0-16.0) g/dL Hct (36-46) % MCV (80-100) fL MCH (26-34) PG MCHC (30-36) % RDW (11.6-14.8) % Plt Count (150-400) X10^3/uL Neut % (Auto) Lymph % (Auto) [place] % (Auto) Eos % (Auto) Baso % (Auto) Lymph # (Auto) [place] # (Auto) Baso # (Auto) Total Counted Seg Neutrophils % (38-70) % Band Neutrophils % (3-7) % Lymphocytes % (Manual) (25-45) % Monocytes % (Manual) (2-11) % Neutrophils # (Manual) (1092-7090) /uL RBC Morphology Polychromasia Anisocytosis PT (10.1-12.7) SECONDS INR (0.9-1.3) APTT (26.4-36.2) SECONDS Sodium (137-145) mmol/L Potassium (3.4-5.1) mmol/L Chloride (98-107) mmol/L Carbon Dioxide (22-32) mmol/L BUN (7-17) mg/dL Creatinine (0.52-1.04) mg/dL Estimated GFR (>60) mL/min BUN/Creatinine Ratio (6-22) Glucose (80-110) mg/dL Lactate 2.1 (0.7-2.1) mmol/L Calcium (8.4-10.2) mg/dL Magnesium (1.6-2.3) mg/dL Total Bilirubin (0.2-1.3) mg/dL AST (14-36) IU/L ALT (9-52) IU/L Alkaline Phosphatase (38-126) U/L Total Creatine Kinase (30-135) U/L CK-MB (CK-2) CK-MB (CK-2) Rel Index Troponin I (0.01-0.034) ng/mL B-Natriuretic Peptide (<100) Total Protein (6.3-8.2) g/dL Albumin (3.5-5.0) g/dL Globulin (1.7-4.1) g/dL Albumin/Globulin Ratio (1.0-2.8) Lipase (23-300) U/L Urine RBC (0-5/HPF) Urine WBC (0-5/HPF) Urine Bacteria (None) Ur Culture Indicated? Blood Type Antibody Screen Antibody Identification Urine Dip Bedside Urine Glucose Negative Bedside Urine Bilirubin - Negative Bedside Urine Ketone - Negative Urine Specific [place]ain 1.015 Bedside Urine Occult Blood - Negative Bedside Urine pH 6.5 Bedside Urine Protein - Negative Bedside Urine Urobilinogen - Negative Bedside Urine Nitrite - Negative Bedside Urine Leukocytes ++ 125 Esterase Imaging Data Chest x-ray: Radiologist's impression: [address] [address] XRay Report Signed Patient: Abi Jacques [facility]#: [id number] : 5Acct:[id number] Age/Sex: 63 / FDate of Service: 03/25/19 Loc: ED Accession Number: [id number] Procedure: XR chest 1V Ordering Provider: Jess Raza P.A-C PROCEDURE: XR CHEST 1V INDICATIONS: chest pain TECHNIQUE: One view of the chest was acquired. COMPARISON: [facility], CT, CT ANGIO CHEST PE PROTOCOL, 02/15/2019, 13:11. [facility], CR, XR CHEST 1V, 02/15/2019, 11:59. [facility], CR, CHEST 1 VIEW, 05/20/2015, 8:57. [facility], CR, CHEST 1 VIEW, 05/20/2015, 6:05. [facility], CR, CHEST 1 VIEW, 05/19/2015, 15:13. FINDINGS: Surgical changes and devices: Partially imaged cervical and thoracolumbar spinal fusion hardware noted. Lungs and pleura: There are diffuse reticular pulmonary opacities which are similar to prior exam. There are bibasilar hazy pulmonary opacities which are similar to prior exam. Right midlung zone opacity is less well-seen than on comparison exam. No pleural effusions or pneumothorax. Mediastinum: Mediastinal contours appear normal. Heart size is normal. Bones and chest wall: There are mildly displaced left lateral rib fractures involving the left third through eighth ribs, which appear present on comparison exam of 02/15/19 but are new from comparison exam of 05/20/15. IMPRESSION: 1. Acute to subacute appearing lateral left third through eighth rib fractures. This finding was discussed with Dr. Sneha Jules of the [facility] Emergency Department at 3:00pm on 03/25/[address] Rice. 2. Diffuse interstitial prominence which may represent mild volume overload/early pulmonary edema. 3. Hazy bibasilar pulmonary opacities may represent atelectasis, aspiration, or pneumonia. Dictated by: Fox Rice M.D. on 03/25/2019 at 14:53 Approved by: Fox Rice M.D. on 03/25/2019 at 15:05 ECG Data Attestation: I personally reviewed and interpreted this ECG as follows: (Sinus rhythm with rate 99, multiple single PVCs) Prior ECG tracings: available for review <Sneha Jules DO - Last Filed: 03/28/19 07:43> Lab Data Attestation: I reviewed the patient's lab results. Lab Results 03/25/19 03/25/19 03/25/19 Range/Units 14:32 14:32 14:32 WBC 6.3 (4.5-11.0) X10^3/uL RBC 2.77 L (4.0-5.2) X10^6/uL Hgb 7.6 L (12.0-16.0) g/dL Hct 22.8 L (36-46) % MCV 82.3 (80-100) fL MCH 27.3 (26-34) PG MCHC 33.1 (30-36) % RDW 19.4 H (11.6-14.8) % Plt Count 88 L (150-400) X10^3/uL Neut % (Auto) Not Reportable Lymph % (Auto) Not Reportable [place] % (Auto) Not Reportable Eos % (Auto) Not Reportable Baso % (Auto) Not Reportable Lymph # (Auto) Not Reportable [place] # (Auto) Not Reportable Baso # (Auto) Not Reportable Total Counted 100 Seg Neutrophils % 86.0 H (38-70) % Band Neutrophils % 3.0 (3-7) % Lymphocytes % (Manual) 4.0 L (25-45) % Monocytes % (Manual) 7.0 (2-11) % Neutrophils # (Manual) 5607 (8514-6073) /uL RBC Morphology Not Reportable Polychromasia 1+ H Anisocytosis 1+ H PT 13.4 H (10.1-12.7) SECONDS INR 1.2 (0.9-1.3) APTT 30 D (26.4-36.2) SECONDS Sodium 124 L (137-145) mmol/L Potassium 4.2 (3.4-5.1) mmol/L Chloride 93 L (98-107) mmol/L Carbon Dioxide 25 (22-32) mmol/L BUN 14 (7-17) mg/dL Creatinine 0.50 L (0.52-1.04) mg/dL Estimated GFR > 60.0 (>60) mL/min BUN/Creatinine Ratio 28.0 H (6-22) Glucose 113 H (80-110) mg/dL Lactate (0.7-2.1) mmol/L Calcium 7.3 L (8.4-10.2) mg/dL Magnesium 1.5 L (1.6-2.3) mg/dL Total Bilirubin 0.9 (0.2-1.3) mg/dL AST 43 H (14-36) IU/L ALT 47 (9-52) IU/L Alkaline Phosphatase 166 H (38-126) U/L Total Creatine Kinase 21 L (30-135) U/L CK-MB (CK-2) TNP CK-MB (CK-2) Rel Index TNP Troponin I < 0.012 (0.01-0.034) ng/mL B-Natriuretic Peptide 443 H (<100) Total Protein 5.4 L (6.3-8.2) g/dL Albumin 2.1 L (3.5-5.0) g/dL Globulin 3.3 (1.7-4.1) g/dL Albumin/Globulin Ratio 0.6 L (1.0-2.8) Lipase 33 (23-300) U/L Urine RBC (0-5/HPF) Urine WBC (0-5/HPF) Urine Bacteria (None) Ur Culture Indicated? Blood Type Antibody Screen Antibody Identification 03/25/19 03/25/19 03/25/19 Range/Units 14:32 14:32 16:55 WBC (4.5-11.0) X10^3/uL RBC (4.0-5.2) X10^6/uL Hgb (12.0-16.0) g/dL Hct (36-46) % MCV (80-100) fL MCH (26-34) PG MCHC (30-36) % RDW (11.6-14.8) % Plt Count (150-400) X10^3/uL Neut % (Auto) Lymph % (Auto) [place] % (Auto) Eos % (Auto) Baso % (Auto) Lymph # (Auto) [place] # (Auto) Baso # (Auto) Total Counted Seg Neutrophils % (38-70) % Band Neutrophils % (3-7) % Lymphocytes % (Manual) (25-45) % Monocytes % (Manual) (2-11) % Neutrophils # (Manual) (9334-6028) /uL RBC Morphology Polychromasia Anisocytosis PT (10.1-12.7) SECONDS INR (0.9-1.3) APTT (26.4-36.2) SECONDS Sodium (137-145) mmol/L Potassium (3.4-5.1) mmol/L Chloride (98-107) mmol/L Carbon Dioxide (22-32) mmol/L BUN (7-17) mg/dL Creatinine (0.52-1.04) mg/dL Estimated GFR (>60) mL/min BUN/Creatinine Ratio (6-22) Glucose (80-110) mg/dL Lactate 2.3 H (0.7-2.1) mmol/L Calcium (8.4-10.2) mg/dL Magnesium (1.6-2.3) mg/dL Total Bilirubin (0.2-1.3) mg/dL AST (14-36) IU/L ALT (9-52) IU/L Alkaline Phosphatase (38-126) U/L Total Creatine Kinase (30-135) U/L CK-MB (CK-2) CK-MB (CK-2) Rel Index Troponin I (0.01-0.034) ng/mL B-Natriuretic Peptide (<100) Total Protein (6.3-8.2) g/dL Albumin (3.5-5.0) g/dL Globulin (1.7-4.1) g/dL Albumin/Globulin Ratio (1.0-2.8) Lipase (23-300) U/L Urine RBC None seen (0-5/HPF) Urine WBC 0-1/hpf (0-5/HPF) Urine Bacteria None seen (None) Ur Culture Indicated? Specimen cultured Blood Type O Positive Antibody Screen Positive Antibody Identification Anti-c 03/25/19 Range/Units 16:59 WBC (4.5-11.0) X10^3/uL RBC (4.0-5.2) X10^6/uL Hgb (12.0-16.0) g/dL Hct (36-46) % MCV (80-100) fL MCH (26-34) PG MCHC (30-36) % RDW (11.6-14.8) % Plt Count (150-400) X10^3/uL Neut % (Auto) Lymph % (Auto) [place] % (Auto) Eos % (Auto) Baso % (Auto) Lymph # (Auto) [place] # (Auto) Baso # (Auto) Total Counted Seg Neutrophils % (38-70) % Band Neutrophils % (3-7) % Lymphocytes % (Manual) (25-45) % Monocytes % (Manual) (2-11) % Neutrophils # (Manual) (6959-6937) /uL RBC Morphology Polychromasia Anisocytosis PT (10.1-12.7) SECONDS INR (0.9-1.3) APTT (26.4-36.2) SECONDS Sodium (137-145) mmol/L Potassium (3.4-5.1) mmol/L Chloride (98-107) mmol/L Carbon Dioxide (22-32) mmol/L BUN (7-17) mg/dL Creatinine (0.52-1.04) mg/dL Estimated GFR (>60) mL/min BUN/Creatinine Ratio (6-22) Glucose (80-110) mg/dL Lactate 2.1 (0.7-2.1) mmol/L Calcium (8.4-10.2) mg/dL Magnesium (1.6-2.3) mg/dL Total Bilirubin (0.2-1.3) mg/dL AST (14-36) IU/L ALT (9-52) IU/L Alkaline Phosphatase (38-126) U/L Total Creatine Kinase (30-135) U/L CK-MB (CK-2) CK-MB (CK-2) Rel Index Troponin I (0.01-0.034) ng/mL B-Natriuretic Peptide (<100) Total Protein (6.3-8.2) g/dL Albumin (3.5-5.0) g/dL Globulin (1.7-4.1) g/dL Albumin/Globulin Ratio (1.0-2.8) Lipase (23-300) U/L Urine RBC (0-5/HPF) Urine WBC (0-5/HPF) Urine Bacteria (None) Ur Culture Indicated? Blood Type Antibody Screen Antibody Identification Urine Dip Bedside Urine Glucose Negative Bedside Urine Bilirubin - Negative Bedside Urine Ketone - Negative Urine Specific [place] 1.015 Bedside Urine Occult Blood - Negative Bedside Urine pH 6.5 Bedside Urine Protein - Negative Bedside Urine Urobilinogen - Negative Bedside Urine Nitrite - Negative Bedside Urine Leukocytes ++ 125 Esterase ECG Data Attestation: I personally reviewed and interpreted this ECG as follows: Interpretation: Sinus rhythm with the rate 99 OH interval 1 PVCs noted Discharge Plan Departure Patient Disposition: Home Clinical Impression: Volume overload Qualifiers: Hypervolemia type: other Qualified Code(s): E87.79 - Other fluid overload Bronchiectasis Qualifiers: Bronchiectasis type: with acute exacerbation Qualified Code(s): J47.1 - Bronchiectasis with (acute) exacerbation Chest pain Qualifiers: Chest pain type: other chest pain Qualified Code(s): R07.89 - Other chest pain Discharge Date/Time: 03/25/19 18:24 Interventions: ED Discharge Assessment Last Done: 03/25/19 18:23 Instructions: DI for Atypical Chest Pain, DI for Peripheral Edema -- Bilateral Activity Restrictions/Additional Instructions: Since you are feeling better, you can return home this evening. As we talked about, you should return to the ED immediately if you have acutely worsening symptoms again. Since you have had the leg swelling and increasing discomfort since you left the hospital, I suspect that this is due to increased fluid in your chest and extremities, especially based on your testing today and response to the diuretic pill which helped you get some of the fluid off. Please continue to take a smaller dose of the water pill Lasix/furosemide tomorrow morning and Monday morning, and take an additional smaller dose of potassium that high have prescribed for you as well as your other medicines as usual. Please see your PCP by tomorrow Monday for recheck as you need to be monitored closely. Prescriptions: New potassium chloride 10 mEq capsule, extended release 10 meq PO DAILY Qty: 2 RF: 0 furosemide [Lasix] 20 mg tablet 20 mg PO QAM PRN (Reason: edema) Qty: 2 RF: 0 No Action ipratropium-albuterol 3 ML solution for nebulization 1 amp NEB QIDP PRN (Reason: Shortness Of Breath) Qty: 0 RF: 0 meloxicam 15 MG tablet 15 mg PO QPM Qty: 0 RF: 0 duloxetine [Cymbalta] 60 MG capsule,delayed release(DR/EC) 60 mg PO BEDTIME Qty: 0 RF: 0 sennosides [senna] 8.6 MG tablet 8.6 tab PO QAM Qty: 0 RF: 0 famotidine 20 mg tablet 20 mg PO DAILY RF: 0 fludrocortisone 0.1 mg tablet 0.2 mg PO DAILY RF: 0 levothyroxine 25 mcg tablet 25 mcg PO DAILY Qty: 30 RF: 0 hydrocortisone 10 mg tablet 10 mg PO BID Qty: 60 RF: 0 potassium chloride 20 mEq tablet extended release 20 meq PO DAILY Qty: 30 RF: 0 alendronate 70 mg tablet 70 mg PO QWEEK RF: 0 fluticasone propion-salmeterol [Wixela Inhub] 500-50 mcg/dose blister with device 1 puff Inhalation BID RF: 0 albuterol sulfate [Ventolin HFA] 90 mcg/actuation HFA aerosol inhaler 2 puff Inhalation Q4H PRN (Reason: Wheezing) RF: 0 cyclobenzaprine 10 mg tablet 10 mg PO TID PRN (Reason: Muscle Spasm) RF: 0 metoprolol tartrate 25 mg tablet 12.5 mg PO BID RF: 0 buprenorphine-naloxone 4-1 mg film 1 film Sublingual DAILY RF: 0 cromolyn 4 % Drops 1 drp EYE-BOTH PRN RF: 0 lidocaine HCl [Lidocaine Viscous] 2 % Solution 5 ml PO Q4H PRN (Reason: pain) RF: 0 montelukast 10 mg Tablet 10 mg PO QPM RF: 0 ondansetron 4 mg Tablet,Disintegrating 4 mg Translingual PRN PRN (Reason: Nausea) RF: 0 cholecalciferol (vitamin D3) [Vitamin D3] 2,000 unit Capsule 2,000 unit PO DAILY RF: 0 melatonin 3 mg Tablet 6 mg PO BEDTIME Qty: 30 RF: 0 lidocaine 5 % Adhesive Patch,Medicated 1 ea topical DAILY PRN (Reason: Pain, Moderate (4-6)) Qty: 30 RF: 0 Referrals: Donald Hoang DO [Primary Care Provider] - <Sneha Jules DO - Last Filed: 03/28/19 07:43> Cosign ED Attending Luciaature Attestation: I was immediately available in the department for consultation. Documentation has been reviewed. I agree with assessment and plan.
[2019-03-25] MEDS: ASPIRIN 81 MG TAB 324 MG PO (14:44)
[2019-03-25 14:52] LABS: INR 1.2 (0.9-1.3); Prothrombin Time 13.4 SECONDS (10.1-12.7)
[2019-03-25 14:53] LABS: Hematocrit 22.8 % (36-46); Hemoglobin 7.6 g/dL (12.0-16.0); Mean Corpuscular HGB Conc 33.1 % (30-36); Mean Corpuscular Hemoglobin 27.3 PG (26-34); Mean Corpuscular Volume 82.3 fL (80-100); Platelet Count 88 X10^3/uL (150-400); Red Blood Cell Count 2.77 X10^6/uL (4.0-5.2); Red Cell Distribution Width 19.4 % (11.6-14.8); White Blood Cell Count 6.3 X10^3/uL (4.5-11.0)
[2019-03-25 14:54] LABS: PTT Partial Thromboplastin Tim 30 SECONDS (26.4-36.2)
[2019-03-25 14:56] LABS: Add Manual Diff / Slide Review YES
[2019-03-25 15:00] VITALS: BP 96/62; PULSE 95; RESP 18; O2SAT 95
[2019-03-25 15:10] LABS: Lactate (Lactic Acid) 2.3 mmol/L (0.7-2.1)
[2019-03-25 15:11] LABS: Alanine Aminotransferase 47 IU/L (9-52); Albumin 2.1 g/dL (3.5-5.0); Albumin Globulin Ratio 0.6 (1.0-2.8); Alkaline Phosphatase 166 U/L (38-126); Aspartate Aminotransferase 43 IU/L (14-36); Bilirubin Total 0.9 mg/dL (0.2-1.3); Blood Urea Nitrogen 14 mg/dL (7-17); Calcium 7.3 mg/dL (8.4-10.2); Carbon Dioxide 25 mmol/L (22-32); Chloride 93 mmol/L (98-107); Creatine Kinase 21 U/L (30-135); Estimated Glomerular Filt Rate > 60.0 mL/min (>60); Globulin 3.3 g/dL (1.7-4.1); Glucose 113 mg/dL (80-110); HEMOLYSIS < 15 (0-50); Lipase 33 U/L (23-300); Magnesium 1.5 mg/dL (1.6-2.3); Potassium 4.2 mmol/L (3.4-5.1); Sodium 124 mmol/L (137-145); Total Protein 5.4 g/dL (6.3-8.2)
[2019-03-25 15:19] LABS: B Type Natriuretic Peptide 443 (<100)
[2019-03-25 15:22] LABS: Troponin I < 0.012 ng/mL (0.01-0.034)
[2019-03-25 15:23] LABS: Anisocytosis 1+; Neutrophils Absolute Manual 5607 /uL (3000-5900); Polychromasia 1+; Total Cells Counted 100
[2019-03-25 16:00] VITALS: BP 104/61; PULSE 96; RESP 20; O2SAT 96
[2019-03-25] MEDS: FUROSEMIDE 40 MG/4 ML VIAL IV (16:14)
[2019-03-25] MEDS: POTASSIUM CHLORIDE 20 MEQ TAB PO (16:15)
[2019-03-25 16:30] VITALS: BP 91/43; PULSE 92; RESP 18; O2SAT 95
[2019-03-25 16:46] LABS: Reflexed Lactate in 2 Hours Y
[2019-03-25 17:06] LABS: Bacteria Urine None Seen; RBC Urine None Seen (0-5/HPF)
[2019-03-25 17:20] LABS: Lactate 2HR (Lactic Acid Rflx) 2.1 mmol/L (0.7-2.1)
[2019-03-25 17:29] LABS: Culture Indicated Urine Specimen Cultured; WBC Urine 0-1/HPF (0-5/HPF)
[2019-03-25 17:30] VITALS: BP 89/58; PULSE 82; RESP 14; O2SAT 98
== END 2019-03-25 18:24 | disposition home or self-care (01) ==
PROVIDERS: Emergency Provider Internal Medicine; PCP Family Medicine
DX: E87.79 Other fluid overload (principal); J47.1 Bronchiectasis with (acute) exacerbation; R07.89 Other chest pain; R06.02 Shortness of breath; R42 Dizziness and giddiness
CPT/HCPCS: 36415; 36591; 71045; 80053; 81003; 81015; 82550; 83605; 83690; 83735; 83880; 84484; 85025; 85610; 85730; 86850; 86870; 86900; 86901; 87086; 93005; 96374; 99284; 99285; J1940

== ENCOUNTER 2019-04-10 17:06 | Emergency (ER) | payer OTHER, SELFPAY ==
[2019-03-14 16:31] VITALS: BMI 26.8
[2019-04-10] VITALS (24 sets, daily range): BP systolic 66–122; BP diastolic 29–79; PULSE 37–131; RESP 22–40; TEMP 36.1–36.8; O2SAT 4–100; BMI 25.7
[2019-04-10] MEDS: ALBUTEROL/IPRATROPIUM 3 ML AMPUL INH (17:21)
--- NOTE | 2019-04-10 17:47 | DI.RAD.S_ITS ---
PROCEDURE: XR CHEST 1V INDICATIONS: cough TECHNIQUE: One view of the chest was acquired. COMPARISON: [facility], CR, XR CHEST 1V, 03/25/2019, 14:39. FINDINGS: Surgical changes and devices: Cervical spinal fixation hardware. Posterior spinal instrumentation in the lumbar spine also noted. Lungs and pleura: No acute consolidation. Scattered subsegmental atelectasis and/or scarring. No pleural effusions or pneumothorax. Mediastinum: Mediastinal contours appear normal. Heart size is normal. Bones and chest wall: No suspicious bony lesions. Overlying soft tissues appear unremarkable. IMPRESSION: No interval change or acute disease. Dictated by: Alo Don M.D. on 04/10/2019 at 18:58 Approved by: Alo Don M.D. on 04/10/2019 at 19:00
[2019-04-10 17:55] LABS: Add Manual Diff / Slide Review NO; Basophils Absolute Auto 100 /uL (0-100); Basophils Percent Auto 0.8 % (0-2); Eosinophils Absolute Auto 100 /uL (0-450); Eosinophils Percent Auto 0.9 % (2-4); Hematocrit 25.4 % (36-46); Hemoglobin 8.1 g/dL (12.0-16.0); Lymphocytes Absolute Auto 1400 /uL (1100-4500); Lymphocytes Percent Auto 20.8 % (25-40); Mean Corpuscular HGB Conc 31.9 % (30-36); Mean Corpuscular Hemoglobin 26.1 PG (26-34); Mean Corpuscular Volume 81.9 fL (80-100); Monocytes Absolute Auto 900 /uL (0-900); Monocytes Percent Auto 13.8 % (3-14); Neutrophils Absolute Auto 4400 /uL (1500-7000); Neutrophils Percent Auto 63.7 % (50-75); Platelet Count 74 X10^3/uL (150-400); Red Cell Distribution Width 19.4 % (11.6-14.8); White Blood Cell Count 6.9 X10^3/uL (4.5-11.0)
[2019-04-10 18:07] LABS: INR 1.4 (0.9-1.3)
[2019-04-10 18:08] LABS: Alanine Aminotransferase 19 IU/L (9-52); Albumin Globulin Ratio 0.6 (1.0-2.8); Alkaline Phosphatase 138 U/L (38-126); Aspartate Aminotransferase 36 IU/L (14-36); BUN Creatinine Ratio 18.6 (6-22); Bilirubin Total 0.9 mg/dL (0.2-1.3); Blood Urea Nitrogen 13 mg/dL (7-17); Carbon Dioxide 22 mmol/L (22-32); Chloride 90 mmol/L (98-107); Estimated Glomerular Filt Rate > 60.0 mL/min (>60); Globulin 3.3 g/dL (1.7-4.1); Glucose 84 mg/dL (80-110); HEMOLYSIS < 15 (0-50); Potassium 4.5 mmol/L (3.4-5.1); Sodium 121 mmol/L (137-145); Total Protein 5.3 g/dL (6.3-8.2)
[2019-04-10] MEDS: SODIUM CHLORIDE 0.9% 1,000 ML 1000 ML IV ×2 (18:24→21:05)
--- NOTE | 2019-04-10 18:26 | DI.CT.S_ITS ---
PROCEDURE: CT HEAD/BRAIN WO CON INDICATIONS: ALOC TECHNIQUE: Noncontrast 4.5 mm thick angled axial sections acquired from the foramen magnum to the vertex, with coronal and sagittal reformats. For radiation dose reduction, the following was used: automated exposure control, adjustment of mA and/or kV according to patient size. COMPARISON: [facility], CT, CT HEAD/BRAIN WO CON, 02/15/2019, 13:00. FINDINGS: Image quality: Excellent. CSF spaces: Basal cisterns are patent. No extra-axial fluid collections. The ventricles are symmetric in size and shape. Brain: No intracranial bleeds or masses. There is cerebral volume loss for age, with resultant ventricular and sulcal prominence. There are periventricular and deep white matter chronic small vessel ischemic changes. There is intracranial internal carotid artery atherosclerosis. Skull and face: Calvarium and visualized facial bones appear intact, without suspicious lesions. Sinuses: Mild bilateral inferior mastoid air cell fluid. There is also minimal left maxillary sinus disease. IMPRESSION: No acute intracranial process. Mild bilateral mastoid air cell fluid, nonspecific. Minimal left maxillary sinus disease. Dictated by: Alo Don M.D. on 04/10/2019 at 19:42 Approved by: Alo Don M.D. on 04/10/2019 at 19:45
[2019-04-10 18:33] LABS: Procalcitonin 0.62 ng/mL (<0.5)
[2019-04-10 18:33] LABS: Lactate (Lactic Acid) 3.6 mmol/L (0.7-2.1)
--- NOTE | 2019-04-10 19:08 | ED_ITS ---
HPI - Weakness <Leonela Oh MD - Last Filed: 04/18/19 13:46> General Chief complaint: Weakness Stated complaint: Weakness Time Seen by Provider: 04/10/19 17:40 Source: patient Mode of arrival: ambulatory Limitations: altered mental status History of Present Illness HPI Narrative: Patient states she has come to the emergency department today because of a feeling of confusion and weakness. She states she has had hyponatremia before, and thinks that her sodium may be low again. She is also concerned about her chronic anemia. Patient states that she has not had any known fevers but does feel cold. She denies shortness of breath or chest pain but has had a cough. No dysuria. No abdominal pain, nausea, or vomiting. No black tarry stools or bright red blood per rectum. Patient states she lives at home with her . No other complaints at this time. Related Data Home Medications Medication Instructions Recorded Confirmed duloxetine [Cymbalta] 60 mg PO BEDTIME #0 01/10/18 04/10/19 ipratropium-albuterol 1 amp NEB QIDP PRN #0 01/10/18 03/14/19 meloxicam 15 mg PO QPM #0 01/10/18 04/10/19 sennosides [senna] 8.6 tab PO QAM #0 01/10/18 03/14/19 buprenorphine-naloxone 1 film SUBLINGUAL DAILY 02/15/19 03/25/19 cholecalciferol (vitamin D3) 2,000 unit PO DAILY 02/15/19 03/25/19 [Vitamin D3] cromolyn 1 drp EYE-BOTH PRN 02/15/19 03/25/19 cyclobenzaprine 10 mg PO TID PRN 02/15/19 03/25/19 lidocaine HCl [Lidocaine Viscous] 5 ml PO Q4H PRN 02/15/19 03/25/19 metoprolol tartrate 12.5 mg PO BID 02/15/19 04/10/19 montelukast 10 mg PO QPM 02/15/19 04/10/19 ondansetron 4 mg TRANSLINGUAL PRN PRN 02/15/19 03/25/19 famotidine 20 mg PO DAILY 03/14/19 03/25/19 fludrocortisone 0.2 mg PO DAILY 03/14/19 04/11/19 albuterol sulfate [Ventolin HFA] 2 puff INHALATION Q4H PRN 03/25/19 04/10/19 alendronate 70 mg PO QWEEK 03/25/19 03/25/19 fluticasone propion-salmeterol 1 puff INHALATION BID 03/25/19 04/10/19 [Wixela Inhub] ferrous sulfate 325 mg PO BID 04/10/19 04/10/19 potassium chloride 10 meq PO DAILY 04/11/19 04/11/19 Previous Rx's Medication Instructions Recorded lidocaine 1 ea TOPICAL DAILY PRN #30 ea 02/26/19 melatonin 6 mg PO BEDTIME #30 tab 02/26/19 hydrocortisone 10 mg PO BID #60 tab 03/17/19 levothyroxine 25 mcg PO DAILY #30 tab 03/17/19 furosemide [Lasix] 20 mg PO QAM PRN #2 tab 03/25/19 Allergies Allergy/AdvReac Type Severity Reaction Status Date / Time Haemophilus B polysaccharide Allergy Severe ANAPHYLAXIS Verified 03/25/19 14:24 conj w [From PENTACEL ACTHIB COMPONENT (PF)] peanut [PEANUT] Allergy Severe ANAPHYLAXIS Verified 03/25/19 14:24 Tetanus Vaccines and Toxoid Allergy Severe ANAPHYLAXIS Verified 03/25/19 14:24 [TETANUS VACCINES & TOXOID] penicillin G [PENICILLIN G] Allergy Intermediate RASH Verified 03/25/19 14:24 hydroxyzine [HYDROXYZINE] AdvReac Severe HALLUCINATI Verified 03/25/19 14:24 ONS/PARANOI D ibuprofen [IBUPROFEN] AdvReac Intermediate DYSLEXIA Verified 03/25/19 14:24 PEAS Allergy Severe RASH, LIP Uncoded 02/15/19 12:45 SWELLING Review of Systems <Leonela Oh MD - Last Filed: 04/18/19 13:46> Constitutional Reports chills, Reports fatigue, Denies fever(s), Denies lethargy and Reports weakness Eyes Denies change in vision, Denies eye discharge, Denies irritation and Denies loss of vision ENT Ears, Nose, Mouth, and Throat: Denies change in voice, Denies neck pain and Denies sore throat Cardiovascular Denies chest pain, Denies irregular heart rhythm, Denies lightheadedness, Denies palpitations, Denies dyspnea, Denies dyspnea on exertion and Denies orthopnea Respiratory Denies cough, Denies dyspnea, Denies dyspnea on exertion and Denies wheezing Gastrointestinal Gastrointestinal: Denies abdominal pain, Denies change in bowel habits, Denies diarrhea, Denies nausea and Denies vomiting Genitourinary Denies hematuria, Denies flank pain, Denies urinary incontinence and Denies urinary urgency Musculoskeletal Denies neck pain Integumentary/Breasts Denies pruritus, Denies erythema, Denies rash and Denies wounds Neurologic Reports confusion, Denies loss of vision and Reports weakness Psychiatric Denies anxiety, Reports confusion, Denies depression, Denies homicidal ideation and Denies suicidal ideation Endocrine Reports fatigue and Denies palpitations Hematologic/Lymphatic Denies easy bruising Allergic/Immunologic Denies wheezing PFSH <Leonela Oh MD - Last Filed: 04/18/19 13:46> Medical History Bronchiectasis (Chronic) Thrombocytopenia (Chronic) Adrenal insufficiency (Chronic) Iron deficiency anemia (Chronic) Hyponatremia (Chronic) Supraventricular tachycardia (Chronic) Chronic respiratory failure with hypoxia (Chronic) Hypothyroidism (Chronic) Major depressive disorder (Chronic) Osteoporosis (Chronic) Opioid dependence (Chronic) Aspiration pneumonia due to food (regurgitated) (Acute) Hypovolemic shock (Acute) Surgical History Abdominal adhesions (Chronic) H/O exploratory laparotomy (Resolved) Social History household members: spouse Smoking Status: Never smoker Social History household members: spouse Smoking Status: Never smoker Exam <Leonela Oh MD - Last Filed: 04/18/19 13:46> Initial Vital Signs Initial Vital Signs: Vital Signs Temperature 97.9 F 04/10/19 17:15 Pulse Rate 113 H 04/10/19 17:15 Respiratory Rate 30 H 04/10/19 17:15 Blood Pressure 105/69 04/10/19 17:15 Pulse Oximetry 99 04/10/19 17:15 Const General: cooperative and well developed Nutritional Appearance: well nourished Orientation: awake and confused Other: Patient is aware of who she is and where she is, but seems confused trying to answer history taking questions. She is not able to clearly articulate exactly what she is feeling or why she is here in a coherent way. [facility] Head: normocephalic and atraumatic Ears: external ears normal and TM's normal bilaterally Nose: external nose normal and No nasal discharge Face and sinus: sinuses nontender, face symmetric, no sinus tenderness and No dry mucous membranes Mouth: oral mucosae normal and moist mucous membranes Teeth and gingiva: dentition normal Throat: tonsils normal and uvula midline Eyes General: appearance normal, both eyes and all related structures Eyelids: eyelids normal Conjunctivae: conjunctivae normal Sclera: sclerae normal Pupils: PERRL EOM: EOM intact bilaterally Neck Neck: normal visual inspection, trachea midline, No lymphadenopathy, No midline deformity and No JVD Lymphatic: No lymphedema Chest Chest: normal inspection of the chest Resp Effort & Inspection: normal respiratory effort, able to speak in complete senten adelso, no respiratory distress and no use of accessory muscles Auscultation: clear to auscultation bilaterally, no rales, no rhonchi and no wheezes Cardio Rate: regular rate Rhythm: regular rhythm Heart Sounds: no click, no gallops, no murmurs and no rubs Pulses: normal peripheral pulses GI Inspection: non-distended Palpation: soft, no hepatosplenomegaly, No guarding, No pulsatile mass and No tender Auscultation: normal bowel sounds Back/Spine/Pelvis Back: No CVA tenderness Cervical Spine: cervical ROM normal and No pain with cervical ROM Thoracic/Lumbar Spine: thoracic and lumbar spine normal to inspection Skin General: no rashes or lesions noted, No jaundice and No petechiae Neuro General: alert, oriented x3, gait normal and no focal motor deficits Speech: speech normal Extrem General: full ROM, no clubbing, cyanosis or edema, no pedal edema and no calf tenderness Psych Appearance: well kempt Mental Status: mental status grossly normal Attitude: cooperative Thought Content: normal and suicidality Judgment: judgment good <Paul Elliott MD - Last Filed: 04/18/19 19:07> Initial Vital Signs Initial Vital Signs: Vital Signs Temperature 97.9 F 04/10/19 17:15 Pulse Rate 113 H 04/10/19 17:15 Respiratory Rate 30 H 04/10/19 17:15 Blood Pressure 105/69 04/10/19 17:15 Pulse Oximetry 99 04/10/19 17:15 Course <Leonela Oh MD - Last Filed: 04/18/19 13:46> Course Narrative: This patient was tachycardic, and blood pressure was fluctuati ng between low normal and borderline hypotensive. I felt that she should be worked up broadly with sepsis in mind. She was started on IV fluids and chest x-ray, CT scan, EKG, and labs were obtained. Chest x-ray was negative. White blood cell count was normal, but lactic acid level was found to be somewhat elevated. Patient was signed out to Dr. Elliott shortly after evaluation, pending remainder of workup and disposition. Orders Ordered: Discontinued Medications Acetaminophen (Tylenol) 650 mg RI NOW ONE Stop: 04/11/19 02:42 Last Admin: 04/11/19 02:55 Dose: 650 mg Albuterol/Ipratropium (Duoneb) 3 ml INH NOW ONE Stop: 04/10/19 17:21 Last Admin: 04/10/19 17:21 Dose: 3 ml Hydrocortisone (Solu-Cortef) 100 mg IV NOW ONE Stop: 04/10/19 19:21 Last Admin: 04/10/19 19:45 Dose: 100 mg Hydrocortisone (Solu-Cortef) 100 mg IV NOW ONE Stop: 04/10/19 19:49 Last Admin: 04/10/19 21:45 Dose: Not Given Sodium Chloride (Normal Saline 0.9%) 1,000 mls @ 1,000 mls/hr IV BOLUS ONE Stop: 04/10/19 18:45 Last Infusion: 04/10/19 21:00 Dose: 0 mls/hr Admin: 04/10/19 18:24 Dose: 1,000 mls/hr Levofloxacin (Levaquin) 500 mg in 100 mls @ 100 mls/hr IV NOW ONE Stop: 04/10/19 21:08 Vancomycin HCl/Dextrose (Vancomycin) 1,000 mg in 200 mls @ 200 mls/hr IV NOW ONE Stop: 04/10/19 21:14 Last Infusion: 04/10/19 22:00 Dose: 0 mls/hr Admin: 04/10/19 21:00 Dose: 200 mls/hr Ceftriaxone Sodium/Dextrose (Rocephin) 1 gm in 50 mls @ 100 mls/hr IV NOW ONE Stop: 04/10/19 20:44 Last Infusion: 04/10/19 21:15 Dose: 0 mls/hr Admin: 04/10/19 20:45 Dose: 100 mls/hr Sodium Chloride (Normal Saline 0.9%) 1,000 mls @ 1,000 mls/hr IV BOLUS ONE Stop: 04/10/19 22:01 Last Infusion: 04/11/19 05:00 Dose: 100 mls/hr Infusion: 04/10/19 22:00 Dose: 100 mls/hr Infusion: 04/10/19 21:30 Dose: 0 mls/hr Admin: 04/10/19 21:05 Dose: 1,000 mls/hr Norepinephrine Bitartrate 4 mg (/ Dextrose) 254 mls @ 30.48 mls/hr IV TITRATE FAISAL; Protocol Last Titration: 04/11/19 08:10 Dose: 0 mcg/min, 0 mls/hr Titration: 04/10/19 21:38 Dose: 0 mcg/min, 0 mls/hr Admin: 04/10/19 21:30 Dose: 5 mcg/min, 19.05 mls/hr Lorazepam (Ativan) 1 mg IV NOW ONE Stop: 04/10/19 21:21 Last Admin: 04/10/19 21:20 Dose: 1 mg Pantoprazole Sodium (Protonix) 40 mg IV NOW ONE Stop: 04/10/19 21:33 Last Admin: 04/10/19 23:18 Dose: 40 mg Vital Signs - 8 hr 04/11/19 00:37 04/11/19 00:52 04/11/19 02:15 Temperature 98.7 F 98.9 F 100.5 F H Pulse Rate 103 H 106 H 99 H Respiratory Rate 25 H 26 H 22 Blood Pressure 113/65 111/66 Blood Pressure [Left Arm] 106/63 Pulse Oximetry 100 04/11/19 02:55 04/11/19 03:06 04/11/19 03:30 Temperature 100.5 F H 98.6 F Pulse Rate 96 H 96 H Respiratory Rate 20 23 Blood Pressure Blood Pressure [Left Arm] 101/60 101/61 Pulse Oximetry 99 99 04/11/19 04:34 04/11/19 06:02 04/11/19 06:51 Temperature Pulse Rate 96 H 94 H 90 Respiratory Rate 21 21 23 Blood Pressure Blood Pressure [Left Arm] 102/64 103/66 105/68 Pulse Oximetry 97 100 98 04/11/19 07:40 Temperature Pulse Rate 89 Respiratory Rate 14 Blood Pressure Blood Pressure [Left Arm] 101/66 Pulse Oximetry 100 <Paul Elliott MD - Last Filed: 04/18/19 19:07> Orders Ordered: Discontinued Medications Acetaminophen (Tylenol) 650 mg RI NOW ONE Stop: 04/11/19 02:42 Last Admin: 04/11/19 02:55 Dose: 650 mg Albuterol/Ipratropium (Duoneb) 3 ml INH NOW ONE Stop: 04/10/19 17:21 Last Admin: 04/10/19 17:21 Dose: 3 ml Hydrocortisone (Solu-Cortef) 100 mg IV NOW ONE Stop: 04/10/19 19:21 Last Admin: 04/10/19 19:45 Dose: 100 mg Hydrocortisone (Solu-Cortef) 100 mg IV NOW ONE Stop: 04/10/19 19:49 Last Admin: 04/10/19 21:45 Dose: Not Given Sodium Chloride (Normal Saline 0.9%) 1,000 mls @ 1,000 mls/hr IV BOLUS ONE Stop: 04/10/19 18:45 Last Infusion: 04/10/19 21:00 Dose: 0 mls/hr Admin: 04/10/19 18:24 Dose: 1,000 mls/hr Levofloxacin (Levaquin) 500 mg in 100 mls @ 100 mls/hr IV NOW ONE Stop: 04/10/19 21:08 Vancomycin HCl/Dextrose (Vancomycin) 1,000 mg in 200 mls @ 200 mls/hr IV NOW ONE Stop: 04/10/19 21:14 Last Infusion: 04/10/19 22:00 Dose: 0 mls/hr Admin: 04/10/19 21:00 Dose: 200 mls/hr Ceftriaxone Sodium/Dextrose (Rocephin) 1 gm in 50 mls @ 100 mls/hr IV NOW ONE Stop: 04/10/19 20:44 Last Infusion: 04/10/19 21:15 Dose: 0 mls/hr Admin: 04/10/19 20:45 Dose: 100 mls/hr Sodium Chloride (Normal Saline 0.9%) 1,000 mls @ 1,000 mls/hr IV BOLUS ONE Stop: 04/10/19 22:01 Last Infusion: 04/11/19 05:00 Dose: 100 mls/hr Infusion: 04/10/19 22:00 Dose: 100 mls/hr Infusion: 04/10/19 21:30 Dose: 0 mls/hr Admin: 04/10/19 21:05 Dose: 1,000 mls/hr Norepinephrine Bitartrate 4 mg (/ Dextrose) 254 mls @ 30.48 mls/hr IV TITRATE FAISAL; Protocol Last Titration: 04/11/19 08:10 Dose: 0 mcg/min, 0 mls/hr Titration: 04/10/19 21:38 Dose: 0 mcg/min, 0 mls/hr Admin: 04/10/19 21:30 Dose: 5 mcg/min, 19.05 mls/hr Lorazepam (Ativan) 1 mg IV NOW ONE Stop: 04/10/19 21:21 Last Admin: 04/10/19 21:20 Dose: 1 mg Pantoprazole Sodium (Protonix) 40 mg IV NOW ONE Stop: 04/10/19 21:33 Last Admin: 04/10/19 23:18 Dose: 40 mg Vital Signs - 8 hr 04/11/19 00:37 04/11/19 00:52 04/11/19 02:15 Temperature 98.7 F 98.9 F 100.5 F H Pulse Rate 103 H 106 H 99 H Respiratory Rate 25 H 26 H 22 Blood Pressure 113/65 111/66 Blood Pressure [Left Arm] 106/63 Pulse Oximetry 100 04/11/19 02:55 04/11/19 03:06 04/11/19 03:30 Temperature 100.5 F H 98.6 F Pulse Rate 96 H 96 H Respiratory Rate 20 23 Blood Pressure Blood Pressure [Left Arm] 101/60 101/61 Pulse Oximetry 99 99 04/11/19 04:34 04/11/19 06:02 04/11/19 06:51 Temperature Pulse Rate 96 H 94 H 90 Respiratory Rate 21 21 23 Blood Pressure Blood Pressure [Left Arm] 102/64 103/66 105/68 Pulse Oximetry 97 100 98 04/11/19 07:40 Temperature Pulse Rate 89 Respiratory Rate 14 Blood Pressure Blood Pressure [Left Arm] 101/66 Pulse Oximetry 100 MDM - Weakness <Leonela Adriano, MD - Last Filed: 04/18/19 13:46> Medical Records Attestation: I reviewed the patient's medical records. Lab Data Result diagrams: 04/11/19 02:38 04/11/19 04:34 Lab Results 04/10/19 04/10/19 04/10/19 Range/Units 17:44 17:44 17:44 WBC 6.9 (4.5-11.0) X10^3/uL RBC 3.10 L (4.0-5.2) X10^6/uL Hgb 8.1 L (12.0-16.0) g/dL Hct 25.4 L (36-46) % MCV 81.9 (80-100) fL MCH 26.1 (26-34) PG MCHC 31.9 (30-36) % RDW 19.4 H (11.6-14.8) % Plt Count 74 L (150-400) X10^3/uL Neut % (Auto) 63.7 (50-75) % Lymph % (Auto) 20.8 L (25-40) % [place] % (Auto) 13.8 (3-14) % Eos % (Auto) 0.9 L (2-4) % Baso % (Auto) 0.8 (0-2) % Neut # (Auto) 4400 (7926-2580) /uL Lymph # (Auto) 1400 (8838-1183) /uL [place] # (Auto) 900 (0-900) /uL Eos # (Auto) 100 (0-450) /uL Baso # (Auto) 100 (0-100) /uL Total Counted Seg Neutrophils % (38-70) % Band Neutrophils % (3-7) % Lymphocytes % (Manual) (25-45) % Atypical Lymphs % ( - 0) % Monocytes % (Manual) (2-11) % Eosinophils % (Manual) (2-4) % Basophils % (Manual) (0-1) % Myelocytes % (-0) % Neutrophils # (Manual) (3480-0619) /uL Nucleated RBCs ( - 0) #/Diff Toxic Granulation Platelet Estimate RBC Morphology Polychromasia Hypochromasia Anisocytosis Macrocytosis Smear Path Review PT (10.1-12.7) SECONDS INR (0.9-1.3) ABG pH (7.35-7.45) ABG pCO2 (35-45) mmHg ABG pO2 (80-100) mmHg ABG HCO3 (22-26) mmol/L ABG Total CO2 (21-31) mmol/L ABG O2 Saturation (95-100) % ABG Base Excess (-2-2) mmol/L FiO2 Sodium 121 L (137-145) mmol/L Potassium 4.5 (3.4-5.1) mmol/L Chloride 90 L (98-107) mmol/L Carbon Dioxide 22 (22-32) mmol/L BUN 13 (7-17) mg/dL Creatinine 0.70 (0.52-1.04) mg/dL Estimated GFR > 60.0 (>60) mL/min BUN/Creatinine Ratio 18.6 (6-22) Glucose 84 (80-110) mg/dL Lactate (0.7-2.1) mmol/L Calcium 7.0 L (8.4-10.2) mg/dL Magnesium (1.6-2.3) mg/dL Total Bilirubin 0.9 (0.2-1.3) mg/dL AST 36 (14-36) IU/L ALT 19 (9-52) IU/L Alkaline Phosphatase 138 H (38-126) U/L Total Protein 5.3 L (6.3-8.2) g/dL Albumin 2.0 L (3.5-5.0) g/dL Globulin 3.3 (1.7-4.1) g/dL Albumin/Globulin Ratio 0.6 L (1.0-2.8) Procalcitonin (<0.5) ng/mL Urine Color Urine Appearance Urine pH (4.5-8.0) Ur Specific [place] (1.000-1.035) Urine Protein (Negative) Urine Glucose (UA) (Negative) g/dL Urine Ketones (NEGATIVE) Urine Occult Blood (Negative) Urine Nitrate (Negative) Urine Bilirubin (NEGATIVE) Urine Urobilinogen (0.2) E.U./dL Ur Leukocyte Esterase (NEGATIVE) Urine RBC (0-5/HPF) Urine WBC (0-5/HPF) Urine Bacteria (None) Ur Culture Indicated? Micro UA Comment Blood Type O Positive Antibody Screen Positive Antibody Identification Anti-c Crossmatch See Detail Transfusion React Rpt Donor Unit # Lab Clerical Err Check Pre-Trans Blood Type Pre-Trans Vis Hemolysis Pre-Trans Antibody Scrn Post-Trans Blood Type Post-Tx Visible Hemolys Post-Trans Antibody Scrn Reaction Path Interpret 04/10/19 04/10/19 04/10/19 Range/Units 17:44 17:44 17:44 WBC (4.5-11.0) X10^3/uL RBC (4.0-5.2) X10^6/uL Hgb (12.0-16.0) g/dL Hct (36-46) % MCV (80-100) fL MCH (26-34) PG MCHC (30-36) % RDW (11.6-14.8) % Plt Count (150-400) X10^3/uL Neut % (Auto) (50-75) % Lymph % (Auto) (25-40) % [place] % (Auto) (3-14) % Eos % (Auto) (2-4) % Baso % (Auto) (0-2) % Neut # (Auto) (5476-9800) /uL Lymph # (Auto) (9682-4755) /uL [place] # (Auto) (0-900) /uL Eos # (Auto) (0-450) /uL Baso # (Auto) (0-100) /uL Total Counted Seg Neutrophils % (38-70) % Band Neutrophils % (3-7) % Lymphocytes % (Manual) (25-45) % Atypical Lymphs % ( - 0) % Monocytes % (Manual) (2-11) % Eosinophils % (Manual) (2-4) % Basophils % (Manual) (0-1) % Myelocytes % (-0) % Neutrophils # (Manual) (9738-5983) /uL Nucleated RBCs ( - 0) #/Diff Toxic Granulation Platelet Estimate RBC Morphology Polychromasia Hypochromasia Anisocytosis Macrocytosis Smear Path Review PT 16.0 H (10.1-12.7) SECONDS INR 1.4 H (0.9-1.3) ABG pH (7.35-7.45) ABG pCO2 (35-45) mmHg ABG pO2 (80-100) mmHg ABG HCO3 (22-26) mmol/L ABG Total CO2 (21-31) mmol/L ABG O2 Saturation (95-100) % ABG Base Excess (-2-2) mmol/L FiO2 Sodium (137-145) mmol/L Potassium (3.4-5.1) mmol/L Chloride (98-107) mmol/L Carbon Dioxide (22-32) mmol/L BUN (7-17) mg/dL Creatinine (0.52-1.04) mg/dL Estimated GFR (>60) mL/min BUN/Creatinine Ratio (6-22) Glucose (80-110) mg/dL Lactate (0.7-2.1) mmol/L Calcium (8.4-10.2) mg/dL Magnesium 1.5 L (1.6-2.3) mg/dL Total Bilirubin (0.2-1.3) mg/dL AST (14-36) IU/L ALT (9-52) IU/L Alkaline Phosphatase (38-126) U/L Total Protein (6.3-8.2) g/dL Albumin (3.5-5.0) g/dL Globulin (1.7-4.1) g/dL Albumin/Globulin Ratio (1.0-2.8) Procalcitonin 0.62 H (<0.5) ng/mL Urine Color Urine Appearance Urine pH (4.5-8.0) Ur Specific [place] (1.000-1.035) Urine Protein (Negative) Urine Glucose (UA) (Negative) g/dL Urine Ketones (NEGATIVE) Urine Occult Blood (Negative) Urine Nitrate (Negative) Urine Bilirubin (NEGATIVE) Urine Urobilinogen (0.2) E.U./dL Ur Leukocyte Esterase (NEGATIVE) Urine RBC (0-5/HPF) Urine WBC (0-5/HPF) Urine Bacteria (None) Ur Culture Indicated? Micro UA Comment Blood Type Antibody Screen Antibody Identification Crossmatch Transfusion React Rpt Donor Unit # Lab Clerical Err Check Pre-Trans Blood Type Pre-Trans Vis Hemolysis Pre-Trans Antibody Scrn Post-Trans Blood Type Post-Tx Visible Hemolys Post-Trans Antibody Scrn Reaction Path Interpret 04/10/19 04/10/19 04/10/19 Range/Units 18:15 19:33 21:06 WBC (4.5-11.0) X10^3/uL RBC (4.0-5.2) X10^6/uL Hgb (12.0-16.0) g/dL Hct (36-46) % MCV (80-100) fL MCH (26-34) PG MCHC (30-36) % RDW (11.6-14.8) % Plt Count (150-400) X10^3/uL Neut % (Auto) (50-75) % Lymph % (Auto) (25-40) % [place] % (Auto) (3-14) % Eos % (Auto) (2-4) % Baso % (Auto) (0-2) % Neut # (Auto) (8377-0807) /uL Lymph # (Auto) (0278-9659) /uL [place] # (Auto) (0-900) /uL Eos # (Auto) (0-450) /uL Baso # (Auto) (0-100) /uL Total Counted Seg Neutrophils % (38-70) % Band Neutrophils % (3-7) % Lymphocytes % (Manual) (25-45) % Atypical Lymphs % ( - 0) % Monocytes % (Manual) (2-11) % Eosinophils % (Manual) (2-4) % Basophils % (Manual) (0-1) % Myelocytes % (-0) % Neutrophils # (Manual) (1902-8439) /uL Nucleated RBCs ( - 0) #/Diff Toxic Granulation Platelet Estimate RBC Morphology Polychromasia Hypochromasia Anisocytosis Macrocytosis Smear Path Review PT (10.1-12.7) SECONDS INR (0.9-1.3) ABG pH (7.35-7.45) ABG pCO2 (35-45) mmHg ABG pO2 (80-100) mmHg ABG HCO3 (22-26) mmol/L ABG Total CO2 (21-31) mmol/L ABG O2 Saturation (95-100) % ABG Base Excess (-2-2) mmol/L FiO2 Sodium (137-145) mmol/L Potassium (3.4-5.1) mmol/L Chloride (98-107) mmol/L Carbon Dioxide (22-32) mmol/L BUN (7-17) mg/dL Creatinine (0.52-1.04) mg/dL Estimated GFR (>60) mL/min BUN/Creatinine Ratio (6-22) Glucose (80-110) mg/dL Lactate 3.6 H 5.3 H (0.7-2.1) mmol/L Calcium (8.4-10.2) mg/dL Magnesium (1.6-2.3) mg/dL Total Bilirubin (0.2-1.3) mg/dL AST (14-36) IU/L ALT (9-52) IU/L Alkaline Phosphatase (38-126) U/L Total Protein (6.3-8.2) g/dL Albumin (3.5-5.0) g/dL Globulin (1.7-4.1) g/dL Albumin/Globulin Ratio (1.0-2.8) Procalcitonin (<0.5) ng/mL Urine Color Yellow Urine Appearance Clear Urine pH 6.5 (4.5-8.0) Ur Specific [place] 1.015 (1.000-1.035) Urine Protein Negative (Negative) Urine Glucose (UA) Negative (Negative) g/dL Urine Ketones Negative (NEGATIVE) Urine Occult Blood Negative (Negative) Urine Nitrate Negative (Negative) Urine Bilirubin Negative (NEGATIVE) Urine Urobilinogen 0.2 (0.2) E.U./dL Ur Leukocyte Esterase Negative (NEGATIVE) Urine RBC None seen (0-5/HPF) Urine WBC None seen (0-5/HPF) Urine Bacteria None seen (None) Ur Culture Indicated? Cult not indicated Micro UA Comment Microscopic normal Blood Type Antibody Screen Antibody Identification Crossmatch Transfusion React Rpt Donor Unit # Lab Clerical Err Check Pre-Trans Blood Type Pre-Trans Vis Hemolysis Pre-Trans Antibody Scrn Post-Trans Blood Type Post-Tx Visible Hemolys Post-Trans Antibody Scrn Reaction Path Interpret 04/10/19 04/10/19 04/10/19 Range/Units 21:25 21:53 21:53 WBC 14.1 H D 23.1 H D (4.5-11.0) X10^3/uL RBC 0.53 L 1.30 L (4.0-5.2) X10^6/uL Hgb 2.0 L* 4.3 L* (12.0-16.0) g/dL Hct 5.9 L* 13.2 L* (36-46) % MCV 111.3 H D 101.7 H D (80-100) fL MCH 37.2 H 33.3 (26-34) PG MCHC 33.5 32.7 (30-36) % RDW 19.7 H 19.3 H (11.6-14.8) % Plt Count 56 L 63 L (150-400) X10^3/uL Neut % (Auto) Not Reportable Not Reportable (50-75) % Lymph % (Auto) Not Reportable Not Reportable (25-40) % [place] % (Auto) Not Reportable Not Reportable (3-14) % Eos % (Auto) Not Reportable Not Reportable (2-4) % Baso % (Auto) Not Reportable Not Reportable (0-2) % Neut # (Auto) Lace Tearing Supervisor ([id number]) /uL Lymph # (Auto) Not Reportable Not Reportable (1415-4173) /uL [place] # (Auto) Not Reportable Not Reportable (0-900) /uL Eos # (Auto) [employer] (0-450) /uL Baso # (Auto) Not Reportable Not Reportable (0-100) /uL Total Counted 100 Seg Neutrophils % 57.0 57.0 (38-70) % Band Neutrophils % 9.0 H 6.0 (3-7) % Lymphocytes % (Manual) 13.0 L 29.0 (25-45) % Atypical Lymphs % 6.0 H ( - 0) % Monocytes % (Manual) 14.0 H 6.0 (2-11) % Eosinophils % (Manual) 2.0 (2-4) % Basophils % (Manual) 1.0 (0-1) % Myelocytes % 1.0 H (-0) % Neutrophils # (Manual) 9306 H ([id number]) /uL Nucleated RBCs 16 H 3 H ( - 0) #/Diff Toxic Granulation Present H Platelet Estimate Decreased on smear RBC Morphology Normal morphology See below Polychromasia 2+ H 1+ H Hypochromasia 1+ H Anisocytosis 2+ H Macrocytosis 2+ H 1+ H Smear Path Review PT (10.1-12.7) SECONDS INR (0.9-1.3) ABG pH (7.35-7.45) ABG pCO2 (35-45) mmHg ABG pO2 (80-100) mmHg ABG HCO3 (22-26) mmol/L ABG Total CO2 (21-31) mmol/L ABG O2 Saturation (95-100) % ABG Base Excess (-2-2) mmol/L FiO2 Sodium 123 L (137-145) mmol/L Potassium 5.1 (3.4-5.1) mmol/L Chloride 95 L (98-107) mmol/L Carbon Dioxide 14 L (22-32) mmol/L BUN 12 (7-17) mg/dL Creatinine 0.60 (0.52-1.04) mg/dL Estimated GFR > 60.0 (>60) mL/min BUN/Creatinine Ratio 20.0 (6-22) Glucose 131 H (80-110) mg/dL Lactate (0.7-2.1) mmol/L Calcium 6.8 L (8.4-10.2) mg/dL Magnesium (1.6-2.3) mg/dL Total Bilirubin (0.2-1.3) mg/dL AST (14-36) IU/L ALT (9-52) IU/L Alkaline Phosphatase (38-126) U/L Total Protein (6.3-8.2) g/dL Albumin (3.5-5.0) g/dL Globulin (1.7-4.1) g/dL Albumin/Globulin Ratio (1.0-2.8) Procalcitonin (<0.5) ng/mL Urine Color Urine Appearance Urine pH (4.5-8.0) Ur Specific [place] (1.000-1.035) Urine Protein (Negative) Urine Glucose (UA) (Negative) g/dL Urine Ketones (NEGATIVE) Urine Occult Blood (Negative) Urine Nitrate (Negative) Urine Bilirubin (NEGATIVE) Urine Urobilinogen (0.2) E.U./dL Ur Leukocyte Esterase (NEGATIVE) Urine RBC (0-5/HPF) Urine WBC (0-5/HPF) Urine Bacteria (None) Ur Culture Indicated? Micro UA Comment Blood Type Antibody Screen Antibody Identification Crossmatch Transfusion React Rpt Donor Unit # Lab Clerical Err Check Pre-Trans Blood Type Pre-Trans Vis Hemolysis Pre-Trans Antibody Scrn Post-Trans Blood Type Post-Tx Visible Hemolys Post-Trans Antibody Scrn Reaction Path Interpret 04/10/19 04/10/19 04/10/19 Range/Units 21:53 22:23 23:47 WBC (4.5-11.0) X10^3/uL RBC (4.0-5.2) X10^6/uL Hgb (12.0-16.0) g/dL Hct (36-46) % MCV (80-100) fL MCH (26-34) PG MCHC (30-36) % RDW (11.6-14.8) % Plt Count (150-400) X10^3/uL Neut % (Auto) (50-75) % Lymph % (Auto) (25-40) % [place] % (Auto) (3-14) % Eos % (Auto) (2-4) % Baso % (Auto) (0-2) % Neut # (Auto) (6604-8083) /uL Lymph # (Auto) (8022-8027) /uL [place] # (Auto) (0-900) /uL Eos # (Auto) (0-450) /uL Baso # (Auto) (0-100) /uL Total Counted Seg Neutrophils % (38-70) % Band Neutrophils % (3-7) % Lymphocytes % (Manual) (25-45) % Atypical Lymphs % ( - 0) % Monocytes % (Manual) (2-11) % Eosinophils % (Manual) (2-4) % Basophils % (Manual) (0-1) % Myelocytes % (-0) % Neutrophils # (Manual) (7007-9613) /uL Nucleated RBCs ( - 0) #/Diff Toxic Granulation Platelet Estimate RBC Morphology Polychromasia Hypochromasia Anisocytosis Macrocytosis Smear Path Review PT (10.1-12.7) SECONDS INR (0.9-1.3) ABG pH 7.36 (7.35-7.45) ABG pCO2 17.3 L* (35-45) mmHg ABG pO2 100 (80-100) mmHg ABG HCO3 10 L (22-26) mmol/L ABG Total CO2 10 L (21-31) mmol/L ABG O2 Saturation 98 (95-100) % ABG Base Excess -16.0 L (-2-2) mmol/L FiO2 32 Sodium (137-145) mmol/L Potassium (3.4-5.1) mmol/L Chloride (98-107) mmol/L Carbon Dioxide (22-32) mmol/L BUN (7-17) mg/dL Creatinine (0.52-1.04) mg/dL Estimated GFR (>60) mL/min BUN/Creatinine Ratio (6-22) Glucose (80-110) mg/dL Lactate 9.7 H 8.7 H (0.7-2.1) mmol/L Calcium (8.4-10.2) mg/dL Magnesium (1.6-2.3) mg/dL Total Bilirubin (0.2-1.3) mg/dL AST (14-36) IU/L ALT (9-52) IU/L Alkaline Phosphatase (38-126) U/L Total Protein (6.3-8.2) g/dL Albumin (3.5-5.0) g/dL Globulin (1.7-4.1) g/dL Albumin/Globulin Ratio (1.0-2.8) Procalcitonin (<0.5) ng/mL Urine Color Urine Appearance Urine pH (4.5-8.0) Ur Specific [place] (1.000-1.035) Urine Protein (Negative) Urine Glucose (UA) (Negative) g/dL Urine Ketones (NEGATIVE) Urine Occult Blood (Negative) Urine Nitrate (Negative) Urine Bilirubin (NEGATIVE) Urine Urobilinogen (0.2) E.U./dL Ur Leukocyte Esterase (NEGATIVE) Urine RBC (0-5/HPF) Urine WBC (0-5/HPF) Urine Bacteria (None) Ur Culture Indicated? Micro UA Comment Blood Type Antibody Screen Antibody Identification Crossmatch Transfusion React Rpt Donor Unit # Lab Clerical Err Check Pre-Trans Blood Type Pre-Trans Vis Hemolysis Pre-Trans Antibody Scrn Post-Trans Blood Type Post-Tx Visible Hemolys Post-Trans Antibody Scrn Reaction Path Interpret 04/11/19 04/11/19 04/11/19 Range/Units 02:16 02:38 04:34 WBC 15.1 H (4.5-11.0) X10^3/uL RBC 2.85 L (4.0-5.2) X10^6/uL Hgb 9.0 L (12.0-16.0) g/dL Hct 26.7 L (36-46) % MCV 93.4 D (80-100) fL MCH 31.5 (26-34) PG MCHC 33.7 (30-36) % RDW 17.4 H (11.6-14.8) % Plt Count 69 L (150-400) X10^3/uL Neut % (Auto) 79.8 H (50-75) % Lymph % (Auto) 12.3 L (25-40) % [place] % (Auto) 6.4 (3-14) % Eos % (Auto) 0.8 L (2-4) % Baso % (Auto) 0.7 (0-2) % Neut # (Auto) 01454 H (6817-5284) /uL Lymph # (Auto) 1900 (9647-8515) /uL [place] # (Auto) 1000 H (0-900) /uL Eos # (Auto) 100 (0-450) /uL Baso # (Auto) 100 (0-100) /uL Total Counted Seg Neutrophils % (38-70) % Band Neutrophils % (3-7) % Lymphocytes % (Manual) (25-45) % Atypical Lymphs % ( - 0) % Monocytes % (Manual) (2-11) % Eosinophils % (Manual) (2-4) % Basophils % (Manual) (0-1) % Myelocytes % (-0) % Neutrophils # (Manual) (6675-8485) /uL Nucleated RBCs ( - 0) #/Diff Toxic Granulation Platelet Estimate RBC Morphology Polychromasia Hypochromasia Anisocytosis Macrocytosis Smear Path Review Cancelled PT (10.1-12.7) SECONDS INR (0.9-1.3) ABG pH (7.35-7.45) ABG pCO2 (35-45) mmHg ABG pO2 (80-100) mmHg ABG HCO3 (22-26) mmol/L ABG Total CO2 (21-31) mmol/L ABG O2 Saturation (95-100) % ABG Base Excess (-2-2) mmol/L FiO2 Sodium 123 L (137-145) mmol/L Potassium 5.1 (3.4-5.1) mmol/L Chloride 96 L (98-107) mmol/L Carbon Dioxide 19 L (22-32) mmol/L BUN 16 (7-17) mg/dL Creatinine 0.70 (0.52-1.04) mg/dL Estimated GFR > 60.0 (>60) mL/min BUN/Creatinine Ratio 22.9 H (6-22) Glucose 135 H (80-110) mg/dL Lactate (0.7-2.1) mmol/L Calcium 6.5 L (8.4-10.2) mg/dL Magnesium (1.6-2.3) mg/dL Total Bilirubin (0.2-1.3) mg/dL AST (14-36) IU/L ALT (9-52) IU/L Alkaline Phosphatase (38-126) U/L Total Protein (6.3-8.2) g/dL Albumin (3.5-5.0) g/dL Globulin (1.7-4.1) g/dL Albumin/Globulin Ratio (1.0-2.8) Procalcitonin (<0.5) ng/mL Urine Color Urine Appearance Urine pH (4.5-8.0) Ur Specific [place] (1.000-1.035) Urine Protein (Negative) Urine Glucose (UA) (Negative) g/dL Urine Ketones (NEGATIVE) Urine Occult Blood (Negative) Urine Nitrate (Negative) Urine Bilirubin (NEGATIVE) Urine Urobilinogen (0.2) E.U./dL Ur Leukocyte Esterase (NEGATIVE) Urine RBC (0-5/HPF) Urine WBC (0-5/HPF) Urine Bacteria (None) Ur Culture Indicated? Micro UA Comment Blood Type Antibody Screen Antibody Identification Crossmatch Transfusion React Rpt Discrepancy/no add'l Donor Unit # [id number] Lab Clerical Err Check No error found Pre-Trans Blood Type O positive Pre-Trans Vis Hemolysis No Pre-Trans Antibody Scrn Positive Post-Trans Blood Type O positive Post-Tx Visible Hemolys Yes Post-Trans Antibody Scrn Positive Reaction Path Interpret 04/11/19 Range/Units 04:34 WBC (4.5-11.0) X10^3/uL RBC (4.0-5.2) X10^6/uL Hgb (12.0-16.0) g/dL Hct (36-46) % MCV (80-100) fL MCH (26-34) PG MCHC (30-36) % RDW (11.6-14.8) % Plt Count (150-400) X10^3/uL Neut % (Auto) (50-75) % Lymph % (Auto) (25-40) % [place] % (Auto) (3-14) % Eos % (Auto) (2-4) % Baso % (Auto) (0-2) % Neut # (Auto) (9584-2091) /uL Lymph # (Auto) (5483-9806) /uL [place] # (Auto) (0-900) /uL Eos # (Auto) (0-450) /uL Baso # (Auto) (0-100) /uL Total Counted Seg Neutrophils % (38-70) % Band Neutrophils % (3-7) % Lymphocytes % (Manual) (25-45) % Atypical Lymphs % ( - 0) % Monocytes % (Manual) (2-11) % Eosinophils % (Manual) (2-4) % Basophils % (Manual) (0-1) % Myelocytes % (-0) % Neutrophils # (Manual) (0832-7455) /uL Nucleated RBCs ( - 0) #/Diff Toxic Granulation Platelet Estimate RBC Morphology Polychromasia Hypochromasia Anisocytosis Macrocytosis Smear Path Review PT (10.1-12.7) SECONDS INR (0.9-1.3) ABG pH (7.35-7.45) ABG pCO2 (35-45) mmHg ABG pO2 (80-100) mmHg ABG HCO3 (22-26) mmol/L ABG Total CO2 (21-31) mmol/L ABG O2 Saturation (95-100) % ABG Base Excess (-2-2) mmol/L FiO2 Sodium (137-145) mmol/L Potassium (3.4-5.1) mmol/L Chloride (98-107) mmol/L Carbon Dioxide (22-32) mmol/L BUN (7-17) mg/dL Creatinine (0.52-1.04) mg/dL Estimated GFR (>60) mL/min BUN/Creatinine Ratio (6-22) Glucose (80-110) mg/dL Lactate 3.3 H (0.7-2.1) mmol/L Calcium (8.4-10.2) mg/dL Magnesium (1.6-2.3) mg/dL Total Bilirubin (0.2-1.3) mg/dL AST (14-36) IU/L ALT (9-52) IU/L Alkaline Phosphatase (38-126) U/L Total Protein (6.3-8.2) g/dL Albumin (3.5-5.0) g/dL Globulin (1.7-4.1) g/dL Albumin/Globulin Ratio (1.0-2.8) Procalcitonin (<0.5) ng/mL Urine Color Urine Appearance Urine pH (4.5-8.0) Ur Specific [place] (1.000-1.035) Urine Protein (Negative) Urine Glucose (UA) (Negative) g/dL Urine Ketones (NEGATIVE) Urine Occult Blood (Negative) Urine Nitrate (Negative) Urine Bilirubin (NEGATIVE) Urine Urobilinogen (0.2) E.U./dL Ur Leukocyte Esterase (NEGATIVE) Urine RBC (0-5/HPF) Urine WBC (0-5/HPF) Urine Bacteria (None) Ur Culture Indicated? Micro UA Comment Blood Type Antibody Screen Antibody Identification Crossmatch Transfusion React Rpt Donor Unit # Lab Clerical Err Check Pre-Trans Blood Type Pre-Trans Vis Hemolysis Pre-Trans Antibody Scrn Post-Trans Blood Type Post-Tx Visible Hemolys Post-Trans Antibody Scrn Reaction Path Interpret <Paul Elliott MD - Last Filed: 04/18/19 19:07> Lab Data Lab Results 04/10/19 04/10/19 04/10/19 Range/Units 17:44 17:44 17:44 WBC 6.9 (4.5-11.0) X10^3/uL RBC 3.10 L (4.0-5.2) X10^6/uL Hgb 8.1 L (12.0-16.0) g/dL Hct 25.4 L (36-46) % MCV 81.9 (80-100) fL MCH 26.1 (26-34) PG MCHC 31.9 (30-36) % RDW 19.4 H (11.6-14.8) % Plt Count 74 L (150-400) X10^3/uL Neut % (Auto) 63.7 (50-75) % Lymph % (Auto) 20.8 L (25-40) % [place] % (Auto) 13.8 (3-14) % Eos % (Auto) 0.9 L (2-4) % Baso % (Auto) 0.8 (0-2) % Neut # (Auto) 4400 (0370-8028) /uL Lymph # (Auto) 1400 (5689-7764) /uL [place] # (Auto) 900 (0-900) /uL Eos # (Auto) 100 (0-450) /uL Baso # (Auto) 100 (0-100) /uL Total Counted Seg Neutrophils % (38-70) % Band Neutrophils % (3-7) % Lymphocytes % (Manual) (25-45) % Atypical Lymphs % ( - 0) % Monocytes % (Manual) (2-11) % Eosinophils % (Manual) (2-4) % Basophils % (Manual) (0-1) % Myelocytes % (-0) % Neutrophils # (Manual) (4279-1419) /uL Nucleated RBCs ( - 0) #/Diff Toxic Granulation Platelet Estimate RBC Morphology Polychromasia Hypochromasia Anisocytosis Macrocytosis Smear Path Review PT (10.1-12.7) SECONDS INR (0.9-1.3) ABG pH (7.35-7.45) ABG pCO2 (35-45) mmHg ABG pO2 (80-100) mmHg ABG HCO3 (22-26) mmol/L ABG Total CO2 (21-31) mmol/L ABG O2 Saturation (95-100) % ABG Base Excess (-2-2) mmol/L FiO2 Sodium 121 L (137-145) mmol/L Potassium 4.5 (3.4-5.1) mmol/L Chloride 90 L (98-107) mmol/L Carbon Dioxide 22 (22-32) mmol/L BUN 13 (7-17) mg/dL Creatinine 0.70 (0.52-1.04) mg/dL Estimated GFR > 60.0 (>60) mL/min BUN/Creatinine Ratio 18.6 (6-22) Glucose 84 (80-110) mg/dL Lactate (0.7-2.1) mmol/L Calcium 7.0 L (8.4-10.2) mg/dL Magnesium (1.6-2.3) mg/dL Total Bilirubin 0.9 (0.2-1.3) mg/dL AST 36 (14-36) IU/L ALT 19 (9-52) IU/L Alkaline Phosphatase 138 H (38-126) U/L Total Protein 5.3 L (6.3-8.2) g/dL Albumin 2.0 L (3.5-5.0) g/dL Globulin 3.3 (1.7-4.1) g/dL Albumin/Globulin Ratio 0.6 L (1.0-2.8) Procalcitonin (<0.5) ng/mL Urine Color Urine Appearance Urine pH (4.5-8.0) Ur Specific [place] (1.000-1.035) Urine Protein (Negative) Urine Glucose (UA) (Negative) g/dL Urine Ketones (NEGATIVE) Urine Occult Blood (Negative) Urine Nitrate (Negative) Urine Bilirubin (NEGATIVE) Urine Urobilinogen (0.2) E.U./dL Ur Leukocyte Esterase (NEGATIVE) Urine RBC (0-5/HPF) Urine WBC (0-5/HPF) Urine Bacteria (None) Ur Culture Indicated? Micro UA Comment Blood Type O Positive Antibody Screen Positive Antibody Identification Anti-c Crossmatch See Detail Transfusion React Rpt Donor Unit # Lab Clerical Err Check Pre-Trans Blood Type Pre-Trans Vis Hemolysis Pre-Trans Antibody Scrn Post-Trans Blood Type Post-Tx Visible Hemolys Post-Trans Antibody Scrn Reaction Path Interpret 04/10/19 04/10/19 04/10/19 Range/Units 17:44 17:44 17:44 WBC (4.5-11.0) X10^3/uL RBC (4.0-5.2) X10^6/uL Hgb (12.0-16.0) g/dL Hct (36-46) % MCV (80-100) fL MCH (26-34) PG MCHC (30-36) % RDW (11.6-14.8) % Plt Count (150-400) X10^3/uL Neut % (Auto) (50-75) % Lymph % (Auto) (25-40) % [place] % (Auto) (3-14) % Eos % (Auto) (2-4) % Baso % (Auto) (0-2) % Neut # (Auto) (0285-5534) /uL Lymph # (Auto) (3346-2384) /uL [place] # (Auto) (0-900) /uL Eos # (Auto) (0-450) /uL Baso # (Auto) (0-100) /uL Total Counted Seg Neutrophils % (38-70) % Band Neutrophils % (3-7) % Lymphocytes % (Manual) (25-45) % Atypical Lymphs % ( - 0) % Monocytes % (Manual) (2-11) % Eosinophils % (Manual) (2-4) % Basophils % (Manual) (0-1) % Myelocytes % (-0) % Neutrophils # (Manual) (3938-4532) /uL Nucleated RBCs ( - 0) #/Diff Toxic Granulation Platelet Estimate RBC Morphology Polychromasia Hypochromasia Anisocytosis Macrocytosis Smear Path Review PT 16.0 H (10.1-12.7) SECONDS INR 1.4 H (0.9-1.3) ABG pH (7.35-7.45) ABG pCO2 (35-45) mmHg ABG pO2 (80-100) mmHg ABG HCO3 (22-26) mmol/L ABG Total CO2 (21-31) mmol/L ABG O2 Saturation (95-100) % ABG Base Excess (-2-2) mmol/L FiO2 Sodium (137-145) mmol/L Potassium (3.4-5.1) mmol/L Chloride (98-107) mmol/L Carbon Dioxide (22-32) mmol/L BUN (7-17) mg/dL Creatinine (0.52-1.04) mg/dL Estimated GFR (>60) mL/min BUN/Creatinine Ratio (6-22) Glucose (80-110) mg/dL Lactate (0.7-2.1) mmol/L Calcium (8.4-10.2) mg/dL Magnesium 1.5 L (1.6-2.3) mg/dL Total Bilirubin (0.2-1.3) mg/dL AST (14-36) IU/L ALT (9-52) IU/L Alkaline Phosphatase (38-126) U/L Total Protein (6.3-8.2) g/dL Albumin (3.5-5.0) g/dL Globulin (1.7-4.1) g/dL Albumin/Globulin Ratio (1.0-2.8) Procalcitonin 0.62 H (<0.5) ng/mL Urine Color Urine Appearance Urine pH (4.5-8.0) Ur Specific [place] (1.000-1.035) Urine Protein (Negative) Urine Glucose (UA) (Negative) g/dL Urine Ketones (NEGATIVE) Urine Occult Blood (Negative) Urine Nitrate (Negative) Urine Bilirubin (NEGATIVE) Urine Urobilinogen (0.2) E.U./dL Ur Leukocyte Esterase (NEGATIVE) Urine RBC (0-5/HPF) Urine WBC (0-5/HPF) Urine Bacteria (None) Ur Culture Indicated? Micro UA Comment Blood Type Antibody Screen Antibody Identification Crossmatch Transfusion React Rpt Donor Unit # Lab Clerical Err Check Pre-Trans Blood Type Pre-Trans Vis Hemolysis Pre-Trans Antibody Scrn Post-Trans Blood Type Post-Tx Visible Hemolys Post-Trans Antibody Scrn Reaction Path Interpret 04/10/19 04/10/19 04/10/19 Range/Units 18:15 19:33 21:06 WBC (4.5-11.0) X10^3/uL RBC (4.0-5.2) X10^6/uL Hgb (12.0-16.0) g/dL Hct (36-46) % MCV (80-100) fL MCH (26-34) PG MCHC (30-36) % RDW (11.6-14.8) % Plt Count (150-400) X10^3/uL Neut % (Auto) (50-75) % Lymph % (Auto) (25-40) % [place] % (Auto) (3-14) % Eos % (Auto) (2-4) % Baso % (Auto) (0-2) % Neut # (Auto) (8981-6338) /uL Lymph # (Auto) (1392-9154) /uL [place] # (Auto) (0-900) /uL Eos # (Auto) (0-450) /uL Baso # (Auto) (0-100) /uL Total Counted Seg Neutrophils % (38-70) % Band Neutrophils % (3-7) % Lymphocytes % (Manual) (25-45) % Atypical Lymphs % ( - 0) % Monocytes % (Manual) (2-11) % Eosinophils % (Manual) (2-4) % Basophils % (Manual) (0-1) % Myelocytes % (-0) % Neutrophils # (Manual) (9424-0503) /uL Nucleated RBCs ( - 0) #/Diff Toxic Granulation Platelet Estimate RBC Morphology Polychromasia Hypochromasia Anisocytosis Macrocytosis Smear Path Review PT (10.1-12.7) SECONDS INR (0.9-1.3) ABG pH (7.35-7.45) ABG pCO2 (35-45) mmHg ABG pO2 (80-100) mmHg ABG HCO3 (22-26) mmol/L ABG Total CO2 (21-31) mmol/L ABG O2 Saturation (95-100) % ABG Base Excess (-2-2) mmol/L FiO2 Sodium (137-145) mmol/L Potassium (3.4-5.1) mmol/L Chloride (98-107) mmol/L Carbon Dioxide (22-32) mmol/L BUN (7-17) mg/dL Creatinine (0.52-1.04) mg/dL Estimated GFR (>60) mL/min BUN/Creatinine Ratio (6-22) Glucose (80-110) mg/dL Lactate 3.6 H 5.3 H (0.7-2.1) mmol/L Calcium (8.4-10.2) mg/dL Magnesium (1.6-2.3) mg/dL Total Bilirubin (0.2-1.3) mg/dL AST (14-36) IU/L ALT (9-52) IU/L Alkaline Phosphatase (38-126) U/L Total Protein (6.3-8.2) g/dL Albumin (3.5-5.0) g/dL Globulin (1.7-4.1) g/dL Albumin/Globulin Ratio (1.0-2.8) Procalcitonin (<0.5) ng/mL Urine Color Yellow Urine Appearance Clear Urine pH 6.5 (4.5-8.0) Ur Specific [place] 1.015 (1.000-1.035) Urine Protein Negative (Negative) Urine Glucose (UA) Negative (Negative) g/dL Urine Ketones Negative (NEGATIVE) Urine Occult Blood Negative (Negative) Urine Nitrate Negative (Negative) Urine Bilirubin Negative (NEGATIVE) Urine Urobilinogen 0.2 (0.2) E.U./dL Ur Leukocyte Esterase Negative (NEGATIVE) Urine RBC None seen (0-5/HPF) Urine WBC None seen (0-5/HPF) Urine Bacteria None seen (None) Ur Culture Indicated? Cult not indicated Micro UA Comment Microscopic normal Blood Type Antibody Screen Antibody Identification Crossmatch Transfusion React Rpt Donor Unit # Lab Clerical Err Check Pre-Trans Blood Type Pre-Trans Vis Hemolysis Pre-Trans Antibody Scrn Post-Trans Blood Type Post-Tx Visible Hemolys Post-Trans Antibody Scrn Reaction Path Interpret 04/10/19 04/10/19 04/10/19 Range/Units 21:25 21:53 21:53 WBC 14.1 H D 23.1 H D (4.5-11.0) X10^3/uL RBC 0.53 L 1.30 L (4.0-5.2) X10^6/uL Hgb 2.0 L* 4.3 L* (12.0-16.0) g/dL Hct 5.9 L* 13.2 L* (36-46) % MCV 111.3 H D 101.7 H D (80-100) fL MCH 37.2 H 33.3 (26-34) PG MCHC 33.5 32.7 (30-36) % RDW 19.7 H 19.3 H (11.6-14.8) % Plt Count 56 L 63 L (150-400) X10^3/uL Neut % (Auto) Not Reportable Not Reportable (50-75) % Lymph % (Auto) Not Reportable Not Reportable (25-40) % [place] % (Auto) Not Reportable Not Reportable (3-14) % Eos % (Auto) Not Reportable Not Reportable (2-4) % Baso % (Auto) Not Reportable Not Reportable (0-2) % Neut # (Auto) Lace T[employer]visor (4729-2878) /uL Lymph # (Auto) Not Reportable Not Reportable (6486-5927) /uL [place] # (Auto) Not Reportable Not Reportable (0-900) /uL Eos # (Auto) Lace Tearing Supervisor (0-450) /uL Baso # (Auto) Not Reportable Not Reportable (0-100) /uL Total Counted 100 Seg Neutrophils % 57.0 57.0 (38-70) % Band Neutrophils % 9.0 H 6.0 (3-7) % Lymphocytes % (Manual) 13.0 L 29.0 (25-45) % Atypical Lymphs % 6.0 H ( - 0) % Monocytes % (Manual) 14.0 H 6.0 (2-11) % Eosinophils % (Manual) 2.0 (2-4) % Basophils % (Manual) 1.0 (0-1) % Myelocytes % 1.0 H (-0) % Neutrophils # (Manual) 9306 H (4525-1552) /uL Nucleated RBCs 16 H 3 H ( - 0) #/Diff Toxic Granulation Present H Platelet Estimate Decreased on smear RBC Morphology Normal morphology See below Polychromasia 2+ H 1+ H Hypochromasia 1+ H Anisocytosis 2+ H Macrocytosis 2+ H 1+ H Smear Path Review PT (10.1-12.7) SECONDS INR (0.9-1.3) ABG pH (7.35-7.45) ABG pCO2 (35-45) mmHg ABG pO2 (80-100) mmHg ABG HCO3 (22-26) mmol/L ABG Total CO2 (21-31) mmol/L ABG O2 Saturation (95-100) % ABG Base Excess (-2-2) mmol/L FiO2 Sodium 123 L (137-145) mmol/L Potassium 5.1 (3.4-5.1) mmol/L Chloride 95 L (98-107) mmol/L Carbon Dioxide 14 L (22-32) mmol/L BUN 12 (7-17) mg/dL Creatinine 0.60 (0.52-1.04) mg/dL Estimated GFR > 60.0 (>60) mL/min BUN/Creatinine Ratio 20.0 (6-22) Glucose 131 H (80-110) mg/dL Lactate (0.7-2.1) mmol/L Calcium 6.8 L (8.4-10.2) mg/dL Magnesium (1.6-2.3) mg/dL Total Bilirubin (0.2-1.3) mg/dL AST (14-36) IU/L ALT (9-52) IU/L Alkaline Phosphatase (38-126) U/L Total Protein (6.3-8.2) g/dL Albumin (3.5-5.0) g/dL Globulin (1.7-4.1) g/dL Albumin/Globulin Ratio (1.0-2.8) Procalcitonin (<0.5) ng/mL Urine Color Urine Appearance Urine pH (4.5-8.0) Ur Specific [place] (1.000-1.035) Urine Protein (Negative) Urine Glucose (UA) (Negative) g/dL Urine Ketones (NEGATIVE) Urine Occult Blood (Negative) Urine Nitrate (Negative) Urine Bilirubin (NEGATIVE) Urine Urobilinogen (0.2) E.U./dL Ur Leukocyte Esterase (NEGATIVE) Urine RBC (0-5/HPF) Urine WBC (0-5/HPF) Urine Bacteria (None) Ur Culture Indicated? Micro UA Comment Blood Type Antibody Screen Antibody Identification Crossmatch Transfusion React Rpt Donor Unit # Lab Clerical Err Check Pre-Trans Blood Type Pre-Trans Vis Hemolysis Pre-Trans Antibody Scrn Post-Trans Blood Type Post-Tx Visible Hemolys Post-Trans Antibody Scrn Reaction Path Interpret 04/10/19 04/10/19 04/10/19 Range/Units 21:53 22:23 23:47 WBC (4.5-11.0) X10^3/uL RBC (4.0-5.2) X10^6/uL Hgb (12.0-16.0) g/dL Hct (36-46) % MCV (80-100) fL MCH (26-34) PG MCHC (30-36) % RDW (11.6-14.8) % Plt Count (150-400) X10^3/uL Neut % (Auto) (50-75) % Lymph % (Auto) (25-40) % [place] % (Auto) (3-14) % Eos % (Auto) (2-4) % Baso % (Auto) (0-2) % Neut # (Auto) (0114-5274) /uL Lymph # (Auto) (1666-2284) /uL [place] # (Auto) (0-900) /uL Eos # (Auto) (0-450) /uL Baso # (Auto) (0-100) /uL Total Counted Seg Neutrophils % (38-70) % Band Neutrophils % (3-7) % Lymphocytes % (Manual) (25-45) % Atypical Lymphs % ( - 0) % Monocytes % (Manual) (2-11) % Eosinophils % (Manual) (2-4) % Basophils % (Manual) (0-1) % Myelocytes % (-0) % Neutrophils # (Manual) (7020-7143) /uL Nucleated RBCs ( - 0) #/Diff Toxic Granulation Platelet Estimate RBC Morphology Polychromasia Hypochromasia Anisocytosis Macrocytosis Smear Path Review PT (10.1-12.7) SECONDS INR (0.9-1.3) ABG pH 7.36 (7.35-7.45) ABG pCO2 17.3 L* (35-45) mmHg ABG pO2 100 (80-100) mmHg ABG HCO3 10 L (22-26) mmol/L ABG Total CO2 10 L (21-31) mmol/L ABG O2 Saturation 98 (95-100) % ABG Base Excess -16.0 L (-2-2) mmol/L FiO2 32 Sodium (137-145) mmol/L Potassium (3.4-5.1) mmol/L Chloride (98-107) mmol/L Carbon Dioxide (22-32) mmol/L BUN (7-17) mg/dL Creatinine (0.52-1.04) mg/dL Estimated GFR (>60) mL/min BUN/Creatinine Ratio (6-22) Glucose (80-110) mg/dL Lactate 9.7 H 8.7 H (0.7-2.1) mmol/L Calcium (8.4-10.2) mg/dL Magnesium (1.6-2.3) mg/dL Total Bilirubin (0.2-1.3) mg/dL AST (14-36) IU/L ALT (9-52) IU/L Alkaline Phosphatase (38-126) U/L Total Protein (6.3-8.2) g/dL Albumin (3.5-5.0) g/dL Globulin (1.7-4.1) g/dL Albumin/Globulin Ratio (1.0-2.8) Procalcitonin (<0.5) ng/mL Urine Color Urine Appearance Urine pH (4.5-8.0) Ur Specific [place] (1.000-1.035) Urine Protein (Negative) Urine Glucose (UA) (Negative) g/dL Urine Ketones (NEGATIVE) Urine Occult Blood (Negative) Urine Nitrate (Negative) Urine Bilirubin (NEGATIVE) Urine Urobilinogen (0.2) E.U./dL Ur Leukocyte Esterase (NEGATIVE) Urine RBC (0-5/HPF) Urine WBC (0-5/HPF) Urine Bacteria (None) Ur Culture Indicated? Micro UA Comment Blood Type Antibody Screen Antibody Identification Crossmatch Transfusion React Rpt Donor Unit # Lab Clerical Err Check Pre-Trans Blood Type Pre-Trans Vis Hemolysis Pre-Trans Antibody Scrn Post-Trans Blood Type Post-Tx Visible Hemolys Post-Trans Antibody Scrn Reaction Path Interpret 04/11/19 04/11/19 04/11/19 Range/Units 02:16 02:38 04:34 WBC 15.1 H (4.5-11.0) X10^3/uL RBC 2.85 L (4.0-5.2) X10^6/uL Hgb 9.0 L (12.0-16.0) g/dL Hct 26.7 L (36-46) % MCV 93.4 D (80-100) fL MCH 31.5 (26-34) PG MCHC 33.7 (30-36) % RDW 17.4 H (11.6-14.8) % Plt Count 69 L (150-400) X10^3/uL Neut % (Auto) 79.8 H (50-75) % Lymph % (Auto) 12.3 L (25-40) % [place] % (Auto) 6.4 (3-14) % Eos % (Auto) 0.8 L (2-4) % Baso % (Auto) 0.7 (0-2) % Neut # (Auto) 65362 H (0959-3858) /uL Lymph # (Auto) 1900 (4155-5313) /uL [place] # (Auto) 1000 H (0-900) /uL Eos # (Auto) 100 (0-450) /uL Baso # (Auto) 100 (0-100) /uL Total Counted Seg Neutrophils % (38-70) % Band Neutrophils % (3-7) % Lymphocytes % (Manual) (25-45) % Atypical Lymphs % ( - 0) % Monocytes % (Manual) (2-11) % Eosinophils % (Manual) (2-4) % Basophils % (Manual) (0-1) % Myelocytes % (-0) % Neutrophils # (Manual) (0201-4871) /uL Nucleated RBCs ( - 0) #/Diff Toxic Granulation Platelet Estimate RBC Morphology Polychromasia Hypochromasia Anisocytosis Macrocytosis Smear Path Review Cancelled PT (10.1-12.7) SECONDS INR (0.9-1.3) ABG pH (7.35-7.45) ABG pCO2 (35-45) mmHg ABG pO2 (80-100) mmHg ABG HCO3 (22-26) mmol/L ABG Total CO2 (21-31) mmol/L ABG O2 Saturation (95-100) % ABG Base Excess (-2-2) mmol/L FiO2 Sodium 123 L (137-145) mmol/L Potassium 5.1 (3.4-5.1) mmol/L Chloride 96 L (98-107) mmol/L Carbon Dioxide 19 L (22-32) mmol/L BUN 16 (7-17) mg/dL Creatinine 0.70 (0.52-1.04) mg/dL Estimated GFR > 60.0 (>60) mL/min BUN/Creatinine Ratio 22.9 H (6-22) Glucose 135 H (80-110) mg/dL Lactate (0.7-2.1) mmol/L Calcium 6.5 L (8.4-10.2) mg/dL Magnesium (1.6-2.3) mg/dL Total Bilirubin (0.2-1.3) mg/dL AST (14-36) IU/L ALT (9-52) IU/L Alkaline Phosphatase (38-126) U/L Total Protein (6.3-8.2) g/dL Albumin (3.5-5.0) g/dL Globulin (1.7-4.1) g/dL Albumin/Globulin Ratio (1.0-2.8) Procalcitonin (<0.5) ng/mL Urine Color Urine Appearance Urine pH (4.5-8.0) Ur Specific [place] (1.000-1.035) Urine Protein (Negative) Urine Glucose (UA) (Negative) g/dL Urine Ketones (NEGATIVE) Urine Occult Blood (Negative) Urine Nitrate (Negative) Urine Bilirubin (NEGATIVE) Urine Urobilinogen (0.2) E.U./dL Ur Leukocyte Esterase (NEGATIVE) Urine RBC (0-5/HPF) Urine WBC (0-5/HPF) Urine Bacteria (None) Ur Culture Indicated? Micro UA Comment Blood Type Antibody Screen Antibody Identification Crossmatch Transfusion React Rpt Discrepancy/no add'l Donor Unit # [id number] Lab Clerical Err Check No error found Pre-Trans Blood Type O positive Pre-Trans Vis Hemolysis No Pre-Trans Antibody Scrn Positive Post-Trans Blood Type O positive Post-Tx Visible Hemolys Yes Post-Trans Antibody Scrn Positive Reaction Path Interpret 04/11/19 Range/Units 04:34 WBC (4.5-11.0) X10^3/uL RBC (4.0-5.2) X10^6/uL Hgb (12.0-16.0) g/dL Hct (36-46) % MCV (80-100) fL MCH (26-34) PG MCHC (30-36) % RDW (11.6-14.8) % Plt Count (150-400) X10^3/uL Neut % (Auto) (50-75) % Lymph % (Auto) (25-40) % [place] % (Auto) (3-14) % Eos % (Auto) (2-4) % Baso % (Auto) (0-2) % Neut # (Auto) (1041-6387) /uL Lymph # (Auto) (4822-8433) /uL [place] # (Auto) (0-900) /uL Eos # (Auto) (0-450) /uL Baso # (Auto) (0-100) /uL Total Counted Seg Neutrophils % (38-70) % Band Neutrophils % (3-7) % Lymphocytes % (Manual) (25-45) % Atypical Lymphs % ( - 0) % Monocytes % (Manual) (2-11) % Eosinophils % (Manual) (2-4) % Basophils % (Manual) (0-1) % Myelocytes % (-0) % Neutrophils # (Manual) (6930-6264) /uL Nucleated RBCs ( - 0) #/Diff Toxic Granulation Platelet Estimate RBC Morphology Polychromasia Hypochromasia Anisocytosis Macrocytosis Smear Path Review PT (10.1-12.7) SECONDS INR (0.9-1.3) ABG pH (7.35-7.45) ABG pCO2 (35-45) mmHg ABG pO2 (80-100) mmHg ABG HCO3 (22-26) mmol/L ABG Total CO2 (21-31) mmol/L ABG O2 Saturation (95-100) % ABG Base Excess (-2-2) mmol/L FiO2 Sodium (137-145) mmol/L Potassium (3.4-5.1) mmol/L Chloride (98-107) mmol/L Carbon Dioxide (22-32) mmol/L BUN (7-17) mg/dL Creatinine (0.52-1.04) mg/dL Estimated GFR (>60) mL/min BUN/Creatinine Ratio (6-22) Glucose (80-110) mg/dL Lactate 3.3 H (0.7-2.1) mmol/L Calcium (8.4-10.2) mg/dL Magnesium (1.6-2.3) mg/dL Total Bilirubin (0.2-1.3) mg/dL AST (14-36) IU/L ALT (9-52) IU/L Alkaline Phosphatase (38-126) U/L Total Protein (6.3-8.2) g/dL Albumin (3.5-5.0) g/dL Globulin (1.7-4.1) g/dL Albumin/Globulin Ratio (1.0-2.8) Procalcitonin (<0.5) ng/mL Urine Color Urine Appearance Urine pH (4.5-8.0) Ur Specific [place] (1.000-1.035) Urine Protein (Negative) Urine Glucose (UA) (Negative) g/dL Urine Ketones (NEGATIVE) Urine Occult Blood (Negative) Urine Nitrate (Negative) Urine Bilirubin (NEGATIVE) Urine Urobilinogen (0.2) E.U./dL Ur Leukocyte Esterase (NEGATIVE) Urine RBC (0-5/HPF) Urine WBC (0-5/HPF) Urine Bacteria (None) Ur Culture Indicated? Micro UA Comment Blood Type Antibody Screen Antibody Identification Crossmatch Transfusion React Rpt Donor Unit # Lab Clerical Err Check Pre-Trans Blood Type Pre-Trans Vis Hemolysis Pre-Trans Antibody Scrn Post-Trans Blood Type Post-Tx Visible Hemolys Post-Trans Antibody Scrn Reaction Path Interpret Discharge Plan Departure Patient Disposition: [facility] Clinical Impression: Septic shock, Hyponatremia, Acute GI bleeding, Seizure, Acute encephalopathy Anemia Qualifiers: Anemia type: unspecified type Qualified Code(s): D64.9 - Anemia, unspecified Discharge Date/Time: 04/11/19 10:39 Interventions: ED Discharge Assessment Last Done: 04/11/19 10:40 Prescriptions: No Action ipratropium-albuterol 3 ML solution for nebulization 1 amp NEB QIDP PRN (Reason: Shortness Of Breath) Qty: 0 RF: 0 meloxicam 15 MG tablet 15 mg PO QPM Qty: 0 RF: 0 duloxetine [Cymbalta] 60 MG capsule,delayed release(DR/EC) 60 mg PO BEDTIME Qty: 0 RF: 0 sennosides [senna] 8.6 MG tablet 8.6 tab PO QAM Qty: 0 RF: 0 famotidine 20 mg tablet 20 mg PO DAILY RF: 0 fludrocortisone 0.1 mg tablet 0.2 mg PO DAILY RF: 0 levothyroxine 25 mcg tablet 25 mcg PO DAILY Qty: 30 RF: 0 hydrocortisone 10 mg tablet 10 mg PO BID Qty: 60 RF: 0 alendronate 70 mg tablet 70 mg PO QWEEK RF: 0 fluticasone propion-salmeterol [Wixela Inhub] 500-50 mcg/dose blister with device 1 puff Inhalation BID RF: 0 albuterol sulfate [Ventolin HFA] 90 mcg/actuation HFA aerosol inhaler 2 puff Inhalation Q4H PRN (Reason: Wheezing) RF: 0 furosemide [Lasix] 20 mg tablet 20 mg PO QAM PRN (Reason: edema) Qty: 2 RF: 0 cyclobenzaprine 10 mg tablet 10 mg PO TID PRN (Reason: Muscle Spasm) RF: 0 metoprolol tartrate 25 mg tablet 12.5 mg PO BID RF: 0 buprenorphine-naloxone 4-1 mg film 1 film Sublingual DAILY RF: 0 cromolyn 4 % Drops 1 drp EYE-BOTH PRN RF: 0 lidocaine HCl [Lidocaine Viscous] 2 % Solution 5 ml PO Q4H PRN (Reason: pain) RF: 0 montelukast 10 mg Tablet 10 mg PO QPM RF: 0 ondansetron 4 mg Tablet,Disintegrating 4 mg Translingual PRN PRN (Reason: Nausea) RF: 0 cholecalciferol (vitamin D3) [Vitamin D3] 2,000 unit Capsule 2,000 unit PO DAILY RF: 0 melatonin 3 mg Tablet 6 mg PO BEDTIME Qty: 30 RF: 0 lidocaine 5 % Adhesive Patch,Medicated 1 ea topical DAILY PRN (Reason: Pain, Moderate (4-6)) Qty: 30 RF: 0 ferrous sulfate 325 mg (65 mg iron) tablet 325 mg PO BID RF: 0 potassium chloride 10 mEq capsule, extended release 10 meq PO DAILY RF: 0 Referrals: Donald Hoang DO [Primary Care Provider] - ED Cosign/Signout <Leonela Oh MD - Last Filed: 04/18/19 13:46> Sign Out Provider Sign Out Attestation: pending UA and head CT
[2019-04-10 19:30] LABS: Magnesium 1.5 mg/dL (1.6-2.3)
[2019-04-10 19:39] LABS: Bacteria Urine None Seen; RBC Urine None Seen (0-5/HPF); WBC Urine None Seen (0-5/HPF)
[2019-04-10 19:40] LABS: Appearance Urine UA CLEAR; Bilirubin Urine UA NEGATIVE (NEGATIVE); Color Urine UA YELLOW; Glucose Urine UA NEGATIVE (Negative); Ketones Urine UA NEGATIVE (NEGATIVE); Leukocyte Esterase Urine UA NEGATIVE (NEGATIVE); Nitrite Urine UA NEGATIVE (Negative); Occult Blood Urine UA NEGATIVE (Negative); Protein Urine UA NEGATIVE (Negative); Specific Gravity Urine UA 1.015 (1.000-1.035); Urobilinogen Urine UA 0.2 E.U./dL (0.2); pH Urine UA 6.5 (4.5-8.0)
[2019-04-10] MEDS: HYDROCORTISONE 100 MG/2 ML VIAL IV (19:45)
[2019-04-10 19:54] LABS: Culture Indicated Urine Cult Not Indicated; Urine Comments Microscopic Normal
[2019-04-10 20:20] LABS: Reflexed Lactate in 2 Hours Y
[2019-04-10] MEDS: CEFTRIAXONE 1 GM/50 ML FROZ.PIGGY IV (20:45)
[2019-04-10] MEDS: VANCOMYCIN 1,000 MG/200 ML FROZ.PIGGY 200 MG IV (21:00)
[2019-04-10 21:19] LABS: Lactate 2HR (Lactic Acid Rflx) 5.3 mmol/L (0.7-2.1)
[2019-04-10] MEDS: LORazepam 2 MG/ML INJ 1 MG IV (21:20)
[2019-04-10] MEDS: NOREPINEPHRINE 4 MG in DEXTROSE 5% IN WATER 250 ML 19.05 ML IV (21:30)
[2019-04-10 21:46] LABS: Mean Corpuscular HGB Conc 33.5 % (30-36); Mean Corpuscular Hemoglobin 37.2 PG (26-34); Mean Corpuscular Volume 111.3 fL (80-100); Platelet Count 56 X10^3/uL (150-400); Red Cell Distribution Width 19.7 % (11.6-14.8); White Blood Cell Count 14.1 X10^3/uL (4.5-11.0)
[2019-04-10 22:06] LABS: Add Manual Diff / Slide Review YES; Mean Corpuscular HGB Conc 32.7 % (30-36); Mean Corpuscular Hemoglobin 33.3 PG (26-34); Mean Corpuscular Volume 101.7 fL (80-100); Platelet Count 63 X10^3/uL (150-400); Red Cell Distribution Width 19.3 % (11.6-14.8); White Blood Cell Count 23.1 X10^3/uL (4.5-11.0)
--- NOTE | 2019-04-10 22:06 | PC.NURSE ---
Running note: Went to check on patient @ 1856. Noted hypotension after 1st liter of iv fluids had completed. Order obtained for 2nd liter of fluids. Started Vancomycin after ceftriaxone completed. During this time pt was rythmic breathing and moaning and poorly responsive. (From time of entry & during hanging of vancomycin) upon further assessment found pt to be unresponsive to painful stim, moaning and rythmic breathing unchanged, clenched jaw, eyes deviating to right. Family felt she was in pain. I asked Ernestine Fontaine to assess. ? if seizure activity. Ativan 1 mg iv order obtained and given. Moaning and rythmic breathing / eye deviation stopped after ativan given. Pt continued to be poorly responsive. Alert to general stim, will open eyes when name is called. RR 39-44, placed on Non rebreather during hypotension and weaned to 4 l NC. Sat remains 100 % at this time. 3rd IV placed right ac, labs drawn (No running fluids / meds below stick) & sent. Lactate redrawn and sent. 2 units uncross matched blood called for and hung.
[2019-04-10 22:07] LABS: Hemoglobin 4.3 g/dL (12.0-16.0)
[2019-04-10 22:08] LABS: Hematocrit 13.2 % (36-46)
[2019-04-10 22:11] LABS: Lactate (Lactic Acid) 9.7 mmol/L (0.7-2.1)
[2019-04-10 22:20] LABS: Blood Urea Nitrogen 12 mg/dL (7-17); Calcium 6.8 mg/dL (8.4-10.2); Carbon Dioxide 14 mmol/L (22-32); Chloride 95 mmol/L (98-107); Estimated Glomerular Filt Rate > 60.0 mL/min (>60); Glucose 131 mg/dL (80-110); Sodium 123 mmol/L (137-145)
[2019-04-10 22:21] LABS: HEMOLYSIS 52 (0-50)
[2019-04-10 22:23] LABS: Potassium 5.1 mmol/L (3.4-5.1)
[2019-04-10 22:26] LABS: Red Blood Cell Count 0.53 X10^6/uL (4.0-5.2)
--- NOTE | 2019-04-10 22:26 | PC.NURSE ---
Pt slightly more responsive. Family at bedside. Continues to get transfusion. Platelets ordered per Dr. Elliott.
[2019-04-10 22:30] LABS: Add Manual Diff / Slide Review YES; Hematocrit 5.9 % (36-46)
[2019-04-10 22:36] LABS: HCO3 ABG 10 mmol/L (22-26); Oxygen Saturation ABG 98 % (95-100); PCO2 ABG 17.3 mmHg (35-45); PO2 ABG 100 mmHg (80-100); TCO2 ABG 10 mmol/L (21-31); pH ABG 7.36 (7.35-7.45)
[2019-04-10 22:37] LABS: Fractionated Inspired Oxygen 32
--- NOTE | 2019-04-10 22:45 | PC.NURSE ---
Unit #3 rbc started 2244 uncrossmatched r/t crossmatch unit unavailable, MD Elliott present, verbal order read back. Pt pallor improving, now responsive to voice, slurred speech
--- NOTE | 2019-04-10 22:54 | PC.NURSE ---
2253 contacted by blood bank r/t incompatibility found in uncrossmatched unit, inf stopped, notified, no sign of inf reaction
[2019-04-10] MEDS: PANTOPRAZOLE 40 MG VIAL IV (23:18)
[2019-04-10 23:50] LABS: Anisocytosis 2+; Nucleated Red Blood Cells 3 #/Diff
[2019-04-10 23:53] LABS: Polychromasia 1+
[2019-04-10 23:54] LABS: Macrocytosis 1+; Platelet Estimate Decreased on smear; Toxic Granulation Present
[2019-04-10 23:59] LABS: Reflexed Lactate in 2 Hours Y
[2019-04-11] VITALS (15 sets, daily range): BP systolic 101–117; BP diastolic 60–68; PULSE 89–106; RESP 14–26; TEMP 36.5–38.1; O2SAT 97–100
[2019-04-11 00:05] LABS: Lactate (Lactic Acid) 8.7 mmol/L (0.7-2.1)
[2019-04-11 01:49] LABS: Reflexed Lactate in 2 Hours Y
[2019-04-11 02:47] LABS: Add Manual Diff / Slide Review NO; Basophils Absolute Auto 100 /uL (0-100); Basophils Percent Auto 0.7 % (0-2); Eosinophils Absolute Auto 100 /uL (0-450); Eosinophils Percent Auto 0.8 % (2-4); Lymphocytes Absolute Auto 1900 /uL (1100-4500); Lymphocytes Percent Auto 12.3 % (25-40); Mean Corpuscular HGB Conc 33.7 % (30-36); Mean Corpuscular Hemoglobin 31.5 PG (26-34); Mean Corpuscular Volume 93.4 fL (80-100); Monocytes Absolute Auto 1000 /uL (0-900); Monocytes Percent Auto 6.4 % (3-14); Neutrophils Absolute Auto 12000 /uL (1500-7000); Neutrophils Percent Auto 79.8 % (50-75); Platelet Count 69 X10^3/uL (150-400); Red Blood Cell Count 2.85 X10^6/uL (4.0-5.2); Red Cell Distribution Width 17.4 % (11.6-14.8); White Blood Cell Count 15.1 X10^3/uL (4.5-11.0)
[2019-04-11 02:50] LABS: Hematocrit 26.7 % (36-46)
[2019-04-11] MEDS: ACETAMINOPHEN 650 MG SUPP PR (02:55)
--- NOTE | 2019-04-11 04:11 | DI.CT.S_ITS ---
PROCEDURE: CT ABDOMEN PELVIS W CON INDICATIONS: Sepsis. GI bleed. TECHNIQUE: After the administration of intravenous contrast, 5 mm thick sections acquired from the diaphragm to the symphysis. 5 mm coronal and sagittal reformats were acquired. For radiation dose reduction, the following was used: automated exposure control, adjustment of mA and/or kV according to patient size. COMPARISON: [facility], CT, CT HEAD/BRAIN WO CON, 04/10/2019, 19:11. [facility], CT, CT ANGIO CHEST PE PROTOCOL, 02/15/2019, 13:11. FINDINGS: Image quality: Excellent. ABDOMEN: Lung bases: Small bilateral pleural effusions. Bibasilar atelectasis. Bibasilar mucus plugging. Mild cardiomegaly. Solid organs: Liver is normal in size and enhancement. Gallbladder is surgically absent. Biliary system is non dilated. Pancreas enhances normally. Again noted is splenomegaly. There is a low density lesion in the spleen measuring 4.8 cm. It may potentially represent infarct. Also, consider lymphoma. There is an indeterminate right adrenal mass measuring 3.0 x 3.3 cm. Kidneys demonstrate normal size and enhancement, without hydronephrosis. Peritoneum and bowel: Diffuse thickening and edema of the wall of the stomach. Question possible gastric ulcerations. Mild thickening of the duodenum. Mild thickening of the wall of the ascending colon. No dilated loops. Fecal impaction. Nodes and vessels: No retroperitoneal or mesenteric adenopathy by size criteria. Aorta and inferior vena cava are normal in size. Miscellaneous: No ventral hernias. Diffuse anasarca. PELVIS: Genitourinary: A Soliz catheter is present in the bladder. There is air in the bladder. There is diffuse bladder wall thickening. Miscellaneous: No inguinal hernias or adenopathy. Bones: Extensive thoracolumbar morris and pedicle screw fixation from T10-S1. Multiple chronic compression fractures. Previous vertebral percutaneous cement fixation of T9, T10, and T11. No lytic or blastic lesions. Multiple healing left lateral rib fractures. IMPRESSION: 1. Small bilateral pleural effusions, bibasilar atelectasis, bibasilar mucus plugging. 2. Diffuse anasarca. 3. Significant thickening and edema of the wall of the stomach with possible ulcerations. 4. Mild duodenal thickening, suggesting duodenitis. Mild ascending colonic wall thickening. 5. Fecal impaction. 6. Splenomegaly with low density lesion measuring 4.8 cm, of uncertain etiology. Consider infarct. Consider lymphoma. 7. Indeterminate right adrenal mass measuring 3.0 x 3.3 cm. 8. Diffuse bladder wall thickening suggesting cystitis. 9. Multiple healing left rib fractures. 10. Extensive thoracolumbar morris and pedicle screw fixation. Multiple chronic compressions, 3 of which have received percutaneous cement. Comment: Final report is concurrent with preliminary interpretation provided by [facility]. Dictated by: Jarek Gonzalez M.D. on 04/11/2019 at 8:03 Approved by: Jarek Gonzalez M.D. on 04/11/2019 at 8:21
[2019-04-11 04:46] LABS: Lactate (Lactic Acid) 3.3 mmol/L (0.7-2.1)
[2019-04-11 04:47] LABS: BUN Creatinine Ratio 22.9 (6-22); Blood Urea Nitrogen 16 mg/dL (7-17); Calcium 6.5 mg/dL (8.4-10.2); Carbon Dioxide 19 mmol/L (22-32); Chloride 96 mmol/L (98-107); Estimated Glomerular Filt Rate > 60.0 mL/min (>60); Glucose 135 mg/dL (80-110); HEMOLYSIS 30 (0-50); Potassium 5.1 mmol/L (3.4-5.1); Sodium 123 mmol/L (137-145)
--- NOTE | 2019-04-11 05:37 | ED_ITS ---
HPI - Weakness General Chief complaint: Weakness Stated complaint: Weakness Time Seen by Provider: 04/10/19 17:40 Source: patient and family (Her ) Mode of arrival: ambulatory Limitations: altered mental status History of Present Illness HPI Narrative: I accepted this patient in transfer from my partner, Dr. Oh who evaluated this patient shortly prior to shift change. The patient is here with her family. She is here with complaints of confusion and weakness. With these complaints she denies fever, chills or cough. She has no headache. She has no focal neurologic deficits but has generalized weakness. She was admitted to this facility last month with a diagnosis of hyponatremia. Her sodium low was 115 upon admission. She also had a well documented history of anemia, her reassured me that she has been evaluated for GI bleeding and multiple occasions and has never proven have a GI issue. Her H/H at the time admission was 7.5/22.5. With the ongoing concern for anemia she has never had a history PUD, document GI bleeding, hematochezia, or melena. She is not on NSAIDs. Her tells me since her last admission/discharge she has not felt well. She feels like she is not improved. She denies fever, but feels like she is cold all the time. She had also been admitted to this facility January 2019. She had hypernatremia that time. She had previously been diagnosed with influenza, and developed superimposed bacterial pneumonia, sepsis and acute on chronic respiratory failure. I believe it was during this admission that she was diagnosed with Montcalm's disease. She was discharged on hydrocortisone as well as her other pre-existing medications. Going a little further back in her current history, she was admitted earlier in 2018 at [facility], [place], [place]. She had been transferred there from an outside hospital with a bowel obstruction. She underwent lysis of adhesions, and apparently a repair of a diaphragmatic hernia. With admission she had also experienced pneumonia, possibly aspiration pneumonia and septic shock. Her evaluation was initiated by Dr. Oh prior to my assuming care. With her visit at this ER today, she was answering questions but seemed confused. She expressed that she was feeling ill. Prior to coming in today, she had apparently being up and about with her . When initially evaluated her she was a monitor. Systolic blood pressure was in the 90s, heart rate was 110-115. The initial workup by my partner included chest x-ray, EKG, head CT and labs. Lab review reveals the previously stated anemia. The lactic acid level was elevated. That CT was benign. The chest x-ray revealed no evidence of infection. Abdominal exam was not revealing. A cath UA was normal. I initiated a normal saline bolus, Rocephin and vancomycin were ordered for sepsis without identifiable source. She has a penicillin allergy. I was called urgently from the ER department to respond to a code. While I was outside the ER, I was called urgently back to this department. The patient had suffered a seizure she had decreased responsiveness, along with sustained left lateral eye motion. Her RN administered Ativan. I quickly returned, the seizure activity had ceased. The patient was breathing but nonresponsive. Her oxygen saturations were upper 90s-100 with O2 supplements. Her blood pressure was 65- 75 range. She was already being managed for sepsis with IV fluids and antibiotics. Her well documented history of anemia was recognized, but transfusion was ordered due to septic shock. Rectal exam confirmed normal stool, but guaiac testing showed that stool to be heme positive. Repeat H/H had dramatically decreased. It is recognized that the decreased H/H may represent some specimen collection error or lab error. The intent was to proceed with the transfusion due to the septic shock. Awaiting PRBCs, the patient was briefly started on norepinephrine along with the IV fluids she was receiving. Her s ystolic pressure improved over 100, but increased to 135. Transfusion was underway, the norepinephrine was discontinued. As the blood transfusion was being initiated it is noted that Rocephin and vancomycin have been given. As these efforts continued, her heart rate dropped from 130s to 1 teens than 100. She has sustained her blood pressure normally, greater than 100 systolic. She approved the point where she could talk, she is confused. Prior to arranging transfer her blood pressure and heart rate are better than they were at the time but admission to the ER. With this confusion and advance detailed, she had no focal neurologic deficits. The head CT that was obtained, was processed prior to the hypotensive episode. Related Data Home Medications Medication Instructions Recorded Confirmed duloxetine [Cymbalta] 60 mg PO BEDTIME #0 01/10/18 04/10/19 ipratropium-albuterol 1 amp NEB QIDP PRN #0 01/10/18 03/14/19 meloxicam 15 mg PO QPM #0 01/10/18 04/10/19 sennosides [senna] 8.6 tab PO QAM #0 01/10/18 03/14/19 buprenorphine-naloxone 1 film SUBLINGUAL DAILY 02/15/19 03/25/19 cholecalciferol (vitamin D3) 2,000 unit PO DAILY 02/15/19 03/25/19 [Vitamin D3] cromolyn 1 drp EYE-BOTH PRN 02/15/19 03/25/19 cyclobenzaprine 10 mg PO TID PRN 02/15/19 03/25/19 lidocaine HCl [Lidocaine Viscous] 5 ml PO Q4H PRN 02/15/19 03/25/19 metoprolol tartrate 12.5 mg PO BID 02/15/19 04/10/19 montelukast 10 mg PO QPM 02/15/19 04/10/19 ondansetron 4 mg TRANSLINGUAL PRN PRN 02/15/19 03/25/19 famotidine 20 mg PO DAILY 03/14/19 03/25/19 fludrocortisone 0.2 mg PO DAILY 03/14/19 03/25/19 albuterol sulfate [Ventolin HFA] 2 puff INHALATION Q4H PRN 03/25/19 04/10/19 alendronate 70 mg PO QWEEK 03/25/19 03/25/19 fluticasone propion-salmeterol 1 puff INHALATION BID 03/25/19 04/10/19 [Wixela Inhub] ferrous sulfate 325 mg PO BID 04/10/19 04/10/19 fludrocortisone 0.2 mg PO DAILY 04/10/19 04/10/19 potassium chloride 20 meq PO DAILY 04/10/19 04/10/19 Previous Rx's Medication Instructions Recorded lidocaine 1 ea TOPICAL DAILY PRN #30 ea 02/26/19 melatonin 6 mg PO BEDTIME #30 tab 02/26/19 hydrocortisone 10 mg PO BID #60 tab 03/17/19 levothyroxine 25 mcg PO DAILY #30 tab 03/17/19 furosemide [Lasix] 20 mg PO QAM PRN #2 tab 03/25/19 Allergies Allergy/AdvReac Type Severity Reaction Status Date / Time Haemophilus B polysaccharide Allergy Severe ANAPHYLAXIS Verified 03/25/19 14:24 conj w [From PENTACEL ACTHIB COMPONENT (PF)] peanut [PEANUT] Allergy Severe ANAPHYLAXIS Verified 03/25/19 14:24 Tetanus Vaccines and Toxoid Allergy Severe ANAPHYLAXIS Verified 03/25/19 14:24 [TETANUS VACCINES & TOXOID] penicillin G [PENICILLIN G] Allergy Intermediate RASH Verified 03/25/19 14:24 hydroxyzine [HYDROXYZINE] AdvReac Severe HALLUCINATI Verified 03/25/19 14:24 ONS/PARANOI D ibuprofen [IBUPROFEN] AdvReac Intermediate DYSLEXIA Verified 03/25/19 14:24 PEAS Allergy Severe RASH, LIP Uncoded 02/15/19 12:45 SWELLING Review of Systems Review of Systems ROS Unobtainable: All systems reviewed & are unremarkable except as noted in HPI and below Constitutional Reports chills Eyes Denies loss of vision ENT Ears, Nose, Mouth, and Throat: Denies change in voice, Denies mouth pain, Denies nasal congestion, Denies neck pain and Denies sore throat Cardiovascular Denies chest pain, Denies irregular heart rhythm, Denies lightheadedness, Denies palpitations, Denies dyspnea, Denies dyspnea on exertion and Denies orthopnea Respiratory Denies cough, Denies dyspnea, Denies dyspnea on exertion and Denies wheezing Gastrointestinal Gastrointestinal: Denies abdominal pain, Denies change in bowel habits, Denies constipation, Denies diarrhea, Denies nausea and Denies vomiting Genitourinary Denies hematuria, Denies dysuria and Denies flank pain Musculoskeletal Denies back pain, Denies neck pain and Reports stiffness Integumentary/Breasts Denies pruritus, Denies erythema, Denies rash and Denies wounds Neurologic Reports confusion, Denies loss of vision and Denies sensory deficit Comments: Generalized weakness, no focal weakness. Psychiatric Reports confusion Endocrine Denies palpitations Allergic/Immunologic Denies wheezing [facility] Medical History Bronchiectasis (Chronic) Thrombocytopenia (Chronic) Adrenal insufficiency (Chronic) Iron deficiency anemia (Chronic) Hyponatremia (Chronic) Supraventricular tachycardia (Chronic) Chronic respiratory failure with hypoxia (Chronic) Hypothyroidism (Chronic) Major depressive disorder (Chronic) Osteoporosis (Chronic) Opioid dependence (Chronic) Aspiration pneumonia due to food (regurgitated) (Acute) Hypovolemic shock (Acute) Surgical History Abdominal adhesions (Chronic) H/O exploratory laparotomy (Resolved) Social History household members: spouse Smoking Status: Never smoker Social History household members: spouse Smoking Status: Never smoker Exam Initial Vital Signs Initial Vital Signs: Vital Signs Temperature 97.9 F 04/10/19 17:15 Pulse Rate 113 H 04/10/19 17:15 Respiratory Rate 30 H 04/10/19 17:15 Blood Pressure 105/69 04/10/19 17:15 Pulse Oximetry 99 04/10/19 17:15 Const General: cooperative and well developed Nutritional Appearance: well nourished Orientation: alert, awake, oriented x3 and not confused HENMT Head: normocephalic and atraumatic Nose: external nose normal Face and sinus: sinuses nontender, face symmetric and no sinus tenderness Mouth: oral mucosae normal and moist mucous membranes Throat: tonsils normal and uvula midline Eyes General: appearance normal, both eyes and all related structures Eyelids: eyelids normal Conjunctivae: conjunctivae normal Sclera: scleral abnormality Pupils: PERRL EOM: EOM intact bilaterally Direct ophthalmoscopy: fundi normal bilaterally Neck Neck: supple, No tender and No JVD Chest Chest: No crepitus and No tenderness Resp Effort & Inspection: normal respiratory effort, able to speak in complete sentences, no respiratory distress and no use of accessory muscles Auscultation: clear to auscultation bilaterally, no rales, no rhonchi and no wheezes Cardio Rate: regular rate Rhythm: regular rhythm Heart Sounds: no click, no gallops, no murmurs and no rubs Pulses: normal peripheral pulses GI Inspection: non-distended Palpation: soft, no hepatosplenomegaly, No guarding, No pulsatile mass and No tender Auscultation: normal bowel sounds Rectal Exam: normal sphincter tone, No fecal impaction and heme positive stool (The stool was normal in appearance, no melena.) Back/Spine/Pelvis Back: normal to inspection, No back tenderness and No CVA tenderness Skin General: pallor Lesions: no lesions Rashes: no rashes Extrem General: full ROM, no pedal edema and no calf tenderness Psych Appearance: well kempt and disheveled Speech and Movement: speech and movement normal Attitude: cooperative Thought Content: normal and suicidality Judgment: judgment good Course Orders Ordered: ED Orders 04/10/19 23:47 Lactate (Lactic Acid) Stat 04/11/19 02:16 Transfusion Reaction Stat 04/11/19 02:38 Complete Blood Count AUTO DIFF Stat 04/11/19 04:11 CT abdomen pelvis w con Urgent 04/11/19 04:34 Basic Metabolic Panel Stat Lactate (Lactic Acid) Stat Norepinephrine Bitartrate 4 mg (/ Dextrose) 254 mls @ 30.48 mls/hr IV TITRATE FAISAL; Protocol Last Titration: 04/11/19 08:10 Dose: 0 mcg/min, 0 mls/hr Titration: 04/10/19 21:38 Dose: 0 mcg/min, 0 mls/hr Admin: 04/10/19 21:30 Dose: 5 mcg/min, 19.05 mls/hr Discontinued Medications Acetaminophen (Tylenol) 650 mg OH NOW ONE Stop: 04/11/19 02:42 Last Admin: 04/11/19 02:55 Dose: 650 mg Albuterol/Ipratropium (Duoneb) 3 ml INH NOW ONE Stop: 04/10/19 17:21 Last Admin: 04/10/19 17:21 Dose: 3 ml Hydrocortisone (Solu-Cortef) 100 mg IV NOW ONE Stop: 04/10/19 19:21 Last Admin: 04/10/19 19:45 Dose: 100 mg Hydrocortisone (Solu-Cortef) 100 mg IV NOW ONE Stop: 04/10/19 19:49 Last Admin: 04/10/19 21:45 Dose: Not Given Sodium Chloride (Normal Saline 0.9%) 1,000 mls @ 1,000 mls/hr IV BOLUS ONE Stop: 04/10/19 18:45 Last Infusion: 04/10/19 21:00 Dose: 0 mls/hr Admin: 04/10/19 18:24 Dose: 1,000 mls/hr Levofloxacin (Levaquin) 500 mg in 100 mls @ 100 mls/hr IV NOW ONE Stop: 04/10/19 21:08 Vancomycin HCl/Dextrose (Vancomycin) 1,000 mg in 200 mls @ 200 mls/hr IV NOW ONE Stop: 04/10/19 21:14 Last Infusion: 04/10/19 22:00 Dose: 0 mls/hr Admin: 04/10/19 21:00 Dose: 200 mls/hr Ceftriaxone Sodium/Dextrose (Rocephin) 1 gm in 50 mls @ 100 mls/hr IV NOW ONE Stop: 04/10/19 20:44 Last Infusion: 04/10/19 21:15 Dose: 0 mls/hr Admin: 04/10/19 20:45 Dose: 100 mls/hr Sodium Chloride (Normal Saline 0.9%) 1,000 mls @ 1,000 mls/hr IV BOLUS ONE Stop: 04/10/19 22:01 Last Infusion: 04/11/19 05:00 Dose: 100 mls/hr Infusion: 04/10/19 22:00 Dose: 100 mls/hr Infusion: 04/10/19 21:30 Dose: 0 mls/hr Admin: 04/10/19 21:05 Dose: 1,000 mls/hr Lorazepam (Ativan) 1 mg IV NOW ONE Stop: 04/10/19 21:21 Last Admin: 04/10/19 21:20 Dose: 1 mg Pantoprazole Sodium (Protonix) 40 mg IV NOW ONE Stop: 04/10/19 21:33 Last Admin: 04/10/19 23:18 Dose: 40 mg Vital Signs - 8 hr 04/11/19 00:37 04/11/19 00:52 04/11/19 02:15 Temperature 98.7 F 98.9 F 100.5 F H Pulse Rate 103 H 106 H 99 H Respiratory Rate 25 H 26 H 22 Blood Pressure 113/65 111/66 Blood Pressure [Left Arm] 106/63 Pulse Oximetry 100 04/11/19 02:55 04/11/19 03:06 04/11/19 03:30 Temperature 100.5 F H 98.6 F Pulse Rate 96 H 96 H Respiratory Rate 20 23 Blood Pressure Blood Pressure [Left Arm] 101/60 101/61 Pulse Oximetry 99 99 04/11/19 04:34 04/11/19 06:02 04/11/19 06:51 Temperature Pulse Rate 96 H 94 H 90 Respiratory Rate 21 21 23 Blood Pressure Blood Pressure [Left Arm] 102/64 103/66 105/68 Pulse Oximetry 97 100 98 04/11/19 07:40 Temperature Pulse Rate 89 Respiratory Rate 14 Blood Pressure Blood Pressure [Left Arm] 101/66 Pulse Oximetry 100 MDM - Weakness Lab Data Result diagrams: 04/11/19 02:38 04/11/19 04:34 Lab Results 04/10/19 04/10/19 04/10/19 Range/Units 17:44 17:44 17:44 WBC 6.9 (4.5-11.0) X10^3/uL RBC 3.10 L (4.0-5.2) X10^6/uL Hgb 8.1 L (12.0-16.0) g/dL Hct 25.4 L (36-46) % MCV 81.9 (80-100) fL MCH 26.1 (26-34) PG MCHC 31.9 (30-36) % RDW 19.4 H (11.6-14.8) % Plt Count 74 L (150-400) X10^3/uL Neut % (Auto) 63.7 (50-75) % Lymph % (Auto) 20.8 L (25-40) % [place] % (Auto) 13.8 (3-14) % Eos % (Auto) 0.9 L (2-4) % Baso % (Auto) 0.8 (0-2) % Neut # (Auto) 4400 (4817-2704) /uL Lymph # (Auto) 1400 (6908-5237) /uL [place] # (Auto) 900 (0-900) /uL Eos # (Auto) 100 (0-450) /uL Baso # (Auto) 100 (0-100) /uL Seg Neutrophils % (38-70) % Band Neutrophils % (3-7) % Lymphocytes % (Manual) (25-45) % Monocytes % (Manual) (2-11) % Eosinophils % (Manual) (2-4) % Myelocytes % (-0) % Nucleated RBCs ( - 0) #/Diff Toxic Granulation Platelet Estimate RBC Morphology Polychromasia Anisocytosis Macrocytosis PT (10.1-12.7) SECONDS INR (0.9-1.3) ABG pH (7.35-7.45) ABG pCO2 (35-45) mmHg ABG pO2 (80-100) mmHg ABG HCO3 (22-26) mmol/L ABG Total CO2 (21-31) mmol/L ABG O2 Saturation (95-100) % ABG Base Excess (-2-2) mmol/L FiO2 Sodium 121 L (137-145) mmol/L Potassium 4.5 (3.4-5.1) mmol/L Chloride 90 L (98-107) mmol/L Carbon Dioxide 22 (22-32) mmol/L BUN 13 (7-17) mg/dL Creatinine 0.70 (0.52-1.04) mg/dL Estimated GFR > 60.0 (>60) mL/min BUN/Creatinine Ratio 18.6 (6-22) Glucose 84 (80-110) mg/dL Lactate (0.7-2.1) mmol/L Calcium 7.0 L (8.4-10.2) mg/dL Magnesium (1.6-2.3) mg/dL Total Bilirubin 0.9 (0.2-1.3) mg/dL AST 36 (14-36) IU/L ALT 19 (9-52) IU/L Alkaline Phosphatase 138 H (38-126) U/L Total Protein 5.3 L (6.3-8.2) g/dL Albumin 2.0 L (3.5-5.0) g/dL Globulin 3.3 (1.7-4.1) g/dL Albumin/Globulin Ratio 0.6 L (1.0-2.8) Procalcitonin (<0.5) ng/mL Urine Color Urine Appearance Urine pH (4.5-8.0) Ur Specific [place] (1.000-1.035) Urine Protein (Negative) Urine Glucose (UA) (Negative) g/dL Urine Ketones (NEGATIVE) Urine Occult Blood (Negative) Urine Nitrate (Negative) Urine Bilirubin (NEGATIVE) Urine Urobilinogen (0.2) E.U./dL Ur Leukocyte Esterase (NEGATIVE) Urine RBC (0-5/HPF) Urine WBC (0-5/HPF) Urine Bacteria (None) Ur Culture Indicated? Micro UA Comment Blood Type O Positive Antibody Screen Positive Antibody Identification Anti-c Crossmatch See Detail Transfusion React Rpt Lab Clerical Err Check Pre-Trans Vis Hemolysis Post-Tx Visible Hemolys 04/10/19 04/10/19 04/10/19 Range/Units 17:44 17:44 17:44 WBC (4.5-11.0) X10^3/uL RBC (4.0-5.2) X10^6/uL Hgb (12.0-16.0) g/dL Hct (36-46) % MCV (80-100) fL MCH (26-34) PG MCHC (30-36) % RDW (11.6-14.8) % Plt Count (150-400) X10^3/uL Neut % (Auto) (50-75) % Lymph % (Auto) (25-40) % [place] % (Auto) (3-14) % Eos % (Auto) (2-4) % Baso % (Auto) (0-2) % Neut # (Auto) (5406-8050) /uL Lymph # (Auto) (3263-4943) /uL [place] # (Auto) (0-900) /uL Eos # (Auto) (0-450) /uL Baso # (Auto) (0-100) /uL Seg Neutrophils % (38-70) % Band Neutrophils % (3-7) % Lymphocytes % (Manual) (25-45) % Monocytes % (Manual) (2-11) % Eosinophils % (Manual) (2-4) % Myelocytes % (-0) % Nucleated RBCs ( - 0) #/Diff Toxic Granulation Platelet Estimate RBC Morphology Polychromasia Anisocytosis Macrocytosis PT 16.0 H (10.1-12.7) SECONDS INR 1.4 H (0.9-1.3) ABG pH (7.35-7.45) ABG pCO2 (35-45) mmHg ABG pO2 (80-100) mmHg ABG HCO3 (22-26) mmol/L ABG Total CO2 (21-31) mmol/L ABG O2 Saturation (95-100) % ABG Base Excess (-2-2) mmol/L FiO2 Sodium (137-145) mmol/L Potassium (3.4-5.1) mmol/L Chloride (98-107) mmol/L Carbon Dioxide (22-32) mmol/L BUN (7-17) mg/dL Creatinine (0.52-1.04) mg/dL Estimated GFR (>60) mL/min BUN/Creatinine Ratio (6-22) Glucose (80-110) mg/dL Lactate (0.7-2.1) mmol/L Calcium (8.4-10.2) mg/dL Magnesium 1.5 L (1.6-2.3) mg/dL Total Bilirubin (0.2-1.3) mg/dL AST (14-36) IU/L ALT (9-52) IU/L Alkaline Phosphatase (38-126) U/L Total Protein (6.3-8.2) g/dL Albumin (3.5-5.0) g/dL Globulin (1.7-4.1) g/dL Albumin/Globulin Ratio (1.0-2.8) Procalcitonin 0.62 H (<0.5) ng/mL Urine Color Urine Appearance Urine pH (4.5-8.0) Ur Specific [place] (1.000-1.035) Urine Protein (Negative) Urine Glucose (UA) (Negative) g/dL Urine Ketones (NEGATIVE) Urine Occult Blood (Negative) Urine Nitrate (Negative) Urine Bilirubin (NEGATIVE) Urine Urobilinogen (0.2) E.U./dL Ur Leukocyte Esterase (NEGATIVE) Urine RBC (0-5/HPF) Urine WBC (0-5/HPF) Urine Bacteria (None) Ur Culture Indicated? Micro UA Comment Blood Type Antibody Screen Antibody Identification Crossmatch Transfusion React Rpt Lab Clerical Err Check Pre-Trans Vis Hemolysis Post-Tx Visible Hemolys 04/10/19 04/10/19 04/10/19 Range/Units 18:15 19:33 21:06 WBC (4.5-11.0) X10^3/uL RBC (4.0-5.2) X10^6/uL Hgb (12.0-16.0) g/dL Hct (36-46) % MCV (80-100) fL MCH (26-34) PG MCHC (30-36) % RDW (11.6-14.8) % Plt Count (150-400) X10^3/uL Neut % (Auto) (50-75) % Lymph % (Auto) (25-40) % [place] % (Auto) (3-14) % Eos % (Auto) (2-4) % Baso % (Auto) (0-2) % Neut # (Auto) (8644-3621) /uL Lymph # (Auto) (9223-5064) /uL [place] # (Auto) (0-900) /uL Eos # (Auto) (0-450) /uL Baso # (Auto) (0-100) /uL Seg Neutrophils % (38-70) % Band Neutrophils % (3-7) % Lymphocytes % (Manual) (25-45) % Monocytes % (Manual) (2-11) % Eosinophils % (Manual) (2-4) % Myelocytes % (-0) % Nucleated RBCs ( - 0) #/Diff Toxic Granulation Platelet Estimate RBC Morphology Polychromasia Anisocytosis Macrocytosis PT (10.1-12.7) SECONDS INR (0.9-1.3) ABG pH (7.35-7.45) ABG pCO2 (35-45) mmHg ABG pO2 (80-100) mmHg ABG HCO3 (22-26) mmol/L ABG Total CO2 (21-31) mmol/L ABG O2 Saturation (95-100) % ABG Base Excess (-2-2) mmol/L FiO2 Sodium (137-145) mmol/L Potassium (3.4-5.1) mmol/L Chloride (98-107) mmol/L Carbon Dioxide (22-32) mmol/L BUN (7-17) mg/dL Creatinine (0.52-1.04) mg/dL Estimated GFR (>60) mL/min BUN/Creatinine Ratio (6-22) Glucose (80-110) mg/dL Lactate 3.6 H 5.3 H (0.7-2.1) mmol/L Calcium (8.4-10.2) mg/dL Magnesium (1.6-2.3) mg/dL Total Bilirubin (0.2-1.3) mg/dL AST (14-36) IU/L ALT (9-52) IU/L Alkaline Phosphatase (38-126) U/L Total Protein (6.3-8.2) g/dL Albumin (3.5-5.0) g/dL Globulin (1.7-4.1) g/dL Albumin/Globulin Ratio (1.0-2.8) Procalcitonin (<0.5) ng/mL Urine Color Yellow Urine Appearance Clear Urine pH 6.5 (4.5-8.0) Ur Specific [place] 1.015 (1.000-1.035) Urine Protein Negative (Negative) Urine Glucose (UA) Negative (Negative) g/dL Urine Ketones Negative (NEGATIVE) Urine Occult Blood Negative (Negative) Urine Nitrate Negative (Negative) Urine Bilirubin Negative (NEGATIVE) Urine Urobilinogen 0.2 (0.2) E.U./dL Ur Leukocyte Esterase Negative (NEGATIVE) Urine RBC None seen (0-5/HPF) Urine WBC None seen (0-5/HPF) Urine Bacteria None seen (None) Ur Culture Indicated? Cult not indicated Micro UA Comment Microscopic normal Blood Type Antibody Screen Antibody Identification Crossmatch Transfusion React Rpt Lab Clerical Err Check Pre-Trans Vis Hemolysis Post-Tx Visible Hemolys 04/10/19 04/10/19 04/10/19 Range/Units 21:25 21:53 21:53 WBC 14.1 H D 23.1 H D (4.5-11.0) X10^3/uL RBC 0.53 L 1.30 L (4.0-5.2) X10^6/uL Hgb 2.0 L* 4.3 L* (12.0-16.0) g/dL Hct 5.9 L* 13.2 L* (36-46) % MCV 111.3 H D 101.7 H D (80-100) fL MCH 37.2 H 33.3 (26-34) PG MCHC 33.5 32.7 (30-36) % RDW 19.7 H 19.3 H (11.6-14.8) % Plt Count 56 L 63 L (150-400) X10^3/uL Neut % (Auto) Not Reportable Not Reportable (50-75) % Lymph % (Auto) Not Reportable Not Reportable (25-40) % [place] % (Auto) Not Reportable Not Reportable (3-14) % Eos % (Auto) Not Reportable Not Reportable (2-4) % Baso % (Auto) Not Reportable Not Reportable (0-2) % Neut # (Auto) [employer] (6602-9960) /uL Lymph # (Auto) Not Reportable Not Reportable (4774-4000) /uL [place] # (Auto) Not Reportable Not Reportable (0-900) /uL Eos # (Auto) [employer] (0-450) /uL Baso # (Auto) Not Reportable Not Reportable (0-100) /uL Seg Neutrophils % 57.0 (38-70) % Band Neutrophils % 6.0 (3-7) % Lymphocytes % (Manual) 29.0 (25-45) % Monocytes % (Manual) 6.0 (2-11) % Eosinophils % (Manual) 2.0 (2-4) % Myelocytes % 1.0 H (-0) % Nucleated RBCs 3 H ( - 0) #/Diff Toxic Granulation Present H Platelet Estimate Decreased on smear RBC Morphology See below Polychromasia 1+ H Anisocytosis 2+ H Macrocytosis 1+ H PT (10.1-12.7) SECONDS INR (0.9-1.3) ABG pH (7.35-7.45) ABG pCO2 (35-45) mmHg ABG pO2 (80-100) mmHg ABG HCO3 (22-26) mmol/L ABG Total CO2 (21-31) mmol/L ABG O2 Saturation (95-100) % ABG Base Excess (-2-2) mmol/L FiO2 Sodium 123 L (137-145) mmol/L Potassium 5.1 (3.4-5.1) mmol/L Chloride 95 L (98-107) mmol/L Carbon Dioxide 14 L (22-32) mmol/L BUN 12 (7-17) mg/dL Creatinine 0.60 (0.52-1.04) mg/dL Estimated GFR > 60.0 (>60) mL/min BUN/Creatinine Ratio 20.0 (6-22) Glucose 131 H (80-110) mg/dL Lactate (0.7-2.1) mmol/L Calcium 6.8 L (8.4-10.2) mg/dL Magnesium (1.6-2.3) mg/dL Total Bilirubin (0.2-1.3) mg/dL AST (14-36) IU/L ALT (9-52) IU/L Alkaline Phosphatase (38-126) U/L Total Protein (6.3-8.2) g/dL Albumin (3.5-5.0) g/dL Globulin (1.7-4.1) g/dL Albumin/Globulin Ratio (1.0-2.8) Procalcitonin (<0.5) ng/mL Urine Color Urine Appearance Urine pH (4.5-8.0) Ur Specific [place] (1.000-1.035) Urine Protein (Negative) Urine Glucose (UA) (Negative) g/dL Urine Ketones (NEGATIVE) Urine Occult Blood (Negative) Urine Nitrate (Negative) Urine Bilirubin (NEGATIVE) Urine Urobilinogen (0.2) E.U./dL Ur Leukocyte Esterase (NEGATIVE) Urine RBC (0-5/HPF) Urine WBC (0-5/HPF) Urine Bacteria (None) Ur Culture Indicated? Micro UA Comment Blood Type Antibody Screen Antibody Identification Crossmatch Transfusion React Rpt Lab Clerical Err Check Pre-Trans Vis Hemolysis Post-Tx Visible Hemolys 04/10/19 04/10/19 04/10/19 Range/Units 21:53 22:23 23:47 WBC (4.5-11.0) X10^3/uL RBC (4.0-5.2) X10^6/uL Hgb (12.0-16.0) g/dL Hct (36-46) % MCV (80-100) fL MCH (26-34) PG MCHC (30-36) % RDW (11.6-14.8) % Plt Count (150-400) X10^3/uL Neut % (Auto) (50-75) % Lymph % (Auto) (25-40) % [place] % (Auto) (3-14) % Eos % (Auto) (2-4) % Baso % (Auto) (0-2) % Neut # (Auto) (9275-4037) /uL Lymph # (Auto) (2091-8323) /uL [place] # (Auto) (0-900) /uL Eos # (Auto) (0-450) /uL Baso # (Auto) (0-100) /uL Seg Neutrophils % (38-70) % Band Neutrophils % (3-7) % Lymphocytes % (Manual) (25-45) % Monocytes % (Manual) (2-11) % Eosinophils % (Manual) (2-4) % Myelocytes % (-0) % Nucleated RBCs ( - 0) #/Diff Toxic Granulation Platelet Estimate RBC Morphology Polychromasia Anisocytosis Macrocytosis PT (10.1-12.7) SECONDS INR (0.9-1.3) ABG pH 7.36 (7.35-7.45) ABG pCO2 17.3 L* (35-45) mmHg ABG pO2 100 (80-100) mmHg ABG HCO3 10 L (22-26) mmol/L ABG Total CO2 10 L (21-31) mmol/L ABG O2 Saturation 98 (95-100) % ABG Base Excess -16.0 L (-2-2) mmol/L FiO2 32 Sodium (137-145) mmol/L Potassium (3.4-5.1) mmol/L Chloride (98-107) mmol/L Carbon Dioxide (22-32) mmol/L BUN (7-17) mg/dL Creatinine (0.52-1.04) mg/dL Estimated GFR (>60) mL/min BUN/Creatinine Ratio (6-22) Glucose (80-110) mg/dL Lactate 9.7 H 8.7 H (0.7-2.1) mmol/L Calcium (8.4-10.2) mg/dL Magnesium (1.6-2.3) mg/dL Total Bilirubin (0.2-1.3) mg/dL AST (14-36) IU/L ALT (9-52) IU/L Alkaline Phosphatase (38-126) U/L Total Protein (6.3-8.2) g/dL Albumin (3.5-5.0) g/dL Globulin (1.7-4.1) g/dL Albumin/Globulin Ratio (1.0-2.8) Procalcitonin (<0.5) ng/mL Urine Color Urine Appearance Urine pH (4.5-8.0) Ur Specific [place] (1.000-1.035) Urine Protein (Negative) Urine Glucose (UA) (Negative) g/dL Urine Ketones (NEGATIVE) Urine Occult Blood (Negative) Urine Nitrate (Negative) Urine Bilirubin (NEGATIVE) Urine Urobilinogen (0.2) E.U./dL Ur Leukocyte Esterase (NEGATIVE) Urine RBC (0-5/HPF) Urine WBC (0-5/HPF) Urine Bacteria (None) Ur Culture Indicated? Micro UA Comment Blood Type Antibody Screen Antibody Identification Crossmatch Transfusion React Rpt Lab Clerical Err Check Pre-Trans Vis Hemolysis Post-Tx Visible Hemolys 04/11/19 04/11/19 04/11/19 Range/Units 02:16 02:38 04:34 WBC 15.1 H (4.5-11.0) X10^3/uL RBC 2.85 L (4.0-5.2) X10^6/uL Hgb 9.0 L (12.0-16.0) g/dL Hct 26.7 L (36-46) % MCV 93.4 D (80-100) fL MCH 31.5 (26-34) PG MCHC 33.7 (30-36) % RDW 17.4 H (11.6-14.8) % Plt Count 69 L (150-400) X10^3/uL Neut % (Auto) 79.8 H (50-75) % Lymph % (Auto) 12.3 L (25-40) % [place] % (Auto) 6.4 (3-14) % Eos % (Auto) 0.8 L (2-4) % Baso % (Auto) 0.7 (0-2) % Neut # (Auto) 59422 H (6774-1717) /uL Lymph # (Auto) 1900 (1556-6048) /uL [place] # (Auto) 1000 H (0-900) /uL Eos # (Auto) 100 (0-450) /uL Baso # (Auto) 100 (0-100) /uL Seg Neutrophils % (38-70) % Band Neutrophils % (3-7) % Lymphocytes % (Manual) (25-45) % Monocytes % (Manual) (2-11) % Eosinophils % (Manual) (2-4) % Myelocytes % (-0) % Nucleated RBCs ( - 0) #/Diff Toxic Granulation Platelet Estimate RBC Morphology Polychromasia Anisocytosis Macrocytosis PT (10.1-12.7) SECONDS INR (0.9-1.3) ABG pH (7.35-7.45) ABG pCO2 (35-45) mmHg ABG pO2 (80-100) mmHg ABG HCO3 (22-26) mmol/L ABG Total CO2 (21-31) mmol/L ABG O2 Saturation (95-100) % ABG Base Excess (-2-2) mmol/L FiO2 Sodium 123 L (137-145) mmol/L Potassium 5.1 (3.4-5.1) mmol/L Chloride 96 L (98-107) mmol/L Carbon Dioxide 19 L (22-32) mmol/L BUN 16 (7-17) mg/dL Creatinine 0.70 (0.52-1.04) mg/dL Estimated GFR > 60.0 (>60) mL/min BUN/Creatinine Ratio 22.9 H (6-22) Glucose 135 H (80-110) mg/dL Lactate (0.7-2.1) mmol/L Calcium 6.5 L (8.4-10.2) mg/dL Magnesium (1.6-2.3) mg/dL Total Bilirubin (0.2-1.3) mg/dL AST (14-36) IU/L ALT (9-52) IU/L Alkaline Phosphatase (38-126) U/L Total Protein (6.3-8.2) g/dL Albumin (3.5-5.0) g/dL Globulin (1.7-4.1) g/dL Albumin/Globulin Ratio (1.0-2.8) Procalcitonin (<0.5) ng/mL Urine Color Urine Appearance Urine pH (4.5-8.0) Ur Specific [place] (1.000-1.035) Urine Protein (Negative) Urine Glucose (UA) (Negative) g/dL Urine Ketones (NEGATIVE) Urine Occult Blood (Negative) Urine Nitrate (Negative) Urine Bilirubin (NEGATIVE) Urine Urobilinogen (0.2) E.U./dL Ur Leukocyte Esterase (NEGATIVE) Urine RBC (0-5/HPF) Urine WBC (0-5/HPF) Urine Bacteria (None) Ur Culture Indicated? Micro UA Comment Blood Type Antibody Screen Antibody Identification Crossmatch Transfusion React Rpt No discrepancies Lab Clerical Err Check No error found Pre-Trans Vis Hemolysis No Post-Tx Visible Hemolys Yes 04/11/19 Range/Units 04:34 WBC (4.5-11.0) X10^3/uL RBC (4.0-5.2) X10^6/uL Hgb (12.0-16.0) g/dL Hct (36-46) % MCV (80-100) fL MCH (26-34) PG MCHC (30-36) % RDW (11.6-14.8) % Plt Count (150-400) X10^3/uL Neut % (Auto) (50-75) % Lymph % (Auto) (25-40) % [place] % (Auto) (3-14) % Eos % (Auto) (2-4) % Baso % (Auto) (0-2) % Neut # (Auto) (3531-4760) /uL Lymph # (Auto) (3610-2157) /uL [place] # (Auto) (0-900) /uL Eos # (Auto) (0-450) /uL Baso # (Auto) (0-100) /uL Seg Neutrophils % (38-70) % Band Neutrophils % (3-7) % Lymphocytes % (Manual) (25-45) % Monocytes % (Manual) (2-11) % Eosinophils % (Manual) (2-4) % Myelocytes % (-0) % Nucleated RBCs ( - 0) #/Diff Toxic Granulation Platelet Estimate RBC Morphology Polychromasia Anisocytosis Macrocytosis PT (10.1-12.7) SECONDS INR (0.9-1.3) ABG pH (7.35-7.45) ABG pCO2 (35-45) mmHg ABG pO2 (80-100) mmHg ABG HCO3 (22-26) mmol/L ABG Total CO2 (21-31) mmol/L ABG O2 Saturation (95-100) % ABG Base Excess (-2-2) mmol/L FiO2 Sodium (137-145) mmol/L Potassium (3.4-5.1) mmol/L Chloride (98-107) mmol/L Carbon Dioxide (22-32) mmol/L BUN (7-17) mg/dL Creatinine (0.52-1.04) mg/dL Estimated GFR (>60) mL/min BUN/Creatinine Ratio (6-22) Glucose (80-110) mg/dL Lactate 3.3 H (0.7-2.1) mmol/L Calcium (8.4-10.2) mg/dL Magnesium (1.6-2.3) mg/dL Total Bilirubin (0.2-1.3) mg/dL AST (14-36) IU/L ALT (9-52) IU/L Alkaline Phosphatase (38-126) U/L Total Protein (6.3-8.2) g/dL Albumin (3.5-5.0) g/dL Globulin (1.7-4.1) g/dL Albumin/Globulin Ratio (1.0-2.8) Procalcitonin (<0.5) ng/mL Urine Color Urine Appearance Urine pH (4.5-8.0) Ur Specific [place] (1.000-1.035) Urine Protein (Negative) Urine Glucose (UA) (Negative) g/dL Urine Ketones (NEGATIVE) Urine Occult Blood (Negative) Urine Nitrate (Negative) Urine Bilirubin (NEGATIVE) Urine Urobilinogen (0.2) E.U./dL Ur Leukocyte Esterase (NEGATIVE) Urine RBC (0-5/HPF) Urine WBC (0-5/HPF) Urine Bacteria (None) Ur Culture Indicated? Micro UA Comment Blood Type Antibody Screen Antibody Identification Crossmatch Transfusion React Rpt Lab Clerical Err Check Pre-Trans Vis Hemolysis Post-Tx Visible Hemolys Imaging Data Chest x-ray: Radiologist's impression: No acute findings. CT scan - head: Radiologist's impression: No acute findings. CT scan - abdomen: Radiologist's impression: Small bilateral pleural effusions. Probable atelectasis, pneumonia cannot be excluded. Scattered stranding low attenuation throughout the subcutaneous tissue, suggested edema. Diffuse areas of thickening suggestive of inflammatory/infectious process. ECG Data Attestation: I personally reviewed and interpreted this ECG as follows: (Sinus tachycardia rate 109 beats per minute. Low voltage in the extremity leads. Nonspecific ST T wave changes. No ectopy, no acute ST elevations. EKG 2. Was taken after the patient had a seizure: Sinus tachycardia rate 127 beats per minute. No acute changes compared to the initial EKG.) [facility] Narrative Medical decision making narrative: The patient underwent extensive resuscitation for sepsis/septic shock. His also recognize she had a significant edema, a 2nd CBC showed atraumatically lowered H/H but there was no obvious source for that type of bleeding change in obviously benefitted her. Her H&H has improved. In addition transfusion she received hydrocortisone, she also received antibiotics. As this workup Dr. Hernández, hospitalist at [place], [place] was consulted. The confusion nature of the patient evaluation and evaluation was appreciated. Dr. Hernández graciously accepted the patient. Despite the planned transfer, the patient intervene. He decided he wanted his say here at [facility]. He does have a POA with appropriate medical language. I discussed the situation our hospitalist. The patient's again reversed his decision, he was obviously in great distress. [facility] again accepted the patient. Our workup here with fluids, transfusion, abdominal CT and repeat labs continued. Her H/H has improved. Her lactic acid level has dropped from 9-3.3. Prior to discharge her heart rate is 80/90s. Her blood pressure is 114/68. She is responsive and talking, but remains confused. I again discussed the patient with [facility], this time with . The patient's course is updated. Dr. Brown again accepted the patient. Transfer has been requested. Critical Care Time Critical Care Time: Yes Total Critical Care Time: 120 Attestation: Care involved repeated evaluations, extensive chart evaluation, review of multiple labs and x-ray results, multiple critical decisions, and consultation with multiple doctors including our hospitalist and 2 hospitalist at the accepting facility. Discharge Plan Departure Patient Disposition: [facility] Clinical Impression: Septic shock, Hyponatremia, Acute GI bleeding, Seizure, Acute encephalopathy Anemia Qualifiers: Anemia type: unspecified type Qualified Code(s): D64.9 - Anemia, unspecified Prescriptions: No Action ipratropium-albuterol 3 ML solution for nebulization 1 amp NEB QIDP PRN (Reason: Shortness Of Breath) Qty: 0 RF: 0 meloxicam 15 MG tablet 15 mg PO QPM Qty: 0 RF: 0 duloxetine [Cymbalta] 60 MG capsule,delayed release(DR/EC) 60 mg PO BEDTIME Qty: 0 RF: 0 sennosides [senna] 8.6 MG tablet 8.6 tab PO QAM Qty: 0 RF: 0 famotidine 20 mg tablet 20 mg PO DAILY RF: 0 fludrocortisone 0.1 mg tablet 0.2 mg PO DAILY RF: 0 levothyroxine 25 mcg tablet 25 mcg PO DAILY Qty: 30 RF: 0 hydrocortisone 10 mg tablet 10 mg PO BID Qty: 60 RF: 0 alendronate 70 mg tablet 70 mg PO QWEEK RF: 0 fluticasone propion-salmeterol [Wixela Inhub] 500-50 mcg/dose blister with device 1 puff Inhalation BID RF: 0 albuterol sulfate [Ventolin HFA] 90 mcg/actuation HFA aerosol inhaler 2 puff Inhalation Q4H PRN (Reason: Wheezing) RF: 0 furosemide [Lasix] 20 mg tablet 20 mg PO QAM PRN (Reason: edema) Qty: 2 RF: 0 cyclobenzaprine 10 mg tablet 10 mg PO TID PRN (Reason: Muscle Spasm) RF: 0 metoprolol tartrate 25 mg tablet 12.5 mg PO BID RF: 0 buprenorphine-naloxone 4-1 mg film 1 film Sublingual DAILY RF: 0 cromolyn 4 % Drops 1 drp EYE-BOTH PRN RF: 0 lidocaine HCl [Lidocaine Viscous] 2 % Solution 5 ml PO Q4H PRN (Reason: pain) RF: 0 montelukast 10 mg Tablet 10 mg PO QPM RF: 0 ondansetron 4 mg Tablet,Disintegrating 4 mg Translingual PRN PRN (Reason: Nausea) RF: 0 cholecalciferol (vitamin D3) [Vitamin D3] 2,000 unit Capsule 2,000 unit PO DAILY RF: 0 melatonin 3 mg Tablet 6 mg PO BEDTIME Qty: 30 RF: 0 lidocaine 5 % Adhesive Patch,Medicated 1 ea topical DAILY PRN (Reason: Pain, Moderate (4-6)) Qty: 30 RF: 0 ferrous sulfate 325 mg (65 mg iron) tablet 325 mg PO BID RF: 0 fludrocortisone 0.1 mg tablet 0.2 mg PO DAILY RF: 0 potassium chloride 20 mEq tablet extended release 20 meq PO DAILY RF: 0 Referrals: Donald Hoang DO [Primary Care Provider] -
[2019-04-11 06:34] LABS: Reflexed Lactate in 2 Hours Y
--- NOTE | 2019-04-11 08:12 | PC.NURSE ---
pt is resting. denies complaints. asked Dr. Elliott if he wanted repeat labs this am. Dr. Elliott requested no further labs for this am. pt is to be transferred to [place].
--- NOTE | 2019-04-11 08:29 | PC.NURSE ---
talked to Mya in blood bank. the first unit of blood (o negative)was uncrossed matched. pt received 50 ml. the blood bank called up to have it stopped since there were antigens discovered in it. pt received 2 more untis of prbcs.. the 3rd unit of blood completed and per blood bank, pt developed a fever and the empty bag and tubing went down to the blood bank for reaction testing. that is still in progress at this time.
[2019-04-11 09:17] LABS: Hypochromasia 1+; Macrocytosis 2+; Neutrophils Absolute Manual 9306 /uL (3000-5900); Nucleated Red Blood Cells 16 #/Diff; Polychromasia 2+; RBC Morphology Normal Morphology; Total Cells Counted 100
--- NOTE | 2019-04-11 10:11 | PC.NURSE ---
pt was able to brush her teeth with toothpaste, gargle with mouthwash. washed and combed pt's hair- with shower cap, applied lotion to her legs and arms. pt sent a message with my help to her . , [facility] called. I updated ADRIEN on pt's progress and her transfer to [place].
--- NOTE | 2019-04-11 10:16 | PC.NURSE ---
pt was able to brush her teeth with toothpaste, and gargle with mouthwash. I washed her hair with a shower cap, lotion on legs and arms. pt was incontinent of large soft brown yellow bm, full bed bath done. , [facility] called. I updated on her condition. Pt wanted to send a text and a picture to her . I helped her do that.
== END 2019-04-11 10:39 | disposition short-term general hospital (02) ==
LOC: ED 17:40 → AC 04-11 06:00
PROVIDERS: Emergency Medicine; Nurse Practitioner Family; Emergency Provider Emergency Medicine; PCP Family Medicine
DX: A41.9 Sepsis, unspecified organism (principal); E87.1 Hypo-osmolality and hyponatremia; K92.2 Gastrointestinal hemorrhage, unspecified; D64.9 Anemia, unspecified; G93.40 Encephalopathy, unspecified; R00.0 Tachycardia, unspecified
CPT/HCPCS: 36415; 36430; 36600; 51701; 70450; 71045; 74177; 80048; 80053; 81001; 82805; 83605; 83735; 84145; 85025; 85610; 86078; 86644; 86850; 86870; 86900; 86901; 86902; 87040; 93005; 93010; 93041; 94640; 96361; 96365; 96368; 96375; 99285; 99291; 99292; P9016; C9113; J1720; J2060; J3370; Q9967